=== PATIENT | male | born 1965 ===

== ENCOUNTER 2022-06-19 21:59 | Emergency (ER) | payer OTHER, SELFPAY ==
--- NOTE | ~2022-06-19 | CT_ITS ---
EXAMINATION: CT ANGIOGRAM OF THE CHEST WITH AND WITHOUT CONTRAST (CT PULMONARY ANGIOGRAM FOR PE) CLINICAL INFORMATION: Reason for Exam Elevated D-dimer , hx mediastinal mass COMPARISON: Chest radiograph yesterday TECHNIQUE: Prior to contrast administration, noncontrast localization images were obtained. Subsequently, multidetector volumetric imaging was performed from the thoracic inlet to below the diaphragms following the administration of 65 mL Omnipaque 350 intravenous contrast. No contrast reaction reported Sagittal, coronal, and MIP oblique sagittal reformatted images were obtained on the CT workstation, uploaded to PACS, and reviewed. This CT examination was performed using dose optimization techniques as appropriate, variously including the following: *Automated exposure control *Adjustment of mA and/or kV according to patient size (this includes techniques or standardized protocols for targeted exams where dose is matched to indication/reason for exam; i.e. extremities or head) *Use of iterative reconstruction technique Total exam dose-length product 218 mGy-cm FINDINGS: QUALITY OF STUDY/CONTRAST BOLUS: Satisfactory. PULMONARY ARTERIES: No central or segmental pulmonary emboli. THORACIC AORTA: No aneurysm or dissection. LUNG: There is a 4 mm perifissural nodule in the left lower lobe (8:199). There is a 3 mm lingular nodule (8:240). No focal consolidation, additional nodules or masses. PLEURA: No pleural effusion or pneumothorax. MEDIASTINUM: Small amount of fluid is present in the anterior mediastinum. Normal heart size. No pericardial effusion. No hilar or mediastinal lymphadenopathy. No evidence of septal bowing or right heart strain. CORONARY ARTERY CALCIFICATION: None visualized on this study. CHEST WALL/AXILLA: No axillary or internal mammary lymphadenopathy. OSSEOUS STRUCTURES: No acute or suspicious osseous abnormality. UPPER ABDOMEN: Liver low attenuation suggestive of hepatic steatosis. No reflux of contrast into the hepatic veins to suggest elevated right heart pressures. CT/CT angio chest PE protocol IMPRESSION: 1. No evidence of pulmonary emboli. 2. Incidental note made of hepatic steatosis and 2 small lung nodules. VTE: negative. 2017 Fleischner Society Recommendations for Lung Nodule(s): Follow-Up based on size (average of long- and short-axis diameters). Use most suspicious nodule for followup. Multiple Solid lung nodules < 6 mm: Follow up management based on most suspicious nodule. In a low-risk patient, no routine follow-up imaging is recommended. In a high-risk patient, a non-contrast Chest CT at 12 months is optional. If performed and the nodule is stable at 12 months, no further follow-up is recommended. These guidelines do not apply to patients younger than 35 years, immunocompromised patients, and patients with cancer. F/u in patients with significant comorbidities as clinically warranted. For lung cancer screening, adhere to Lung-RADS guidelines. Reference: Radiology. 2017 Caleb; 284(1):228-243
--- NOTE | ~2022-06-19 | XR_ITS ---
EXAMINATION: XR CHEST CLINICAL INFORMATION: Dyspnea COMPARISON: None TECHNIQUE: Frontal view of the chest was obtained. FINDINGS: No significant abnormality is noted involving the heart, lungs, mediastinum, bony thorax or soft tissues. XR/XR chest 1V IMPRESSION: Unremarkable examination.
[2022-06-19 22:24] VITALS: BP 111/93; PULSE 73; RESP 24; TEMP 36.8; O2SAT 94; BMI 27.3
--- NOTE | 2022-06-19 22:31 | ECG_ITS ---
Test Reason : SOB Blood Pressure : / mmHG Vent. Rate : 069 BPM Atrial Rate : 069 BPM P-R Int : 140 ms QRS Dur : 092 ms QT Int : 396 ms P-R-T Axes : 032 -19 020 degrees QTc Int : 424 ms Sinus rhythm with sinus arrhythmia with occasional Premature ventricular complexes Otherwise normal ECG No previous ECGs available Referred By: Generic ED Physician Electronically Signed By:QUINN ANTUNEZ
[2022-06-19] MEDS: Albuterol Sulfate (0.083%) 2.5 MG/3 ML VIAL.NEB 5 MG INHALE (23:04)
--- OUTSIDE RECORDS SUMMARY | 2022-06-19 23:08 | XMS_ITS | Continuity of Care Document ---
:1965 Author Organization [facility] Address [address] [place] [id number]- Care Team Providers Name Role Phone Marjorie KUManuel Primary Care Physician Encounter [facility] Date(s): 09/19/21 - 11/12/[address] [id number] Attending Physician: Doni Quick MD Admitting Physician: Doni Quick MD Referring Physician: Michaelle LARES, Sarai Allergies, Adverse Reactions, Alerts No Known Medication Allergies Immunizations Given and Recorded Vaccine Date Status Refusal Reason SARS-CoV-2 (COVID-19) mRNA BNT-162b2 vac 04/17/21 Given SARS-CoV-2 (COVID-19) mRNA BNT-162b2 vac 10/13/20 Recorde d SARS-CoV-2 (COVID-19) mRNA BNT-162b2 vac 09/15/20 Recorde d influenza virus vaccine, inactivated1 05/28/19 Given influenza virus vaccine, inactivated 05/21/18 Given influenza virus vaccine, inactivated 04/02/17 Recorded influenza virus vaccine, inactivated2 01/16/17 Given influenza virus vaccine, inactivated 05/13/16 Recorded influenza virus vaccine, inactivated 01/14/16 Recorded influenza virus vaccine, inactivated 05/18/15 Given influenza virus vaccine, inactivated 03/26/06 Given tetanus/diphtheria/pertussis, acel(Tdap) 06/09/18 Given pneumococcal 23-valent vaccine 07/19/14 Given Pneumococcal Vaccine (oldterm)3 01/23/06 Given Not Given Vaccine Date Status Refusal Reason influenza virus vaccine, inactivated 04/26/18 Not Given Patient Refuses 1Early/Late Reason: Other : Patient [id number] Comment: [01/16/2017] [facility] [id number] Comment: lot # [id number] Medications albuterol 0.083% inhalation solution 3 mL = 2.5 mg, Inhalation, Every 6 hours, PRN Wheezing/Shortness of Breath, # 1 each, 6 Refills, Maintenance, 04/03/21 9:01:00 EST, Solution, [facility]., 175, cm, 04/03/21 8:32:00 EST, Height, 82.4, kg, 07/21/20 11:02:00 EDT, Dry Weight Start Date: 04/03/21 Status: OrderedamLODIPine 10 mg oral tablet 10 mg, 1, tablet, By Mouth, Daily at bedtime, # 30 tablet, Refills 2, Tot. Refills 2, Maintenance, 10/19/21 21:06:00 EDT, Route to Pharmacy Electronically, [facility], Partial fill uponpatient request if the prescription is for a sche... Start Date: 10/19/21 Status: OrderedamLODIPine 10 mg oral tablet 10 mg, 1, tablet, By Mouth, Daily at bedtime, for 90 days, # 90 tablet, Refills 4, Tot. Refills 4, Hard Stop 12/24/21 9:34:00 EDT, 09/30/20 9:34:00 EDT, Route to Pharmacy Electronically, [facility] #[id number], Partial fill upon patient request i... Start Date: 09/30/20 Stop Date: 12/24/21 Status: Orderedaspirin 81 mg oral delayed release tablet 81 mg, 1, tablet, By Mouth, Daily, [facility], # 90 tablet, Refills 3, Tot. Refills 3, Maintenance, 08/09/21 5:53:00 EDT, Route to Pharmacy Electronically, [facility], 175, cm, 04/03/21 8:32:00 EST, Height, 82.4, kg, 07/21/20 11:02:... Start Date: 08/09/21 Status: Orderedatorvastatin 20 mg oral tablet 1 tablet = 20 mg, By Mouth, Daily at bedtime, [facility], # 90 tablet, 1 Refills, Maintenance, 04/03/21 9:05:00 EST, Tablet, [facility] 175, cm, 04/03/21 8:32:00 EST, Height, 82.4, kg, 07/21/20 11:02:00 EDT, Dry Weight Start Date: 04/03/21 Status: Ordereddivalproex sodium 500 mg oral enteric coated tablet 1 tablet = 500 mg, By Mouth, 2 times a day, [facility], # 60 tablet, 0 Refills, Maintenance, 10/11/21 13:36:00 EDT, Tablet, [facility]., 175, cm, 10/05/21 14:47:00 EDT, Height, 82.4, kg, 09/20/21 13:17:00 EDT, Dry Weight Start Date: 10/11/21 Status: Orderedduloxetine 60 mg oral enteric coated capsule 1 capsule = 60 mg, By Mouth, Daily, [facility], # 90 capsule, 2 Refills, Maintenance, 04/03/21 9:05:00 EST, Capsule, [facility], 175, cm, 04/03/21 8:32:00 EST, Height, 82.4, kg, 07/21/20 11:02:00 EDT, Dry Weight Start Date: 04/03/21 Status: OrderedFlonase 50 mcg/inh nasal spray 1 sprays, Nares, Both, 2 times a day, [place] Citizen label please., # 16 Gm, 1 Refills, Maintenance, 09/30/20 9:34:00 EDT, [facility] #[id number], Partial fill upon patient request if the prescription isfor a schedule II opioid drug., 1 sprays Nares, B... Start Date: 09/30/20 Status: Orderedfluticasone-salmeterol 500 mcg-50 mcg inhalation powder 1 puff, Inhalation, 2 times a day, # 1 each, Refills 3, Tot. Refills 3, Maintenance, 10/11/21 13:36:00 EDT, Powder, Route to Pharmacy Electronically, [id number], [facility], 175, cm, 10/05/21 14:47:00 EDT, Hei... Start Date: 10/11/21 Status: Orderedgabapentin 300 mg oral capsule 600 mg, 2, capsule, By Mouth, Daily at bedtime, [facility], # 60 capsule, Refills 3, Tot. Refills3, Maintenance, 10/11/21 13:32:00 EDT, Route to Pharmacy Electronically, [facility].,175, cm, 10/05/21 14:47:00 EDT, Height, 82.4, kg,... Start Date: 10/11/21 Status: OrderedHome Blood Pressure Monitor Home Blood Pressure Monitor, See Instructions, # 1 each, Refills 0, Tot. Refills 0, Maintenance, Home Blood Pressure Monitor Directions: Use as needed to monitor BP at home. Dx: HTN I10 Duration: Lifetime, 09/04/21 11:45:00 EDT, Supply Start Date: 09/04/21 Status: Orderedloratadine 10 mg oral tablet 10 mg, 1, tablet, By Mouth, Daily, [place] Citizen label please., # 30 tablet, Refills 0, Tot. Refills 0, Maintenance, 04/03/21 9:08:00 EST, Route to Pharmacy Electronically, [facility], Partial fill upon patient request if the prescription is... Start Date: 04/03/21 Stop Date: 05/03/21 Status: OrderedLumbar Support Belt Lumbar Support Belt, See Instructions, # 1 each, Refills 0, Tot. Refills 0, Maintenance, Lumbar Support Belt Directions: Use as directed for back pain. Dx: M54.16, M54.9 Duration: Lifetime, 09/19/21 12:28:00 EDT, Supply Start Date: 09/19/21 Status: Orderedmeloxicam 7.5 mg oral tablet 1 tablet = 7.5 mg, By Mouth, Daily, # 10 tablet, 0 Refills, Maintenance, 09/18/21 11:48:00 EDT, Tablet, [facility] #[id number], Partial fill upon patient request if the prescription is for a schedule II opioid drug., 175, cm, 09/18/21 10:48:00 ED... Start Date: 09/18/21 Stop Date: 09/28/21 Status: OrderedmetFORMIN 500 mg oral tablet, extended release 2 tablet = 1,000 mg, By Mouth, 2 times a day, # 120 tablet, 6 Refills, Maintenance, 10/05/21 14:16:00 EDT, [facility] #[id number], Partial fill upon patient request if the prescription is for a schedule II opioid drug., 175, cm, 09/23/21 4:10:00... Start Date: 10/05/21 Status: Orderedmontelukast 10 mg oral tablet 10 mg, 1, tablet, By Mouth, Daily, [facility], # 30 tablet, Refills 11, Tot. Refills 11, Maintenance, 10/03/21 16:07:00 EDT, Route to Pharmacy Electronically, [facility] #[id number], 175, cm, 09/23/21 4:10:00 EDT, Height, 82.4, kg, 09/20/21 13... Start Date: 10/03/21 Status: OrderedNebulizer/ Compressor with Tubing and Mask Nebulizer/ Compressor with Tubing and Mask, See Instructions, # 1 each, Refills 0, Tot. Refills 0, Maintenance, Nebulizer/ Compressor with Tubing and Mask Directions: Use as needed for wheezing Dx: asthma J45 Duration: Lifetime, 09/04/21 11:43:00 E... Start Date: 09/04/21 Status: OrderedPlavix 75 mg oral tablet 75 mg, 1, tablet, By Mouth, Daily, [facility], # 30 tablet, Refills 3, Tot. Refills 3, Maintenance, 08/09/21 5:53:00 EDT, Route to Pharmacy Electronically, [facility], 175, cm, 04/03/21 8:32:00 EST, Height, 82.4, kg, 07/21/20 11:02:... Start Date: 08/09/21 Status: OrderedProAir HFA 90 mcg/inh inhalation aerosol with adapter 1, puffs, Inhalation, Every 4 hours, PRN, # 1 each, Refills 5, Tot. Refills 5, Maintenance, 219:01:00 EST, Aerosol, Route to Pharmacy Electronically, [id number], [facility], 175, cm, 04/03/21 8:32:00 ES... Start Date: 04/03/21 Stop Date: 09/30/21 Status: Ordered Problem List Condition Effective Dates Status Health Status Informant Asthma(Confirmed) Active Chronic Basilar artery Active occlusion(Confirmed) Aborted CVA- Was given tPA(Confirmed) Active Chronic pain syndrome(Confirmed) Active Constipation(Confirmed) Active Depression(Confirmed) Active Dysuria(Confirmed) Active GERD (gastroesophageal reflux Active disease)(Confirmed) CVA, old, hemiparesis(Confirmed) Active Hyperlipidemia(Confirmed) Active Hypertension(Confirmed) Active Elevated MCV(Confirmed) Active Nausea & vomiting(Confirmed) Active Lung nodule - RIGHT UPPER. CTA - done Active at [facility]. 07/2021 - scanned in [facility](Confirmed) *Julissa Fraga, [facility] Care Active Coordinator [phone](Confirmed) Lumbar radicular pain(Confirmed) Active Right hemiplegia(Confirmed) Active Encounter for screening Active colonoscopy(Confirmed) Tobacco dependence(Confirmed) Active DMII (diabetes mellitus, type Active 2)(Confirmed) Vertigo(Confirmed) Active Social History Social History Type Response Smoking Status 5-9 cigarettes (between 1/4 to 1/2 pack)/day in last 30 days entered on: 01/01/20 Sex
--- OUTSIDE RECORDS SUMMARY | 2022-06-19 23:08 | XMS_ITS | Continuity of Care Document ---
:1965 Author Organization [facility] Address [address] [place] [address]- Care Team Providers Name Role Phone Greyson LARES, Mauricio Primary Care Physician Encounter [facility] Date(s): 04/17/19 - 04/27/19 [facility] [address] [place] [address]- [facility] Attending Physician: Jacky Wren Admitting Physician: Jacky Wren Referring Physician: AdmtrJacky Allergies, Adverse Reactions, Alerts No Known Medication Allergies Immunizations Given and Recorded Vaccine Date Status Refusal Reason tetanus/diphtheria/pertussis, acel(Tdap) 06/09/18 Given influenza virus vaccine, inactivated 05/21/18 Given influenza virus vaccine, inactivated1 01/16/17 Given influenza virus vaccine, inactivated 05/18/15 Given influenza virus vaccine, inactivated 03/26/06 Given pneumococcal 23-valent vaccine 07/19/14 Given Pneumococcal Vaccine (oldterm)2 01/23/06 Given Not Given Vaccine Date Status Refusal Reason influenza virus vaccine, inactivated 04/26/18 Not Given Patient Refuses 1Result Comment: [01/16/2017] [facility] [id number] Comment: lot # [id number] Medications AirDuo RespiClick 232 mcg-14 mcg/inh inhalation powder 1, puffs, Inhalation, 2 times a day, # 1 each, Refills 11, Tot. Refills 11, Maintenance, 11/19/18 15:20:42 EDT, Powder, Route to Pharmacy Electronically, [id number], [facility], advair not covered Start Date: 11/19/18 Status: Orderedalbuterol 0.083% inhalation solution 3 mL = 2.5 mg, Inhalation, Every 6 hours, PRN Wheezing/Shortness of Breath, # 1 each, 6 Refills, Maintenance, 06/11/18 16:21:46 EST, Solution Start Date: 06/11/18 Status: Orderedaspirin 81 mg oral delayed release tablet 81 mg, 1, tablet, By Mouth, Daily, # 90 tablet, Refills 4, Tot. Refills 4, Maintenance, 11/19/18 14:00:09 EDT, Route to Pharmacy Electronically, [id number], [facility] Start Date: 11/19/18 Stop Date: 02/12/20 Status: OrderedCymbalta 60 mg oral enteric coated capsule 1 capsule = 60 mg, By Mouth, Daily, # 30 capsule, 6 Refills, Maintenance, 11/19/18 14:00:31 EDT, EC Capsule Start Date: 11/19/18 Status: Ordereddivalproex sodium 500 mg oral enteric coated tablet = 500 mg, By Mouth, 2 times a day, # 60 tablet, 5 Refills, Maintenance, 11/19/18 14:00:23 EDT, Tablet Start Date: 11/19/18 Stop Date: 05/18/19 Status: OrderedDulcolax 5 mg oral enteric coated tablet 2 tablet = 10 mg, By Mouth, Daily, the night before the colonoscopy, # 4 tablet, 0 Refills, Maintenance, 03/19/19 18:13:02 EST Start Date: 03/19/19 Status: OrderedFreestyle Lite Lancets See Instructions, # 50 each, Refills 5, Tot. Refills 5, Maintenance, Use to chek blood sugar daily for Type II Diabetes Mellitus. E11.9, 10/16/18 15:14:32 EDT, Compound Start Date: 10/16/18 Stop Date: 04/14/19 Status: OrderedFreestyle Lite Test Strips See Instructions, # 50 each, Refills 5, Tot. Refills 5, Maintenance, Use to check blood sugar daily for Type II Diabetes Mellitus. E11.9, 10/16/18 15:14:19 EDT, Compound Start Date: 10/16/18 Stop Date: 04/14/19 Status: Orderedgabapentin 600 mg oral tablet 1 tablet = 600 mg, By Mouth, Daily at bedtime, dose changed, # 30 tablet, 5 Refills, Maintenance, 11/19/18 14:02:06 EDT Start Date: 11/19/18 Status: OrderedLidoderm 5% film 1 patch, Topically, Daily, remove patches after 12 hours, Citizen [place] label, # 30 patch, 1 Refills, Maintenance, 06/11/18 16:21:53 EST, 1 patch Topically Daily,Instr:remove patches after 12 hours, Citizen [place] label Start Date: 06/11/18 Status: OrderedmetFORMIN 500 mg oral tablet 1 tablet = 500 mg, By Mouth, 2 times a day, with meals, Citizen [place] label, # 180 tablet, 1 Refills, Maintenance, 11/19/18 13:59:10 EDT, Tablet Start Date: 11/19/18 Stop Date: 05/18/19 Status: Orderedmontelukast 10 mg oral tablet 10 mg, By Mouth, Daily, # 30 tablet, Refills 9, Tot. Refills 9, Maintenance, 11/19/18 14:00:53 EDT, Route to Pharmacy Electronically, [id number], [facility] Start Date: 11/19/18 Status: OrderedNicotine 2 mg gum 1 each = 2 mg, Chew, Every 2 hours, PRN for smoking cessation, # 120 each, 1 Refills, Maintenance, 07/03/18 15:11:24 EST, Gum Start Date: 07/03/18 Status: OrderedNuLYTELY with Flavor Packs oral powder for reconstitution See Instructions, 240 mL By Mouth Every 15 minutes, # 4,000 mL, 0 Refills, Maintenance, 07/29/18 13:55:38 EDT, 240 mL By Mouth Every 15 minutes Start Date: 07/29/18 Status: OrderedNuLYTELY with Flavor Packs oral powder for reconstitution 240 mL, By Mouth, Every 15 minutes, # 4,000 mL, 0 Refills, Maintenance, 03/19/19 18:13:08 EST, 240 mL By Mouth Every 15 minutes Start Date: 03/19/19 Status: OrderedPlavix 75 mg oral tablet 75 mg, By Mouth, Daily, Citizen [place] label, # 90 each, Refills 1, Tot. Refills 1, Maintenance, 11/19/18 14:01:50 EDT, Route to Pharmacy Electronically, [id number], [facility]. Start Date: 11/19/18 Stop Date: 05/18/19 Status: OrderedProAir HFA 90 mcg/inh inhalation aerosol with adapter 1, puffs, Inhalation, Every 4 hours, PRN, # 8.5 Gm, Refills 5, Tot. Refills 5, Maintenance, 12/16/1909:55:13 EDT, Aerosol, Route to Pharmacy Electronically, [id number], [facility] Start Date: 12/16/18 Status: OrderedShingrix intramuscular injection 0.5 mL, Intramuscular, Once, Citizen [place], # 0.5 mL, 0 Refills, Soft Stop, 11/19/18 14:10:40 EDT, 0.5 mL Intramuscular Once,Instr:Citizen Of [place] Start Date: 11/19/18 Status: OrderedVitamin B12 By Mouth, Daily, 0 Refills, Maintenance, 05/20/18 9:54:17 EST Start Date: 05/20/18 Status: Ordered Problem List Condition Effective Dates Status Health Status Informant Chronic Basilar artery Active occlusion(Confirmed) Aborted CVA- Was given tPA(Confirmed) Active Constipation(Confirmed) Active Depression(Confirmed) Active Dysuria(Confirmed) Active Asthma exacerbation(Confirmed) Active Heartburn(Confirmed) Active Elevated MCV(Confirmed) Active Nausea & vomiting(Confirmed) Active Lumbar radicular pain(Confirmed) Active Right hemiplegia(Confirmed) Active Encounter for screening Active colonoscopy(Confirmed) Tobacco dependence(Confirmed) Active DMII (diabetes mellitus, type Active 2)(Confirmed) Vertigo(Confirmed) Active Social History Social History Type Response Smoking Status Former smoker, quit more krissy n 30 days ago entered on: 06/18/18 Sex
--- OUTSIDE RECORDS SUMMARY | 2022-06-19 23:08 | XMS_ITS | Continuity of Care Document ---
:1965 Author Organization [facility] Address [address] [place] [address]- Care Team Providers Name Role Phone Mauricio Rubi MD Primary Care Physician Encounter [facility] Date(s): 06/15/19 - 07/17/19 [facility] [address] [place] [address]- [facility] Attending Physician: Tomi Saavedra MD Admitting Physician: Tomi Saavedra MD Allergies, Adverse Reactions, Alerts No Known Medication Allergies Immunizations Given and Recorded Vaccine Date Status Refusal Reason influenza virus vaccine, inactivated1 05/28/19 Given influenza virus vaccine, inactivated 05/21/18 Given influenza virus vaccine, inactivated2 01/16/17 Given influenza virus vaccine, inactivated 05/18/15 Given influenza virus vaccine, inactivated 03/26/06 Given tetanus/diphtheria/pertussis, acel(Tdap) 06/09/18 Given pneumococcal 23-valent vaccine 07/19/14 Given Pneumococcal Vaccine (oldterm)3 01/23/06 Given Not Given Vaccine Date Status Refusal Reason influenza virus vaccine, inactivated 04/26/18 Not Given Patient Refuses 1Early/Late Reason: Other : Patient [id number] Comment: [01/16/2017] [facility] [id number] Comment: lot # [id number] Medications AirDuo RespiClick 232 mcg-14 mcg/inh inhalation powder 1, puffs, Inhalation, 2 times a day, # 1 each, Refills 11, Tot. Refills 11, Maintenance, 07/07/19 19:06:00 EDT, Powder, Route to Pharmacy Electronically, [id number], [facility], advair not covered , 175,... Start Date: 07/07/19 Status: Orderedalbuterol 0.083% inhalation solution 3 mL = 2.5 mg, Inhalation, Every 6 hours, PRN Wheezing/Shortness of Breath, # 1 each, 6 Refills, Maintenance, 07/07/19 19:06:00 EDT, Solution, [facility], 175, cm, 05/30/19 19:11:00 EST, Height, 84.5, kg, 12/25/18 16:15:00 EDT, Dry Weight Start Date: 07/07/19 Status: Orderedaspirin 81 mg oral delayed release tablet 81 mg, 1, tablet, By Mouth, Daily, # 90 tablet, Refills 4, Tot. Refills 4, Maintenance, 07/07/19 19:06:00 EDT, Route to Pharmacy Electronically, [facility], 175, cm, 05/30/19 19:11:00 EST, Height, 84.5, kg, 12/25/18 16:15:00 EDT, Dry W... Start Date: 07/07/19 Stop Date: 09/29/20 Status: Orderedatorvastatin 20 mg oral tablet 1 tablet = 20 mg, By Mouth, Daily at bedtime, # 30 tablet, 0 Refills, Maintenance, 07/07/19 19:06:00EDT, Tablet, [facility], 175, cm, 05/30/19 19:11:00 EST, Height, 84.5, kg, 12/25/18 16:15:00 EDT, Dry Weight Start Date: 07/07/19 Status: OrderedCymbalta 60 mg oral enteric coated capsule 1 capsule = 60 mg, By Mouth, Daily, # 30 capsule, 6 Refills, Maintenance, 07/07/19 19:06:00 EDT, EC Capsule, [facility], 175, cm, 05/30/19 19:11:00 EST, Height, 84.5, kg, 12/25/18 16:15:00 EDT, Dry Weight Start Date: 07/07/19 Status: Ordereddivalproex sodium 500 mg oral enteric coated tablet = 500 mg, By Mouth, 2 times a day, # 60 tablet, 5 Refills, Maintenance, 07/07/19 19:06:00 EDT, Tablet, [facility] 175, cm, 05/30/19 19:11:00 EST, Height, 84.5, kg, 12/25/18 16:15:00 EDT, Dry Weight Start Date: 07/07/19 Stop Date: 01/03/20 Status: OrderedFreestyle Lite Lancets See Instructions, # 50 each, Refills 5, Tot. Refills 5, Maintenance, Use to chek blood sugar daily for Type II Diabetes Mellitus. E11.9, 07/07/19 19:06:00 EDT, Compound, 175, cm, 05/30/19 19:11:00 EST,Height, 84.5, kg, 12/25/18 16:15:00 EDT, Dry Weight Start Date: 07/07/19 Stop Date: 01/03/20 Status: OrderedFreestyle Lite Test Strips See Instructions, # 50 each, Refills 5, Tot. Refills 5, Maintenance, Use to check blood sugar daily for Type II Diabetes Mellitus. E11.9, 07/07/19 19:06:00 EDT, Compound, 175, cm, 05/30/19 19:11:00 EST, Height, 84.5, kg, 12/25/18 16:15:00 EDT, Dry We... Start Date: 07/07/19 Stop Date: 01/03/20 Status: Orderedgabapentin 600 mg oral tablet 1 tablet = 600 mg, By Mouth, Daily at bedtime, dose changed, # 30 tablet, 5 Refills, Maintenance, 07/07/19 19:06:00 EDT, [facility]., 175, cm, 05/30/19 19:11:00 EST, Height, 84.5, kg, 12/25/18 16:15:00 EDT, Dry Weight Start Date: 07/07/19 Status: Orderedhydrochlorothiazide 25 mg oral tablet 12.5 mg, 0.5, tablet, By Mouth, Daily, # 15 tablet, Refills 0, Tot. Refills 0, Maintenance, 07/06/2018:06:00 EDT, Route to Pharmacy Electronically, [facility], 175, cm, 05/30/19 19:11:00 EST, Height, 84.5, kg, 12/25/18 16:15:00 EDT, D... Start Date: 07/07/19 Status: Orderedlidocaine 5% topical film See Instructions, 1 patch to affected area Topically Daily, remove at HS, # 30 patch, 0 Refills, Maintenance, 07/07/19 19:06:00 EDT, Patch, [facility], 1 patch to affected area Topically Daily, remove at HS, 175, cm, 05/30/19 19:11:00... Start Date: 07/07/19 Status: OrderedmetFORMIN 500 mg oral tablet 1 tablet = 500 mg, By Mouth, 2 times a day, with meals, [place] label, # 180 tablet, 1 Refills, Maintenance, 07/07/19 19:06:00 EDT, Tablet, [facility], 175, cm, 05/30/19 19:11:00 EST, Height, 84.5, kg, 12/25/18 16:15:00 EDT, Dry Weight Start Date: 07/07/19 Stop Date: 01/03/20 Status: Orderedmontelukast 10 mg oral tablet 10 mg, By Mouth, Daily, # 30 tablet, Refills 9, Tot. Refills 9, Maintenance, 07/07/19 19:06:00 EDT, Route to Pharmacy Electronically, [facility], 175, cm, 05/30/19 19:11:00 EST, Height,84.5, kg, 12/25/18 16:15:00 EDT, Dry Weight Start Date: 07/07/19 Status: OrderedNuLYTELY with Flavor Packs oral powder for reconstitution 240 mL, By Mouth, Every 15 minutes, # 4,000 mL, 0 Refills, Maintenance, 07/07/19 19:06:00 EDT, [facility], 240 mL By Mouth Every 15 minutes, 175, cm, 05/30/19 19:11:00 EST, Height, 84.5, kg, 12/25/18 16:15:00 EDT, Dry Weight Start Date: 07/07/19 Status: OrderedPlavix 75 mg oral tablet 75 mg, By Mouth, Daily, [place] label, # 90 each, Refills 1, Tot. Refills 1, Maintenance, 07/07/19 19:06:00 EDT, Route to Pharmacy Electronically, [facility], 175, cm, 05/30/19 19:11:00EST, Height, 84.5, kg, 12/25/18 16:15:00 EDT, Dry... Start Date: 07/07/19 Stop Date: 01/03/20 Status: OrderedProAir HFA 90 mcg/inh inhalation aerosol with adapter 1, puffs, Inhalation, Every 4 hours, PRN, # 8.5 Gm, Refills 0, Tot. Refills 0, Maintenance, 07/06/2018:06:00 EDT, Aerosol, Route to Pharmacy Electronically, [id number], [facility], 175, cm, 05/30/19 19:11:00... Start Date: 07/07/19 Status: Ordered Problem List Condition Effective Dates Status Health Status Informant Chronic Basilar artery Active occlusion(Confirmed) Aborted CVA- Was given tPA(Confirmed) Active Chronic pain syndrome(Confirmed) Active Constipation(Confirmed) Active Depression(Confirmed) Active Dysuria(Confirmed) Active Heartburn(Confirmed) Active CVA, old, hemiparesis(Confirmed) Active Elevated MCV(Confirmed) Active Nausea & vomiting(Confirmed) Active Lumbar radicular pain(Confirmed) Active Right hemiplegia(Confirmed) Active Encounter for screening Active colonoscopy(Confirmed) Tobacco dependence(Confirmed) Active DMII (diabetes mellitus, type Active 2)(Confirmed) Vertigo(Confirmed) Active Social History Social History Type Response Smoking Status Former smoker, quit more krissy n 30 days ago entered on: 06/18/18 Sex
--- OUTSIDE RECORDS SUMMARY | 2022-06-19 23:08 | XMS_ITS | Continuity of Care Document ---
:1965 Author Organization [facility] Address [address] [place] [address]- Care Team Providers Name Role Phone Mauricio Rubi MD Primary Care Physician Encounter [facility] Date(s): 06/26/21 - 08/30/21 [facility] [address] [place] [id number] Attending Physician: Tomi Saavedra MD Admitting Physician: Tomi Saavedra MD Allergies, Adverse Reactions, Alerts No Known Medication Allergies Immunizations Given and Recorded Vaccine Date Status Refusal Reason SARS-CoV-2 (COVID-19) mRNA BNT-162b2 vac 04/17/21 Given influenza virus vaccine, inactivated1 05/28/19 Given influenza [...] Patient Refuses 1Early/Late Reason: Other : Patient [id number] Comment: [01/16/2017] [facility] [id number] Comment: lot # [id number] Medications albuterol 0.083% inhalation solution 3 mL = 2.5 mg, Inhalation, Every 6 hours, PRN Wheezing/Shortness of Breath, # 1 each, 6 Refills, Maintenance, 04/03/21 9:01:00 EST, [facility] 175, cm, 04/03/21 8:32:00 EST, Height, 82.4, kg, 07/21/20 11:02:00 EDT, Dry Weight Start Date: 04/03/21 Status: OrderedamLODIPine 10 mg oral tablet 10 mg, 1, tablet, By Mouth, Daily at bedtime, # 90 tablet, Refills 4, Tot. Refills 4, Maintenance, 09/30/20 9:34:00 EDT, Route to Pharmacy Electronically, [facility][id number], Partial fill uponpatient request if the prescription is for a sche... Start Date: 09/30/20 Stop Date: 12/24/21 Status: Orderedaspirin 81 mg oral delayed release tablet 81 mg, 1, tablet, By Mouth, Daily, ICELANDIC LABEL, # 90 tablet, Refills 3, Tot. Refills 3, Maintenance, 08/09/21 5:53:00 EDT, Route to Pharmacy Electronically, [facility], 175, cm, 04/03/21 8:32:00 EST, Height, 82.4, kg, 07/21/20 11:02:... Start Date: 08/09/21 Status: Orderedatorvastatin 20 mg oral tablet 1 tablet = 20 mg, By Mouth, Daily at bedtime, ICELANDIC LABEL, # 90 tablet, 1 Refills, Maintenance, 04/03/21 9:05:00 EST, Tablet, [facility], 175, cm, 04/03/21 8:32:00 EST, Height, 82.4, kg, 07/21/20 11:02:00 EDT, Dry Weight Start Date: 04/03/21 Status: Ordereddivalproex sodium 500 mg oral enteric coated tablet 1 tablet = 500 mg, By Mouth, 2 times a day, ICELANDIC LABEL, # 60 tablet, 2 Refills, Maintenance, 09/30/20 9:34:00 EDT, Tablet, [facility] #[id number], 175, cm, 07/22/20 7:07:00 EDT, Height, 82.4, kg, 07/21/20 11:02:00 EDT, Dry Weight Start Date: 09/30/20 Status: Orderedduloxetine 60 mg oral enteric coated capsule 1 capsule = 60 mg, By Mouth, Daily, ICELANDIC LABEL, # 90 capsule, 2 Refills, Maintenance, 04/03/21 9:05:00 EST, Capsule, [facility], 175, cm, 04/03/21 8:32:00 EST, Height, 82.4, kg, 07/21/20 11:02:00 EDT, Dry Weight Start Date: 04/03/21 Status: OrderedFlonase 50 mcg/inh nasal spray 1 sprays, Nares, Both, 2 times a day, Turkmen label please., # 16 Gm, 1 Refills, Maintenance, 09/30/20 9:34:00 EDT, [facility] #[id number], Partial fill upon patient request if the prescription isfor a schedule II opioid drug., 1 sprays Nares, B... Start Date: 09/30/20 Status: Orderedfluticasone-salmeterol 500 mcg-50 mcg inhalation powder 1 puff, Inhalation, 2 times a day, # 1 each, Refills 3, Tot. Refills 3, Maintenance, 04/03/21 14:34:00 EST, Powder, Route to Pharmacy Electronically, [id number], [facility], 175, cm, 04/03/21 8:32:00 EST, [facility]... Start Date: 04/03/21 Status: Orderedgabapentin 300 mg oral capsule 600 mg, 2, capsule, By Mouth, Daily at bedtime, ICELANDIC LABEL, # 60 capsule, Refills 3, Tot. Refills3, Maintenance, 04/03/21 9:08:00 EST, Route to Pharmacy Electronically, [facility], 175, cm, 04/03/21 8:32:00 EST, Height, 82.4, kg, 0... Start Date: 04/03/21 Status: Orderedlidocaine 5% topical film See Instructions, 1 patch to affected area Topically Daily, remove at HS, # 30 patch, 2 Refills, Maintenance, 04/03/21 9:01:00 EST, Patch, [facility] 1 patch to affected area TopicallyDaily, remove at HS, 175, cm, 04/03/21 8:32:00 ES... Start Date: 04/03/21 Status: Orderedloratadine 10 mg oral tablet 10 mg, 1, tablet, By Mouth, Daily, Turkmen label please., # 30 tablet, Refills 0, Tot. Refills 0, Maintenance, 04/03/21 9:08:00 EST, Route to Pharmacy Electronically, [facility], Partial fill upon patient request if the prescription is... Start Date: 04/03/21 Stop Date: 05/03/21 Status: OrderedmetFORMIN 500 mg oral tablet 1 tablet = 500 mg, By Mouth, 2 times a day, # 60 tablet, 0 Refills, Maintenance, 08/08/21 18:14:00 EDT, [facility], [facility]/pharmacy #[id number], Partial fill upon patient request if the prescription is for a schedule II opioid drug., 175, cm, 04/03/21 8:32:00 EST,... Start Date: 08/08/21 Stop Date: 09/07/21 Status: Orderedmontelukast 10 mg oral tablet 10 mg, 1, tablet, By Mouth, Daily, ICELANDIC LABEL, # 30 tablet, Refills 11, Tot. Refills 11, Maintenance, 04/03/21 9:08:00 EST, Route to Pharmacy Electronically, [facility], 175, cm, 04/03/21 8:32:00 EST, Height, 82.4, kg, 07/21/20 11:0... Start Date: 04/03/21 Status: OrderedPlavix 75 mg oral tablet 75 mg, 1, tablet, By Mouth, Daily, ICELANDIC LABEL, # 30 tablet, Refills 3, Tot. Refills 3, Maintenance, 08/09/21 5:53:00 EDT, Route to Pharmacy Electronically, [facility] 175, cm, 04/03/21 8:32:00 EST, Height, 82.4, kg, 07/21/20 11:02:... Start Date: 08/09/21 Status: OrderedpredniSONE 10 mg oral tablet See Instructions, 40 mg for 2 days, 20 mg for 2 days 10 mg for 2 days., # 14 tablet, 0 Refills, Maintenance, 07/22/20 10:06:00 EDT, [id number], Partial fill upon patient request if theprescription is for a schedule II opioid drug., 1... Start Date: 07/22/20 Status: OrderedProAir HFA 90 mcg/inh inhalation aerosol with adapter 1, puffs, Inhalation, Every 4 hours, PRN, # 1 each, Refills 5, Tot. Refills 5, Maintenance, 219:01:00 EST, Aerosol, Route to Pharmacy Electronically, [id number], [facility]., 175, cm, 04/03/21 8:32:00 ES... Start Date: 04/03/21 Stop Date: 09/30/21 Status: OrderedSEROquel XR 300 mg oral tablet, extended release 1 tablet = 300 mg, By Mouth, Daily at bedtime, ICELANDIC LABEL, # 30 tablet, 3 Refills, Maintenance, 04/03/21 9:09:00 EST, ER Tablet, [facility], 1 tablet By Mouth Daily at bedtime,Instr:ICELANDIC LABEL, 175, cm, 04/03/21 8:32:00 EST, [facility]... Start Date: 04/03/21 Status: Ordered Problem List Condition Effective Dates Status Health Status Informant Chronic Basilar artery Active occlusion(Confirmed) Aborted CVA- Was given tPA(Confirmed) Active Chronic pain syndrome(Confirmed) Active Constipation(Confirmed) Active Depression(Confirmed) Active Dysuria(Confirmed) Active GERD (gastroesophageal reflux Active disease)(Confirmed) CVA, old, hemiparesis(Confirmed) Active Hyperlipidemia(Confirmed) Active Hypertension(Confirmed) Active Elevated MCV(Confirmed) Active Nausea & vomiting(Confirmed) Active *Julissa Fraga, [facility] Care Active Coordinator [phone](Confirmed) Lumbar radicular pain(Confirmed) Active Right hemiplegia(Confirmed) Active Encounter for screening Active colonoscopy(Confirmed) Tobacco dependence(Confirmed) Active DMII (diabetes mellitus, type Active 2)(Confirmed) Vertigo(Confirmed) Active Social History Social History Type Response Smoking Status 5-9 cigarettes (between 1/4 to 1/2 pack)/day in last 30 days entered on: 01/01/20 Sex
--- OUTSIDE RECORDS SUMMARY | 2022-06-19 23:08 | XMS_ITS | Continuity of Care Document ---
:1965 Author Organization [facility] Address [address] [place] [address]- Care Team Providers Name Role Phone Geryson LARES, Mauricio Primary Care Physician Encounter [facility] Date(s): 07/14/20 - 08/13/20 [facility] [address] [place] [id number] Attending Physician: Jacky Wren Admitting Physician: AdmJacky lambert Referring Physician: AdmtrJacky Allergies, Adverse Reactions, Alerts [...] Patient Refuses 1Early/Late Reason: Other : Patient [id number] Comment: [01/16/2017] [facility] [id number] Comment: lot # [id number] Medications Advair Diskus 250 mcg-50 mcg inhalation powder 1, puffs, Inhalation, 2 times a day, # 180 each, Refills 1, Tot. Refills 1, Maintenance, 07/22/20 10:04:00 EDT, Powder, Route to Pharmacy Electronically, [id number], [facility] #[id number], 175, cm, 07/22/20 7:07:00 EDT,... Start Date: 07/22/20 Status: Orderedalbuterol 0.083% inhalation solution 3 mL = 2.5 mg, Inhalation, Every 6 hours, PRN Wheezing/Shortness of Breath, # 1 each, 6 Refills, Maintenance, 05/30/20 13:29:00 EST, Solution, [facility], 176, cm, 01/18/20 13:37:00 EDT, Height, 84, kg, 03/15/20 6:52:00 EST, Dry Weight Start Date: 05/30/20 Status: OrderedamLODIPine 10 mg oral tablet 10 mg, 1, tablet, By Mouth, Daily at bedtime, # 90 tablet, Refills 4, Tot. Refills 4, Maintenance, 07/14/20 11:22:00 EDT, Route to Pharmacy Electronically, [facility] #[id number], Partial fill upon patient request if the prescription is for a xena... Start Date: 07/14/20 Stop Date: 10/07/21 Status: Orderedaspirin 81 mg oral delayed release tablet 81 mg, 1, tablet, By Mouth, Daily, WALLISIAN LABEL, # 30 tablet, Refills 1, Tot. Refills 1, Maintenance, 05/30/20 13:29:00 EST, Route to Pharmacy Electronically, [facility], 176, cm, 01/18/20 13:37:00 EDT, Height, 84, kg, 03/15/20 6:52:0... Start Date: 05/30/20 Status: Orderedatorvastatin 20 mg oral tablet 1 tablet = 20 mg, By Mouth, Daily at bedtime, WALLISIAN LABEL, # 30 tablet, 1 Refills, Maintenance, 05/30/20 13:29:00 EST, Tablet, [facility], 176, cm, 01/18/20 13:37:00 EDT, Height, 84, kg, 03/15/20 6:52:00 EST, Dry Weight Start Date: 05/30/20 Status: Ordereddivalproex sodium 500 mg oral enteric coated tablet 1 tablet = 500 mg, By Mouth, 2 times a day, WALLISIAN LABEL, # 60 tablet, 2 Refills, Maintenance, 05/30/20 13:29:00 EST, Tablet, [facility], 176, cm, 01/18/20 13:37:00 EDT, Height, 84, kg, 03/15/20 6:52:00 EST, Dry Weight Start Date: 05/30/20 Status: Orderedduloxetine 60 mg oral enteric coated capsule 1 capsule = 60 mg, By Mouth, Daily, WALLISIAN LABEL, # 30 capsule, 1 Refills, Maintenance, 05/30/20 13:29:00 EST, Capsule, [facility], 176, cm, 01/18/20 13:37:00 EDT, Height, 84, kg, 03/15/20 6:52:00 EST, Dry Weight Start Date: 05/30/20 Status: OrderedFlonase 50 mcg/inh nasal spray 1 sprays, Nares, Both, 2 times a day, Surinamese label please., # 16 Gm, 1 Refills, Maintenance, 07/01/20 14:30:00 EST, [facility] #[id number], Partial fill upon patient request if the prescription is for a schedule II opioid drug., 1 sprays Nares,... Start Date: 07/01/20 Status: Orderedgabapentin 300 mg oral capsule 600 mg, 2, capsule, By Mouth, Daily at bedtime, WALLISIAN LABEL, # 60 capsule, Refills 3, Tot. Refills3, Maintenance, 05/30/20 13:29:00 EST, Route to Pharmacy Electronically, [facility],176, cm, 01/18/20 13:37:00 EDT, Height, 84, kg, 1... Start Date: 05/30/20 Status: Orderedlidocaine 5% topical film See Instructions, 1 patch to affected area Topically Daily, remove at HS, # 30 patch, 1 Refills, Maintenance, 08/13/19 13:28:00 EDT, Patch, [facility], 1 patch to affected area Topically Daily, remove at HS, 175, cm, 05/30/19 19:11:00... Start Date: 08/13/19 Status: Orderedloratadine 10 mg oral tablet 10 mg, 1, tablet, By Mouth, Daily, Surinamese label please., # 30 tablet, Refills 0, Tot. Refills 0, Maintenance, 07/01/20 14:30:00 EST, Route to Pharmacy Electronically, [facility] #[id number], Partial fill upon patient request if the prescription... Start Date: 07/01/20 Stop Date: 07/31/20 Status: Orderedmontelukast 10 mg oral tablet 10 mg, 1, tablet, By Mouth, Daily, WALLISIAN LABEL, # 30 tablet, Refills 11, Tot. Refills 11, Maintenance, 07/14/20 11:23:00 EDT, Route to Pharmacy Electronically, [facility] #[id number], 175, cm, 07/14/20 10:19:00 EDT, Height, 86, kg, 07/05/20 1:5... Start Date: 07/14/20 Status: OrderedPlavix 75 mg oral tablet 75 mg, 1, tablet, By Mouth, Daily, WALLISIAN LABEL, # 30 tablet, Refills 3, Tot. Refills 3, Maintenance, 01/18/20 14:12:00 EDT, Route to Pharmacy Electronically, [facility], 176, cm, 01/18/20 13:37:00 EDT, Height, 84, kg, 01/01/20 22:36:... Start Date: 01/18/20 Status: OrderedpredniSONE 10 mg oral tablet See Instructions, 40 mg for 2 days, 20 mg for 2 days 10 mg for 2 days., # 14 tablet, 0 Refills, Maintenance, 07/22/20 10:06:00 EDT, [facility] #[id number], Partial fill upon patient request if theprescription is for a schedule II opioid drug., 1... Start Date: 07/22/20 Status: OrderedProAir HFA 90 mcg/inh inhalation aerosol with adapter 1, puffs, Inhalation, Every 4 hours, PRN, # 1 each, Refills 5, Tot. Refills 5, Maintenance, 07/22/2109:04:00 EDT, Aerosol, Route to Pharmacy Electronically, [id number], [facility] #[id number], 175, cm, 07/22/20 7:07:00... Start Date: 07/22/20 Stop Date: 01/18/21 Status: OrderedSEROquel XR 300 mg oral tablet, extended release 1 tablet = 300 mg, By Mouth, Daily at bedtime, WALLISIAN LABEL, # 30 tablet, 1 Refills, Maintenance, 05/30/20 13:29:00 EST, ER Tablet, [facility], 1 tablet By Mouth Daily at bedtime,Instr:WALLISIAN LABEL, 176, cm, 01/18/20 13:37:00 EDT, .. Start Date: 05/30/20 Status: Ordered Problem List Condition Effective Dates Status Health Status Informant Chronic Basilar artery Active occlusion(Confirmed) Aborted CVA- Was given tPA(Confirmed) Active Chronic pain syndrome(Confirmed) Active Constipation(Confirmed) Active Depression(Confirmed) Active Dysuria(Confirmed) Active GERD (gastroesophageal reflux Active disease)(Confirmed) CVA, old, hemiparesis(Confirmed) Active Hyperlipidemia(Confirmed) Active Hypertension(Confirmed) Active Elevated MCV(Confirmed) Active Nausea & vomiting(Confirmed) Active *Julissa Fraga, [facility] Care Active Coordinator [phone](Confirmed) Lumbar radicular pain(Confirmed) Active Right hemiplegia(Confirmed) Active Encounter for screening Active colonoscopy(Confirmed) Tobacco dependence(Confirmed) Active DMII (diabetes mellitus, type Active 2)(Confirmed) Vertigo(Confirmed) Active Social History Social History Type Response Smoking Status 5-9 cigarettes (between 1/4 to 1/2 pack)/day in last 30 days entered on: 01/01/20 Sex
--- OUTSIDE RECORDS SUMMARY | 2022-06-19 23:08 | XMS_ITS | Continuity of Care Document ---
:1965 Author Organization [facility] Address [address] [place] [id number]- Care Team Providers Name Role Phone Mauricio Rubi MD Primary Care Physician Encounter [facility] Date(s): 12/14/19 - 01/13/20 [place] [address]- [facility] Attending Physician: AdmJacky lambert Admitting Physician: Admtr, [id number] Referring Physician: Admtr, Ar8 Allergies, Adverse Reactions, Alerts No Known Medication [...] Patient Refuses 1Early/Late Reason: Other : Patient [id number] Comment: [01/16/2017] [facility] [id number] Comment: lot # [id number] Medications acetaminophen 325 mg oral tablet 650 mg, 2, tablet, By Mouth, 4 times a day, PRN, as needed for headache/pain not to exceed 4000 mg/day ETHIOPIAN LABEL, # 50 tablet, Refills 1, Tot. Refills 1, Acute 03/10/20 10:19:00 EST, Pain , Mild, 01/08/20 10:18:00 EDT, Route to Pharmacy Electron... Start Date: 01/08/20 Stop Date: 03/10/20 Status: OrderedAirDuo RespiClick 232 mcg-14 mcg/inh inhalation powder 1, puffs, Inhalation, 2 times a day, # 1 each, Refills 11, Tot. Refills 11, Maintenance, 07/07/19 19:06:00 EDT, Powder, Route to Pharmacy Electronically, [id number], [facility], advair not covered , 175,... Start Date: 07/07/19 Status: Orderedalbuterol 0.083% inhalation solution 3 mL = 2.5 mg, Inhalation, Every 6 hours, PRN Wheezing/Shortness of Breath, # 1 each, 6 Refills, Maintenance, 07/07/19 19:06:00 EDT, Solution, [facility], 175, cm, 05/30/19 19:11:00 EST, Height, 84.5, kg, 12/25/18 16:15:00 EDT, Dry Weight Start Date: 07/07/19 Status: Orderedaspirin 81 mg oral delayed release tablet 81 mg, 1, tablet, By Mouth, Daily, ETHIOPIAN LABEL, # 30 tablet, Refills 1, Tot. Refills 1, Maintenance, 01/08/20 10:20:00 EDT, Route to Pharmacy Electronically, [facility], 176, cm, 01/08/20 9:45:00 EDT, Height, 84, kg, 01/01/20 22:36:0... Start Date: 01/08/20 Status: Orderedatorvastatin 20 mg oral tablet 1 tablet = 20 mg, By Mouth, Daily at bedtime, ETHIOPIAN LABEL, # 30 tablet, 1 Refills, Maintenance, 01/08/20 10:20:00 EDT, Tablet, [facility], 176, cm, 01/08/20 9:45:00 EDT, Height, 84, kg, 01/01/20 22:36:00 EDT, Dry Weight Start Date: 01/08/20 Status: Ordereddivalproex sodium 500 mg oral enteric coated tablet 1 tablet = 500 mg, By Mouth, 2 times a day, ETHIOPIAN LABEL, # 60 tablet, 1 Refills, Maintenance, 01/08/20 10:21:00 EDT, Tablet, [facility], 176, cm, 01/08/20 9:45:00 EDT, Height, 84, kg,01/01/20 22:36:00 EDT, Dry Weight Start Date: 01/08/20 Status: Orderedduloxetine 60 mg oral enteric coated capsule 1 capsule = 60 mg, By Mouth, Daily, ETHIOPIAN LABEL, # 30 capsule, 1 Refills, Maintenance, 01/08/20 10:21:00 EDT, Capsule, [facility], 176, cm, 01/08/20 9:45:00 EDT, Height, 84, kg, 01/01/20 22:36:00 EDT, Dry Weight Start Date: 01/08/20 Status: Orderedgabapentin 300 mg oral capsule 600 mg, 2, capsule, By Mouth, Daily at bedtime, ETHIOPIAN LABEL, # 60 capsule, Refills 1, Tot. Refills1, Maintenance, 01/08/20 10:21:00 EDT, Route to Pharmacy Electronically, [facility],176, cm, 01/08/20 9:45:00 EDT, Height, 84, kg, 09... Start Date: 01/08/20 Status: Orderedhydrochlorothiazide 25 mg oral tablet 12.5 mg, 0.5, tablet, By Mouth, Daily, ETHIOPIAN LABEL, # 15 tablet, Refills 1, Tot. Refills 1, Maintenance, 01/08/20 10:23:00 EDT, Route to Pharmacy Electronically, [facility], 176, cm, 01/08/20 9:45:00 EDT, Height, 84, kg, 01/01/20 22:... Start Date: 01/08/20 Status: Orderedlidocaine 5% topical film See Instructions, 1 patch to affected area Topically Daily, remove at HS, # 30 patch, 1 Refills, Maintenance, 08/13/19 13:28:00 EDT, Patch, [facility]., 1 patch to affected area Topically Daily, remove at HS, 175, cm, 05/30/19 19:11:00... Start Date: 08/13/19 Status: OrderedmetFORMIN 500 mg oral tablet 1 tablet = 500 mg, By Mouth, 2 times a day, ETHIOPIAN LABEL, # 60 tablet, 1 Refills, Maintenance, 01/08/20 10:23:00 EDT, Tablet, [facility] 176, cm, 01/08/20 9:45:00 EDT, Height, 84, kg,01/01/20 22:36:00 EDT, Dry Weight Start Date: 01/08/20 Status: Orderedmontelukast 10 mg oral tablet 10 mg, 1, tablet, By Mouth, Daily, ETHIOPIAN LABEL, # 30 tablet, Refills 1, Tot. Refills 1, Maintenance, 01/08/20 10:24:00 EDT, Route to Pharmacy Electronically, [facility], 176, cm, 01/08/20 9:45:00 EDT, Height, 84, kg, 01/01/20 22:36:0... Start Date: 01/08/20 Status: OrderedNeurontin 300 mg oral capsule 300 mg, 1, capsule, By Mouth, 3 times a day, PRN, As needed for neuropathic pain up to 3 times dailySPANISH LABEL, # 60 capsule, Refills 1, Tot. Refills 1, Maintenance, Pain , Moderate, 01/08/20 10:22:00 EDT, Route to Pharmacy Electronically, [facility]... Start Date: 01/08/20 Status: OrderedNicoderm C-Q Clear 14 mg/24 hr transdermal film, extended release 1 patch, Topically, Daily, # 30 patch, 1 Refills, Acute 02/08/20 10:25:00 EDT, 01/08/20 10:25:00 EDT, Patch, [facility], 176, cm, 01/08/20 9:45:00 EDT, Height, 84, kg, 01/01/20 22:36:00EDT, Dry Weight Start Date: 01/08/20 Stop Date: 02/08/20 Status: OrderedPlavix 75 mg oral tablet 75 mg, 1, tablet, By Mouth, Daily, ETHIOPIAN LABEL, # 30 tablet, Refills 1, Tot. Refills 1, Maintenance, 01/08/20 10:20:00 EDT, Route to Pharmacy Electronically, [facility], 176, cm, 01/08/20 9:45:00 EDT, Height, 84, kg, 01/01/20 22:36:0... Start Date: 01/08/20 Status: OrderedProAir HFA 90 mcg/inh inhalation aerosol with adapter 1, puffs, Inhalation, Every 4 hours, PRN, # 8.5 Gm, Refills 0, Tot. Refills 0, Maintenance, 07/06/2018:06:00 EDT, Aerosol, Route to Pharmacy Electronically, [id number], [facility], 175, cm, 05/30/19 19:11:00... Start Date: 07/07/19 Status: OrderedSEROquel XR 300 mg oral tablet, extended release 1 tablet = 300 mg, By Mouth, Daily at bedtime, ETHIOPIAN LABEL, # 30 tablet, 1 Refills, Maintenance, 01/08/20 10:26:00 EDT, ER Tablet, [facility], 1 tablet By Mouth Daily at bedtime,Instr:ETHIOPIAN LABEL, 176, cm, 01/08/20 9:45:00 EDT, Hei... Start Date: 01/08/20 Status: Ordered Problem List Condition Effective Dates Status Health Status Informant Chronic Basilar artery Active occlusion(Confirmed) Aborted CVA- Was given tPA(Confirmed) Active Chronic pain syndrome(Confirmed) Active Constipation(Confirmed) Active Depression(Confirmed) Active Dysuria(Confirmed) Active Heartburn(Confirmed) Active CVA, old, hemiparesis(Confirmed) Active Elevated MCV(Confirmed) Active Nausea & vomiting(Confirmed) Active *Julissa Fraga, [facility] Care Active Coordinator [phone](Confirmed) Lumbar radicular pain(Confirmed) Active Right hemiplegia(Confirmed) Active Encounter for screening Active colonoscopy(Confirmed) Tobacco dependence(Confirmed) Active DMII (diabetes mellitus, type Active 2)(Confirmed) Vertigo(Confirmed) Active Social History Social History Type Response Smoking Status 5-9 cigarettes (between 1/4 to 1/2 pack)/day in last 30 days entered on: 01/01/20 Sex
--- OUTSIDE RECORDS SUMMARY | 2022-06-19 23:09 | XMS_ITS | Continuity of Care Document ---
:1965 Author Organization [facility] Address [address] [place] [address]- Care Team Providers Name Role Phone Mauricio Rubi MD Primary Care Physician Encounter [facility] [place] Date(s): 05/10/20 - 06/18/[address] [id number] Attending Physician: Not on Staff, Attending MD Allergies, Adverse Reactions, Alerts No Known [...] Patient Refuses 1Early/Late Reason: Other : Patient [id number] Comment: [01/16/2017] [facility] [id number] Comment: lot # [id number] Medications Advair Diskus 250 mcg-50 mcg inhalation powder 1, puffs, Inhalation, 2 times a day, # 180 each, Refills 1, Tot. Refills 1, Maintenance, 05/30/20 14:25:00 EST, Powder, Route to Pharmacy Electronically, [id number], [facility], 176, cm, 01/18/20 13:37:00 EDT,... Start Date: 2/1/21 Status: Orderedalbuterol 0.083% inhalation solution 3 mL = 2.5 mg, Inhalation, Every 6 hours, PRN Wheezing/Shortness of Breath, # 1 each, 6 Refills, Maintenance, 05/30/20 13:29:00 EST, Solution, [facility], 176, cm, 01/18/20 13:37:00 EDT, Height, 84, kg, 03/15/20 6:52:00 EST, Dry Weight Start Date: 05/30/20 Status: Orderedaspirin 81 mg oral delayed release tablet 81 mg, 1, tablet, By Mouth, Daily, [place]ONE[place] LABEL, # 30 tablet, Refills 1, Tot. Refills 1, Maintenance, 05/30/20 13:29:00 EST, Route to Pharmacy Electronically, [facility], 176, cm, 01/18/20 13:37:00 EDT, Height, 84, kg, 03/15/20 6:52:0... Start Date: 05/30/20 Status: Orderedatorvastatin 20 mg oral tablet 1 tablet = 20 mg, By Mouth, Daily at bedtime, [place] LABEL, # 30 tablet, 1 Refills, Maintenance, 05/30/20 13:29:00 EST, Tablet, [facility], 176, cm, 01/18/20 13:37:00 EDT, Height, 84, kg, 03/15/20 6:52:00 EST, Dry Weight Start Date: 05/30/20 Status: Ordereddivalproex sodium 500 mg oral enteric coated tablet 1 tablet = 500 mg, By Mouth, 2 times a day, [place] LABEL, # 60 tablet, 2 Refills, Maintenance, 05/30/20 13:29:00 EST, Tablet, [facility], 176, cm, 01/18/20 13:37:00 EDT, Height, 84, kg, 03/15/20 6:52:00 EST, Dry Weight Start Date: 05/30/20 Status: Orderedduloxetine 60 mg oral enteric coated capsule 1 capsule = 60 mg, By Mouth, Daily, [place] LABEL, # 30 capsule, 1 Refills, Maintenance, 05/30/20 13:29:00 EST, Capsule, [facility], 176, cm, 01/18/20 13:37:00 EDT, Height, 84, kg, 03/15/20 6:52:00 EST, Dry Weight Start Date: 05/30/20 Status: Orderedgabapentin 300 mg oral capsule 600 mg, 2, capsule, By Mouth, Daily at bedtime, [place] LABEL, # 60 capsule, Refills 3, Tot. Refills3, Maintenance, 05/30/20 13:29:00 EST, Route to Pharmacy Electronically, [facility],176, cm, 01/18/20 13:37:00 EDT, Height, 84, kg, 1... Start Date: 05/30/20 Status: Orderedhydrochlorothiazide 25 mg oral tablet 12.5 mg, 0.5, tablet, By Mouth, Daily, [place] LABEL, # 15 tablet, Refills 1, Tot. Refills 1, Maintenance, 05/30/20 13:29:00 EST, Route to Pharmacy Electronically, [facility], 176, cm, 01/18/20 13:37:00 EDT, Height, 84, kg, 03/15/20 6:... Start Date: 05/30/20 Status: Orderedlidocaine 5% topical film See Instructions, 1 patch to affected area Topically Daily, remove at HS, # 30 patch, 1 Refills, Maintenance, 08/13/19 13:28:00 EDT, Patch, [facility], 1 patch to affected area Topically Daily, remove at HS, 175, cm, 05/30/19 19:11:00... Start Date: 08/13/19 Status: OrderedmetFORMIN 500 mg oral tablet 1 tablet = 500 mg, By Mouth, 2 times a day, [place]ONE[place] LABEL, # 60 tablet, 1 Refills, Maintenance, 05/18/20 16:40:00 EST, Tablet, [facility], 176, cm, 01/18/20 13:37:00 EDT, Height, 84, kg, 03/15/20 6:52:00 EST, Dry Weight Start Date: 05/18/20 Status: Orderedmontelukast 10 mg oral tablet 10 mg, 1, tablet, By Mouth, Daily, [place] LABEL, # 30 tablet, Refills 1, Tot. Refills 1, Maintenance, 05/30/20 13:29:00 EST, Route to Pharmacy Electronically, [facility], 176, cm, 01/18/20 13:37:00 EDT, Height, 84, kg, 03/15/20 6:52:0... Start Date: 05/30/20 Status: OrderedPlavix 75 mg oral tablet 75 mg, 1, tablet, By Mouth, Daily, [place]ONE[place] LABEL, # 30 tablet, Refills 3, Tot. Refills 3, Maintenance, 01/18/20 14:12:00 EDT, Route to Pharmacy Electronically, [facility], 176, cm, 01/18/20 13:37:00 EDT, Height, 84, kg, 01/01/20 22:36:... Start Date: 01/18/20 Status: OrderedProAir HFA 90 mcg/inh inhalation aerosol with adapter 1, puffs, Inhalation, Every 4 hours, PRN, # 8.5 Gm, Refills 0, Tot. Refills 0, Maintenance, 05/30/2112:29:00 EST, Aerosol, Route to Pharmacy Electronically, [id number], [facility], 176, cm, 01/18/20 13:37:00... Start Date: 05/30/20 Status: OrderedSEROquel XR 300 mg oral tablet, extended release 1 tablet = 300 mg, By Mouth, Daily at bedtime, [place] LABEL, # 30 tablet, 1 Refills, Maintenance, 05/30/20 13:29:00 EST, ER Tablet, [facility], 1 tablet By Mouth Daily at bedtime,Instr:[facility] LEONE[facility] LABEL, 176, cm, 01/18/20 13:37:00 EDT, He... Start Date: 05/30/20 Status: Ordered Problem List Condition Effective Dates Status Health Status Informant Chronic Basilar artery Active occlusion(Confirmed) Aborted CVA- Was given tPA(Confirmed) Active Chronic pain syndrome(Confirmed) Active Constipation(Confirmed) Active Depression(Confirmed) Active Dysuria(Confirmed) Active Heartburn(Confirmed) Active CVA, old, hemiparesis(Confirmed) Active Elevated MCV(Confirmed) Active Nausea & vomiting(Confirmed) Active *Julissa Fraga, [facility] Care Active Coordinator [phone](Confirmed) Lumbar radicular pain(Confirmed) Active Right hemiplegia(Confirmed) Active Encounter for screening Active colonoscopy(Confirmed) Tobacco dependence(Confirmed) Active DMII (diabetes mellitus, type Active 2)(Confirmed) Vertigo(Confirmed) Active Social History Social History Type Response Smoking Status 5-9 cigarettes (between 1/4 to 1/2 pack)/day in last 30 days entered on: 01/01/20 Sex
--- OUTSIDE RECORDS SUMMARY | 2022-06-19 23:09 | XMS_ITS | Continuity of Care Document ---
:1965 Author Organization [facility] Address [address] [place] [address]- Care Team Providers Name Role Phone Greyson LARES, Mauricio Primary Care Physician Encounter [facility] Date(s): 06/22/20 - 07/29/20 [facility] [address] [place] [id number] Attending Physician: Arun Fraga MD Referring Physician: Mauricio Rubi MD Allergies, Adverse Reactions, Alerts No Known [...] Patient Refuses 1Early/Late Reason: Other : Patient [id number] Comment: [01/16/2017] [facility] [id number] Comment: lot # [id number] Medications Advair Diskus 250 mcg-50 mcg inhalation powder 1, puffs, Inhalation, 2 times a day, # 180 each, Refills 1, Tot. Refills 1, Maintenance, 07/22/20 10:04:00 EDT, Powder, Route to Pharmacy Electronically, [id number], [facility] #[id number], 175, cm, 07/22/20 7:07:00 EDT,... Start Date: 07/22/20 Status: Orderedalbuterol 0.083% inhalation solution 3 mL = 2.5 mg, Inhalation, Every 6 hours, PRN Wheezing/Shortness of Breath, # 1 each, 6 Refills, Maintenance, 05/30/20 13:29:00 EST, Solution, [facility]., 176, cm, 01/18/20 13:37:00 EDT, Height, 84, kg, 03/15/20 6:52:00 EST, Dry Weight Start Date: 05/30/20 Status: OrderedamLODIPine 10 mg oral tablet 10 mg, 1, tablet, By Mouth, Daily at bedtime, # 90 tablet, Refills 4, Tot. Refills 4, Maintenance, 07/14/20 11:22:00 EDT, Route to Pharmacy Electronically, [facility] #[id number], Partial fill upon patient request if the prescription is for a [facility]... Start Date: 07/14/20 Stop Date: 10/07/21 Status: Orderedaspirin 81 mg oral delayed release tablet 81 mg, 1, tablet, By Mouth, Daily, SW[place] LABEL, # 30 tablet, Refills 1, Tot. Refills 1, Maintenance, 05/30/20 13:29:00 EST, Route to Pharmacy Electronically, [facility], 176, cm, 01/18/20 13:37:00 EDT, Height, 84, kg, 03/15/20 6:52:0... Start Date: 05/30/20 Status: Orderedatorvastatin 20 mg oral tablet 1 tablet = 20 mg, By Mouth, Daily at bedtime, SWEDISH LABEL, # 30 tablet, 1 Refills, Maintenance, 05/30/20 13:29:00 EST, Tablet, [facility]., 176, cm, 01/18/20 13:37:00 EDT, Height, 84, kg, 03/15/20 6:52:00 EST, Dry Weight Start Date: 05/30/20 Status: Ordereddivalproex sodium 500 mg oral enteric coated tablet 1 tablet = 500 mg, By Mouth, 2 times a day, SWEDISH LABEL, # 60 tablet, 2 Refills, Maintenance, 05/30/20 13:29:00 EST, Tablet, [facility], 176, cm, 01/18/20 13:37:00 EDT, Height, 84, kg, 03/15/20 6:52:00 EST, Dry Weight Start Date: 05/30/20 Status: Orderedduloxetine 60 mg oral enteric coated capsule 1 capsule = 60 mg, By Mouth, Daily, SWEDISH LABEL, # 30 capsule, 1 Refills, Maintenance, 05/30/20 13:29:00 EST, Capsule, [facility], 176, cm, 01/18/20 13:37:00 EDT, Height, 84, kg, 03/15/20 6:52:00 EST, Dry Weight Start Date: 05/30/20 Status: OrderedFlonase 50 mcg/inh nasal spray 1 sprays, Nares, Both, 2 times a day, Syrian label please., # 16 Gm, 1 Refills, Maintenance, 07/01/20 14:30:00 EST, [facility] #[id number], Partial fill upon patient request if the prescription is for a schedule II opioid drug., 1 sprays Nares,... Start Date: 07/01/20 Status: Orderedgabapentin 300 mg oral capsule 600 mg, 2, capsule, By Mouth, Daily at bedtime, SWEDISH LABEL, # 60 capsule, Refills 3, Tot. Refills3, Maintenance, 05/30/20 13:29:00 EST, Route to Pharmacy Electronically, [facility],176, cm, 01/18/20 13:37:00 EDT, Height, 84, kg, 1... Start Date: 05/30/20 Status: Orderedlidocaine 5% topical film See Instructions, 1 patch to affected area Topically Daily, remove at HS, # 30 patch, 1 Refills, Maintenance, 08/13/19 13:28:00 EDT, Patch, [facility], 1 patch to affected area Topically Daily, remove at HS, 175, cm, 05/30/19 19:11:00... Start Date: 08/13/19 Status: Orderedloratadine 10 mg oral tablet 10 mg, 1, tablet, By Mouth, Daily, Syrian label please., # 30 tablet, Refills 0, Tot. Refills 0, Maintenance, 07/01/20 14:30:00 EST, Route to Pharmacy Electronically, [facility] #[id number], Partial fill upon patient request if the prescription... Start Date: 07/01/20 Stop Date: 07/31/20 Status: Orderedmontelukast 10 mg oral tablet 10 mg, 1, tablet, By Mouth, Daily, SWEDISH LABEL, # 30 tablet, Refills 11, Tot. Refills 11, Maintenance, 07/14/20 11:23:00 EDT, Route to Pharmacy Electronically, [facility] #[id number], 175, cm, 07/14/20 10:19:00 EDT, Height, 86, kg, 07/05/20 1:5... Start Date: 07/14/20 Status: Orderednicotine 7 mg/24 hr transdermal film, extended release 1 patch, Topically, Daily, for 14 days, # 14 patch, 0 Refills, Acute 08/05/20 10:07:00 EDT, 07/22/2109:07:00 EDT, Patch, [facility] #[id number], Partial fill upon patient request if the prescription is for a schedule II opioid drug., 1 patch Top... Start Date: 07/22/20 Stop Date: 08/05/20 Status: OrderedPlavix 75 mg oral tablet 75 mg, 1, tablet, By Mouth, Daily, SWEDISH LABEL, # 30 tablet, Refills 3, Tot. Refills 3, Maintenance, 01/18/20 14:12:00 EDT, Route to Pharmacy Electronically, [facility], 176, cm, 01/18/20 13:37:00 EDT, Height, 84, kg, 01/01/20 22:36:... Start Date: 01/18/20 Status: OrderedpredniSONE 10 mg oral tablet See Instructions, 40 mg for 2 days, 20 mg for 2 days 10 mg for 2 days., # 14 tablet, 0 Refills, Maintenance, 07/22/20 10:06:00 EDT, [facility] #[id number], Partial fill upon patient request if theprescription is for a schedule II opioid drug., 1... Start Date: 07/22/20 Status: OrderedProAir HFA 90 mcg/inh inhalation aerosol with adapter 1, puffs, Inhalation, Every 4 hours, PRN, # 1 each, Refills 5, Tot. Refills 5, Maintenance, 07/22/2109:04:00 EDT, Aerosol, Route to Pharmacy Electronically, [id number], [facility] #[id number], 175, cm, 07/22/20 7:07:00... Start Date: 07/22/20 Stop Date: 01/18/21 Status: OrderedSEROquel XR 300 mg oral tablet, extended release 1 tablet = 300 mg, By Mouth, Daily at bedtime, SW[employer]ISH LABEL, # 30 tablet, 1 Refills, Maintenance, 05/30/20 13:29:00 EST, ER Tablet, [facility], 1 tablet By Mouth Daily at bedtime,Instr:SWEDISH LABEL, 176, cm, 01/18/20 13:37:00 EDT, He... [...] Active Nausea & vomiting(Confirmed) Active *Julissa Fraga, [facility] Care Active Coordinator [phone](Confirmed) Lumbar radicular pain(Confirmed) Active Right hemiplegia(Confirmed) Active Encounter for screening Active colonoscopy(Confirmed) Tobacco dependence(Confirmed) Active DMII (diabetes mellitus, type Active 2)(Confirmed) Vertigo(Confirmed) Active Social History Social History Type Response Smoking Status 5-9 cigarettes (between 1/4 to 1/2 pack)/day in last 30 days entered on: 01/01/20 Sex
--- OUTSIDE RECORDS SUMMARY | 2022-06-19 23:09 | XMS_ITS | Continuity of Care Document ---
:[address] [facility] Address [address] [place] [id number]- Care Team Providers Name Role Phone Greyson LARES, Mauricio Primary Care Physician Encounter [facility] Date(s): 06/29/21 - 07/29/21 [facility] [address] [place] [id number] Attending Physician: AdmtrJacky Admitting Physician: AdmtrJacky Referring Physician: Admtr, Ar8 Allergies, Adverse Reactions, [...] Patient Refuses 1Early/Late Reason: Other : Patient [id number] Comment: [01/16/2017] [facility] [id number] Comment: lot # [id number] Medications albuterol 0.083% inhalation solution 3 mL = 2.5 mg, Inhalation, Every 6 hours, PRN Wheezing/Shortness of Breath, # 1 each, 6 Refills, Maintenance, 04/03/21 9:01:00 EST, [facility] 175, cm, 12/06/21 8:32:00 EST, Height, 82.4, kg, 07/21/20 11:02:00 EDT, Dry Weight Start Date: 04/03/21 Status: OrderedamLODIPine 10 mg oral tablet 10 mg, 1, tablet, By Mouth, Daily at bedtime, # 90 tablet, Refills 4, Tot. Refills 4, Maintenance, 09/30/20 9:34:00 EDT, Route to Pharmacy Electronically, [facility] #[id number], Partial fill uponpatient request if the prescription is for a sche... Start Date: 09/30/20 Stop Date: 12/24/21 Status: Orderedaspirin 81 mg oral delayed release tablet 81 mg, 1, tablet, By Mouth, Daily, [place] LABEL, # 90 tablet, Refills 2, Tot. Refills 2, Maintenance, 04/03/21 9:06:00 EST, Route to Pharmacy Electronically, [facility], 175, cm, 04/03/21 8:32:00 EST, Height, 82.4, kg, 07/21/20 11:02:... Start Date: 04/03/21 Status: Orderedatorvastatin 20 mg oral tablet 1 tablet = 20 mg, By Mouth, Daily at bedtime, [place] LABEL, # 90 tablet, 1 Refills, Maintenance, 04/03/21 9:05:00 EST, Tablet, [facility], 175, cm, 04/03/21 8:32:00 EST, Height, 82.4, kg, 07/21/20 11:02:00 EDT, Dry Weight Start Date: 04/03/21 Status: Ordereddivalproex sodium 500 mg oral enteric coated tablet 1 tablet = 500 mg, By Mouth, 2 times a day, [place] LABEL, # 60 tablet, 2 Refills, Maintenance, 09/30/20 9:34:00 EDT, Tablet, [facility] #[id number], 175, cm, 07/22/20 7:07:00 EDT, Height, 82.4, kg, 07/21/20 11:02:00 EDT, Dry Weight Start Date: 09/30/20 Status: Orderedduloxetine 60 mg oral enteric coated capsule 1 capsule = 60 mg, By Mouth, Daily, [place] LABEL, # 90 capsule, 2 Refills, Maintenance, 04/03/21 9:05:00 EST, Capsule, [facility], 175, cm, 04/03/21 8:32:00 EST, Height, 82.4, kg, 07/21/20 11:02:00 EDT, Dry Weight Start Date: 04/03/21 Status: OrderedFlonase 50 mcg/inh nasal spray 1 sprays, Nares, Both, 2 times a day, Lao label please., # 16 Gm, 1 Refills, Maintenance, 09/30/20 9:34:00 EDT, [facility] #[id number], Partial fill upon patient request if the prescription isfor a schedule II opioid drug., 1 sprays Nares, B... Start Date: 09/30/20 Status: Orderedfluticasone-salmeterol 500 mcg-50 mcg inhalation powder 1 puff, Inhalation, 2 times a day, # 1 each, Refills 3, Tot. Refills 3, Maintenance, 04/03/21 14:34:00 EST, Powder, Route to Pharmacy Electronically, [id number], [facility], 175, cm, 04/03/21 8:32:00 EST, [facility]... Start Date: 04/03/21 Status: Orderedgabapentin 300 mg oral capsule 600 mg, 2, capsule, By Mouth, Daily at bedtime, MONTSERRATIAN LABEL, # 60 capsule, Refills 3, Tot. Refills3, Maintenance, 04/03/21 9:08:00 EST, Route to Pharmacy Electronically, [facility], 175, cm, 04/03/21 8:32:00 EST, Height, 82.4, kg, 0... Start Date: 04/03/21 Status: Orderedlidocaine 5% topical film See Instructions, 1 patch to affected area Topically Daily, remove at HS, # 30 patch, 2 Refills, Maintenance, 04/03/21 9:01:00 EST, Patch, [facility] 1 patch to affected area TopicallyDaily, remove at HS, 175, cm, 04/03/21 8:32:00 ES... Start Date: 04/03/21 Status: Orderedloratadine 10 mg oral tablet 10 mg, 1, tablet, By Mouth, Daily, Lao label please., # 30 tablet, Refills 0, Tot. Refills 0, Maintenance, 04/03/21 9:08:00 EST, Route to Pharmacy Electronically, [facility], Partial fill upon patient request if the prescription is... Start Date: 04/03/21 Stop Date: 05/03/21 Status: Orderedmontelukast 10 mg oral tablet 10 mg, 1, tablet, By Mouth, Daily, MONTSERR[place]IAN LABEL, # 30 tablet, Refills 11, Tot. Refills 11, Maintenance, 04/03/21 9:08:00 EST, Route to Pharmacy Electronically, [facility], 175, cm, 04/03/21 8:32:00 EST, Height, 82.4, kg, 07/21/20 11:0... Start Date: 04/03/21 Status: OrderedPlavix 75 mg oral tablet 75 mg, 1, tablet, By Mouth, Daily, MONTSERR[place]IAN LABEL, # 30 tablet, Refills 3, Tot. Refills 3, Maintenance, 04/03/21 9:08:00 EST, Route to Pharmacy Electronically, [facility], 175, cm, 04/03/21 8:32:00 EST, Height, 82.4, kg, 07/21/20 11:02:... Start Date: 04/03/21 Status: OrderedpredniSONE 10 mg oral tablet See Instructions, 40 mg for 2 days, 20 mg for 2 days 10 mg for 2 days., # 14 tablet, 0 Refills, Maintenance, 07/22/20 10:06:00 EDT, [facility] #[id number], Partial fill upon patient request if theprescription is for a schedule II opioid drug., 1... Start Date: 07/22/20 Status: OrderedProAir HFA 90 mcg/inh inhalation aerosol with adapter 1, puffs, Inhalation, Every 4 hours, PRN, # 1 each, Refills 5, Tot. Refills 5, Maintenance, :01:00 EST, Aerosol, Route to Pharmacy Electronically, [id number], [facility]., 175, cm, 04/03/21 8:32:00 ES... Start Date: 04/03/21 Stop Date: 09/30/21 Status: OrderedSEROquel XR 300 mg oral tablet, extended release 1 tablet = 300 mg, By Mouth, Daily at bedtime, MONTSERRATIAN LABEL, # 30 tablet, 3 Refills, Maintenance, 04/03/21 9:09:00 EST, ER Tablet, [facility]., 1 tablet By Mouth Daily at bedtime,Instr:MONTSERRATIAN LABEL, 175, cm, 04/03/21 8:32:00 EST, Heig... [...] Active Nausea & vomiting(Confirmed) Active *Julissa Fraga, [facility] Care Active Coordinator [phone](Confirmed) Lumbar radicular pain(Confirmed) Active Right hemiplegia(Confirmed) Active Encounter for screening Active colonoscopy(Confirmed) Tobacco dependence(Confirmed) Active DMII (diabetes mellitus, type Active 2)(Confirmed) Vertigo(Confirmed) Active Social History Social History Type Response Smoking Status 5-9 cigarettes (between 1/4 to 1/2 pack)/day in last 30 days entered on: 01/01/20 Sex
--- OUTSIDE RECORDS SUMMARY | 2022-06-19 23:09 | XMS_ITS | Continuity of Care Document ---
:1965 Author Organization [facility] Address [address] [place] [id number]- Care Team Providers Name Role Phone Greyson LARES, Mauricio Primary Care Physician Encounter [facility] Date(s): 10/18/20 - 11/17/20 [facility] [address] [place] [id number] Attending Physician: Jacky Wren Admitting Physician: AdmJacky [...] Patient Refuses 1Early/Late Reason: Other : Patient [id number] Comment: [01/16/2017] [facility] [id number] Comment: lot # [id number] Medications Advair Diskus 250 mcg-50 mcg inhalation powder 1, puffs, Inhalation, 2 times a day, # 180 each, Refills 1, Tot. Refills 1, Maintenance, 07/22/20 10:04:00 EDT, Powder, Route to Pharmacy Electronically, [id number], [facility] #[id number], 175, cm, 07/22/20 7:07:00 EDT,... Start Date: 07/22/20 Status: Orderedalbuterol 0.083% inhalation solution 3 mL = 2.5 mg, Inhalation, Every 6 hours, PRN Wheezing/Shortness of Breath, # 1 each, 6 Refills, Maintenance, 09/30/20 9:34:00 EDT, Solution, [facility] #[id number], 175, cm, 07/22/20 7:07:00 EDT,Height, 82.4, kg, 07/21/20 11:02:00 EDT, Dry Weight Start Date: 09/30/20 Status: OrderedamLODIPine 10 mg oral tablet 10 mg, 1, tablet, By Mouth, Daily at bedtime, # 90 tablet, Refills 4, Tot. Refills 4, Maintenance, 09/30/20 9:34:00 EDT, Route to Pharmacy Electronically, [facility] #[id number], Partial fill uponpatient request if the prescription is for a sche... Start Date: 09/30/20 Stop Date: 12/24/21 Status: Orderedaspirin 81 mg oral delayed release tablet 81 mg, 1, tablet, By Mouth, Daily, BULGAR[place] LABEL, # 30 tablet, Refills 1, Tot. Refills 1, Maintenance, 09/30/20 9:34:00 EDT, Route to Pharmacy Electronically, [facility] #[id number], 175, cm, 07/22/20 7:07:00 EDT, Height, 82.4, kg, 07/21/20 11:02... Start Date: 09/30/20 Status: Orderedatorvastatin 20 mg oral tablet 1 tablet = 20 mg, By Mouth, Daily at bedtime, BULGAR[place] LABEL, # 30 tablet, 1 Refills, Maintenance, 09/30/20 9:34:00 EDT, Tablet, [facility] #[id number], 175, cm, 07/22/20 7:07:00 EDT, Height, 82.4,kg, 07/21/20 11:02:00 EDT, Dry Weight Start Date: 09/30/20 Status: Ordereddivalproex sodium 500 mg oral enteric coated tablet 1 tablet = 500 mg, By Mouth, 2 times a day, BULGARIAN LABEL, # 60 tablet, 2 Refills, Maintenance, 09/30/20 9:34:00 EDT, Tablet, [facility] #[id number], 175, cm, 07/22/20 7:07:00 EDT, Height, 82.4, kg, 07/21/20 11:02:00 EDT, Dry Weight Start Date: 09/30/20 Status: Orderedduloxetine 60 mg oral enteric coated capsule 1 capsule = 60 mg, By Mouth, Daily, BULGARIAN LABEL, # 30 capsule, 1 Refills, Maintenance, 09/30/20 9:34:00 EDT, Capsule, [facility] #[id number], 175, cm, 07/22/20 7:07:00 EDT, Height, 82.4, kg, 07/21/20 11:02:00 EDT, Dry Weight Start Date: 09/30/20 Status: OrderedFlonase 50 mcg/inh nasal spray 1 sprays, Nares, Both, 2 times a day, Tuvaluan label please., # 16 Gm, 1 Refills, Maintenance, 09/30/20 9:34:00 EDT, [facility] #[id number], Partial fill upon patient request if the prescription isfor a schedule II opioid drug., 1 sprays Nares, B... Start Date: 09/30/20 Status: Orderedgabapentin 300 mg oral capsule 600 mg, 2, capsule, By Mouth, Daily at bedtime, BULGARIAN LABEL, # 60 capsule, Refills 3, Tot. Refills3, Maintenance, 09/30/20 9:34:00 EDT, Route to Pharmacy Electronically, [facility] #[id number],175, cm, 07/22/20 7:07:00 EDT, Height, 82.4, kg,... Start Date: 09/30/20 Status: Orderedlidocaine 5% topical film See Instructions, 1 patch to affected area Topically Daily, remove at HS, # 30 patch, 1 Refills, Maintenance, 09/30/20 9:34:00 EDT, Patch, [facility] #[id number], 1 patch to affected area Topically Daily, remove at HS, 175, cm, 07/22/20 7:07:00 E... Start Date: 09/30/20 Status: Orderedloratadine 10 mg oral tablet 10 mg, 1, tablet, By Mouth, Daily, Tu[place] label please., # 30 tablet, Refills 0, Tot. Refills 0, Maintenance, 09/30/20 9:34:00 EDT, Route to Pharmacy Electronically, [facility] #[id number], Partial fill upon patient request if the prescription i... Start Date: 09/30/20 Stop Date: 10/30/20 Status: Orderedmontelukast 10 mg oral tablet 10 mg, 1, tablet, By Mouth, Daily, BULGARIAN LABEL, # 30 tablet, Refills 11, Tot. Refills 11, Maintenance, 09/30/20 9:34:00 EDT, Route to Pharmacy Electronically, [facility] #[id number], 175, cm, 07/22/20 7:07:00 EDT, Height, 82.4, kg, 07/21/20 11:... Start Date: 09/30/20 Status: OrderedPlavix 75 mg oral tablet 75 mg, 1, tablet, By Mouth, Daily, BULGARIAN LABEL, # 30 tablet, Refills 3, Tot. Refills 3, Maintenance, 09/30/20 9:34:00 EDT, Route to Pharmacy Electronically, [facility] #[id number], 175, cm, 07/22/20 7:07:00 EDT, Height, 82.4, kg, 07/21/20 11:02... Start Date: 09/30/20 Status: OrderedpredniSONE 10 mg oral tablet See Instructions, 40 mg for 2 days, 20 mg for 2 days 10 mg for 2 days., # 14 tablet, 0 Refills, Maintenance, 07/22/20 10:06:00 EDT, [facility] #[id number], Partial fill upon patient request if theprescription is for a schedule II opioid drug., 1... Start Date: 07/22/20 Status: OrderedProAir HFA 90 mcg/inh inhalation aerosol with adapter 1, puffs, Inhalation, Every 4 hours, PRN, # 1 each, Refills 5, Tot. Refills 5, Maintenance, :34:00 EDT, Aerosol, Route to Pharmacy Electronically, [id number], [facility] #[id number], 175, cm, 07/22/20 7:07:00 E... Start Date: 09/30/20 Stop Date: 03/29/21 Status: OrderedSEROquel XR 300 mg oral tablet, extended release 1 tablet = 300 mg, By Mouth, Daily at bedtime, BULGARIAN LABEL, # 30 tablet, 1 Refills, Maintenance, 09/30/20 9:34:00 EDT, ER Tablet, [facility] #[id number], 1 tablet By Mouth Daily at bedtime,Instr:BULGARIAN LABEL, 175, cm, 07/22/20 7:07:00 EDT, Hei... Start Date: 09/30/20 Status: Ordered Problem List Condition Effective Dates Status Health Status Informant Chronic Basilar artery Active occlusion(Confirmed) Aborted CVA- Was given tPA(Confirmed) Active Chronic pain syndrome(Confirmed) Active Constipation(Confirmed) Active Depression(Confirmed) Active Dysuria(Confirmed) Active GERD (gastroesophageal reflux Active disease)(Confirmed) CVA, old, hemiparesis(Confirmed) Active Hyperlipidemia(Confirmed) Active Hypertension(Confirmed) Active Elevated MCV(Confirmed) Active Nausea & vomiting(Confirmed) Active *Julissa Fraga, [facility] Care Active Coordinator [phone](Confirmed) Lumbar radicular pain(Confirmed) Active Right hemiplegia(Confirmed) Active Encounter for screening Active colonoscopy(Confirmed) Tobacco dependence(Confirmed) Active DMII (diabetes mellitus, type Active 2)(Confirmed) Vertigo(Confirmed) Active Social History Social History Type Response Smoking Status 5-9 cigarettes (between 1/4 to 1/2 pack)/day in last 30 days entered on: 01/01/20 Sex
--- OUTSIDE RECORDS SUMMARY | 2022-06-19 23:09 | XMS_ITS | Continuity of Care Document ---
:1965 Author Organization [facility] Address [address] [place] [address]- Care Team Providers Name Role Phone Mauricio Rubi MD Primary Care Physician Encounter [facility] Date(s): 06/12/21 - 07/29/21 [facility] [address] [place] [id number] Attending Physician: Tomi Saavedra MD Admitting [...] Patient Refuses 1Early/Late Reason: Other : Patient [id number] Comment: [01/16/2017] [facility] [id number] Comment: lot # [id number] Medications albuterol 0.083% inhalation solution 3 mL = 2.5 mg, Inhalation, Every 6 hours, PRN Wheezing/Shortness of Breath, # 1 each, 6 Refills, Maintenance, 04/03/21 9:01:00 EST, [facility], cm, 04/03/21 8:32:00 EST, Height, 82.4, kg, 07/21/20 11:02:00 EDT, Dry Weight Start Date: 04/03/21 Status: OrderedamLODIPine 10 mg oral tablet 10 mg, 1, tablet, By Mouth, Daily at bedtime, # 90 tablet, Refills 4, Tot. Refills 4, Maintenance, 09/30/20 9:34:00 EDT, Route to Pharmacy Electronically, [facility] #[id number], Partial fill uponpatient request if the prescription is for a sche... Start Date: 09/30/20 Stop Date: 12/24/21 Status: Orderedaspirin 81 mg oral delayed release tablet 81 mg, 1, tablet, By Mouth, Daily, [place] LABEL, # 90 tablet, Refills 2, Tot. Refills 2, Maintenance, 04/03/21 9:06:00 EST, Route to Pharmacy Electronically, [facility], 175, cm, 04/03/21 8:32:00 EST, Height, 82.4, kg, 07/21/20 11:02:... Start Date: 04/03/21 Status: Orderedatorvastatin 20 mg oral tablet 1 tablet = 20 mg, By Mouth, Daily at bedtime, [place] LABEL, # 90 tablet, 1 Refills, Maintenance, 04/03/21 9:05:00 EST, Tablet, [facility], 175, cm, 04/03/21 8:32:00 EST, Height, 82.4, kg, 07/21/20 11:02:00 EDT, Dry Weight Start Date: 04/03/21 Status: Ordereddivalproex sodium 500 mg oral enteric coated tablet 1 tablet = 500 mg, By Mouth, 2 times a day, [place] LABEL, # 60 tablet, 2 Refills, Maintenance, 09/30/20 9:34:00 EDT, Tablet, [facility] #[id number], 175, cm, 07/22/20 7:07:00 EDT, Height, 82.4, kg, 07/21/20 11:02:00 EDT, Dry Weight Start Date: 09/30/20 Status: Orderedduloxetine 60 mg oral enteric coated capsule 1 capsule = 60 mg, By Mouth, Daily, [place] LABEL, # 90 capsule, 2 Refills, Maintenance, 04/03/21 9:05:00 EST, Capsule, [facility], 175, cm, 04/03/21 8:32:00 EST, Height, 82.4, kg, 07/21/20 11:02:00 EDT, Dry Weight Start Date: 04/03/21 Status: OrderedFlonase 50 mcg/inh nasal spray 1 sprays, Nares, Both, 2 times a day, Malay label please., # 16 Gm, 1 Refills, Maintenance, 09/30/20 9:34:00 EDT, [facility] #[id number], Partial fill upon patient request if the prescription isfor a schedule II opioid drug., 1 sprays Nares, B... Start Date: 09/30/20 Status: Orderedfluticasone-salmeterol 500 mcg-50 mcg inhalation powder 1 puff, Inhalation, 2 times a day, # 1 each, Refills 3, Tot. Refills 3, Maintenance, 04/03/21 14:34:00 EST, Powder, Route to Pharmacy Electronically, [id number], [facility], 175, cm, 04/03/21 8:32:00 EST, Heig... Start Date: 04/03/21 Status: Orderedgabapentin 300 mg oral capsule 600 mg, 2, capsule, By Mouth, Daily at bedtime, [place] LABEL, # 60 capsule, Refills 3, Tot. Refills3, Maintenance, 04/03/21 9:08:00 EST, Route to Pharmacy Electronically, [facility], 175, cm, 04/03/21 8:32:00 EST, Height, 82.4, kg, 0... Start Date: 04/03/21 Status: Orderedlidocaine 5% topical film See Instructions, 1 patch to affected area Topically Daily, remove at HS, # 30 patch, 2 Refills, Maintenance, 04/03/21 9:01:00 EST, Patch, [facility] 1 patch to affected area TopicallyDaily, remove at HS, 175, cm, 04/03/21 8:32:00 ES... Start Date: 04/03/21 Status: Orderedloratadine 10 mg oral tablet 10 mg, 1, tablet, By Mouth, Daily, Malay label please., # 30 tablet, Refills 0, Tot. Refills 0, Maintenance, 04/03/21 9:08:00 EST, Route to Pharmacy Electronically, [facility], Partial fill upon patient request if the prescription is... Start Date: 04/03/21 Stop Date: 05/03/21 Status: Orderedmontelukast 10 mg oral tablet 10 mg, 1, tablet, By Mouth, Daily, [place] LABEL, # 30 tablet, Refills 11, Tot. Refills 11, Maintenance, 04/03/21 9:08:00 EST, Route to Pharmacy Electronically, [facility], 175, cm, 04/03/21 8:32:00 EST, Height, 82.4, kg, 07/21/20 11:0... Start Date: 04/03/21 Status: OrderedPlavix 75 mg oral tablet 75 mg, 1, tablet, By Mouth, Daily, [place] LABEL, # 30 tablet, Refills 3, Tot. Refills 3, Maintenance, 04/03/21 9:08:00 EST, Route to Pharmacy Electronically, [facility], 175, cm, 04/03/21 8:32:00 EST, Height, 82.4, kg, 07/21/20 11:02:... Start Date: 04/03/21 Status: OrderedpredniSONE 10 mg oral tablet See Instructions, 40 mg for 2 days, 20 mg for 2 days 10 mg for 2 days., # 14 tablet, 0 Refills, Maintenance, 07/22/20 10:06:00 EDT, [facility] #[id number], Partial fill upon patient request if theprescription is for a schedule II opioid drug., 1... Start Date: 07/22/20 Status: OrderedProAir HFA 90 mcg/inh inhalation aerosol with adapter 1, puffs, Inhalation, Every 4 hours, PRN, # 1 each, Refills 5, Tot. Refills 5, Maintenance, :01:00 EST, Aerosol, Route to Pharmacy Electronically, [id number], [facility]., 175, cm, 04/03/21 8:32:00 ES... Start Date: 04/03/21 Stop Date: 09/30/21 Status: OrderedSEROquel XR 300 mg oral tablet, extended release 1 tablet = 300 mg, By Mouth, Daily at bedtime, [place] LABEL, # 30 tablet, 3 Refills, Maintenance, 04/03/21 9:09:00 EST, ER Tablet, [facility] 1 tablet By Mouth Daily at bedtime,Instr:[place] LABEL, 175, cm, 04/03/21 8:32:00 EST, Heig... [...] Nausea & vomiting(Confirmed) Active *Julissa Fraga, [facility] Care Active Coordinator [phone](Confirmed) Lumbar radicular pain(Confirmed) Active Right hemiplegia(Confirmed) Active Encounter for screening Active colonoscopy(Confirmed) Tobacco dependence(Confirmed) Active DMII (diabetes mellitus, type Active 2)(Confirmed) Vertigo(Confirmed) Active Social History Social History Type Response Smoking Status 5-9 cigarettes (between 1/4 to 1/2 pack)/day in last 30 days entered on: 01/01/20 Sex
--- OUTSIDE RECORDS SUMMARY | 2022-06-19 23:09 | XMS_ITS | Continuity of Care Document ---
:1965 Author Organization [facility] Address [address] [place] [phone]- Care Team Providers Name Role Phone Greyson LARES, Mauricio Primary Care Physician Encounter [facility] Date(s): 09/20/21 - 09/23/[address] [address] Encounter Diagnosis Back pain (Final) - 09/19/21 History of back surgery (Final) - 09/19/21 Discharge Disposition: A-D/C Home Attending Physician: Casey Dunbar MD Admitting Physician: Nolberto Cook MD Referring Physician: Not on Staff, Referring MD Allergies, Adverse Reactions, Alerts No Known [...] Patient Refuses 1Early/Late Reason: Other : Patient [id number] Comment: [01/16/2017] [facility] [id number] Comment: lot # [id number] Medications Acetaminophen Tablet 650 mg, Tablet, By Mouth, Every 4 hours, PRN for Pain , Mild, Temperature Greater than 100.5, Routine, 09/20/21 1:32:00 EDT Start Date: 09/20/21 Stop Date: 09/23/21 Status: Discontinuedalbuterol 0.083% inhalation solution 3 mL = 2.5 mg, Inhalation, Every 6 hours, PRN Wheezing/Shortness of Breath, # 1 each, 6 Refills, Maintenance, 04/03/21 9:01:00 EST, Solution, [facility]., 175, cm, 04/03/21 8:32:00 EST, Height, 82.4, kg, 07/21/20 11:02:00 EDT, Dry Weight Start Date: 04/03/21 Status: OrderedamLODIPine 10 mg oral tablet 10 mg, 1, tablet, By Mouth, Daily at bedtime, # 90 tablet, Refills 4, Tot. Refills 4, Maintenance, 09/30/20 9:34:00 EDT, Route to Pharmacy Electronically, [facility][id number], Partial fill uponpatient request if the prescription is for a sche... Start Date: 09/30/20 Stop Date: 12/24/21 Status: OrderedamLODIPine 10 mg oral tablet 10 mg, Tablet, By Mouth, 09/23/21 9:00:00 EDT Start Date: 09/23/21 Stop Date: 09/23/21 Status: Completedaspirin 81 mg oral delayed release tablet 81 mg, 1, tablet, By Mouth, Daily, PALAUAN LABEL, # 90 tablet, Refills 3, Tot. Refills 3, Maintenance, 08/09/21 5:53:00 EDT, Route to Pharmacy Electronically, [facility]., 175, cm, 04/03/21 8:32:00 EST, Height, 82.4, kg, 07/21/20 11:02:... Start Date: 08/09/21 Status: Orderedatorvastatin 20 mg oral tablet 1 tablet = 20 mg, By Mouth, Daily at bedtime, PALAUAN LABEL, # 90 tablet, 1 Refills, Maintenance, 04/03/21 9:05:00 EST, Tablet, [facility] 175, cm, 04/03/21 8:32:00 EST, Height, 82.4, kg, 07/21/20 11:02:00 EDT, Dry Weight Start Date: 04/03/21 Status: Orderedbaclofen 10 mg oral tablet 10 mg, 1, tablet, By Mouth, 3 times a day, # 30 tablet, Refills 0, Tot. Refills 0, Maintenance, 09/18/21 11:43:00 EDT, Route to Pharmacy Electronically, [facility] #[id number], Partial fill upon patient request if the prescription is for a schedu... Start Date: 09/18/21 Stop Date: 09/28/21 Status: Ordereddivalproex sodium 500 mg oral enteric coated tablet 1 tablet = 500 mg, By Mouth, 2 times a day, PALAUAN LABEL, # 60 tablet, 0 Refills, Maintenance, 09/09/21 12:13:00 EDT, Tablet, [facility] 175, cm, 04/03/21 8:32:00 EST, Height, 82.4, kg, 07/21/20 11:02:00 EDT, Dry Weight Start Date: 09/09/21 Status: Orderedduloxetine 60 mg oral enteric coated capsule 1 capsule = 60 mg, By Mouth, Daily, PALAUAN LABEL, # 90 capsule, 2 Refills, Maintenance, 04/03/21 9:05:00 EST, Capsule, [facility] 175, cm, 04/03/21 8:32:00 EST, Height, 82.4, kg, 07/21/20 11:02:00 EDT, Dry Weight Start Date: 04/03/21 Status: OrderedFlonase 50 mcg/inh nasal spray 1 sprays, Nares, Both, 2 times a day, Pakistani label please., # 16 Gm, 1 Refills, Maintenance, 09/30/20 9:34:00 EDT, [facility] #[id number], Partial fill upon patient request if the prescription isfor a schedule II opioid drug., 1 sprays Nares, B... Start Date: 09/30/20 Status: Orderedfluticasone-salmeterol 500 mcg-50 mcg inhalation powder 1 puff, Inhalation, 2 times a day, # 1 each, Refills 3, Tot. Refills 3, Maintenance, 04/03/21 14:34:00 EST, Powder, Route to Pharmacy Electronically, [id number], [facility], 175, cm, 04/03/21 8:32:00 EST, Heig... Start Date: 04/03/21 Status: Orderedgabapentin 300 mg oral capsule 600 mg, 2, capsule, By Mouth, Daily at bedtime, PALAUAN LABEL, # 60 capsule, Refills 3, Tot. Refills3, Maintenance, 04/03/21 9:08:00 EST, Route to Pharmacy Electronically, [facility], 175, cm, 04/03/21 8:32:00 EST, Height, 82.4, kg, 0... Start Date: 04/03/21 Status: OrderedHome Blood Pressure Monitor Home Blood Pressure Monitor, See Instructions, # 1 each, Refills 0, Tot. Refills 0, Maintenance, Home Blood Pressure Monitor Directions: Use as needed to monitor BP at home. Dx: HTN I10 Duration: Lifetime, 09/04/21 11:45:00 EDT, Supply Start Date: 09/04/21 Status: Orderedloratadine 10 mg oral tablet 10 mg, 1, tablet, By Mouth, Daily, Pakistani label please., # 30 tablet, Refills 0, Tot. Refills 0, Maintenance, 04/03/21 9:08:00 EST, Route to Pharmacy Electronically, [facility], Partial fill upon patient request if [...] 0 Refills, Maintenance, 09/18/21 11:48:00 EDT, Tablet, [facility] #[id number], Partial fill upon patient request if the prescription is for a schedule II opioid drug., 175, cm, 09/18/21 10:48:00 ED... Start Date: 09/18/21 Stop Date: 09/28/21 Status: OrderedmetFORMIN 500 mg oral tablet 1 tablet = 500 mg, By Mouth, 2 times a day, # 60 tablet, 0 Refills, Maintenance, 08/08/21 18:14:00 EDT, Tablet, [facility]/pharmacy #[id number], Partial fill upon patient request if the prescription is for a schedule II opioid drug., 175, cm, 04/03/21 8:32:00 EST,... Start Date: 08/08/21 Stop Date: 09/07/21 Status: Orderedmontelukast 10 mg oral tablet 10 mg, 1, tablet, By Mouth, Daily, PALAUAN LABEL, # 30 tablet, Refills 11, Tot. Refills 11, Maintenance, 04/03/21 9:08:00 EST, Route to Pharmacy Electronically, [facility], 175, cm, 04/03/21 8:32:00 EST, Height, 82.4, kg, 07/21/20 11:0... Start Date: 04/03/21 Status: OrderedNebulizer/ Compressor with Tubing and Mask Nebulizer/ Compressor with Tubing and Mask, See Instructions, # 1 each, Refills 0, Tot. Refills 0, Maintenance, Nebulizer/ Compressor with Tubing and Mask Directions: Use as needed for wheezing Dx: asthma J45 Duration: Lifetime, 09/04/21 11:43:00 E... Start Date: 09/04/21 Status: OrderedPlavix 75 mg oral tablet 75 mg, 1, tablet, By Mouth, Daily, PALAUAN LABEL, # 30 tablet, Refills 3, Tot. Refills 3, Maintenance, 08/09/21 5:53:00 EDT, Route to Pharmacy Electronically, [facility], 175, cm, 04/03/21 8:32:00 EST, Height, 82.4, kg, 07/21/20 11:02:... Start Date: 08/09/21 Status: OrderedProAir HFA 90 mcg/inh inhalation aerosol with adapter 1, puffs, Inhalation, Every 4 hours, PRN, # 1 each, Refills 5, Tot. Refills 5, Maintenance, 219:01:00 EST, Aerosol, Route to Pharmacy Electronically, [id number], [facility], 175, cm, 04/03/21 8:32:00 ES... Start Date: 04/03/21 Stop Date: 09/30/21 Status: OrderedtraMADol 50 mg oral tablet 1 tablet = 50 mg, By Mouth, Every 8 hours, PRN Pain , Severe, # 30 tablet, 0 Refills, Acute 09/27/2211:00:00 EDT, 09/18/21 11:44:00 EDT, Tablet, [facility] #[id number], Partial fill upon patient request if the prescription is for a schedule II o... Start Date: 09/18/21 Stop Date: 09/26/21 Status: Ordered Problem List Condition Effective Dates [...] RIGHT UPPER. CTA - done Active at [facility]. 07/2021 - scanned in CIS(Confirmed) *Julissa Fraga, [facility] Active Coordinator [phone](Confirmed) Lumbar radicular pain(Confirmed) Active Right hemiplegia(Confirmed) Active Encounter for screening Active colonoscopy(Confirmed) Tobacco dependence(Confirmed) Active DMII (diabetes mellitus, type Active 2)(Confirmed) Vertigo(Confirmed) Active Results Orders for Microbiology Reports Name Date Blood Culture 09/19/21 Blood Culture #2 09/19/21 Microbiology Reports TEST:Blood Culture, Second Order STATUS:Unauthenticated BODY SITE: SOURCE:Blood COLLECTED DATE/TIME:09/19/21 4:50 PMBlood Culture, Second Order SPECIMEN DESCRIPTION : BLOOD L HAND SPECIAL REQUESTS : NONE CULTURE : NO GROWTH 4 DAYS REPORT STATUS : PRELIMINARY REPORT TEST:Blood Culture STATUS:Unauthenticated BODY SITE: SOURCE:Blood COLLECTED DATE/TIME:09/19/21 4:18 PMBlood Culture SPECIMEN DESCRIPTION : BLOOD LAC SPECIAL REQUESTS : NONE CULTURE : NO GROWTH 4 DAYS REPORT STATUS : PRELIMINARY REPORT Radiology Reports Exam Date Time Procedure Performing Provider Status 09/21/21 8:00 AM Chest Portable Marybel Kay; Auth (Verified ) Notes:(Chest Portable) Reason For Exam: Other:;pneumoRESULT: Chest Portable Chest Portable CLINICAL INDICATION: Reason: Other:; Clinical Question(s): Other: COMPARISON: Chest x-ray, 10/15/2020. FINDINGS: The cardiac silhouette is within normal limits. Hilar and mediastinal contours are normal.There are low lung volumes with mild bibasilar atelectasis. There is no pleural effusion, pneumothorax, or evidence of CHF. No acute osseous abnormality is noted. IMPRESSION: Low lung volumes with mild bibasilar atelectasis. WSN: [id number] Ordering Physician: Kendy Banuelos Dictated By: Morena James MD Dictated Date/Time: 09/21/21 10:35 a Reviewed By: Morena James MD Signed By: Morena James MD Signed Date/Time: 09/21/21 10:35 am Transcribed By: JENNIFER Transcribed Date/Time: 09/21/21 10:35 am Vital Signs Most recent to oldest 1 2 3 [Reference Range]: Height 175 cm 175 cm 175 cm (09/23/21 4:10 AM) (09/22/21 3:42 PM) (09/22/21 11: 36 AM) Weight 82.4 kg (09/20/21 1:17 PM) Oxygen Saturation [94-100 %] 98 % 99 % 100 % (09/23/21 8:00 AM) (09/23/21 4:10 AM) (09/22/21 11: 00 PM) Pulse Rate [55-90 bpm] 60 bpm 64 bpm 67 bpm (09/23/21 8:00 AM) (09/23/21 4:10 AM) (09/22/21 11: 00 PM) Body Mass Index [18.5-24.99] 26.91 *H* (09/20/21 1:17 PM) Blood Pressure [90-138/55-84 119/78 mm Hg 119/78 mm Hg 120 /73 mm Hg mm Hg] (09/23/21 9:07 AM) (09/23/21 8:00 AM) (09/23/21 4:1 0 AM) Respiratory Rate [16-30 18 br/min 18 br/min 18 br/mi n br/min] (09/23/21 10:28 AM) (09/23/21 8:00 AM) (09/23/21 4: 10 AM) Temperature [96.8-100.4 DegF] 98.2 DegF 97.9 DegF 97 .1 DegF (09/23/21 8:00 AM) (09/23/21 4:10 AM) (09/22/21 11: 00 PM) Mode of Delivery (Oxygen) Room air Room air Room a ir (09/23/21 8:00 AM) (09/23/21 4:10 AM) (09/22/21 11: 00 PM) Blood pressure sites Arm, right Arm, right Arm, left (09/23/21 8:00 AM) (09/23/21 4:10 AM) (09/22/21 11: 00 PM) Temperature Route Oral Temporal Temporal (09/23/21 8:00 AM) (09/23/21 4:10 AM) (09/22/21 11: 00 PM) Dry Weight 82.4 kg (09/20/21 1:17 PM) Social History Social History Type Response Smoking Status 5-9 cigarettes (between 1/4 to 1/2 pack)/day in last 30 days entered on: 01/01/20 Sex
--- OUTSIDE RECORDS SUMMARY | 2022-06-19 23:09 | XMS_ITS | Continuity of Care Document ---
:1965 Author Organization [facility] Address [address] [place] [address]- Care Team Providers Name Role Phone Mauricio Rubi MD Primary Care Physician Encounter [facility] R [id number] Date(s): 05/19/20 - 06/18/[address] [address] Attending Physician: Jacky Wren Admitting Physician: AdmtrJacky Referring Physician: Admtr, Ar8 [...] Patient Refuses 1Early/Late Reason: Other : Patient [id number] Comment: [01/16/2017] [facility] [id number] Comment: lot # [id number] Medications Advair Diskus 250 mcg-50 mcg inhalation powder 1, puffs, Inhalation, 2 times a day, # 180 each, Refills 1, Tot. Refills 1, Maintenance, 05/30/20 14:25:00 EST, Powder, Route to Pharmacy Electronically, [id number], [facility], 176, cm, 01/18/20 13:37:00 EDT,... Start Date: 05/30/20 Status: Orderedalbuterol 0.083% inhalation solution 3 mL = 2.5 mg, Inhalation, Every 6 hours, PRN Wheezing/Shortness of Breath, # 1 each, 6 Refills, Maintenance, 05/30/20 13:29:00 EST, Solution, [facility], 176, cm, 01/18/20 13:37:00 EDT, Height, 84, kg, 03/15/20 6:52:00 EST, Dry Weight Start Date: 05/30/20 Status: Orderedaspirin 81 mg oral delayed release tablet 81 mg, 1, tablet, By Mouth, Daily, GIBRALTARIAN LABEL, # 30 tablet, Refills 1, Tot. Refills 1, Maintenance, 05/30/20 13:29:00 EST, Route to Pharmacy Electronically, [facility], 176, cm, 01/18/20 13:37:00 EDT, Height, 84, kg, 03/15/20 6:52:0... Start Date: 05/30/20 Status: Orderedatorvastatin 20 mg oral tablet 1 tablet = 20 mg, By Mouth, Daily at bedtime, GIBRALTARIAN LABEL, # 30 tablet, 1 Refills, Maintenance, 05/30/20 13:29:00 EST, Tablet, [facility], 176, cm, 01/18/20 13:37:00 EDT, Height, 84, kg, 03/15/20 6:52:00 EST, Dry Weight Start Date: 05/30/20 Status: Ordereddivalproex sodium 500 mg oral enteric coated tablet 1 tablet = 500 mg, By Mouth, 2 times a day, GIBRALTARIAN LABEL, # 60 tablet, 2 Refills, Maintenance, 05/30/20 13:29:00 EST, Tablet, [facility], 176, cm, 01/18/20 13:37:00 EDT, Height, 84, kg, 03/15/20 6:52:00 EST, Dry Weight Start Date: 05/30/20 Status: Orderedduloxetine 60 mg oral enteric coated capsule 1 capsule = 60 mg, By Mouth, Daily, GIBRALTARIAN LABEL, # 30 capsule, 1 Refills, Maintenance, 05/30/20 13:29:00 EST, Capsule, [facility], 176, cm, 01/18/20 13:37:00 EDT, Height, 84, kg, 03/15/20 6:52:00 EST, Dry Weight Start Date: 05/30/20 Status: Orderedgabapentin 300 mg oral capsule 600 mg, 2, capsule, By Mouth, Daily at bedtime, GIBRALTARIAN LABEL, # 60 capsule, Refills 3, Tot. Refills3, Maintenance, 05/30/20 13:29:00 EST, Route to Pharmacy Electronically, [facility],176, cm, 01/18/20 13:37:00 EDT, Height, 84, kg, 1... Start Date: 05/30/20 Status: Orderedhydrochlorothiazide 25 mg oral tablet 12.5 mg, 0.5, tablet, By Mouth, Daily, GIBRALTARIAN LABEL, # 15 tablet, Refills 1, Tot. Refills 1, Maintenance, 05/30/20 13:29:00 EST, Route to Pharmacy Electronically, [facility], 176, cm, 01/18/20 13:37:00 EDT, Height, [...] mg, By Mouth, 2 times a day, GIBRALTARIAN LABEL, # 60 tablet, 1 Refills, Maintenance, 05/18/20 16:40:00 EST, Tablet, [facility], 176, cm, 01/18/20 13:37:00 EDT, Height, 84, kg, 03/15/20 6:52:00 EST, Dry Weight Start Date: 05/18/20 Status: Orderedmontelukast 10 mg oral tablet 10 mg, 1, tablet, By Mouth, Daily, GIBRALTARIAN LABEL, # 30 tablet, Refills 1, Tot. Refills 1, Maintenance, 05/30/20 13:29:00 EST, Route to Pharmacy Electronically, [facility], 176, cm, 01/18/20 13:37:00 EDT, Height, 84, kg, 03/15/20 6:52:0... Start Date: 05/30/20 Status: OrderedPlavix 75 mg oral tablet 75 mg, 1, tablet, By Mouth, Daily, GIBRALTARIAN LABEL, # 30 tablet, Refills 3, Tot. Refills 3, Maintenance, 01/18/20 14:12:00 EDT, Route to Pharmacy Electronically, [facility], 176, cm, 01/18/20 13:37:00 EDT, Height, 84, kg, 01/01/20 22:36:... Start Date: 01/18/20 Status: OrderedProAir HFA 90 mcg/inh inhalation aerosol with adapter 1, puffs, Inhalation, Every 4 hours, PRN, # 8.5 Gm, Refills 0, Tot. Refills 0, Maintenance, 05/30/2112:29:00 EST, Aerosol, Route to Pharmacy Electronically, [id number], [facility], 176, cm, 01/18/20 13:37:00... Start Date: 05/30/20 Status: OrderedSEROquel XR 300 mg oral tablet, extended release 1 tablet = 300 mg, By Mouth, Daily at bedtime, GIBRALTARIAN LABEL, # 30 tablet, 1 Refills, Maintenance, 05/30/20 13:29:00 EST, ER Tablet, [facility], 1 tablet By Mouth Daily at bedtime,Instr:GIBRALTARIAN LABEL, 176, cm, 01/18/20 13:37:00 EDT, He... Start Date: 05/30/20 Status: Ordered Problem List Condition Effective Dates Status Health Status Informant Chronic Basilar artery Active occlusion(Confirmed) Aborted CVA- Was given tPA(Confirmed) Active Chronic pain syndrome(Confirmed) Active Constipation(Confirmed) Active Depression(Confirmed) Active Dysuria(Confirmed) Active Heartburn(Confirmed) Active CVA, old, hemiparesis(Confirmed) Active Elevated MCV(Confirmed) Active Nausea & vomiting(Confirmed) Active *Julissa Fraga, [facility] Care Active Coordinator [phone](Confirmed) Lumbar radicular pain(Confirmed) Active Right hemiplegia(Confirmed) Active Encounter for screening Active colonoscopy(Confirmed) Tobacco dependence(Confirmed) Active DMII (diabetes mellitus, type Active 2)(Confirmed) Vertigo(Confirmed) Active Social History Social History Type Response Smoking Status 5-9 cigarettes (between 1/4 to 1/2 pack)/day in last 30 days entered on: 01/01/20 Sex
--- OUTSIDE RECORDS SUMMARY | 2022-06-19 23:09 | XMS_ITS | Continuity of Care Document ---
:1965 Author Organization [facility] Address [address] [place] [address]- Care Team Providers Name Role Phone Marjorie Manuel KU Primary Care Physician [facility] Date(s): 09/27/21 - 11/11/21 [facility] [address] [place] [id number] Attending Physician: Not on Staff, [...] Patient Refuses 1Early/Late Reason: Other : Patient [id number] Comment: [01/16/2017] [facility] [id number] Comment: lot # [id number] Medications albuterol 0.083% inhalation solution 3 mL = 2.5 mg, Inhalation, Every 6 hours, PRN Wheezing/Shortness of Breath, # 1 each, 6 Refills, Maintenance, 04/03/21 9:01:00 EST, Solution, [facility] 175, cm, 04/03/21 8:32:00 EST, Height, 82.4, kg, 07/21/20 11:02:00 EDT, Dry Weight Start Date: 04/03/21 Status: OrderedamLODIPine 10 mg oral tablet 10 mg, 1, tablet, By Mouth, Daily at bedtime, # 30 tablet, Refills 2, Tot. Refills 2, Maintenance, 10/19/21 21:06:00 EDT, Route to Pharmacy Electronically, [facility], Partial fill uponpatient request if the prescription is for a sche... Start Date: 10/19/21 Status: OrderedamLODIPine 10 mg oral tablet 10 mg, 1, tablet, By Mouth, Daily at bedtime, for 90 days, # 90 tablet, Refills 4, Tot. Refills 4, Hard Stop 12/24/21 9:34:00 EDT, 09/30/20 9:34:00 EDT, Route to Pharmacy Electronically, [facility] #[id number], Partial fill upon patient request i... Start Date: 09/30/20 Stop Date: 12/24/21 Status: Orderedaspirin 81 mg oral delayed release tablet 81 mg, 1, tablet, By Mouth, Daily, BRUNEIAN LABEL, # 90 tablet, Refills 3, Tot. Refills 3, Maintenance, 08/09/21 5:53:00 EDT, Route to Pharmacy Electronically, [facility]., 175, cm, 04/03/21 8:32:00 EST, Height, 82.4, kg, 07/21/20 11:02:... Start Date: 08/09/21 Status: Orderedatorvastatin 20 mg oral tablet 1 tablet = 20 mg, By Mouth, Daily at bedtime, BRUNEIAN LABEL, # 90 tablet, 1 Refills, Maintenance, 04/03/21 9:05:00 EST, Tablet, [facility]., 175, cm, 04/03/21 8:32:00 EST, Height, 82.4, kg, 07/21/20 11:02:00 EDT, Dry Weight Start Date: 04/03/21 Status: Ordereddivalproex sodium 500 mg oral enteric coated tablet 1 tablet = 500 mg, By Mouth, 2 times a day, BRUNEIAN LABEL, # 60 tablet, 0 Refills, Maintenance, 10/11/21 13:36:00 EDT, Tablet, [facility]., 175, cm, 10/05/21 14:47:00 EDT, Height, 82.4, kg, 09/20/21 13:17:00 EDT, Dry Weight Start Date: 10/11/21 Status: Orderedduloxetine 60 mg oral enteric coated capsule 1 capsule = 60 mg, By Mouth, Daily, BRUNEIAN LABEL, # 90 capsule, 2 Refills, Maintenance, 04/03/21 9:05:00 EST, Capsule, [facility], 175, cm, 04/03/21 8:32:00 EST, Height, 82.4, kg, 07/21/20 11:02:00 EDT, Dry Weight Start Date: 04/03/21 Status: OrderedFlonase 50 mcg/inh nasal spray 1 sprays, Nares, Both, 2 times a day, New Zealander label please., # 16 Gm, 1 Refills, Maintenance, 09/30/20 9:34:00 EDT, [facility] #[id number], Partial fill upon patient request if the prescription isfor a schedule II opioid drug., 1 sprays Nares, B... Start Date: 09/30/20 Status: Orderedfluticasone-salmeterol 500 mcg-50 mcg inhalation powder 1 puff, Inhalation, 2 times a day, # 1 each, Refills 3, Tot. Refills 3, Maintenance, 10/11/21 13:36:00 EDT, Powder, Route to Pharmacy Electronically, [id number], [facility] 175, cm, 10/05/21 14:47:00 EDT, Hei... Start Date: 10/11/21 Status: Orderedgabapentin 300 mg oral capsule 600 mg, 2, capsule, By Mouth, Daily at bedtime, BRUNEIAN LABEL, # 60 capsule, Refills 3, Tot. Refills3, Maintenance, 10/11/21 13:32:00 EDT, Route to Pharmacy Electronically, [facility]175, cm, 10/05/21 14:47:00 EDT, Height, 82.4, [...] 10 mg, 1, tablet, By Mouth, Daily, New Zealander label please., # 30 tablet, Refills 0, Tot. Refills 0, Maintenance, 04/03/21 9:08:00 EST, Route to Pharmacy Electronically, [facility], Partial fill upon patient request if [...] 0 Refills, Maintenance, 09/18/21 11:48:00 EDT, Tablet, [facility] #[id number], Partial fill upon patient request if the prescription is for a schedule II opioid drug., 175, cm, 09/18/21 10:48:00 ED... Start Date: 09/18/21 Stop Date: 09/28/21 Status: OrderedmetFORMIN 500 mg oral tablet, extended release 2 tablet = 1,000 mg, By Mouth, 2 times a day, # 120 tablet, 6 Refills, Maintenance, 10/05/21 14:16:00 EDT, [facility] #[id number], Partial fill upon patient request if the prescription is for a schedule II opioid drug., 175, cm, 09/23/21 4:10:00... Start Date: 10/05/21 Status: Orderedmontelukast 10 mg oral tablet 10 mg, 1, tablet, By Mouth, Daily, BRUNEIAN LABEL, # 30 tablet, Refills 11, Tot. Refills 11, Maintenance, 10/03/21 16:07:00 EDT, Route to Pharmacy Electronically, [facility] #[id number], 175, cm, 09/23/21 4:10:00 EDT, Height, 82.4, [...] 75 mg, 1, tablet, By Mouth, Daily, BRUNEIAN LABEL, # 30 tablet, Refills 3, Tot. Refills 3, Maintenance, 08/09/21 5:53:00 EDT, Route to Pharmacy Electronically, [facility], 175, cm, 04/03/21 8:32:00 EST, Height, 82.4, kg, 07/21/20 11:02:... Start Date: 08/09/21 Status: OrderedProAir HFA 90 mcg/inh inhalation aerosol with adapter 1, puffs, Inhalation, Every 4 hours, PRN, # 1 each, Refills 5, Tot. Refills 5, Maintenance, 219:01:00 EST, Aerosol, Route to Pharmacy Electronically, [id number], [facility], 175, cm, 04/03/21 8:32:00 ES... Start [...] RIGHT UPPER. CTA - done Active at [facility]. 07/2021 - scanned in CIS(Confirmed) *Julissa Fraga, [facility] Care Active Coordinator [phone](Confirmed) Lumbar radicular pain(Confirmed) Active Right hemiplegia(Confirmed) Active Encounter for screening Active colonoscopy(Confirmed) Tobacco dependence(Confirmed) Active DMII (diabetes mellitus, type Active 2)(Confirmed) Vertigo(Confirmed) Active Social History Social History Type Response Smoking Status 5-9 cigarettes (between 1/4 to 1/2 pack)/day in last 30 days entered on: 01/01/20 Sex
--- OUTSIDE RECORDS SUMMARY | 2022-06-19 23:09 | XMS_ITS | Continuity of Care Document ---
:1965 Author Organization [facility] Address [address] [place] [address]- Care Team Providers Name Role Phone Gladismary Manuel KU Primary Care Physician [facility]counter [facility] Date(s): 01/08/22 - 02/07/22 Formerly Named [facility] Medicine [address] [place] [id number] Attending Physician: Not on Staff, Attending MD [...] Patient Refuses 1Early/Late Reason: Other : Patient [id number] Comment: [01/16/2017] [facility] [id number] Comment: lot # [id number] Medications albuterol 0.083% inhalation solution 3 mL = 2.5 mg, Inhalation, Every 6 hours, PRN Wheezing/Shortness of Breath, # 1 each, 6 Refills, Maintenance, 04/03/21 9:01:00 EST, Solution, [facility], 175, cm, 04/03/21 8:32:00 EST, Height, 82.4, kg, 07/21/20 11:02:00 EDT, Dry Weight Start Date: 04/03/21 Status: OrderedamLODIPine 10 mg oral tablet 10 mg, 1, tablet, By Mouth, Daily at bedtime, # 30 tablet, Refills 2, Tot. Refills 2, Maintenance, 10/19/21 21:06:00 EDT, Route to Pharmacy Electronically, [facility], Partial fill uponpatient request if the prescription is for a sche... Start Date: 10/19/21 Status: Orderedaspirin 81 mg oral delayed release tablet 81 mg, 1, tablet, By Mouth, Daily, POLISH LABEL, # 90 tablet, Refills 3, Tot. Refills 3, Maintenance, 08/09/21 5:53:00 EDT, Route to Pharmacy Electronically, [facility], 175, cm, 04/03/21 8:32:00 EST, Height, 82.4, kg, 07/21/20 11:02:... Start Date: 08/09/21 Status: Orderedatorvastatin 20 mg oral tablet See Instructions, REGINA 1 TABLETA POR LA BOCA A LA HORA DE DORMIR, # 30 tablet, 11 [facility], [facility], [facility], cm, 10/05/21 14:47:00 EDT, Height, 82.4, kg, 09/20/21 13:17:00 EDT, Dry Weight Start Date: 12/12/21 Status: Orderedclopidogrel 75 mg oral tablet See Instructions, REGINA 1 TABLETA POR LA BOCA CADA SARAH, # 30 tablet, Refills 6, Instructions ReplaceRequired Details, [facility]ically[facility], 175, cm, 10/05/21 14:47:00EDT, Height, 82.4, kg, 09/20/21 13:17:00 EDT, Dry... Start Date: 12/12/21 Status: Ordereddivalproex sodium 500 mg oral enteric coated tablet 1 tablet = 500 mg, By Mouth, 2 times a day, POLISH LABEL, # 60 tablet, 0 Refills, Maintenance, 11/24/21 12:56:00 EDT, Tablet, [facility] 175, cm, 10/05/21 14:47:00 EDT, Height, 82.4, kg, 09/20/21 13:17:00 EDT, Dry Weight Start Date: 11/24/21 Status: Orderedduloxetine 60 mg oral enteric coated capsule 1 capsule = 60 mg, By Mouth, Daily, POLISH LABEL, # 90 capsule, 2 Refills, Maintenance, 04/03/21 9:05:00 EST, Capsule, [facility] 175, cm, 04/03/21 8:32:00 EST, Height, 82.4, kg, 07/21/20 11:02:00 EDT, Dry Weight Start Date: 04/03/21 Status: OrderedFlonase 50 mcg/inh nasal spray 1 sprays, Nares, Both, 2 times a day, Urdu label please., # 16 Gm, 1 Refills, Maintenance, 09/30/20 9:34:00 EDT, [id number], Partial fill upon patient request if the prescription isfor a schedule II opioid drug., 1 sprays Nares, B... Start Date: 09/30/20 Status: Orderedfluticasone-salmeterol 500 mcg-50 mcg inhalation powder 1 puff, Inhalation, 2 times a day, # 1 each, Refills 3, Tot. Refills 3, Maintenance, 10/11/21 13:36:00 EDT, Powder, Route to Pharmacy Electronically, [id number], [facility] 175, cm, 10/05/21 14:47:00 EDT, Hei... Start Date: 10/11/21 Status: Orderedgabapentin 300 mg oral capsule 600 mg, 2, capsule, By Mouth, Daily at bedtime, POLISH LABEL, # 60 capsule, Refills 3, Tot. Refills3, Maintenance, 10/11/21 13:32:00 EDT, Route to Pharmacy Electronically, [facility]175, cm, 10/05/21 14:47:00 EDT, Height, 82.4, [...] 10 mg, 1, tablet, By Mouth, Daily, Urdu label please., # 30 tablet, Refills 0, Tot. Refills 0, Maintenance, 04/03/21 9:08:00 EST, Route to Pharmacy Electronically, [facility], Partial fill upon patient request [...] 0 Refills, Maintenance, 09/18/21 11:48:00 EDT, Tablet, [facility][id number], Partial fill upon patient request if the prescription is for a schedule II opioid drug., 175, cm, 09/18/21 10:48:00 ED... Start Date: 09/18/21 Stop Date: 09/28/21 Status: OrderedmetFORMIN 500 mg oral tablet, extended release 2 tablet = 1,000 mg, By Mouth, 2 times a day, # 120 tablet, 6 Refills, Maintenance, 10/05/21 14:16:00 EDT, [facility][id number], Partial fill upon patient request if the prescription is for a schedule II opioid drug., 175, cm, 09/23/21 4:10:00... Start Date: 10/05/21 Status: Orderedmontelukast 10 mg oral tablet 10 mg, 1, tablet, By Mouth, Daily, POLISH LABEL, # 30 tablet, Refills 11, Tot. Refills 11, Maintenance, 10/03/21 16:07:00 EDT, [facility], [id number], 175, cm, 09/23/21 4:10:00 EDT, Height, 82.4, kg, 09/20/21 13... Start Date: 10/03/21 Status: OrderedNebulizer/ Compressor with Tubing and Mask Nebulizer/ Compressor with Tubing and Mask, See Instructions, # 1 each, Refills 0, Tot. Refills 0, Maintenance, Nebulizer/ Compressor with Tubing and Mask Directions: Use as needed for wheezing Dx: asthma J45 Duration: Lifetime, 09/04/21 11:43:00 E... Start Date: 09/04/21 Status: OrderedProAir HFA 90 mcg/inh inhalation aerosol with adapter 1, puffs, Inhalation, Every 4 hours, PRN, # 1 each, Refills 5, Tot. Refills 5, Maintenance, 219:01:00 EST, Aerosol, Route to Pharmacy Electronically, [id number], [facility], 175, cm, 04/03/21 8:32:00 ES... Start Date: 04/03/21 Stop Date: 09/30/21 Status: Ordered Problem List Condition Confirmation Course Effective Dates Status Health I nformant Status Asthma Confirmed Active Chronic Basilar Confirmed Active artery occlusion Aborted CVA- Was Confirmed Active given tPA Chronic pain syndrome Confirmed Active Constipation Confirmed Active Depression Confirmed Active Dysuria Confirmed Active GERD Confirmed Active (gastroesophageal reflux disease) CVA, old, hemiparesis Confirmed Active Hyperlipidemia Confirmed Active Hypertension Confirmed Active Elevated MCV Confirmed Active Nausea & vomiting Confirmed Active Lung nodule - RIGHT Confirmed Active UPPER. CTA - done at [facility]. 07/2021 - scanned in [facility] *Julissa Vaughn Confirmed Active Flak[facility] [employer] [phone] Lumbar radicular pain Confirmed Active Right hemiplegia Confirmed Active Encounter for Confirmed Active screening colonoscopy Tobacco dependence Confirmed Active DMII (diabetes Confirmed Active mellitus, type 2) Vertigo Confirmed Active Social History Social History Type Response Smoking Status 5-9 cigarettes (between 1/4 to 1/2 pack)/day in last 30 days entered on: 01/01/20 Sex Patient Care team information PersonnelName: Manuel Amador DO Address: Address: [address] [place] [id number]
--- OUTSIDE RECORDS SUMMARY | 2022-06-19 23:09 | XMS_ITS | Continuity of Care Document ---
:1965 Author Organization [facility] ([facility]3] Adult Medicine Address [address] [place] [id number]- Care Team Providers Name Role Phone Greyson LARES, Mauricio Primary Care Physician [facility] Date(s): 12/27/20 - 01/26/21 [facility] Medicine [address] [place] [id number] Allergies, Adverse Reactions, Alerts No Known Medication [...] Patient Refuses 1Early/Late Reason: Other : Patient [id number] Comment: [01/16/2017] [facility] [id number] Comment: lot # [id number] Medications Advair Diskus 250 mcg-50 mcg inhalation powder 1, puffs, Inhalation, 2 times a day, # 180 each, Refills 1, Tot. Refills 1, Maintenance, 07/22/20 10:04:00 EDT, Powder, Route to Pharmacy Electronically, [id number], [facility] #[id number], 175, cm, 07/22/20 7:07:00 EDT,... Start Date: 07/22/20 Status: Orderedalbuterol 0.083% inhalation solution 3 mL = 2.5 mg, Inhalation, Every 6 hours, PRN Wheezing/Shortness of Breath, # 1 each, 6 Refills, Maintenance, 09/30/20 9:34:00 EDT, Solution, [facility] #[id number], 175, cm, 07/22/20 7:07:00 EDT,Height, 82.4, kg, 07/21/20 11:02:00 EDT, Dry Weight Start Date: 09/30/20 Status: OrderedamLODIPine 10 mg oral tablet 10 mg, 1, tablet, By Mouth, Daily at bedtime, # 90 tablet, Refills 4, Tot. Refills 4, Maintenance, 09/30/20 9:34:00 EDT, Route to Pharmacy Electronically, [facility] #[id number], Partial fill uponpatient request if the prescription is for a sche... Start Date: 09/30/20 Stop Date: 12/24/21 Status: Orderedaspirin 81 mg oral delayed release tablet 81 mg, 1, tablet, By Mouth, Daily, PANAMANIAN LABEL, # 30 tablet, Refills 1, Tot. Refills 1, Maintenance, 09/30/20 9:34:00 EDT, Route to Pharmacy Electronically, [facility] #[id number], 175, cm, 07/22/20 7:07:00 EDT, Height, 82.4, kg, 07/21/20 11:02... Start Date: 09/30/20 Status: Orderedatorvastatin 20 mg oral tablet 1 tablet = 20 mg, By Mouth, Daily at bedtime, PANAMANIAN LABEL, # 30 tablet, 1 Refills, Maintenance, 09/30/20 9:34:00 EDT, Tablet, [facility] #[id number], 175, cm, 07/22/20 7:07:00 EDT, Height, 82.4,kg, 07/21/20 11:02:00 EDT, Dry Weight Start Date: 09/30/20 Status: Ordereddivalproex sodium 500 mg oral enteric coated tablet 1 tablet = 500 mg, By Mouth, 2 times a day, PANAMANIAN LABEL, # 60 tablet, 2 Refills, Maintenance, 09/30/20 9:34:00 EDT, Tablet, [facility] #[id number], 175, cm, 07/22/20 7:07:00 EDT, Height, 82.4, kg, 07/21/20 11:02:00 EDT, Dry Weight Start Date: 09/30/20 Status: Orderedduloxetine 60 mg oral enteric coated capsule 1 capsule = 60 mg, By Mouth, Daily, PANAMANIAN LABEL, # 30 capsule, 1 Refills, Maintenance, 09/30/20 9:34:00 EDT, Capsule, [facility] #[id number], 175, cm, 07/22/20 7:07:00 EDT, Height, 82.4, kg, 07/21/20 11:02:00 EDT, Dry Weight Start Date: 09/30/20 Status: OrderedFlonase 50 mcg/inh nasal spray 1 sprays, Nares, Both, 2 times a day, Surinamese label please., # 16 Gm, 1 Refills, Maintenance, 09/30/20 9:34:00 EDT, [facility] #[id number], Partial fill upon patient request if the prescription isfor a schedule II opioid drug., 1 sprays Nares, B... Start Date: 09/30/20 Status: Orderedgabapentin 300 mg oral capsule 600 mg, 2, capsule, By Mouth, Daily at bedtime, PANAMANIAN LABEL, # 60 capsule, Refills 3, Tot. Refills3, Maintenance, 09/30/20 9:34:00 EDT, Route to Pharmacy Electronically, [facility] #[id number],175, cm, 07/22/20 7:07:00 EDT, Height, 82.4, kg,... Start Date: 09/30/20 Status: Orderedlidocaine 5% topical film See Instructions, 1 patch to affected area Topically Daily, remove at HS, # 30 patch, 1 Refills, Maintenance, 09/30/20 9:34:00 EDT, Patch, [facility] #[id number], 1 patch to affected area Topically Daily, remove at HS, 175, cm, 07/22/20 7:07:00 E... Start Date: 09/30/20 Status: Orderedloratadine 10 mg oral tablet 10 mg, 1, tablet, By Mouth, Daily, Surinamese label please., # 30 tablet, Refills 0, Tot. Refills 0, Maintenance, 09/30/20 9:34:00 EDT, Route to Pharmacy Electronically, [facility] #[id number], Partial fill upon patient request if the prescription i... Start Date: 09/30/20 Stop Date: 10/30/20 Status: Orderedmontelukast 10 mg oral tablet 10 mg, 1, tablet, By Mouth, Daily, PANAMANIAN LABEL, # 30 tablet, Refills 11, Tot. Refills 11, Maintenance, 09/30/20 9:34:00 EDT, Route to Pharmacy Electronically, [facility] #[id number], 175, cm, 07/22/20 7:07:00 EDT, Height, 82.4, kg, 07/21/20 11:... Start Date: 09/30/20 Status: OrderedPlavix 75 mg oral tablet 75 mg, 1, tablet, By Mouth, Daily, PANAMANIAN LABEL, # 30 tablet, Refills 3, Tot. Refills 3, Maintenance, 09/30/20 9:34:00 EDT, Route to Pharmacy Electronically, [facility] #[id number], 175, cm, 07/22/20 7:07:00 EDT, Height, 82.4, kg, 07/21/20 11:02... Start Date: 09/30/20 Status: OrderedpredniSONE 10 mg oral tablet See Instructions, 40 mg for 2 days, 20 mg for 2 days 10 mg for 2 days., # 14 tablet, 0 Refills, Maintenance, 07/22/20 10:06:00 EDT, [facility] #[id number], Partial fill upon patient request if theprescription is for a schedule II opioid drug., 1... Start Date: 07/22/20 Status: OrderedProAir HFA 90 mcg/inh inhalation aerosol with adapter 1, puffs, Inhalation, Every 4 hours, PRN, # 1 each, Refills 5, Tot. Refills 5, Maintenance, :34:00 EDT, Aerosol, Route to Pharmacy Electronically, [id number], [facility][id number], 175, cm, 07/22/20 7:07:00 E... Start Date: 09/30/20 Stop Date: 03/29/21 Status: OrderedSEROquel XR 300 mg oral tablet, extended release 1 tablet = 300 mg, By Mouth, Daily at bedtime, PANAMANIAN LABEL, # 30 tablet, 1 Refills, Maintenance, 09/30/20 9:34:00 EDT, ER Tablet, [facility] #[id number], 1 tablet By Mouth Daily at bedtime,Instr:PANAMANIAN LABEL, 175, cm, 07/22/20 7:07:00 EDT, Hei... [...] Active Nausea & vomiting(Confirmed) Active *Julissa Fraga, [facility] Care Active Coordinator [phone](Confirmed) Lumbar radicular pain(Confirmed) Active Right hemiplegia(Confirmed) Active Encounter for screening Active colonoscopy(Confirmed) Tobacco dependence(Confirmed) Active DMII (diabetes mellitus, type Active 2)(Confirmed) Vertigo(Confirmed) Active Social History Social History Type Response Smoking Status 5-9 cigarettes (between 1/4 to 1/2 pack)/day in last 30 days entered on: 01/01/20 Sex
--- OUTSIDE RECORDS SUMMARY | 2022-06-19 23:09 | XMS_ITS | Continuity of Care Document ---
:1965 Author Organization [facility] Address [address] [place] [address]- Care Team Providers Name Role Phone Mauricio Rubi MD Primary Care Physician [place] [facility] [place] 01[place]29/20 [facility] [address] [place] [address]- [facility] Allergies, Adverse Reactions, Alerts No Known Medication [...] Patient Refuses 1Early/Late Reason: Other : Patient [id number] Comment: [01/16/2017] [facility] [id number] Comment: lot # [id number] Medications acetaminophen 325 mg oral tablet 650 mg, 2, tablet, By Mouth, 4 times a day, PRN, as needed for headache/pain not to exceed 4000 mg/day HAITIAN LABEL, # 50 tablet, Refills 1, Tot. Refills 1, Acute 03/10/20 10:19:00 EST, Pain , Mild, 01/08/20 10:18:00 EDT, Route to Pharmacy Electron... Start Date: 01/08/20 Stop Date: 03/10/20 Status: OrderedAirDuo RespiClick 232 mcg-14 mcg/inh inhalation powder 1, puffs, Inhalation, 2 times a day, # 1 each, Refills 11, Tot. Refills 11, Maintenance, 07/07/19 19:06:00 EDT, Powder, Route to Pharmacy Electronically, [id number], [facility], advair not covered , 175,... Start Date: 07/07/19 Status: Orderedalbuterol 0.083% inhalation solution 3 mL = 2.5 mg, Inhalation, Every 6 hours, PRN Wheezing/Shortness of Breath, # 1 each, 6 Refills, Maintenance, 07/07/19 19:06:00 EDT, Solution, [facility], 175, cm, 05/30/19 19:11:00 EST, Height, 84.5, kg, 12/25/18 16:15:00 EDT, Dry Weight Start Date: 07/07/19 Status: Orderedaspirin 81 mg oral delayed release tablet 81 mg, 1, tablet, By Mouth, Daily, HAITIAN LABEL, # 30 tablet, Refills 1, Tot. Refills 1, Maintenance, 01/08/20 10:20:00 EDT, Route to Pharmacy Electronically, [facility], 176, cm, 01/08/20 9:45:00 EDT, Height, 84, kg, 01/01/20 22:36:0... Start Date: 01/08/20 Status: Orderedatorvastatin 20 mg oral tablet 1 tablet = 20 mg, By Mouth, Daily at bedtime, HAITIAN LABEL, # 30 tablet, 1 Refills, Maintenance, 01/08/20 10:20:00 EDT, Tablet, [facility], 176, cm, 01/08/20 9:45:00 EDT, Height, 84, kg, 01/01/20 22:36:00 EDT, Dry Weight Start Date: 01/08/20 Status: Ordereddivalproex sodium 500 mg oral enteric coated tablet 1 tablet = 500 mg, By Mouth, 2 times a day, HAITIAN LABEL, # 60 tablet, 1 Refills, Maintenance, 01/08/20 10:21:00 EDT, Tablet, [facility], 176, cm, 01/08/20 9:45:00 EDT, Height, 84, kg,01/01/20 22:36:00 EDT, Dry Weight Start Date: 01/08/20 Status: Orderedduloxetine 60 mg oral enteric coated capsule 1 capsule = 60 mg, By Mouth, Daily, HAITIAN LABEL, # 30 capsule, 1 Refills, Maintenance, 01/08/20 10:21:00 EDT, Capsule, [facility], 176, cm, 01/08/20 9:45:00 EDT, Height, 84, kg, 01/01/20 22:36:00 EDT, Dry Weight Start Date: 01/08/20 Status: Orderedgabapentin 300 mg oral capsule 600 mg, 2, capsule, By Mouth, Daily at bedtime, HAITIAN LABEL, # 60 capsule, Refills 1, Tot. Refills1, Maintenance, 01/08/20 10:21:00 EDT, Route to Pharmacy Electronically, [facility],176, cm, 01/08/20 9:45:00 EDT, Height, 84, kg, 09... Start Date: 01/08/20 Status: Orderedhydrochlorothiazide 25 mg oral tablet 12.5 mg, 0.5, tablet, By Mouth, Daily, HAITIAN LABEL, # 15 tablet, Refills 1, Tot. Refills 1, Maintenance, 01/08/20 10:23:00 EDT, Route to Pharmacy Electronically, [facility], 176, cm, 01/08/20 9:45:00 EDT, Height, 84, kg, 01/01/20 22:... Start Date: 01/08/20 Status: Orderedlidocaine 5% topical film See Instructions, 1 patch to affected area Topically Daily, remove at HS, # 30 patch, 1 Refills, Maintenance, 08/13/19 13:28:00 EDT, Patch, [facility], 1 patch to affected area Topically Daily, remove at HS, 175, cm, 05/30/19 19:11:00... Start Date: 08/13/19 Status: OrderedmetFORMIN 500 mg oral tablet 1 tablet = 500 mg, By Mouth, 2 times a day, HAITIAN LABEL, # 60 tablet, 1 Refills, Maintenance, 01/08/20 10:23:00 EDT, Tablet, [facility] 176, cm, 01/08/20 9:45:00 EDT, Height, 84, kg,01/01/20 22:36:00 EDT, Dry Weight Start Date: 01/08/20 Status: Orderedmontelukast 10 mg oral tablet 10 mg, 1, tablet, By Mouth, Daily, HAITIAN LABEL, # 30 tablet, Refills 1, Tot. Refills 1, Maintenance, 01/08/20 10:24:00 EDT, Route to Pharmacy Electronically, [facility], 176, cm, 01/08/20 9:45:00 EDT, Height, 84, kg, 01/01/20 22:36:0... Start Date: 01/08/20 Status: OrderedNeurontin 300 mg oral capsule 300 mg, 1, capsule, By Mouth, 3 times a day, PRN, As needed for neuropathic pain up to 3 times dailySPANISH LABEL, # 60 capsule, Refills 1, Tot. Refills 1, Maintenance, Pain , Moderate, 01/08/20 10:22:00 EDT, Route to Pharmacy Electronically, [facility]... Start Date: 01/08/20 Status: OrderedNicoderm C-Q Clear 14 mg/24 hr transdermal film, extended release 1 patch, Topically, Daily, # 30 patch, 1 Refills, Acute 02/08/20 10:25:00 EDT, 01/08/20 10:25:00 EDT, Patch, [facility] 176, cm, 01/08/20 9:45:00 EDT, Height, 84, kg, 01/01/20 22:36:00EDT, Dry Weight Start Date: 01/08/20 Stop Date: 02/08/20 Status: OrderedPlavix 75 mg oral tablet 75 mg, 1, tablet, By Mouth, Daily, HAITIAN LABEL, # 30 tablet, Refills 3, Tot. Refills 3, Maintenance, 01/18/20 14:12:00 EDT, Route to Pharmacy Electronically, [facility] 176, cm, 01/18/20 13:37:00 EDT, Height, 84, kg, 01/01/20 22:36:... Start Date: 01/18/20 Status: OrderedProAir HFA 90 mcg/inh inhalation aerosol with adapter 1, puffs, Inhalation, Every 4 hours, PRN, # 8.5 Gm, Refills 0, Tot. Refills 0, Maintenance, 07/06/2018:06:00 EDT, Aerosol, Route to Pharmacy Electronically, [id number][facility], cm, 05/30/19 19:11:00... Start Date: 07/07/19 Status: OrderedSEROquel XR 300 mg oral tablet, extended release 1 tablet = 300 mg, By Mouth, Daily at bedtime, HAITIAN LABEL, # 30 tablet, 1 Refills, Maintenance, 01/08/20 10:26:00 EDT, ER Tablet, [facility], 1 tablet By Mouth Daily at bedtime,Instr:HAITIAN LABEL, 176, cm, 01/08/20 9:45:00 EDT, Hei... Start Date: 01/08/20 Status: Ordered Problem List Condition Effective Dates Status Health Status Informant Chronic Basilar artery Active occlusion(Confirmed) Aborted CVA- Was given tPA(Confirmed) Active Chronic pain syndrome(Confirmed) Active Constipation(Confirmed) Active Depression(Confirmed) Active Dysuria(Confirmed) Active Heartburn(Confirmed) Active CVA, old, hemiparesis(Confirmed) Active Elevated MCV(Confirmed) Active Nausea & vomiting(Confirmed) Active *Julissa Fraga, [facility] Care Active Coordinator [phone](Confirmed) Lumbar radicular pain(Confirmed) Active Right hemiplegia(Confirmed) Active Encounter for screening Active colonoscopy(Confirmed) Tobacco dependence(Confirmed) Active DMII (diabetes mellitus, type Active 2)(Confirmed) Vertigo(Confirmed) Active Social History Social History Type Response Smoking Status 5-9 cigarettes (between 1/4 to 1/2 pack)/day in last 30 days entered on: 01/01/20 Sex
--- OUTSIDE RECORDS SUMMARY | 2022-06-19 23:09 | XMS_ITS | Continuity of Care Document ---
:1965 Author Organization [facility] Address [address] [place] [address]- Care Team Providers Name Role Phone Mauricio Rubi MD Primary Care Physician [facility] Date[facility]): 12[facility]/19 - 01/10/20 [facility] [address] [place] [address]- [facility] Attending Physician: Jacky Wren Admitting Physician: Admtr, Jacky Referring Physician: Admtr, Jacky Allergies, Adverse Reactions, Alerts No Known Medication [...] Patient Refuses 1Early/Late Reason: Other : Patient [id number] Comment: [01/16/2017] [facility] [place] [phone] Comment: lot # [id number] Medications acetaminophen 325 mg oral tablet 650 mg, 2, tablet, By Mouth, 4 times a day, PRN, as needed for headache/pain not to exceed 4000 mg/day LIBYAN LABEL, # 50 tablet, Refills 1, Tot. Refills 1, Acute 03/10/20 10:19:00 EST, Pain , Mild, 01/08/20 10:18:00 EDT, Route to Pharmacy Electron... Start Date: 01/08/20 Stop Date: 03/10/20 Status: OrderedAirDuo RespiClick 232 mcg-14 mcg/inh inhalation powder 1, puffs, Inhalation, 2 times a day, # 1 each, Refills 11, Tot. Refills 11, Maintenance, 07/07/19 19:06:00 EDT, Powder, Route to Pharmacy Electronically, [id number], [facility], advair not covered , 175,... Start Date: 07/07/19 Status: Orderedalbuterol 0.083% inhalation solution 3 mL = 2.5 mg, Inhalation, Every 6 hours, PRN Wheezing/Shortness of Breath, # 1 each, 6 Refills, Maintenance, 07/07/19 19:06:00 EDT, Solution, [facility], 175, cm, 05/30/19 19:11:00 EST, Height, 84.5, kg, 12/25/18 16:15:00 EDT, Dry Weight Start Date: 07/07/19 Status: Orderedaspirin 81 mg oral delayed release tablet 81 mg, 1, tablet, By Mouth, Daily, LIBYAN LABEL, # 30 tablet, Refills 1, Tot. Refills 1, Maintenance, 01/08/20 10:20:00 EDT, Route to Pharmacy Electronically, [facility], 176, cm, 01/08/20 9:45:00 EDT, Height, 84, kg, 01/01/20 22:36:0... Start Date: 01/08/20 Status: Orderedatorvastatin 20 mg oral tablet 1 tablet = 20 mg, By Mouth, Daily at bedtime, LIBYAN LABEL, # 30 tablet, 1 Refills, Maintenance, 01/08/20 10:20:00 EDT, Tablet, [facility], 176, cm, 01/08/20 9:45:00 EDT, Height, 84, kg, 01/01/20 22:36:00 EDT, Dry Weight Start Date: 01/08/20 Status: Ordereddivalproex sodium 500 mg oral enteric coated tablet 1 tablet = 500 mg, By Mouth, 2 times a day, LIBYAN LABEL, # 60 tablet, 1 Refills, Maintenance, 01/08/20 10:21:00 EDT, Tablet, [facility], 176, cm, 01/08/20 9:45:00 EDT, Height, 84, kg,01/01/20 22:36:00 EDT, Dry Weight Start Date: 01/08/20 Status: Orderedduloxetine 60 mg oral enteric coated capsule 1 capsule = 60 mg, By Mouth, Daily, LIBYAN LABEL, # 30 capsule, 1 Refills, Maintenance, 01/08/20 10:21:00 EDT, Capsule, [facility], 176, cm, 01/08/20 9:45:00 EDT, Height, 84, kg, 01/01/20 22:36:00 EDT, Dry Weight Start Date: 01/08/20 Status: Orderedgabapentin 300 mg oral capsule 600 mg, 2, capsule, By Mouth, Daily at bedtime, LIBYAN LABEL, # 60 capsule, Refills 1, Tot. Refills1, Maintenance, 01/08/20 10:21:00 EDT, Route to Pharmacy Electronically, [facility],176, cm, 01/08/20 9:45:00 EDT, Height, 84, kg, 09... Start Date: 01/08/20 Status: Orderedhydrochlorothiazide 25 mg oral tablet 12.5 mg, 0.5, tablet, By Mouth, Daily, LIBYAN LABEL, # 15 tablet, Refills 1, Tot. Refills 1, Maintenance, 01/08/20 10:23:00 EDT, Route to Pharmacy Electronically, [facility], 176, cm, 01/08/20 9:45:00 EDT, Height, 84, kg, 01/01/20 22:... Start Date: 01/08/20 Status: Orderedlidocaine 5% topical film See Instructions, 1 patch to affected area Topically Daily, remove at HS, # 30 patch, 1 Refills, Maintenance, 08/13/19 13:28:00 EDT, Patch, [facility] 1 patch to affected area Topically Daily, remove at HS, 175, cm, 05/30/19 19:11:00... Start Date: 08/13/19 Status: OrderedmetFORMIN 500 mg oral tablet 1 tablet = 500 mg, By Mouth, 2 times a day, LIBYAN LABEL, # 60 tablet, 1 Refills, Maintenance, 01/08/20 10:23:00 EDT, Tablet, [facility] 176, cm, 01/08/20 9:45:00 EDT, Height, 84, kg,01/01/20 22:36:00 EDT, Dry Weight Start Date: 01/08/20 Status: Orderedmontelukast 10 mg oral tablet 10 mg, 1, tablet, By Mouth, Daily, LIBYAN LABEL, # 30 tablet, Refills 1, Tot. Refills 1, Maintenance, 01/08/20 10:24:00 EDT, Route to Pharmacy Electronically, [facility], 176, cm, 01/08/20 9:45:00 EDT, Height, 84, kg, 01/01/20 22:36:0... Start Date: 01/08/20 Status: OrderedNeurontin 300 mg oral capsule 300 mg, 1, capsule, By Mouth, 3 times a day, PRN, As needed for neuropathic pain up to 3 times dailySPANISH LABEL, # 60 capsule, Refills 1, Tot. Refills 1, Maintenance, Pain , Moderate, 01/08/20 10:22:00 EDT, Route to Pharmacy Electronically, [facility]... Start Date: 01/08/20 Status: OrderedNicoderm C-Q Clear 14 mg/24 hr transdermal film, extended release 1 patch, Topically, Daily, # 30 patch, 1 Refills, Acute 02/08/20 10:25:00 EDT, 01/08/20 10:25:00 EDT, Patch, [facility], 176, cm, 01/08/20 9:45:00 EDT, Height, 84, kg, 01/01/20 22:36:00EDT, Dry Weight Start Date: 01/08/20 Stop Date: 02/08/20 Status: OrderedPlavix 75 mg oral tablet 75 mg, 1, tablet, By Mouth, Daily, LIBYAN LABEL, # 30 tablet, Refills 1, Tot. Refills 1, Maintenance, 01/08/20 10:20:00 EDT, Route to Pharmacy Electronically, [facility], 176, cm, 01/08/20 9:45:00 EDT, Height, 84, kg, 01/01/20 22:36:0... Start Date: 01/08/20 Status: OrderedProAir HFA 90 mcg/inh inhalation aerosol with adapter 1, puffs, Inhalation, Every 4 hours, PRN, # 8.5 Gm, Refills 0, Tot. Refills 0, Maintenance, 07/06/2018:06:00 EDT, Aerosol, Route to Pharmacy Electronically, [id number], [facility], 175, cm, 05/30/19 19:11:00... Start Date: 07/07/19 Status: OrderedSEROquel XR 300 mg oral tablet, extended release 1 tablet = 300 mg, By Mouth, Daily at bedtime, LIBY[place] LABEL, # 30 tablet, 1 Refills, Maintenance, 01/08/20 10:26:00 EDT, ER Tablet, [facility], 1 tablet By Mouth Daily at bedtime,Instr:LIBYAN LABEL, 176, cm, 01/08/20 9:45:00 EDT, Hei... Start Date: 01/08/20 Status: Ordered Problem List Condition Effective Dates Status Health Status Informant Chronic Basilar artery Active occlusion(Confirmed) Aborted CVA- Was given tPA(Confirmed) Active Chronic pain syndrome(Confirmed) Active Constipation(Confirmed) Active Depression(Confirmed) Active Dysuria(Confirmed) Active Heartburn(Confirmed) Active CVA, old, hemiparesis(Confirmed) Active Elevated MCV(Confirmed) Active Nausea & vomiting(Confirmed) Active *Julissa Fraga, [facility] Care Active Coordinator [phone](Confirmed) Lumbar radicular pain(Confirmed) Active Right hemiplegia(Confirmed) Active Encounter for screening Active colonoscopy(Confirmed) Tobacco dependence(Confirmed) Active DMII (diabetes mellitus, type Active 2)(Confirmed) Vertigo(Confirmed) Active Social History Social History Type Response Smoking Status 5-9 cigarettes (between 1/4 to 1/2 pack)/day in last 30 days entered on: 01/01/20 Sex
--- OUTSIDE RECORDS SUMMARY | 2022-06-19 23:09 | XMS_ITS | Continuity of Care Document ---
:1965 Author Organization [facility] Address [address] [place] [address]- Care Team Providers Name Role Phone Greyson LARES, Mauricio Primary Care Physician Encounter 09/25/21 - 10/25/21 [facility] [address] [place] [address]- Discharge Disposition: CLIENT NO LONGER REQUIRES SKILLED CARE Allergies, Adverse Reactions, Alerts No Known Medication [...] Patient Refuses 1Early/Late Reason: Other : Patient [id number] Comment: [01/16/2017] [facility] [id number] Comment: lot # [id number] Medications albuterol 0.083% inhalation solution 3 mL = 2.5 mg, Inhalation, Every 6 hours, PRN Wheezing/Shortness of Breath, # 1 each, 6 Refills, Maintenance, 04/03/21 9:01:00 EST, Solution, [facility] 175, cm, 04/03/21 8:32:00 EST, Height, 82.4, kg, 07/21/20 11:02:00 EDT, Dry Weight Start Date: 04/03/21 Status: OrderedamLODIPine 10 mg oral tablet 10 mg, 1, tablet, By Mouth, Daily at bedtime, # 30 tablet, Refills 2, Tot. Refills 2, Maintenance, 10/19/21 21:06:00 EDT, Route to Pharmacy Electronically, [facility], Partial fill uponpatient request if the prescription is for a sche... Start Date: 10/19/21 Status: OrderedamLODIPine 10 mg oral tablet 10 mg, 1, tablet, By Mouth, Daily at bedtime, for 90 days, # 90 tablet, Refills 4, Tot. Refills 4, Hard Stop 12/24/21 9:34:00 EDT, 09/30/20 9:34:00 EDT, Route to Pharmacy Electronically, [facility] #[id number], Partial fill upon patient request i... Start Date: 09/30/20 Stop Date: 12/24/21 Status: Orderedaspirin 81 mg oral delayed release tablet 81 mg, 1, tablet, By Mouth, Daily, MAL[place] LABEL, # 90 tablet, Refills 3, Tot. Refills 3, Maintenance, 08/09/21 5:53:00 EDT, Route to Pharmacy Electronically, [facility] 175, cm, 04/03/21 8:32:00 EST, Height, 82.4, kg, 07/21/20 11:02:... Start Date: 08/09/21 Status: Orderedatorvastatin 20 mg oral tablet 1 tablet = 20 mg, By Mouth, Daily at bedtime, MAL[place] LABEL, # 90 tablet, 1 Refills, Maintenance, 04/03/21 9:05:00 EST, Tablet, [facility] 175, cm, 04/03/21 8:32:00 EST, Height, 82.4, kg, 07/21/20 11:02:00 EDT, Dry Weight Start Date: 04/03/21 Status: Ordereddivalproex sodium 500 mg oral enteric coated tablet 1 tablet = 500 mg, By Mouth, 2 times a day, MAL[place] LABEL, # 60 tablet, 0 Refills, Maintenance, 10/11/21 13:36:00 EDT, Tablet, [facility] 175, cm, 10/05/21 14:47:00 EDT, Height, 82.4, kg, 09/20/21 13:17:00 EDT, Dry Weight Start Date: 10/11/21 Status: Orderedduloxetine 60 mg oral enteric coated capsule 1 capsule = 60 mg, By Mouth, Daily, MAL[place] LABEL, # 90 capsule, 2 Refills, Maintenance, 04/03/21 9:05:00 EST, Capsule, [facility], 175, cm, 04/03/21 8:32:00 EST, Height, 82.4, kg, 07/21/20 11:02:00 EDT, Dry Weight Start Date: 04/03/21 Status: OrderedFlonase 50 mcg/inh nasal spray 1 sprays, Nares, Both, 2 times a day, Bulgarian label please., # 16 Gm, 1 Refills, Maintenance, 09/30/20 9:34:00 EDT, [facility] #[id number], Partial fill upon patient request if the prescription isfor a schedule II opioid drug., 1 sprays Nares, B... Start Date: 09/30/20 Status: Orderedfluticasone-salmeterol 500 mcg-50 mcg inhalation powder 1 puff, Inhalation, 2 times a day, # 1 each, Refills 3, Tot. Refills 3, Maintenance, 10/11/21 13:36:00 EDT, Powder, Route to Pharmacy Electronically, [id number], [facility] 175, cm, 10/05/21 14:47:00 EDT, Hei... Start Date: 10/11/21 Status: Orderedgabapentin 300 mg oral capsule 600 mg, 2, capsule, By Mouth, Daily at bedtime, MALAWIAN LABEL, # 60 capsule, Refills 3, Tot. Refills3, Maintenance, 10/11/21 13:32:00 EDT, Route to Pharmacy Electronically, [facility]175, cm, 10/05/21 14:47:00 EDT, Height, 82.4, [...] 10 mg, 1, tablet, By Mouth, Daily, Bulgarian label please., # 30 tablet, Refills 0, Tot. Refills 0, Maintenance, 04/03/21 9:08:00 EST, Route to Pharmacy Electronically, [facility], Partial fill upon patient request if [...] 0 Refills, Maintenance, 09/18/21 11:48:00 EDT, Tablet, [facility] #[id number], Partial fill upon patient request if the prescription is for a schedule II opioid drug., 175, cm, 09/18/21 10:48:00 ED... Start Date: 09/18/21 Stop Date: 09/28/21 Status: OrderedmetFORMIN 500 mg oral tablet, extended release 2 tablet = 1,000 mg, By Mouth, 2 times a day, # 120 tablet, 6 Refills, Maintenance, 10/05/21 14:16:00 EDT, [facility] #[id number], Partial fill upon patient request if the prescription is for a schedule II opioid drug., 175, cm, 09/23/21 4:10:00... Start Date: 10/05/21 Status: Orderedmontelukast 10 mg oral tablet 10 mg, 1, tablet, By Mouth, Daily, MALAWIAN LABEL, # 30 tablet, Refills 11, Tot. Refills 11, Maintenance, 10/03/21 16:07:00 EDT, Route to Pharmacy Electronically, [facility] #[id number], 175, cm, 09/23/21 4:10:00 EDT, Height, 82.4, [...] 75 mg, 1, tablet, By Mouth, Daily, MALAWIAN LABEL, # 30 tablet, Refills 3, Tot. Refills 3, Maintenance, 08/09/21 5:53:00 EDT, Route to Pharmacy Electronically, [facility], 175, cm, 04/03/21 8:32:00 EST, Height, 82.4, kg, 07/21/20 11:02:... Start Date: 08/09/21 Status: OrderedProAir HFA 90 mcg/inh inhalation aerosol with adapter 1, puffs, Inhalation, Every 4 hours, PRN, # 1 each, Refills 5, Tot. Refills 5, Maintenance, :01:00 EST, Aerosol, Route to Pharmacy Electronically, [id number], [facility], 175, cm, 04/03/21 8:32:00 ES... Start [...] RIGHT UPPER. CTA - done Active at [facility]. 07/2021 - scanned in CIS(Confirmed) *Julissa Fraga, [facility] Care Active Coordinator [phone](Confirmed) Lumbar radicular pain(Confirmed) Active Right hemiplegia(Confirmed) Active Encounter for screening Active colonoscopy(Confirmed) Tobacco dependence(Confirmed) Active DMII (diabetes mellitus, type Active 2)(Confirmed) Vertigo(Confirmed) Active Social History Social History Type Response Smoking Status 5-9 cigarettes (between 1/4 to 1/2 pack)/day in last 30 days entered on: 01/01/20 Sex
--- OUTSIDE RECORDS SUMMARY | 2022-06-19 23:09 | XMS_ITS | Continuity of Care Document ---
:1965 Author Organization [facility] Address [address] [place] [address]- Care Team Providers Name Role Phone Mauricio Rubi MD Primary Care Physician [facility] Date[facility]s): 05/31/19 - 06/30/[address] [address]- [facility] Attending Physician: Not on Staff, Attending MD Admitting Physician: Not on Staff, Admitting MD Referring Physician: Not on Staff, Referring [...] Patient Refuses 1Early/Late Reason: Other : Patient [id number] Comment: [01/16/2017] [facility] [id number] Comment: lot # [id number] Medications AirDuo RespiClick 232 mcg-14 mcg/inh inhalation powder 1, puffs, Inhalation, 2 times a day, # 1 each, Refills 11, Tot. Refills 11, Maintenance, 11/19/18 15:20:42 EDT, Powder, Route to Pharmacy Electronically, [id number], [facility], advair not covered Start Date: 11/19/18 [...] 11/19/18 14:00:09 EDT, Route to Pharmacy Electronically, [id number], [facility] Start Date: 11/19/18 Stop Date: 02/12/20 Status: Orderedatorvastatin 20 mg oral tablet 1 tablet = 20 mg, By Mouth, Daily at bedtime, # 30 tablet, 0 Refills, Maintenance, 05/31/19 11:54:00EST, Tablet, [facility], 175, cm, 05/30/19 19:11:00 EST, Height, 84.5, kg, 12/25/18 16:15:00 EDT, Dry Weight Start Date: 05/31/19 Status: OrderedCymbalta 60 mg oral enteric coated [...] Start Date: 11/19/18 Stop Date: 05/18/19 Status: OrderedFreestyle Lite Lancets See Instructions, # [...] 11/19/18 14:02:06 EDT Start Date: 11/19/18 Status: Orderedhydrochlorothiazide 25 mg oral tablet 12.5 mg, 0.5, tablet, By Mouth, Daily, # 15 tablet, Refills 0, Tot. Refills 0, Maintenance, 05/31/2010:54:00 EST, Route to Pharmacy Electronically, [facility], 175, cm, 05/30/19 19:11:00EST, Height, 84.5, kg, 12/25/18 16:15:00 EDT, Dry... Start Date: 05/31/19 Status: Orderedlidocaine 5% topical film See Instructions, 1 patch to affected area Topically Daily, remove at HS, # 30 patch, 0 Refills, Maintenance, 05/31/19 17:33:00 EST, Patch, [facility], 1 patch to affected area Topically Daily, remove at HS, 175, cm, 05/30/19 19:11:00 ES... Start Date: 05/31/19 Status: OrderedmetFORMIN 500 mg oral tablet 1 tablet = 500 mg, By Mouth, 2 times a day, with meals, Wolof label, # 180 tablet, 1 Refills, Maintenance, 11/19/18 13:59:10 EDT, Tablet Start Date: 11/19/18 Stop Date: 05/18/19 Status: Orderedmontelukast 10 mg oral tablet 10 mg, By Mouth, Daily, # 30 tablet, Refills 9, Tot. Refills 9, Maintenance, 11/19/18 14:00:53 EDT, Route to Pharmacy Electronically, [id number], [facility] Start Date: 11/19/18 Status: OrderedNuLYTELY with Flavor Packs oral powder for reconstitution 240 mL, By Mouth, Every 15 minutes, # 4,000 mL, 0 Refills, Maintenance, 03/19/19 18:13:08 EST, 240 mL By Mouth Every 15 minutes Start Date: 03/19/19 Status: OrderedPlavix 75 mg oral tablet 75 mg, By Mouth, Daily, Wolof label, # 90 each, Refills 1, Tot. Refills 1, Maintenance, 11/19/18 14:01:50 EDT, Route to Pharmacy Electronically, [id number], [facility] Start Date: 11/19/18 Stop Date: 05/18/19 Status: OrderedProAir HFA 90 mcg/inh inhalation aerosol with adapter 1, puffs, Inhalation, Every 4 hours, PRN, # 8.5 Gm, Refills 0, Tot. Refills 0, Maintenance, 05/31/2010:52:00 EST, Aerosol, Route to Pharmacy Electronically, [id number], [facility], 175, cm, 05/30/19 19:11:00 ES... Start Date: 05/31/19 Status: Ordered Problem List Condition Effective Dates [...]
--- OUTSIDE RECORDS SUMMARY | 2022-06-19 23:09 | XMS_ITS | Continuity of Care Document ---
:1965 Author Organization [facility] Address [address] [place] [address]- Care Team Providers Name Role Phone Greyson LARES, Mauricio Primary Care Physician [facility] Date[facility]): 09[facility] - 10/19/[address] [address] Allergies, Adverse Reactions, Alerts No Known Medication [...] Patient Refuses 1Early/Late Reason: Other : Patient [id number] Comment: [01/16/2017] [facility] [phone] Comment: lot # [id number] Medications albuterol 0.083% inhalation solution 3 mL = 2.5 mg, Inhalation, Every 6 hours, PRN Wheezing/Shortness of Breath, # 1 each, 6 Refills, Maintenance, 04/03/21 9:01:00 EST, Solution, [facility] 175, cm, 04/03/21 8:32:00 EST, Height, 82.4, kg, 07/21/20 11:02:00 EDT, Dry Weight Start Date: 04/03/21 Status: OrderedamLODIPine 10 mg oral tablet 10 mg, 1, tablet, By Mouth, Daily at bedtime, # 30 tablet, Refills 2, Tot. Refills 2, Maintenance, 10/19/21 21:06:00 EDT, Route to Pharmacy Electronically, [facility], Partial fill uponpatient request if the prescription is for a sche... Start Date: 10/19/21 Status: OrderedamLODIPine 10 mg oral tablet 10 mg, 1, tablet, By Mouth, Daily at bedtime, for 90 days, # 90 tablet, Refills 4, Tot. Refills 4, Hard Stop 12/24/21 9:34:00 EDT, 09/30/20 9:34:00 EDT, Route to Pharmacy Electronically, [facility] #[id number], Partial fill upon patient request i... Start Date: 09/30/20 Stop Date: 12/24/21 Status: Orderedaspirin 81 mg oral delayed release tablet 81 mg, 1, tablet, By Mouth, Daily, CITIZEN OF [place] LABEL, # 90 tablet, Refills 3, Tot. Refills 3, Maintenance, 08/09/21 5:53:00 EDT, Route to Pharmacy Electronically, [facility] 175, cm, 04/03/21 8:32:00 EST, Height, 82.4, kg, 07/21/20 11:02:... Start Date: 08/09/21 Status: Orderedatorvastatin 20 mg oral tablet 1 tablet = 20 mg, By Mouth, Daily at bedtime, CITIZEN OF [place] LABEL, # 90 tablet, 1 Refills, Maintenance, 04/03/21 9:05:00 EST, Tablet, [facility] 175, cm, 04/03/21 8:32:00 EST, Height, 82.4, kg, 07/21/20 11:02:00 EDT, Dry Weight Start Date: 04/03/21 Status: Ordereddivalproex sodium 500 mg oral enteric coated tablet 1 tablet = 500 mg, By Mouth, 2 times a day, CITIZEN [place] LABEL, # 60 tablet, 0 Refills, Maintenance, 10/11/21 13:36:00 EDT, Tablet, [facility] 175, cm, 10/05/21 14:47:00 EDT, Height, 82.4, kg, 09/20/21 13:17:00 EDT, Dry Weight Start Date: 10/11/21 Status: Orderedduloxetine 60 mg oral enteric coated capsule 1 capsule = 60 mg, By Mouth, Daily, CITIZEN [place] LABEL, # 90 capsule, 2 Refills, Maintenance, 04/03/21 9:05:00 EST, Capsule, [facility], 175, cm, 04/03/21 8:32:00 EST, Height, 82.4, kg, 07/21/20 11:02:00 EDT, Dry Weight Start Date: 04/03/21 Status: OrderedFlonase 50 mcg/inh nasal spray 1 sprays, Nares, Both, 2 times a day, Kazakh label please., # 16 Gm, 1 Refills, Maintenance, 09/30/20 9:34:00 EDT, [facility] #[id number], Partial fill upon patient request if the prescription isfor a schedule II opioid drug., 1 sprays Nares, B... Start Date: 09/30/20 Status: Orderedfluticasone-salmeterol 500 mcg-50 mcg inhalation powder 1 puff, Inhalation, 2 times a day, # 1 each, Refills 3, Tot. Refills 3, Maintenance, 10/11/21 13:36:00 EDT, Powder, Route to Pharmacy Electronically, [id number], [facility] 175, cm, 10/05/21 14:47:00 EDT, Hei... Start Date: 10/11/21 Status: Orderedgabapentin 300 mg oral capsule 600 mg, 2, capsule, By Mouth, Daily at bedtime, CITIZEN OF [place] LABEL, # 60 capsule, Refills 3, Tot. Refills3, Maintenance, 10/11/21 13:32:00 EDT, Route to Pharmacy Electronically, [facility]175, cm, 10/05/21 14:47:00 EDT, Height, 82.4, kg,... [...] 10 mg, 1, tablet, By Mouth, Daily, Kazakh label please., # 30 tablet, Refills 0, Tot. Refills 0, Maintenance, 04/03/21 9:08:00 EST, Route to Pharmacy Electronically, [facility], Partial fill upon patient request if [...] 0 Refills, Maintenance, 09/18/21 11:48:00 EDT, Tablet, [facility] #[id number], Partial fill upon patient request if the prescription is for a schedule II opioid drug., 175, cm, 09/18/21 10:48:00 ED... Start Date: 09/18/21 Stop Date: 09/28/21 Status: OrderedmetFORMIN 500 mg oral tablet, extended release 2 tablet = 1,000 mg, By Mouth, 2 times a day, # 120 tablet, 6 Refills, Maintenance, 10/05/21 14:16:00 EDT, [facility] #[id number], Partial fill upon patient request if the prescription is for a schedule II opioid drug., 175, cm, 09/23/21 4:10:00... Start Date: 10/05/21 Status: Orderedmontelukast 10 mg oral tablet 10 mg, 1, tablet, By Mouth, Daily, CITIZEN [place] LABEL, # 30 tablet, Refills 11, Tot. Refills 11, Maintenance, 10/03/21 16:07:00 EDT, Route to Pharmacy Electronically, [facility] #[id number], 175, cm, 09/23/21 4:10:00 EDT, Height, 82.4, [...] 1, tablet, By Mouth, Daily, CITIZEN OF [place] LABEL, # 30 tablet, Refills 3, Tot. Refills 3, Maintenance, 08/09/21 5:53:00 EDT, Route to Pharmacy Electronically, [facility], 175, cm, 04/03/21 8:32:00 EST, Height, 82.4, kg, 07/21/20 11:02:... Start Date: 08/09/21 Status: OrderedProAir HFA 90 mcg/inh inhalation aerosol with adapter 1, puffs, Inhalation, Every 4 hours, PRN, # 1 each, Refills 5, Tot. Refills 5, Maintenance, :01:00 EST, Aerosol, Route to Pharmacy Electronically, [id number], [facility], 175, cm, 04/03/21 8:32:00 ES... Start [...] RIGHT UPPER. CTA - done Active at [facility]. 07/2021 - scanned in CIS(Confirmed) *Julissa Fraga, [facility] Care Active Coordinator [phone](Confirmed) Lumbar radicular pain(Confirmed) Active Right hemiplegia(Confirmed) Active Encounter for screening Active colonoscopy(Confirmed) Tobacco dependence(Confirmed) Active DMII (diabetes mellitus, type Active 2)(Confirmed) Vertigo(Confirmed) Active Social History Social History Type Response Smoking Status 5-9 cigarettes (between 1/4 to 1/2 pack)/day in last 30 days entered on: 01/01/20 Sex
--- OUTSIDE RECORDS SUMMARY | 2022-06-19 23:09 | XMS_ITS | Continuity of Care Document ---
:1965 Author Organization [facility] Address [address] [place] [address]- Care Team Providers Name Role Phone Greyson LARES, Mauricio Primary Care Physician [facility]): [facility]21 - 05/20/21 [facility] [address] [place] [id number] Attending Physician: AdmtrJacky Admitting Physician: AdmtrJacky Referring [...] Patient Refuses 1Early/Late Reason: Other : Patient [id number] Comment: [01/16/2017] [facility] [id number] Comment: lot # [id number] Medications albuterol 0.083% inhalation solution 3 mL = 2.5 mg, Inhalation, Every 6 hours, PRN Wheezing/Shortness of Breath, # 1 each, 6 Refills, Maintenance, 04/03/21 9:01:00 EST, [facility], cm, 12/06/21 8:32:00 EST, Height, 82.4, kg, 07/21/20 11:02:00 EDT, Dry Weight Start Date: 04/03/21 Status: OrderedamLODIPine 10 mg oral tablet 10 mg, 1, tablet, By Mouth, Daily at bedtime, # 90 tablet, Refills 4, Tot. Refills 4, Maintenance, 09/30/20 9:34:00 EDT, Route to Pharmacy Electronically, [id number], Partial fill uponpatient request if the prescription is for a sche... Start Date: 09/30/20 Stop Date: 12/24/21 Status: Orderedaspirin 81 mg oral delayed release tablet 81 mg, 1, tablet, By Mouth, Daily, IVORIAN LABEL, # 90 tablet, Refills 2, Tot. Refills 2, Maintenance, 04/03/21 9:06:00 EST, Route to Pharmacy Electronically, [facility], 175, cm, 04/03/21 8:32:00 EST, Height, 82.4, kg, 07/21/20 11:02:... Start Date: 04/03/21 Status: Orderedatorvastatin 20 mg oral tablet 1 tablet = 20 mg, By Mouth, Daily at bedtime, IVORIAN LABEL, # 90 tablet, 1 Refills, Maintenance, 04/03/21 9:05:00 EST, Tablet, [facility], 175, cm, 04/03/21 8:32:00 EST, Height, 82.4, kg, 07/21/20 11:02:00 EDT, Dry Weight Start Date: 04/03/21 Status: Ordereddivalproex sodium 500 mg oral enteric coated tablet 1 tablet = 500 mg, By Mouth, 2 times a day, IVORIAN LABEL, # 60 tablet, 2 Refills, Maintenance, 09/30/20 9:34:00 EDT, Tablet, [facility] #[id number], 175, cm, 07/22/20 7:07:00 EDT, Height, 82.4, kg, 07/21/20 11:02:00 EDT, Dry Weight Start Date: 09/30/20 Status: Orderedduloxetine 60 mg oral enteric coated capsule 1 capsule = 60 mg, By Mouth, Daily, IVORIAN LABEL, # 90 capsule, 2 Refills, Maintenance, 04/03/21 9:05:00 EST, Capsule, [facility], 175, cm, 04/03/21 8:32:00 EST, Height, 82.4, kg, 07/21/20 11:02:00 EDT, Dry Weight Start Date: 04/03/21 Status: OrderedFlonase 50 mcg/inh nasal spray 1 sprays, Nares, Both, 2 times a day, Peruvian label please., # 16 Gm, 1 Refills, Maintenance, 09/30/20 9:34:00 EDT, [facility] #[id number], Partial fill upon patient request if the prescription isfor a schedule II opioid drug., 1 sprays Nares, B... Start Date: 09/30/20 Status: Orderedfluticasone-salmeterol 500 mcg-50 mcg inhalation powder 1 puff, Inhalation, 2 times a day, # 1 each, Refills 3, Tot. Refills 3, Maintenance, 04/03/21 14:34:00 EST, Powder, Route to Pharmacy Electronically, [id number], [facility], 175, cm, 04/03/21 8:32:00 EST, [place]... Start Date: 04/03/21 Status: Orderedgabapentin 300 mg oral capsule 600 mg, 2, capsule, By Mouth, Daily at bedtime, IVORIAN LABEL, # 60 capsule, Refills 3, Tot. Refills3, Maintenance, 04/03/21 9:08:00 EST, Route to Pharmacy Electronically, [facility], 175, cm, 04/03/21 8:32:00 EST, Height, 82.4, kg, 0... Start Date: 04/03/21 Status: Orderedlidocaine 5% topical film See Instructions, 1 patch to affected area Topically Daily, remove at HS, # 30 patch, 2 Refills, Maintenance, 04/03/21 9:01:00 EST, Patch, [facility] 1 patch to affected area TopicallyDaily, remove at HS, 175, cm, 04/03/21 8:32:00 ES... Start Date: 04/03/21 Status: Orderedloratadine 10 mg oral tablet 10 mg, 1, tablet, By Mouth, Daily, Peruvian label please., # 30 tablet, Refills 0, Tot. Refills 0, Maintenance, 04/03/21 9:08:00 EST, Route to Pharmacy Electronically, [facility], Partial fill upon patient request if the prescription is... Start Date: 04/03/21 Stop Date: 05/03/21 Status: Orderedmontelukast 10 mg oral tablet 10 mg, 1, tablet, By Mouth, Daily, IVORIAN LABEL, # 30 tablet, Refills 11, Tot. Refills 11, Maintenance, 04/03/21 9:08:00 EST, Route to Pharmacy Electronically, [facility], 175, cm, 04/03/21 8:32:00 EST, Height, 82.4, kg, 07/21/20 11:0... Start Date: 04/03/21 Status: OrderedPlavix 75 mg oral tablet 75 mg, 1, tablet, By Mouth, Daily, IVORIAN LABEL, # 30 tablet, Refills 3, Tot. Refills 3, Maintenance, 04/03/21 9:08:00 EST, Route to Pharmacy Electronically, [facility], 175, cm, 04/03/21 8:32:00 EST, Height, 82.4, kg, 07/21/20 11:02:... Start Date: 04/03/21 Status: OrderedpredniSONE 10 mg oral tablet See Instructions, 40 mg for 2 days, 20 mg for 2 days 10 mg for 2 days., # 14 tablet, 0 Refills, Maintenance, 07/22/20 10:06:00 EDT, [facility] #[id number], Partial fill upon patient request if theprescription is for a schedule II opioid drug., 1... Start Date: 07/22/20 Status: OrderedProAir HFA 90 mcg/inh inhalation aerosol with adapter 1, puffs, Inhalation, Every 4 hours, PRN, # 1 each, Refills 5, Tot. Refills 5, Maintenance, :01:00 EST, Aerosol, Route to Pharmacy Electronically, [id number], [facility]., 175, cm, 04/03/21 8:32:00 ES... Start Date: 04/03/21 Stop Date: 09/30/21 Status: OrderedSEROquel XR 300 mg oral tablet, extended release 1 tablet = 300 mg, By Mouth, Daily at bedtime, IVORIAN LABEL, # 30 tablet, 3 Refills, Maintenance, 04/03/21 9:09:00 EST, ER Tablet, [facility]., 1 tablet By Mouth Daily at bedtime,Instr:IVORIAN LABEL, 175, cm, 04/03/21 8:32:00 EST, Heig... [...] Active Nausea & vomiting(Confirmed) Active *Julissa Fraga, [facility] Care Active Coordinator [phone](Confirmed) Lumbar radicular pain(Confirmed) Active Right hemiplegia(Confirmed) Active Encounter for screening Active colonoscopy(Confirmed) Tobacco dependence(Confirmed) Active DMII (diabetes mellitus, type Active 2)(Confirmed) Vertigo(Confirmed) Active Social History Social History Type Response Smoking Status 5-9 cigarettes (between 1/4 to 1/2 pack)/day in last 30 days entered on: 01/01/20 Sex
--- OUTSIDE RECORDS SUMMARY | 2022-06-19 23:09 | XMS_ITS | Continuity of Care Document ---
:1965 Author Organization [facility] Address [address] [place] [address]- Care Team Providers Name Role Phone Greyson LARES, Mauricio Primary Care Physician [facility] Date[facility]s): 08/18/19 - 09/17/19 [facility] [address] [place] [address]- [facility] Attending Physician: Jacky Wren Admitting [...] Patient Refuses 1Early/Late Reason: Other : Patient [id number] Comment: [01/16/2017] [facility] [id number] Comment: lot # [id number] Medications AirDuo RespiClick 232 mcg-14 mcg/inh inhalation powder 1, puffs, Inhalation, 2 times a day, # 1 each, Refills 11, Tot. Refills 11, Maintenance, 07/07/19 19:06:00 EDT, Powder, Route to Pharmacy Electronically, [id number], [facility], advair not covered , 175,... Start Date: 07/07/19 Status: Orderedalbuterol 0.083% inhalation solution 3 mL = 2.5 mg, Inhalation, Every 6 hours, PRN Wheezing/Shortness of Breath, # 1 each, 6 Refills, Maintenance, 07/07/19 19:06:00 EDT, Solution, [facility], 175, cm, 05/30/19 19:11:00 EST, Height, 84.5, kg, 12/25/18 16:15:00 EDT, Dry Weight Start Date: 07/07/19 Status: Orderedaspirin 81 mg oral delayed release tablet 81 mg, 1, tablet, By Mouth, Daily, # 90 tablet, Refills 4, Tot. Refills 4, Maintenance, 07/07/19 19:06:00 EDT, Route to Pharmacy Electronically, [facility], 175, cm, 05/30/19 19:11:00 EST, Height, 84.5, kg, 12/25/18 16:15:00 EDT, Dry W... Start Date: 07/07/19 Stop Date: 09/29/20 Status: Orderedatorvastatin 20 mg oral tablet 1 tablet = 20 mg, By Mouth, Daily at bedtime, # 30 tablet, 5 Refills, Maintenance, 08/13/19 13:04:00EDT, Tablet, [facility], 175, cm, 05/30/19 19:11:00 EST, Height, 84.5, kg, 12/25/18 16:15:00 EDT, Dry Weight Start Date: 08/13/19 Status: OrderedCymbalta 60 mg oral enteric coated capsule 1 capsule = 60 mg, By Mouth, Daily, # 30 capsule, 6 Refills, Maintenance, 07/07/19 19:06:00 EDT, EC Capsule, [facility], 175, cm, 05/30/19 19:11:00 EST, Height, 84.5, kg, 12/25/18 16:15:00 EDT, Dry Weight Start Date: 07/07/19 Status: Ordereddivalproex sodium 500 mg oral enteric coated tablet = 500 mg, By Mouth, 2 times a day, # 60 tablet, 5 Refills, Maintenance, 07/07/19 19:06:00 EDT, Tablet, [facility] 175, cm, 05/30/19 19:11:00 EST, Height, 84.5, [...] 07/07/19 Stop Date: 01/03/20 Status: OrderedFreestyle Lite Monitor See Instructions, # 1 each, Refills 0, Tot. Refills 0, Maintenance, use to test blood sugar as directed, 08/18/19 14:11:00 EDT, Compound, 175, cm, 05/30/19 19:11:00 EST, Height, 84.5, kg, 12/25/18 16:15:00 EDT, Dry Weight Start Date: 08/18/19 Status: OrderedFreestyle Lite Test Strips See Instructions, [...] tablet, 5 Refills, Maintenance, 07/07/19 19:06:00 EDT, [facility] 175, cm, 05/30/19 19:11:00 EST, Height, 84.5, kg, 12/25/18 16:15:00 EDT, Dry Weight Start Date: 07/07/19 Status: Orderedhydrochlorothiazide 25 mg oral tablet 12.5 mg, 0.5, tablet, By Mouth, Daily, # 15 tablet, Refills 1, Tot. Refills 1, Maintenance, 08/12/2012:07:00 EDT, Route to Pharmacy Electronically, [facility], 175, cm, 05/30/19 19:11:00 EST, Height, 84.5, kg, 12/25/18 16:15:00 EDT, D... Start Date: 08/13/19 Status: Orderedlidocaine 5% topical film See Instructions, 1 patch to affected area Topically Daily, remove at HS, # 30 patch, 1 Refills, Maintenance, 08/13/19 13:28:00 EDT, Patch, [facility], 1 patch to affected area Topically Daily, remove at HS, 175, cm, 05/30/19 19:11:00... Start Date: 08/13/19 Status: OrderedmetFORMIN 500 mg oral tablet 1 tablet = 500 mg, By Mouth, 2 times a day, with meals, Uzbek label, # 180 tablet, 1 Refills, Maintenance, 07/07/19 19:06:00 EDT, Tablet, [facility]., 175, cm, 05/30/19 19:11:00 EST, Height, 84.5, kg, 12/25/18 16:15:00 EDT, Dry Weight Start Date: 07/07/19 Stop Date: 01/03/20 Status: Orderedmontelukast 10 mg oral tablet 10 mg, By Mouth, Daily, # 30 tablet, Refills 9, Tot. Refills 9, Maintenance, 07/07/19 19:06:00 EDT, Route to Pharmacy Electronically, [facility]., 175, cm, 05/30/19 19:11:00 EST, Height,84.5, kg, 12/25/18 16:15:00 EDT, Dry Weight Start Date: 07/07/19 Status: OrderedNuLYTELY with Flavor Packs oral powder for reconstitution 240 mL, By Mouth, Every 15 minutes, # 4,000 mL, 0 Refills, Maintenance, 07/07/19 19:06:00 EDT, [facility]., 240 mL By Mouth Every 15 minutes, 175, cm, 05/30/19 19:11:00 EST, Height, 84.5, kg, 12/25/18 16:15:00 EDT, Dry Weight Start Date: 07/07/19 Status: OrderedPlavix 75 mg oral tablet 75 mg, By Mouth, Daily, Uzbek label, # 90 each, Refills 1, Tot. Refills 1, Maintenance, 07/07/19 19:06:00 EDT, Route to Pharmacy Electronically, [facility], 175, cm, 05/30/19 19:11:00EST, Height, 84.5, kg, 12/25/18 16:15:00 EDT, Dry... Start Date: 07/07/19 Stop Date: 01/03/20 Status: OrderedProAir HFA 90 mcg/inh inhalation aerosol with adapter 1, puffs, Inhalation, Every 4 hours, PRN, # 8.5 Gm, Refills 0, Tot. Refills 0, Maintenance, 07/06/2018:06:00 EDT, Aerosol, Route to Pharmacy Electronically, [id number], [facility]., 175, cm, 05/30/19 19:11:00... Start Date: 07/07/19 Status: Ordered Problem List Condition Effective Dates Status Health Status Informant Chronic Basilar artery Active occlusion(Confirmed) Aborted CVA- Was given tPA(Confirmed) Active Chronic pain syndrome(Confirmed) Active Constipation(Confirmed) Active Depression(Confirmed) Active Dysuria(Confirmed) Active Heartburn(Confirmed) Active CVA, old, hemiparesis(Confirmed) Active Elevated MCV(Confirmed) Active Nausea & vomiting(Confirmed) Active *Julissa Fraga, [facility] Care Active Coordinator [phone](Confirmed) Lumbar radicular pain(Confirmed) Active Right hemiplegia(Confirmed) Active Encounter for screening Active colonoscopy(Confirmed) Tobacco dependence(Confirmed) Active DMII (diabetes mellitus, type Active 2)(Confirmed) Vertigo(Confirmed) Active Social History Social History Type Response Smoking Status Former smoker, quit more krissy n 30 days ago entered on: 06/18/18 Sex
--- OUTSIDE RECORDS SUMMARY | 2022-06-19 23:09 | XMS_ITS | Continuity of Care Document ---
:1965 Author Organization [facility] Address [address] [place] [id number]- Care Team Providers Name Role Phone Mauricio Rubi MD Primary Care Physician [facility]): 10[facility]20 - 11/17/20 [facility] [address] [place] [id number] Attending Physician: Shlomo Hamilton MD Admitting Physician: Shlomo Hamilton MD Referring Physician: Mauricio Rubi MD Allergies, [...] Patient Refuses 1Early/Late Reason: Other : Patient [id number] Comment: [facility]01/16/2017[facility] [id number] Comment: lot # [id number] Medications Advair Diskus 250 mcg-50 mcg inhalation powder 1, puffs, Inhalation, 2 times a day, # 180 each, Refills 1, Tot. Refills 1, Maintenance, 07/22/20 10:04:00 EDT, Powder, Route to Pharmacy Electronically, [id number], [id number], 175, cm, 07/22/20 7:07:00 EDT,... Start Date: 07/22/20 Status: Orderedalbuterol 0.083% inhalation solution 3 mL = 2.5 mg, Inhalation, Every 6 hours, PRN Wheezing/Shortness of Breath, # 1 each, 6 Refills, Maintenance, 09/30/20 9:34:00 EDT, Solution, [facility] #[id number], 175, cm, 07/22/20 7:07:00 EDT,Height, 82.4, kg, 07/21/20 11:02:00 EDT, Dry Weight Start Date: 09/30/20 Status: OrderedamLODIPine 10 mg oral tablet 10 mg, 1, tablet, By Mouth, Daily at bedtime, # 90 tablet, Refills 4, Tot. Refills 4, Maintenance, 09/30/20 9:34:00 EDT, Route to Pharmacy Electronically, [facility] #[id number], Partial fill uponpatient request if the prescription is for a sche... Start Date: 09/30/20 Stop Date: 12/24/21 Status: Orderedaspirin 81 mg oral delayed release tablet 81 mg, 1, tablet, By Mouth, Daily, CAMBODIAN LABEL, # 30 tablet, Refills 1, Tot. Refills 1, Maintenance, 09/30/20 9:34:00 EDT, Route to Pharmacy Electronically, [facility] #[id number], 175, cm, 07/22/20 7:07:00 EDT, Height, 82.4, kg, 07/21/20 11:02... Start Date: 09/30/20 Status: Orderedatorvastatin 20 mg oral tablet 1 tablet = 20 mg, By Mouth, Daily at bedtime, CAMBODIAN LABEL, # 30 tablet, 1 Refills, Maintenance, 09/30/20 9:34:00 EDT, Tablet, [facility] #[id number], 175, cm, 07/22/20 7:07:00 EDT, Height, 82.4,kg, 07/21/20 11:02:00 EDT, Dry Weight Start Date: 09/30/20 Status: Ordereddivalproex sodium 500 mg oral enteric coated tablet 1 tablet = 500 mg, By Mouth, 2 times a day, CAMBODIAN LABEL, # 60 tablet, 2 Refills, Maintenance, 09/30/20 9:34:00 EDT, Tablet, [facility] #[id number], 175, cm, 07/22/20 7:07:00 EDT, Height, 82.4, kg, 07/21/20 11:02:00 EDT, Dry Weight Start Date: 09/30/20 Status: Orderedduloxetine 60 mg oral enteric coated capsule 1 capsule = 60 mg, By Mouth, Daily, CAMBODIAN LABEL, # 30 capsule, 1 Refills, Maintenance, 09/30/20 9:34:00 EDT, Capsule, [facility] #[id number], 175, cm, 07/22/20 7:07:00 EDT, Height, 82.4, kg, 07/21/20 11:02:00 EDT, Dry Weight Start Date: 09/30/20 Status: OrderedFlonase 50 mcg/inh nasal spray 1 sprays, Nares, Both, 2 times a day, New Zealander label please., # 16 Gm, 1 Refills, Maintenance, 09/30/20 9:34:00 EDT, [facility] #[id number], Partial fill upon patient request if the prescription isfor a schedule II opioid drug., 1 sprays Nares, B... Start Date: 09/30/20 Status: Orderedgabapentin 300 mg oral capsule 600 mg, 2, capsule, By Mouth, Daily at bedtime, CAMBODIAN LABEL, # 60 capsule, Refills 3, Tot. Refills3, Maintenance, 09/30/20 9:34:00 EDT, Route to Pharmacy Electronically, [facility] #[id number],175, cm, 07/22/20 7:07:00 EDT, Height, 82.4, kg,... Start Date: 09/30/20 Status: Orderedlidocaine 5% topical film See Instructions, 1 patch to affected area Topically Daily, remove at HS, # 30 patch, 1 Refills, Maintenance, 09/30/20 9:34:00 EDT, Patch, [facility] #[id number], 1 patch to affected area Topically Daily, remove at HS, 175, cm, 07/22/20 7:07:00 E... Start Date: 09/30/20 Status: Orderedloratadine 10 mg oral tablet 10 mg, 1, tablet, By Mouth, Daily, New Zealander label please., # 30 tablet, Refills 0, Tot. Refills 0, Maintenance, 09/30/20 9:34:00 EDT, Route to Pharmacy Electronically, [facility] #[id number], Partial fill upon patient request if the prescription i... Start Date: 09/30/20 Stop Date: 10/30/20 Status: Orderedmontelukast 10 mg oral tablet 10 mg, 1, tablet, By Mouth, Daily, CAMBODIAN LABEL, # 30 tablet, Refills 11, Tot. Refills 11, Maintenance, 09/30/20 9:34:00 EDT, Route to Pharmacy Electronically, [facility] #[id number], 175, cm, 07/22/20 7:07:00 EDT, Height, 82.4, kg, 07/21/20 11:... Start Date: 09/30/20 Status: OrderedPlavix 75 mg oral tablet 75 mg, 1, tablet, By Mouth, Daily, CAMBODIAN LABEL, # 30 tablet, Refills 3, Tot. Refills 3, Maintenance, 09/30/20 9:34:00 EDT, Route to Pharmacy Electronically, [facility] #[id number], 175, cm, 07/22/20 7:07:00 EDT, Height, 82.4, kg, 07/21/20 11:02... Start Date: 09/30/20 Status: OrderedpredniSONE 10 mg oral tablet See Instructions, 40 mg for 2 days, 20 mg for 2 days 10 mg for 2 days., # 14 tablet, 0 Refills, Maintenance, 07/22/20 10:06:00 EDT, [facility] #[id number], Partial fill upon patient request if theprescription is for a schedule II opioid drug., 1... Start Date: 07/22/20 Status: OrderedProAir HFA 90 mcg/inh inhalation aerosol with adapter 1, puffs, Inhalation, Every 4 hours, PRN, # 1 each, Refills 5, Tot. Refills 5, Maintenance, :34:00 EDT, Aerosol, Route to Pharmacy Electronically, [id number], [facility] #[id number], 175, cm, 07/22/20 7:07:00 E... Start Date: 09/30/20 Stop Date: 03/29/21 Status: OrderedSEROquel XR 300 mg oral tablet, extended release 1 tablet = 300 mg, By Mouth, Daily at bedtime, CAMBODIAN LABEL, # 30 tablet, 1 Refills, Maintenance, 09/30/20 9:34:00 EDT, ER Tablet, [facility] #[id number], 1 tablet By Mouth Daily at bedtime,Instr:CAMBODIAN LABEL, 175, cm, 07/22/20 7:07:00 EDT, Hei... [...] Active Nausea & vomiting(Confirmed) Active *Julissa Fraga, [facility] Care Active Coordinator [phone](Confirmed) Lumbar radicular pain(Confirmed) Active Right hemiplegia(Confirmed) Active Encounter for screening Active colonoscopy(Confirmed) Tobacco dependence(Confirmed) Active DMII (diabetes mellitus, type Active 2)(Confirmed) Vertigo(Confirmed) Active Social History Social History Type Response Smoking Status 5-9 cigarettes (between 1/4 to 1/2 pack)/day in last 30 days entered on: 01/01/20 Sex
--- OUTSIDE RECORDS SUMMARY | 2022-06-19 23:09 | XMS_ITS | Continuity of Care Document ---
:1965 Author Organization [facility] Address [address] [place] [address]- Care Team Providers Name Role Phone Greyson LARES, Mauricio Primary Care Physician [facility]20 - 04/20/20 [facility] [address], [place] [address] [place] Allergies, Adverse Reactions, Alerts No Known Medication [...] Patient Refuses 1Early/Late Reason: Other : Patient [id number] Comment: [01/16/2017] [facility] [id number] Comment: lot # [id number] Medications AirDuo RespiClick 232 mcg-14 mcg/inh inhalation powder 1, puffs, Inhalation, 2 times a day, # 1 each, Refills 11, Tot. Refills 11, Maintenance, 03/21/20 9:44:00 EST, Powder, Route to Pharmacy Electronically, [id number], [facility] advair not covered , 176,... Start Date: 03/21/20 Status: Orderedalbuterol 0.083% inhalation solution 3 mL = 2.5 mg, Inhalation, Every 6 hours, PRN Wheezing/Shortness of Breath, # 1 each, 6 Refills, Maintenance, 03/21/20 17:26:00 EST, Solution, [facility]/pharmacy #[id number], 176, cm, 01/18/20 13:37:00 EDT, Height, 84, kg, 03/15/20 6:52:00 EST, Dry Weight Start Date: 03/21/20 Status: Orderedaspirin 81 mg oral delayed release tablet 81 mg, 1, tablet, By Mouth, Daily, BRUNEIAN LABEL, # 30 tablet, Refills 1, Tot. Refills 1, Maintenance, 03/21/20 9:39:00 EST, Route to Pharmacy Electronically, [facility], 176, cm, 01/18/20 13:37:00 EDT, Height, 84, kg, 03/15/20 6:52:00... Start Date: 03/21/20 Status: Orderedatorvastatin 20 mg oral tablet 1 tablet = 20 mg, By Mouth, Daily at bedtime, BRUNEIAN LABEL, # 30 tablet, 1 Refills, Maintenance, 03/21/20 9:40:00 EST, Tablet, [facility], 176, cm, 01/18/20 13:37:00 EDT, Height, 84, kg, 03/15/20 6:52:00 EST, Dry Weight Start Date: 03/21/20 Status: Ordereddivalproex sodium 500 mg oral enteric coated tablet 1 tablet = 500 mg, By Mouth, 2 times a day, BRUNEIAN LABEL, # 60 tablet, 2 Refills, Maintenance, 03/21/20 9:40:00 EST, Tablet, [facility], 176, cm, 01/18/20 13:37:00 EDT, Height, 84, kg,03/15/20 6:52:00 EST, Dry Weight Start Date: 03/21/20 Status: Orderedduloxetine 60 mg oral enteric coated capsule 1 capsule = 60 mg, By Mouth, Daily, BRUNEIAN LABEL, # 30 capsule, 1 Refills, Maintenance, 03/21/20 9:42:00 EST, Capsule, [facility], 176, cm, 01/18/20 13:37:00 EDT, Height, 84, kg, 03/15/20 6:52:00 EST, Dry Weight Start Date: 03/21/20 Status: Orderedgabapentin 300 mg oral capsule 600 mg, 2, capsule, By Mouth, Daily at bedtime, BRUNEIAN LABEL, # 60 capsule, Refills 3, Tot. Refills3, Maintenance, 03/21/20 17:25:00 EST, [id number], cm, 01/18/20 13:37:00 EDT, Height, 84, kg, 03/15/20... Start Date: 03/21/20 Status: Orderedhydrochlorothiazide 25 mg oral tablet 12.5 mg, 0.5, tablet, By Mouth, Daily, BRUNEIAN LABEL, # 15 tablet, Refills 1, Tot. Refills 1, Maintenance, 03/21/20 9:45:00 EST, Route to Pharmacy Electronically, [facility], 176, cm, 01/18/20 13:37:00 EDT, Height, 84, kg, 03/15/20 6:5... Start Date: 03/21/20 Status: Orderedlidocaine 5% topical film See Instructions, 1 patch to affected area Topically Daily, remove at HS, # 30 patch, 1 Refills, Maintenance, 08/13/19 13:28:00 EDT, Patch, [facility], 1 patch to affected area Topically Daily, remove at HS, 175, cm, 05/30/19 19:11:00... Start Date: 08/13/19 Status: OrderedmetFORMIN 500 mg oral tablet 1 tablet = 500 mg, By Mouth, 2 times a day, BRUNEIAN LABEL, # 60 tablet, 3 Refills, Maintenance, 03/21/20 17:26:00 EST, Tablet, [facility]/pharmacy #[id number], 176, cm, 01/18/20 13:37:00 EDT, Height, 84, kg, 03/15/20 6:52:00 EST, Dry Weight Start Date: 03/21/20 Status: Orderedmontelukast 10 mg oral tablet 10 mg, 1, tablet, By Mouth, Daily, BRUNEIAN LABEL, # 30 tablet, Refills 1, Tot. Refills 1, Maintenance, 03/21/20 9:45:00 EST, Route to Pharmacy Electronically, [facility], 176, cm, 01/18/20 13:37:00 EDT, Height, 84, kg, 03/15/20 6:52:00... Start Date: 03/21/20 Status: OrderedNeurontin 300 mg oral capsule 300 mg, 1, capsule, By Mouth, 3 times a day, PRN, As needed for neuropathic pain up to 3 times dailySPANISH LABEL, # 60 capsule, Refills 1, Tot. Refills 1, Maintenance, Pain , Moderate, 03/21/20 17:23:00 EST, Route to Pharmacy Electronically, [facility] Start Date: 03/21/20 Status: OrderedPlavix 75 mg oral tablet 75 mg, 1, tablet, By Mouth, Daily, BRUNEIAN LABEL, # 30 tablet, Refills 3, Tot. Refills 3, Maintenance, 01/18/20 14:12:00 EDT, Route to Pharmacy Electronically, [facility], 176, cm, 01/18/20 13:37:00 EDT, Height, 84, kg, 01/01/20 22:36:... Start Date: 01/18/20 Status: OrderedProAir HFA 90 mcg/inh inhalation aerosol with adapter 1, puffs, Inhalation, Every 4 hours, PRN, # 8.5 Gm, Refills 0, Tot. Refills 0, Maintenance, 209:39:00 EST, Aerosol, Route to Pharmacy Electronically, [id number], [facility], 176, cm, 01/18/20 13:37:00 E... Start Date: 03/21/20 Status: OrderedSEROquel XR 300 mg oral tablet, extended release 1 tablet = 300 mg, By Mouth, Daily at bedtime, BRUNEIAN LABEL, # 30 tablet, 1 Refills, Maintenance, 03/21/20 9:45:00 EST, ER Tablet, [facility], 1 tablet By Mouth Daily at bedtime,Instr:BRUNEIAN LABEL, 176, cm, 01/18/20 13:37:00 EDT, Hei... Start Date: 03/21/20 Status: Ordered Problem List Condition Effective Dates Status Health Status Informant Chronic Basilar artery Active occlusion(Confirmed) Aborted CVA- Was given tPA(Confirmed) Active Chronic pain syndrome(Confirmed) Active Constipation(Confirmed) Active Depression(Confirmed) Active Dysuria(Confirmed) Active Heartburn(Confirmed) Active CVA, old, hemiparesis(Confirmed) Active Elevated MCV(Confirmed) Active Nausea & vomiting(Confirmed) Active *Julissa Fraga, [facility] Care Active Coordinator [phone](Confirmed) Lumbar radicular pain(Confirmed) Active Right hemiplegia(Confirmed) Active Encounter for screening Active colonoscopy(Confirmed) Tobacco dependence(Confirmed) Active DMII (diabetes mellitus, type Active 2)(Confirmed) Vertigo(Confirmed) Active Social History Social History Type Response Smoking Status 5-9 cigarettes (between 1/4 to 1/2 pack)/day in last 30 days entered on: 01/01/20 Sex
--- OUTSIDE RECORDS SUMMARY | 2022-06-19 23:09 | XMS_ITS | Continuity of Care Document ---
:1965 Author Organization [facility] Address [address] [place] [address]- Care Team Providers Name Role Phone Greyson LARES, Mauricio Primary Care Physician [facility] Date[facility]): 06/26/19 - 07/06/19 [facility] [address] [place] [address]- [facility] Attending Physician: Jacky Wren Admitting Physician: Jacky [...] Patient Refuses 1Early/Late Reason: Other : Patient [id number] Comment: [01/16/2017] [facility] [id number] Comment: lot # [id number] Medications AirDuo RespiClick 232 mcg-14 mcg/inh inhalation powder 1, puffs, Inhalation, 2 times a day, # 1 each, Refills 11, Tot. Refills 11, Maintenance, 11/19/18 15:20:42 EDT, Powder, Route to Pharmacy Electronically, [id number], [facility], advair not covered Start Date: 11/19/18 [...] 11/19/18 14:00:09 EDT, Route to Pharmacy Electronically, [id number], [facility] Start Date: 11/19/18 Stop Date: 02/12/20 Status: Orderedatorvastatin 20 mg oral tablet 1 tablet = 20 mg, By Mouth, Daily at bedtime, # 30 tablet, 0 Refills, Maintenance, 05/31/19 11:54:00EST, Tablet, [facility], 175, cm, 05/30/19 19:11:00 EST, Height, [...] Maintenance, 05/31/2010:54:00 EST, Route to Pharmacy Electronically, [facility], 175, cm, 05/30/19 19:11:00EST, Height, 84.5, kg, 12/25/18 16:15:00 EDT, Dry... Start Date: 05/31/19 Status: Orderedlidocaine 5% topical film See Instructions, 1 patch to affected area Topically Daily, remove at HS, # 30 patch, 0 Refills, Maintenance, 05/31/19 17:33:00 EST, Patch, [facility], 1 patch to affected area Topically Daily, remove at HS, 175, cm, 05/30/19 19:11:00 ES... Start Date: 05/31/19 Status: OrderedmetFORMIN 500 mg oral tablet 1 tablet = 500 mg, By Mouth, 2 times a day, with meals, Slovak label, # 180 tablet, 1 Refills, Maintenance, 11/19/18 13:59:10 EDT, Tablet Start Date: 11/19/18 Stop Date: 05/18/19 Status: Orderedmontelukast 10 mg oral tablet 10 mg, By Mouth, Daily, # 30 tablet, Refills 9, Tot. Refills 9, Maintenance, 11/19/18 14:00:53 EDT, Route to Pharmacy Electronically, [id number], [facility] Start Date: 11/19/18 Status: OrderedNuLYTELY with Flavor Packs oral powder for reconstitution 240 mL, By Mouth, Every 15 minutes, # 4,000 mL, 0 Refills, Maintenance, 03/19/19 18:13:08 EST, 240 mL By Mouth Every 15 minutes Start Date: 03/19/19 Status: OrderedPlavix 75 mg oral tablet 75 mg, By Mouth, Daily, Slovak label, # 90 each, Refills 1, Tot. Refills 1, Maintenance, 11/19/18 14:01:50 EDT, Route to Pharmacy Electronically, [id number], [facility] Start Date: 11/19/18 Stop Date: 05/18/19 Status: OrderedProAir HFA 90 mcg/inh inhalation aerosol with adapter 1, puffs, Inhalation, Every 4 hours, PRN, # 8.5 Gm, Refills 0, Tot. Refills 0, Maintenance, 05/31/2010:52:00 EST, Aerosol, Route to Pharmacy Electronically, [id number], [facility], 175, cm, 05/30/19 19:11:00 ES... Start [...]
--- OUTSIDE RECORDS SUMMARY | 2022-06-19 23:10 | XMS_ITS | Continuity of Care Document ---
:1965 Author Organization [facility] Address [address] [place] [address]- Care Team Providers Name Role Phone Greyson LARES, Mauricio Primary Care Physician [facility]): 09/[facility]21 - 10/06/[address] [address] Allergies, Adverse Reactions, Alerts No Known Medication [...] Patient Refuses 1Early/Late Reason: Other : Patient [id number] Comment: [01/16/2017] [facility] [id number] Comment: lot # [id number] Medications albuterol 0.083% inhalation solution 3 mL = 2.5 mg, Inhalation, Every 6 hours, PRN Wheezing/Shortness of Breath, # 1 each, 6 Refills, Maintenance, 04/03/21 9:01:00 EST, [facility] 175, cm, 04/03/21 8:32:00 EST, Height, 82.4, kg, 07/21/20 11:02:00 EDT, Dry Weight Start Date: 04/03/21 Status: OrderedamLODIPine 10 mg oral tablet 10 mg, 1, tablet, By Mouth, Daily at bedtime, # 90 tablet, Refills 4, Tot. Refills 4, Maintenance, 09/30/20 9:34:00 EDT, Route to Pharmacy Electronically, [facility] #[id number], Partial fill uponpatient request if the prescription is for a sche... Start Date: 09/30/20 Stop Date: 12/24/21 Status: Orderedaspirin 81 mg oral delayed release tablet 81 mg, 1, tablet, By Mouth, Daily, NEPALESE LABEL, # 90 tablet, Refills 3, Tot. Refills 3, Maintenance, 08/09/21 5:53:00 EDT, Route to Pharmacy Electronically, [facility] 175, cm, 04/03/21 8:32:00 EST, Height, 82.4, kg, 07/21/20 11:02:... Start Date: 08/09/21 Status: Orderedatorvastatin 20 mg oral tablet 1 tablet = 20 mg, By Mouth, Daily at bedtime, NEPALESE LABEL, # 90 tablet, 1 Refills, Maintenance, 04/03/21 9:05:00 EST, Tablet, [facility] 175, cm, 04/03/21 8:32:00 EST, Height, 82.4, kg, 07/21/20 11:02:00 EDT, Dry Weight Start Date: 04/03/21 Status: Ordereddivalproex sodium 500 mg oral enteric coated tablet 1 tablet = 500 mg, By Mouth, 2 times a day, NEPALESE LABEL, # 60 tablet, 0 Refills, Maintenance, 09/09/21 12:13:00 EDT, Tablet, [facility] 175, cm, 04/03/21 8:32:00 EST, Height, 82.4, kg, 07/21/20 11:02:00 EDT, Dry Weight Start Date: 09/09/21 Status: Orderedduloxetine 60 mg oral enteric coated capsule 1 capsule = 60 mg, By Mouth, Daily, NEPALESE LABEL, # 90 capsule, 2 Refills, Maintenance, 04/03/21 9:05:00 EST, Capsule, [facility], 175, cm, 04/03/21 8:32:00 EST, Height, 82.4, kg, 07/21/20 11:02:00 EDT, Dry Weight Start Date: 04/03/21 Status: OrderedFlonase 50 mcg/inh nasal spray 1 sprays, Nares, Both, 2 times a day, Cypriot label please., # 16 Gm, 1 Refills, Maintenance, 09/30/20 9:34:00 EDT, [facility] #[id number], Partial fill upon patient request if the prescription isfor a schedule II opioid drug., 1 sprays Nares, B... Start Date: 09/30/20 Status: Orderedfluticasone-salmeterol 500 mcg-50 mcg inhalation powder 1 puff, Inhalation, 2 times a day, # 1 each, Refills 3, Tot. Refills 3, Maintenance, 04/03/21 14:34:00 EST, Powder, Route to Pharmacy Electronically, [id number], [facility], 175, cm, 04/03/21 8:32:00 EST, [place]... Start Date: 04/03/21 Status: Orderedgabapentin 300 mg oral capsule 600 mg, 2, capsule, By Mouth, Daily at bedtime, NEPALESE LABEL, # 60 capsule, Refills 3, Tot. Refills3, Maintenance, 04/03/21 9:08:00 EST, Route to Pharmacy Electronically, [facility], 175, cm, 04/03/21 8:32:00 EST, Height, [...] 10 mg, 1, tablet, By Mouth, Daily, Cypriot label please., # 30 tablet, Refills 0, Tot. Refills 0, Maintenance, 04/03/21 9:08:00 EST, Route to Pharmacy Electronically, [facility], Partial fill upon patient request if [...] 0 Refills, Maintenance, 09/18/21 11:48:00 EDT, Tablet, [facility] #[id number], Partial fill upon patient request if the prescription is for a schedule II opioid drug., 175, cm, 09/18/21 10:48:00 ED... Start Date: 09/18/21 Stop Date: 09/28/21 Status: OrderedmetFORMIN 500 mg oral tablet, extended release 2 tablet = 1,000 mg, By Mouth, 2 times a day, # 120 tablet, 6 Refills, Maintenance, 10/05/21 14:16:00 EDT, [facility] #[id number], Partial fill upon patient request if the prescription is for a schedule II opioid drug., 175, cm, 09/23/21 4:10:00... Start Date: 10/05/21 Status: Orderedmontelukast 10 mg oral tablet 10 mg, 1, tablet, By Mouth, Daily, NEPALESE LABEL, # 30 tablet, Refills 11, Tot. Refills 11, Maintenance, 10/03/21 16:07:00 EDT, Route to Pharmacy Electronically, [facility] #[id number], 175, cm, 09/23/21 4:10:00 EDT, Height, 82.4, [...] 75 mg, 1, tablet, By Mouth, Daily, NEPALESE LABEL, # 30 tablet, Refills 3, Tot. Refills 3, Maintenance, 08/09/21 5:53:00 EDT, Route to Pharmacy Electronically, [facility], 175, cm, 04/03/21 8:32:00 EST, Height, 82.4, kg, 07/21/20 11:02:... Start Date: 08/09/21 Status: OrderedProAir HFA 90 mcg/inh inhalation aerosol with adapter 1, puffs, Inhalation, Every 4 hours, PRN, # 1 each, Refills 5, Tot. Refills 5, Maintenance, 219:01:00 EST, Aerosol, Route to Pharmacy Electronically, [id number], [facility], 175, cm, 04/03/21 8:32:00 ES... Start [...] RIGHT UPPER. CTA - done Active at [facility]. 07/2021 - scanned in [facility](Confirmed) *Julissa Fraga, [facility] Care Active Coordinator [phone](Confirmed) Lumbar radicular pain(Confirmed) Active Right hemiplegia(Confirmed) Active Encounter for screening Active colonoscopy(Confirmed) Tobacco dependence(Confirmed) Active DMII (diabetes mellitus, type Active 2)(Confirmed) Vertigo(Confirmed) Active Social History Social History Type Response Smoking Status 5-9 cigarettes (between 1/4 to 1/2 pack)/day in last 30 days entered on: 01/01/20 Sex
--- OUTSIDE RECORDS SUMMARY | 2022-06-19 23:10 | XMS_ITS | Continuity of Care Document ---
:[address] [facility] Address [address] [place] [address]- Care Team Providers Name Role Phone Mauricio Rubi MD Primary Care Physician [facility]): 05/29/19 - 07/12/19 [facility] [address] [place] [address]- [facility] Attending Physician: Tomi Saavedra MD Admitting [...] Patient Refuses 1Early/Late Reason: Other : Patient [id number] Comment: [01/16/2017] [facility] [id number] Comment: lot # [id number] Medications AirDuo RespiClick 232 mcg-14 mcg/inh inhalation powder 1, puffs, Inhalation, 2 times a day, # 1 each, Refills 11, Tot. Refills 11, Maintenance, 07/07/19 19:06:00 EDT, Powder, Route to Pharmacy Electronically, [id number], [facility], advair not covered , 175,... Start Date: 07/07/19 Status: Orderedalbuterol 0.083% inhalation solution 3 mL = 2.5 mg, Inhalation, Every 6 hours, PRN Wheezing/Shortness of Breath, # 1 each, 6 Refills, Maintenance, 07/07/19 19:06:00 EDT, Solution, [facility], 175, cm, 05/30/19 19:11:00 EST, Height, 84.5, kg, 12/25/18 16:15:00 EDT, Dry Weight Start Date: 07/07/19 Status: Orderedaspirin 81 mg oral delayed release tablet 81 mg, 1, tablet, By Mouth, Daily, # 90 tablet, Refills 4, Tot. Refills 4, Maintenance, 07/07/19 19:06:00 EDT, Route to Pharmacy Electronically, [facility], 175, cm, 05/30/19 19:11:00 EST, Height, 84.5, kg, 12/25/18 16:15:00 EDT, Dry W... Start Date: 07/07/19 Stop Date: 09/29/20 Status: Orderedatorvastatin 20 mg oral tablet 1 tablet = 20 mg, By Mouth, Daily at bedtime, # 30 tablet, 0 Refills, Maintenance, 07/07/19 19:06:00EDT, Tablet, [facility], 175, cm, 05/30/19 19:11:00 EST, Height, 84.5, kg, 12/25/18 16:15:00 EDT, Dry Weight Start Date: 07/07/19 Status: OrderedCymbalta 60 mg oral enteric coated capsule 1 capsule = 60 mg, By Mouth, Daily, # 30 capsule, 6 Refills, Maintenance, 07/07/19 19:06:00 EDT, EC Capsule, [facility], 175, cm, 05/30/19 19:11:00 EST, Height, 84.5, kg, 12/25/18 16:15:00 EDT, Dry Weight Start Date: 07/07/19 Status: Ordereddivalproex sodium 500 mg oral enteric coated tablet = 500 mg, By Mouth, 2 times a day, # 60 tablet, 5 Refills, Maintenance, 07/07/19 19:06:00 EDT, Tablet, [facility] 175, cm, 05/30/19 19:11:00 EST, [...] tablet, 5 Refills, Maintenance, 07/07/19 19:06:00 EDT, [facility] 175, cm, 05/30/19 19:11:00 EST, Height, 84.5, kg, 12/25/18 16:15:00 EDT, Dry Weight Start Date: 07/07/19 Status: Orderedhydrochlorothiazide 25 mg oral tablet 12.5 mg, 0.5, tablet, By Mouth, Daily, # 15 tablet, Refills 0, Tot. Refills 0, Maintenance, 07/06/2018:06:00 EDT, Route to Pharmacy Electronically, [facility] 175, cm, 05/30/19 19:11:00 EST, Height, 84.5, kg, 12/25/18 16:15:00 EDT, D... Start Date: 07/07/19 Status: Orderedlidocaine 5% topical film See Instructions, 1 patch to affected area Topically Daily, remove at HS, # 30 patch, 0 Refills, Maintenance, 07/07/19 19:06:00 EDT, Patch, [facility], 1 patch to affected area Topically Daily, remove at HS, 175, cm, 05/30/19 19:11:00... Start Date: 07/07/19 Status: OrderedmetFORMIN 500 mg oral tablet 1 tablet = 500 mg, By Mouth, 2 times a day, with meals, South Korean label, # 180 tablet, 1 Refills, Maintenance, 07/07/19 19:06:00 EDT, Tablet, [facility], 175, cm, 05/30/19 19:11:00 EST, Height, 84.5, kg, 12/25/18 16:15:00 EDT, Dry Weight Start Date: 07/07/19 Stop Date: 01/03/20 Status: Orderedmontelukast 10 mg oral tablet 10 mg, By Mouth, Daily, # 30 tablet, Refills 9, Tot. Refills 9, Maintenance, 07/07/19 19:06:00 EDT, Route to Pharmacy Electronically, [facility], 175, cm, 05/30/19 19:11:00 EST, Height,84.5, kg, 12/25/18 16:15:00 EDT, Dry Weight Start Date: 07/07/19 Status: OrderedNuLYTELY with Flavor Packs oral powder for reconstitution 240 mL, By Mouth, Every 15 minutes, # 4,000 mL, 0 Refills, Maintenance, 07/07/19 19:06:00 EDT, [facility], 240 mL By Mouth Every 15 minutes, 175, cm, 05/30/19 19:11:00 EST, Height, 84.5, kg, 12/25/18 16:15:00 EDT, Dry Weight Start Date: 07/07/19 Status: OrderedPlavix 75 mg oral tablet 75 mg, By Mouth, Daily, South Korean label, # 90 each, Refills 1, Tot. Refills 1, Maintenance, 07/07/19 19:06:00 EDT, Route to Pharmacy Electronically, [facility], 175, cm, 05/30/19 19:11:00EST, Height, 84.5, kg, 12/25/18 16:15:00 EDT, Dry... Start Date: 07/07/19 Stop Date: 01/03/20 Status: OrderedProAir HFA 90 mcg/inh inhalation aerosol with adapter 1, puffs, Inhalation, Every 4 hours, PRN, # 8.5 Gm, Refills 0, Tot. Refills 0, Maintenance, 07/06/2018:06:00 EDT, Aerosol, Route to Pharmacy Electronically, [id number], [facility], 175, cm, 05/30/19 19:11:00... Start Date: [...]
--- OUTSIDE RECORDS SUMMARY | 2022-06-19 23:10 | XMS_ITS | Continuity of Care Document ---
:1965 Author Organization [facility] Address [address] [place] [address]- Care Team Providers Name Role Phone Greyson LARES, Mauricio Primary Care Physician Encounter [facility] Date(s): 03/02/20 - 04/20/20 [facility] [address], [place] [address] Attending Physician: Tomi Saavedra MD Admitting Physician: [...] Patient Refuses 1Early/Late Reason: Other : Patient [id number] Comment: [01/16/2017] [facility] [phone] Comment: lot # [id number] Medications AirDuo RespiClick 232 mcg-14 mcg/inh inhalation powder 1, puffs, Inhalation, 2 times a day, # 1 each, Refills 11, Tot. Refills 11, Maintenance, 03/21/20 9:44:00 EST, Powder, Route to Pharmacy Electronically, [id number], [facility], advair not covered , 176,... Start Date: 03/21/20 Status: Orderedalbuterol 0.083% inhalation solution 3 mL = 2.5 mg, Inhalation, Every 6 hours, PRN Wheezing/Shortness of Breath, # 1 each, 6 Refills, Maintenance, 03/21/20 17:26:00 EST, Solution, [facility]/pharmacy #[id number], 176, cm, 01/18/20 13:37:00 EDT, Height, 84, kg, 03/15/20 6:52:00 EST, Dry Weight Start Date: 03/21/20 Status: Orderedaspirin 81 mg oral delayed release tablet 81 mg, 1, tablet, By Mouth, Daily, LATVIAN LABEL, # 30 tablet, Refills 1, Tot. Refills 1, Maintenance, 03/21/20 9:39:00 EST, Route to Pharmacy Electronically, [facility], 176, cm, 01/18/20 13:37:00 EDT, Height, 84, kg, 03/15/20 6:52:00... Start Date: 03/21/20 Status: Orderedatorvastatin 20 mg oral tablet 1 tablet = 20 mg, By Mouth, Daily at bedtime, LATVIAN LABEL, # 30 tablet, 1 Refills, Maintenance, 03/21/20 9:40:00 EST, Tablet, [facility], 176, cm, 01/18/20 13:37:00 EDT, Height, 84, kg, 03/15/20 6:52:00 EST, Dry Weight Start Date: 03/21/20 Status: Ordereddivalproex sodium 500 mg oral enteric coated tablet 1 tablet = 500 mg, By Mouth, 2 times a day, LATVIAN LABEL, # 60 tablet, 2 Refills, Maintenance, 03/21/20 9:40:00 EST, Tablet, [facility], 176, cm, 01/18/20 13:37:00 EDT, Height, 84, kg,03/15/20 6:52:00 EST, Dry Weight Start Date: 03/21/20 Status: Orderedduloxetine 60 mg oral enteric coated capsule 1 capsule = 60 mg, By Mouth, Daily, LATVIAN LABEL, # 30 capsule, 1 Refills, Maintenance, 03/21/20 9:42:00 EST, Capsule, [facility], 176, cm, 01/18/20 13:37:00 EDT, Height, 84, kg, 03/15/20 6:52:00 EST, Dry Weight Start Date: 03/21/20 Status: Orderedgabapentin 300 mg oral capsule 600 mg, 2, capsule, By Mouth, Daily at bedtime, LATVI[place] LABEL, # 60 capsule, Refills 3, Tot. Refills3, Maintenance, 03/21/20 17:25:00 EST, [id number] 176, cm, 01/18/20 13:37:00 EDT, Height, 84, kg, 03/15/20... Start Date: 03/21/20 Status: Orderedhydrochlorothiazide 25 mg oral tablet 12.5 mg, 0.5, tablet, By Mouth, Daily, LATVIAN LABEL, # 15 tablet, Refills 1, Tot. Refills 1, Maintenance, 03/21/20 9:45:00 EST, Route to Pharmacy Electronically, [facility], 176, cm, 01/18/20 13:37:00 EDT, Height, 84, kg, 03/15/20 6:5... Start Date: 03/21/20 Status: Orderedlidocaine 5% topical film See Instructions, 1 patch to affected area Topically Daily, remove at HS, # 30 patch, 1 Refills, Maintenance, 08/13/19 13:28:00 EDT, Patch, [facility], 1 patch to affected area Topically Daily, remove at HS, 175, cm, 05/30/19 19:11:00... Start Date: 08/13/19 Status: OrderedmetFORMIN 500 mg oral tablet 1 tablet = 500 mg, By Mouth, 2 times a day, LATVIAN LABEL, # 60 tablet, 3 Refills, Maintenance, 03/21/20 17:26:00 EST, Tablet, [facility]/pharmacy #[id number], 176, cm, 01/18/20 13:37:00 EDT, Height, 84, kg, 03/15/20 6:52:00 EST, Dry Weight Start Date: 03/21/20 Status: Orderedmontelukast 10 mg oral tablet 10 mg, 1, tablet, By Mouth, Daily, LATVIAN LABEL, # 30 tablet, Refills 1, Tot. Refills 1, Maintenance, 03/21/20 9:45:00 EST, Route to Pharmacy Electronically, [facility], 176, cm, 01/18/20 13:37:00 EDT, Height, 84, kg, 03/15/20 6:52:00... Start Date: 03/21/20 Status: OrderedNeurontin 300 mg oral capsule 300 mg, 1, capsule, By Mouth, 3 times a day, PRN, As needed for neuropathic pain up to 3 times dailySPANISH LABEL, # 60 capsule, Refills 1, Tot. Refills 1, Maintenance, Pain , Moderate, 03/21/20 17:23:00 EST, Route to Pharmacy Electronically, [facility]... Start Date: 03/21/20 Status: OrderedPlavix 75 mg oral tablet 75 mg, 1, tablet, By Mouth, Daily, LATVIAN LABEL, # 30 tablet, Refills 3, Tot. Refills 3, Maintenance, 01/18/20 14:12:00 EDT, Route to Pharmacy Electronically, [facility], 176, cm, 01/18/20 13:37:00 EDT, Height, 84, kg, 01/01/20 22:36:... Start Date: 01/18/20 Status: OrderedProAir HFA 90 mcg/inh inhalation aerosol with adapter 1, puffs, Inhalation, Every 4 hours, PRN, # 8.5 Gm, Refills 0, Tot. Refills 0, Maintenance, 209:39:00 EST, Aerosol, Route to Pharmacy Electronically, [id number], [facility], 176, cm, 01/18/20 13:37:00 E... Start Date: 03/21/20 Status: OrderedSEROquel XR 300 mg oral tablet, extended release 1 tablet = 300 mg, By Mouth, Daily at bedtime, LATVIAN LABEL, # 30 tablet, 1 Refills, Maintenance, 03/21/20 9:45:00 EST, ER Tablet, [facility], 1 tablet By Mouth Daily at bedtime,Instr:LATVIAN LABEL, 176, cm, 01/18/20 13:37:00 EDT, Hei... Start Date: 03/21/20 Status: Ordered Problem List Condition Effective Dates Status Health Status Informant Chronic Basilar artery Active occlusion(Confirmed) Aborted CVA- Was given tPA(Confirmed) Active Chronic pain syndrome(Confirmed) Active Constipation(Confirmed) Active Depression(Confirmed) Active Dysuria(Confirmed) Active Heartburn(Confirmed) Active CVA, old, hemiparesis(Confirmed) Active Elevated MCV(Confirmed) Active Nausea & vomiting(Confirmed) Active *Julissa Fraga, [facility] Care Active Coordinator [phone](Confirmed) Lumbar radicular pain(Confirmed) Active Right hemiplegia(Confirmed) Active Encounter for screening Active colonoscopy(Confirmed) Tobacco dependence(Confirmed) Active DMII (diabetes mellitus, type Active 2)(Confirmed) Vertigo(Confirmed) Active Social History Social History Type Response Smoking Status 5-9 cigarettes (between 1/4 to 1/2 pack)/day in last 30 days entered on: 01/01/20 Sex
--- OUTSIDE RECORDS SUMMARY | 2022-06-19 23:10 | XMS_ITS | Continuity of Care Document ---
:1965 Author Organization [facility] Address [address] [place] [id number]- Care Team Providers Name Role Phone Mauricio Rubi MD Primary Care Physician Encounter [facility] Date(s): 05/27/19 - 05/31/[address] [address]- [facility] Discharge Disposition: A-Transfer VNA/Home Health Attending Physician: Isrrael Bain MD Admitting Physician: Chester LARES, Nu Referring Physician: Not on Staff, Referring MD [...] Patient Refuses 1Early/Late Reason: Other : Patient [id number] Comment: [01/16/2017] [facility] [phone] Comment: lot # [id number] Medications AirDuo RespiClick 232 mcg-14 mcg/inh inhalation powder 1, puffs, Inhalation, 2 times a day, # 1 each, Refills 11, Tot. Refills 11, Maintenance, 11/19/18 15:20:42 EDT, Powder, Route to Pharmacy Electronically, [id number], [facility], advair not covered Start Date: 11/19/18 Status: Orderedalbuterol 0.083% inhalation solution 3 mL = 2.5 mg, Inhalation, Every 6 hours, PRN Wheezing/Shortness of Breath, # 1 each, 6 Refills, Maintenance, 06/11/18 16:21:46 EST, Solution Start Date: 06/11/18 Status: Orderedaluminum hydroxide/magnesium hydroxide/simethicone 400 mg-400 mg- 40 mg/5 mL oral suspension 10 mL, By Mouth, 4 times a day, PRN Dyspepsia, for 10 days, # 180 mL, 0 Refills, Acute 06/10/19 17:34:00 EST, 05/31/19 17:34:00 EST, Suspension, [facility] 3, 10 mL By Mouth 4 times a day,x10 days,PRN:Dyspepsia, 175, cm, 05/30/19 19:11:00... Start Date: 05/31/19 Stop Date: 06/10/19 Status: Orderedaspirin 81 mg oral delayed release tablet 81 mg, 1, tablet, By Mouth, Daily, # 90 tablet, Refills 4, Tot. Refills 4, Maintenance, 11/19/18 14:00:09 EDT, Route to Pharmacy Electronically, [id number], [facility] Start Date: 11/19/18 Stop Date: 02/12/20 Status: Orderedatorvastatin 20 mg oral tablet 1 tablet = 20 mg, By Mouth, Daily at bedtime, # 30 tablet, 0 Refills, Maintenance, 05/31/19 11:54:00EST, Tablet, [facility], 175, cm, 05/30/19 19:11:00 EST, [...] Maintenance, 05/31/2010:54:00 EST, Route to Pharmacy Electronically, [facility], 175, cm, 05/30/19 19:11:00EST, Height, 84.5, kg, 12/25/18 16:15:00 EDT, Dry... Start Date: 05/31/19 Status: Orderedlidocaine 5% topical film See Instructions, 1 patch to affected area Topically Daily, remove at HS, # 30 patch, 0 Refills, Maintenance, 05/31/19 17:33:00 EST, Patch, [facility], 1 patch to affected area Topically Daily, remove at HS, 175, cm, 05/30/19 19:11:00 ES... Start Date: 05/31/19 Status: Orderedmelatonin 3 mg oral tablet, disintegrating 2 tablet = 6 mg, By Mouth, Daily at bedtime, PRN Sleep, for 30 days, # 60 tablet, 0 Refills, Acute 06/30/19 17:31:00 EST, 05/31/19 17:31:00 EST, DIS Tablet, [facility] 3, 175, cm, 05/30/19 19:11:00 EST, Height, 84.5, kg, 12/25/18 16:15:00... Start Date: 05/31/19 Stop Date: 06/30/19 Status: OrderedmetFORMIN 500 mg oral tablet 1 tablet = 500 mg, By Mouth, 2 times a day, with meals, [place] label, # 180 tablet, 1 Refills, Maintenance, 11/19/18 13:59:10 EDT, Tablet Start Date: 11/19/18 Stop Date: 05/18/19 Status: Orderedmontelukast 10 mg oral tablet 10 mg, By Mouth, Daily, # 30 tablet, Refills 9, Tot. Refills 9, Maintenance, 11/19/18 14:00:53 EDT, Route to Pharmacy Electronically, [id number], [facility] Start Date: 11/19/18 Status: Orderednicotine 14 mg/24 hr transdermal film, extended release 1 patch, Topically, Daily, for 14 days, # 14 patch, 0 Refills, Acute 06/14/19 11:56:00 EST, 05/31/2010:56:00 EST, Patch, [facility] 3, 1 patch Topically Daily,x14 days, 175, cm, 05/30/19 19:11:00 EST, Height, 84.5, kg, 12/25/18 16:15:00 E... Start Date: 05/31/19 Stop Date: 06/14/19 Status: OrderedNuLYTELY with Flavor Packs oral powder for reconstitution 240 mL, By Mouth, Every 15 minutes, # 4,000 mL, 0 Refills, Maintenance, 03/19/19 18:13:08 EST, 240 mL By Mouth Every 15 minutes Start Date: 03/19/19 Status: OrderedPlavix 75 mg oral tablet 75 mg, By Mouth, Daily, [place] label, # 90 each, Refills 1, Tot. Refills 1, Maintenance, 11/19/18 14:01:50 EDT, Route to Pharmacy Electronically, [id number], [facility] Start Date: 11/19/18 Stop Date: 05/18/19 Status: OrderedpredniSONE 10 mg oral tablet See Instructions, 2 tablet By Mouth Daily x 2 days 1 tablet By Mouth Daily x 2 days, # 6 tablet, 0 Refills, Acute 06/04/19 11:56:00 EST, 05/31/19 11:55:00 EST, Tablet, [facility], 175, cm, 05/30/19 19:11:00 EST, Height, 84.5, kg, ... Start Date: 05/31/19 Stop Date: 06/04/19 Status: OrderedProAir HFA 90 mcg/inh inhalation aerosol with adapter 1, puffs, Inhalation, Every 4 hours, PRN, # 8.5 Gm, Refills 0, Tot. Refills 0, Maintenance, 05/31/2010:52:00 EST, Aerosol, Route to Pharmacy Electronically, [id number], [facility], 175, cm, 05/30/19 19:11:00 ES... Start Date: 05/31/19 Status: OrderedTylenol 325 mg oral tablet 650 mg, 2, tablet, By Mouth, Every 6 hours, PRN, for 10 days, # 50 tablet, Refills 0, Tot. Refills 0, Acute 06/10/19 17:35:00 EST, Pain , Mild, 05/31/19 17:35:00 EST, Route to Pharmacy Electronically, [facility], 175, cm, 05/30/19 19:11:... Start Date: 05/31/19 Stop Date: 06/10/19 Status: Ordered Problem List Condition Effective Dates [...] mellitus, type Active 2)(Confirmed) Vertigo(Confirmed) Active Results Radiology Reports Exam Date Time Procedure Performing Provider Status 05/27/19 12:12 AM Chest Portable Jaswindervalerie Dione; Auth ([facility] ed) Notes:(Chest Portable) Reason For Exam: Shortness of BreathRESULT: Chest Portable Chest Portable INDICATION: Shortness of breath. COMPARISON: Multiple priors, most recent 12/25/2018. FINDINGS: LINES AND TUBES: None. LUNGS AND PLEURA: Low lung volumes with bronchovascular crowding. No focal consolidation. No pleural effusion or pneumothorax. No pulmonary edema. HEART, MEDIASTINUM AND JOIE: Heart is normal in size. Normal mediastinal and hilar contour. BONES AND SOFT TISSUES: No acute abnormality. IMPRESSION: No acute abnormality. I have personally reviewed the images and I agree with this report. WSN: [id number] Dictated By: Lito Doyle MD Dictated Date/Time: 05/27/19 8:22 am Reviewed By: Lennox Ibrahim MD Signed By: Lennox Ibrahim MD Signed Date/Time: 05/27/19 8:27 am Transcribed By: JENNIFER Transcribed Date/Time: 05/27/19 7:28 am Vital Signs Most recent to oldest 1 2 3 [Reference Range]: Height 175 cm 175 cm 175 cm (05/30/19 7:11 PM) (05/29/19 4:36 PM) (05/29/19 12:4 1 PM) Weight 83.5 kg (05/27/19 9:49 PM) Oxygen Saturation [94-100 %] 95 % 97 % 97 % (05/31/19 7:21 AM) (05/30/19 11:53 PM) (05/30/19 7:11 PM) Pulse Rate [55-90 bpm] 66 bpm 67 bpm 73 bpm (05/31/19 7:21 AM) (05/30/19 11:53 PM) (05/30/19 7:11 PM) Body Mass Index [18.5-24.99] 27.27 *H* (05/27/19 9:49 PM) Blood Pressure [90-138/55-84 168/94 mm Hg 167/94 mm Hg 169 /78 mm Hg mm Hg] *H* *H* *H* (05/31/19 7:21 AM) (05/30/19 11:53 PM) (05/30/19 7:11 PM) Respiratory Rate [16-30 17 br/min 18 br/min 19 br/mi n br/min] (05/31/19 7:21 AM) (05/30/19 11:53 PM) (05/30/19 9:41 PM) Temperature [96.8-100.4 DegF] 98.1 DegF 98.0 DegF 98 .0 DegF (05/31/19 7:21 AM) (05/30/19 11:53 PM) (05/30/19 7:11 PM) Mode of Delivery (Oxygen) Room air Room air Room a ir (05/31/19 7:21 AM) (05/30/19 11:53 PM) (05/30/19 7:11 PM) Blood pressure sites Arm, left Arm, left Arm, left (05/31/19 7:21 AM) (05/30/19 11:53 PM) (05/30/19 7:11 PM) Temperature Route Oral Oral Oral (05/31/19 7:21 AM) (05/30/19 11:53 PM) (05/30/19 7:11 PM) Weight Obtained Via Bed scale (05/27/19 9:49 PM) Sensory deficits None (05/27/19 10:25 PM) Mobility assistance Independent (05/27/19 10:25 PM) Social History Social History Type Response Smoking Status Former smoker, quit more krissy n 30 days ago entered on: 06/18/18 Sex
--- OUTSIDE RECORDS SUMMARY | 2022-06-19 23:10 | XMS_ITS | Continuity of Care Document ---
:1965 Author Organization [facility] Address [address] [place] [address]- Care Team Providers Name Role Phone Greyson LARES, Mauricio Primary Care Physician Encounter [facility] Date(s): 05/14/19 - 06/21/19 [facility] [address] [place] [address]- [facility] Attending Physician: Not on Staff, Attending MD [...] Patient Refuses 1Early/Late Reason: Other : Patient [id number] Comment: [01/16/2017] [facility] [phone] Comment: lot # [id number] Medications AirDuo RespiClick 232 mcg-14 mcg/inh inhalation powder 1, puffs, Inhalation, 2 times a day, # 1 each, Refills 11, Tot. Refills 11, Maintenance, 11/19/18 15:20:42 EDT, Powder, Route to Pharmacy Electronically, [id number], [facility], advair not covered Start Date: 11/19/18 Status: [...] 11/19/18 14:00:09 EDT, Route to Pharmacy Electronically, [id number], [facility] Start Date: 11/19/18 Stop Date: 02/12/20 Status: Orderedatorvastatin 20 mg oral tablet 1 tablet = 20 mg, By Mouth, Daily at bedtime, # 30 tablet, 0 Refills, Maintenance, 05/31/19 11:54:00EST, Tablet, [facility], 175, cm, 05/30/19 19:11:00 EST, [...] Maintenance, 05/31/2010:54:00 EST, Route to Pharmacy Electronically, [facility], 175, cm, 05/30/19 19:11:00EST, Height, 84.5, kg, 12/25/18 16:15:00 EDT, Dry... Start Date: 05/31/19 Status: Orderedlidocaine 5% topical film See Instructions, 1 patch to affected area Topically Daily, remove at HS, # 30 patch, 0 Refills, Maintenance, 05/31/19 17:33:00 EST, Patch, [facility], 1 patch to affected area Topically Daily, remove at HS, 175, cm, 05/30/19 19:11:00 ES... Start Date: 05/31/19 Status: Orderedmelatonin 3 mg oral tablet, disintegrating 2 tablet = 6 mg, By Mouth, Daily at bedtime, PRN Sleep, for 30 days, # 60 tablet, 0 Refills, Acute 06/30/19 17:31:00 EST, 05/31/19 17:31:00 EST, DIS Tablet, [facility], 175, cm, 05/30/19 19:11:00 EST, Height, 84.5, kg, 12/25/18 16:15:00... Start Date: 05/31/19 Stop Date: 06/30/19 Status: OrderedmetFORMIN 500 mg oral tablet 1 tablet = 500 mg, By Mouth, 2 times a day, with meals, [place] label, # 180 tablet, 1 Refills, Maintenance, 11/19/18 13:59:10 EDT, Tablet Start Date: 11/19/18 Stop Date: 05/18/19 Status: Orderedmontelukast 10 mg oral tablet 10 mg, By Mouth, Daily, # 30 tablet, Refills 9, Tot. Refills 9, Maintenance, 11/19/18 14:00:53 EDT, Route to Pharmacy Electronically, [id number], [facility] Start Date: 11/19/18 Status: OrderedNuLYTELY with Flavor Packs oral powder for reconstitution 240 mL, By Mouth, Every 15 minutes, # 4,000 mL, 0 Refills, Maintenance, 03/19/19 18:13:08 EST, 240 mL By Mouth Every 15 minutes Start Date: 03/19/19 Status: OrderedPlavix 75 mg oral tablet 75 mg, By Mouth, Daily, [place] label, # 90 each, Refills 1, Tot. Refills 1, Maintenance, 11/19/18 14:01:50 EDT, Route to Pharmacy Electronically, [id number], [facility] Start Date: 11/19/18 Stop Date: 05/18/19 Status: OrderedProAir HFA 90 mcg/inh inhalation aerosol with adapter 1, puffs, Inhalation, Every 4 hours, PRN, # 8.5 Gm, Refills 0, Tot. Refills 0, Maintenance, 05/31/2010:52:00 EST, Aerosol, Route to Pharmacy Electronically, [id number], [facility], 175, cm, 05/30/19 19:11:00 ES... Start [...]
--- OUTSIDE RECORDS SUMMARY | 2022-06-19 23:10 | XMS_ITS | Continuity of Care Document ---
:1965 Author Organization [facility] Address [address] [place] [address]- Care Team Providers Name Role Phone Marjorie Manuel KU Primary Care Physician [facility]counter [facility] Date(s): 10/12/21 - 12/06/21 [facility] [address] [place] [id number] Attending Physician: Tomi Saavedra MD Admitting Physician: [...] Patient Refuses 1Early/Late Reason: Other : Patient [id number] Comment: [01/16/2017] NDC [id number] Comment: lot # [id number] Medications albuterol 0.083% inhalation solution 3 mL = 2.5 mg, Inhalation, Every 6 hours, PRN Wheezing/Shortness of Breath, # 1 each, 6 Refills, Maintenance, 04/03/21 9:01:00 EST, Solution, [facility] 175, cm, 04/03/21 8:32:00 EST, Height, 82.4, kg, 07/21/20 11:02:00 EDT, Dry Weight Start Date: 04/03/21 Status: OrderedamLODIPine 10 mg oral tablet 10 mg, 1, tablet, By Mouth, Daily at bedtime, # 30 tablet, Refills 2, Tot. Refills 2, Maintenance, 10/19/21 21:06:00 EDT, Route to Pharmacy Electronically, [facility], Partial fill uponpatient request if the prescription is for a sche... Start Date: 10/19/21 Status: OrderedamLODIPine 10 mg oral tablet 10 mg, 1, tablet, By Mouth, Daily at bedtime, for 90 days, # 90 tablet, Refills 4, Tot. Refills 4, Hard Stop 12/24/21 9:34:00 EDT, 09/30/20 9:34:00 EDT, Route to Pharmacy Electronically, [facility] #[id number], Partial fill upon patient request i... Start Date: 09/30/20 Stop Date: 12/24/21 Status: Orderedaspirin 81 mg oral delayed release tablet 81 mg, 1, tablet, By Mouth, Daily, UGANDAN LABEL, # 90 tablet, Refills 3, Tot. Refills 3, Maintenance, 08/09/21 5:53:00 EDT, Route to Pharmacy Electronically, [facility], 175, cm, 04/03/21 8:32:00 EST, Height, 82.4, kg, 07/21/20 11:02:... Start Date: 08/09/21 Status: Orderedatorvastatin 20 mg oral tablet 1 tablet = 20 mg, By Mouth, Daily at bedtime, UGANDAN LABEL, # 90 tablet, 1 Refills, Maintenance, 04/03/21 9:05:00 EST, Tablet, [facility] 175, cm, 04/03/21 8:32:00 EST, Height, 82.4, kg, 07/21/20 11:02:00 EDT, Dry Weight Start Date: 04/03/21 Status: Ordereddivalproex sodium 500 mg oral enteric coated tablet 1 tablet = 500 mg, By Mouth, 2 times a day, UGANDAN LABEL, # 60 tablet, 0 Refills, Maintenance, 11/24/21 12:56:00 EDT, Tablet, [facility] 175, cm, 10/05/21 14:47:00 EDT, Height, 82.4, kg, 09/20/21 13:17:00 EDT, Dry Weight Start Date: 11/24/21 Status: Orderedduloxetine 60 mg oral enteric coated capsule 1 capsule = 60 mg, By Mouth, Daily, UGANDAN LABEL, # 90 capsule, 2 Refills, Maintenance, 04/03/21 9:05:00 EST, Capsule, [facility], 175, cm, 04/03/21 8:32:00 EST, Height, 82.4, kg, 07/21/20 11:02:00 EDT, Dry Weight Start Date: 04/03/21 Status: OrderedFlonase 50 mcg/inh nasal spray 1 sprays, Nares, Both, 2 times a day, Stateless label please., # 16 Gm, 1 Refills, Maintenance, 09/30/20 9:34:00 EDT, [facility] #[id number], Partial fill upon patient request if the prescription isfor a schedule II opioid drug., 1 sprays Nares, B... Start Date: 09/30/20 Status: Orderedfluticasone-salmeterol 500 mcg-50 mcg inhalation powder 1 puff, Inhalation, 2 times a day, # 1 each, Refills 3, Tot. Refills 3, Maintenance, 10/11/21 13:36:00 EDT, Powder, Route to Pharmacy Electronically, [id number], [facility] 175, cm, 10/05/21 14:47:00 EDT, Hei... Start Date: 10/11/21 Status: Orderedgabapentin 300 mg oral capsule 600 mg, 2, capsule, By Mouth, Daily at bedtime, UGANDAN LABEL, # 60 capsule, Refills 3, Tot. Refills3, Maintenance, 10/11/21 13:32:00 EDT, Route to Pharmacy Electronically, [facility].,175, cm, 10/05/21 14:47:00 EDT, Height, 82.4, kg,... [...] 10 mg, 1, tablet, By Mouth, Daily, Stateless label please., # 30 tablet, Refills 0, Tot. Refills 0, Maintenance, 04/03/21 9:08:00 EST, Route to Pharmacy Electronically, [facility], Partial fill upon patient request if [...] 0 Refills, Maintenance, 09/18/21 11:48:00 EDT, Tablet, [facility] #[id number], Partial fill upon patient request if the prescription is for a schedule II opioid drug., 175, cm, 09/18/21 10:48:00 ED... Start Date: 09/18/21 Stop Date: 09/28/21 Status: OrderedmetFORMIN 500 mg oral tablet, extended release 2 tablet = 1,000 mg, By Mouth, 2 times a day, # 120 tablet, 6 Refills, Maintenance, 10/05/21 14:16:00 EDT, [facility] #[id number], Partial fill upon patient request if the prescription is for a schedule II opioid drug., 175, cm, 09/23/21 4:10:00... Start Date: 10/05/21 Status: Orderedmontelukast 10 mg oral tablet 10 mg, 1, tablet, By Mouth, Daily, UGANDAN LABEL, # 30 tablet, Refills 11, Tot. Refills 11, Maintenance, 10/03/21 16:07:00 EDT, Route to Pharmacy Electronically, [facility] #[id number], 175, cm, 09/23/21 4:10:00 EDT, Height, 82.4, [...] 75 mg, 1, tablet, By Mouth, Daily, UGANDAN LABEL, # 30 tablet, Refills 3, Tot. Refills 3, Maintenance, 08/09/21 5:53:00 EDT, Route to Pharmacy Electronically, [facility], 175, cm, 04/03/21 8:32:00 EST, Height, 82.4, kg, 07/21/20 11:02:... Start Date: 08/09/21 Status: OrderedProAir HFA 90 mcg/inh inhalation aerosol with adapter 1, puffs, Inhalation, Every 4 hours, PRN, # 1 each, Refills 5, Tot. Refills 5, Maintenance, 219:01:00 EST, Aerosol, Route to Pharmacy Electronically, [id number], [facility], 175, cm, 04/03/21 8:32:00 ES... Start [...] RIGHT UPPER. CTA - done Active at [facility]. 07/2021 - scanned in CIS(Confirmed) *Julissa Fraga, [facility] Care Active Coordinator [phone](Confirmed) Lumbar radicular pain(Confirmed) Active Right hemiplegia(Confirmed) Active Encounter for screening Active colonoscopy(Confirmed) Tobacco dependence(Confirmed) Active DMII (diabetes mellitus, type Active 2)(Confirmed) Vertigo(Confirmed) Active Social History Social History Type Response Smoking Status 5-9 cigarettes (between 1/4 to 1/2 pack)/day in last 30 days entered on: 01/01/20 Sex
--- OUTSIDE RECORDS SUMMARY | 2022-06-19 23:10 | XMS_ITS | Continuity of Care Document ---
:1965 Author Organization [facility] Address [address] [place] [address]- Care Team Providers Name Role Phone Manuel Amador DO Primary Care Physician Encounter [facility] Date(s): 12/26/21 - 02/21/22 [facility] [address] [place] [id number] Attending Physician: Tomi Saavedra MD [...] Patient Refuses 1Early/Late Reason: Other : Patient [id number] Comment: [01/16/2017] [facility] [id number] Comment: lot # [id number] Medications albuterol 0.083% inhalation solution 3 mL = 2.5 mg, Inhalation, Every 6 hours, PRN Wheezing/Shortness of Breath, # 1 each, 6 Refills, Maintenance, 04/03/21 9:01:00 EST, Solution, [facility], 175, cm, 04/03/21 8:32:00 EST, Height, 82.4, kg, 07/21/20 11:02:00 EDT, Dry Weight Start Date: 04/03/21 Status: OrderedamLODIPine 10 mg oral tablet 10 mg, 1, tablet, By Mouth, Daily at bedtime, # 30 tablet, Refills 2, Tot. Refills 2, Maintenance, 10/19/21 21:06:00 EDT, Route to Pharmacy Electronically, [facility], Partial fill uponpatient request if the prescription is for a sche... Start Date: 10/19/21 Status: Orderedaspirin 81 mg oral delayed release tablet 81 mg, 1, tablet, By Mouth, Daily, KUWAITI LABEL, # 90 tablet, Refills 3, Tot. Refills 3, Maintenance, 08/09/21 5:53:00 EDT, Route to Pharmacy Electronically, [facility], 175, cm, 04/03/21 8:32:00 EST, Height, 82.4, kg, 07/21/20 11:02:... Start Date: 08/09/21 Status: Orderedatorvastatin 20 mg oral tablet See Instructions, REGINA 1 TABLETA POR LA BOCA A LA HORA DE DORMIR, # 30 tablet, 11 Refills, [facility], [facility], cm, 10/05/21 14:47:00 EDT, Height, 82.4, kg, 09/20/21 13:17:00 EDT, Dry Weight Start Date: 12/12/21 Status: Orderedclopidogrel 75 mg oral tablet See Instructions, REGINA 1 TABLETA POR LA BOCA CADA SARAH, # 30 tablet, Refills 6, Instructions ReplaceRequired Details, [facility], [facility], 175, cm, 10/05/21 14:47:00EDT, Height, 82.4, kg, 09/20/21 13:17:00 EDT, Dry... Start Date: 12/12/21 Status: Ordereddivalproex sodium 500 mg oral enteric coated tablet 1 tablet = 500 mg, By Mouth, 2 times a day, KUWAITI LABEL, # 60 tablet, 0 Refills, Maintenance, 11/24/21 12:56:00 EDT, Tablet, [facility] 175, cm, 10/05/21 14:47:00 EDT, Height, 82.4, kg, 09/20/21 13:17:00 EDT, Dry Weight Start Date: 11/24/21 Status: Orderedduloxetine 60 mg oral enteric coated capsule 1 capsule = 60 mg, By Mouth, Daily, KUWAITI LABEL, # 90 capsule, 2 Refills, Maintenance, 04/03/21 9:05:00 EST, Capsule, [facility]., 175, cm, 04/03/21 8:32:00 EST, Height, 82.4, kg, 07/21/20 11:02:00 EDT, Dry Weight Start Date: 04/03/21 Status: OrderedFlonase 50 mcg/inh nasal spray 1 sprays, Nares, Both, 2 times a day, Peruvian label please., # 16 Gm, 1 Refills, Maintenance, 09/30/20 9:34:00 EDT, [facility] #[id number], Partial fill upon patient request if the prescription isfor a schedule II opioid drug., 1 sprays Nares, B... Start Date: 09/30/20 Status: Orderedfluticasone-salmeterol 500 mcg-50 mcg inhalation powder 1 puff, Inhalation, 2 times a day, # 1 each, Refills 3, Tot. Refills 3, Maintenance, 10/11/21 13:36:00 EDT, Powder, Route to Pharmacy Electronically, [id number], [facility] 175, cm, 10/05/21 14:47:00 EDT, Hei... Start Date: 10/11/21 Status: Orderedgabapentin 300 mg oral capsule 600 mg, 2, capsule, By Mouth, Daily at bedtime, KUWAITI LABEL, # 60 capsule, Refills 3, Tot. Refills3, Maintenance, 10/11/21 13:32:00 EDT, Route to Pharmacy Electronically, [facility]175, cm, 10/05/21 14:47:00 EDT, Height, 82.4, [...] 04/03/21 9:08:00 EST, Route to Pharmacy Electronically, [facility], Partial fill upon patient request [...] 0 Refills, Maintenance, 09/18/21 11:48:00 EDT, Tablet, [facility] #[id number], Partial fill upon patient request if the prescription is for a schedule II opioid drug., 175, cm, 09/18/21 10:48:00 ED... Start Date: 09/18/21 Stop Date: 09/28/21 Status: OrderedmetFORMIN 500 mg oral tablet, extended release 2 tablet = 1,000 mg, By Mouth, 2 times a day, # 120 tablet, 6 Refills, Maintenance, 10/05/21 14:16:00 EDT, [facility] #[id number], Partial fill upon patient request if the prescription is for a schedule II opioid drug., 175, cm, 09/23/21 4:10:00... Start Date: 10/05/21 Status: Orderedmontelukast 10 mg oral tablet 10 mg, 1, tablet, By Mouth, Daily, KUWAITI LABEL, # 30 tablet, Refills 11, Tot. Refills 11, Maintenance, 10/03/21 16:07:00 EDT, Route to Pharmacy Electronically, [facility] #[id number], 175, cm, 09/23/21 4:10:00 EDT, Height, 82.4, [...] 219:01:00 EST, Aerosol, Route to Pharmacy Electronically, [id number], [facility], 175, cm, 04/03/21 8:32:00 ES... [...] Confirmed Active UPPER. CTA - done at [facility]. 07/2021 - scanned in CIS *Julissa Vaughn Confirmed Active [facility] Client Experience Consultant [phone] Lumbar radicular pain Confirmed Active Right hemiplegia Confirmed Active Encounter for Confirmed Active screening colonoscopy Tobacco dependence Confirmed Active DMII (diabetes Confirmed Active mellitus, type 2) Vertigo Confirmed Active Social History Social History Type Response Smoking Status 5-9 cigarettes (between 1/4 to 1/2 pack)/day in last 30 days entered on: 01/01/20 Sex Patient Care team information PersonnelName: Manuel Amador DO Address: Address: [address] [place] [id number]
--- OUTSIDE RECORDS SUMMARY | 2022-06-19 23:10 | XMS_ITS | Continuity of Care Document ---
:1965 Author Organization [facility] Address [address] [place] [id number]- Care Team Providers Name Role Phone Greyson LARES, Mauricio Primary Care Physician [facility]counter [facility] Date(s): 09/30/20 - 10/30/20 [facility] [address] [place] [id number] Allergies, Adverse Reactions, Alerts No Known Medication [...] Patient Refuses 1Early/Late Reason: Other : Patient [id number] Comment: [01/16/2017] [facility] [id number] Comment: lot # [id number] Medications Advair Diskus 250 mcg-50 mcg inhalation powder 1, puffs, Inhalation, 2 times a day, # 180 each, Refills 1, Tot. Refills 1, Maintenance, 07/22/20 10:04:00 EDT, Powder, Route to Pharmacy Electronically, [id number], [facility] #[id number], 175, cm, 07/22/20 7:07:00 EDT,... Start Date: 07/22/20 Status: Orderedalbuterol 0.083% inhalation solution 3 mL = 2.5 mg, Inhalation, Every 6 hours, PRN Wheezing/Shortness of Breath, # 1 each, 6 Refills, Maintenance, 09/30/20 9:34:00 EDT, Solution, [facility] #[id number], 175, cm, 07/22/20 7:07:00 EDT,Height, 82.4, kg, 07/21/20 11:02:00 EDT, Dry Weight Start Date: 09/30/20 Status: OrderedamLODIPine 10 mg oral tablet 10 mg, 1, tablet, By Mouth, Daily at bedtime, # 90 tablet, Refills 4, Tot. Refills 4, Maintenance, 09/30/20 9:34:00 EDT, Route to Pharmacy Electronically, [facility] #[id number], Partial fill uponpatient request if the prescription is for a sche... Start Date: 09/30/20 Stop Date: 12/24/21 Status: Orderedaspirin 81 mg oral delayed release tablet 81 mg, 1, tablet, By Mouth, Daily, KOSOVAN LABEL, # 30 tablet, Refills 1, Tot. Refills 1, Maintenance, 09/30/20 9:34:00 EDT, Route to Pharmacy Electronically, [facility] #[id number], 175, cm, 07/22/20 7:07:00 EDT, Height, 82.4, kg, 07/21/20 11:02... Start Date: 09/30/20 Status: Orderedatorvastatin 20 mg oral tablet 1 tablet = 20 mg, By Mouth, Daily at bedtime, KOSOVAN LABEL, # 30 tablet, 1 Refills, Maintenance, 09/30/20 9:34:00 EDT, Tablet, [facility] #[id number], 175, cm, 07/22/20 7:07:00 EDT, Height, 82.4,kg, 07/21/20 11:02:00 EDT, Dry Weight Start Date: 09/30/20 Status: Ordereddivalproex sodium 500 mg oral enteric coated tablet 1 tablet = 500 mg, By Mouth, 2 times a day, KOSOVAN LABEL, # 60 tablet, 2 Refills, Maintenance, 09/30/20 9:34:00 EDT, Tablet, [facility] #[id number], 175, cm, 07/22/20 7:07:00 EDT, Height, 82.4, kg, 07/21/20 11:02:00 EDT, Dry Weight Start Date: 09/30/20 Status: Orderedduloxetine 60 mg oral enteric coated capsule 1 capsule = 60 mg, By Mouth, Daily, KOSOVAN LABEL, # 30 capsule, 1 Refills, Maintenance, 09/30/20 9:34:00 EDT, Capsule, [facility] #[id number], 175, cm, 07/22/20 7:07:00 EDT, Height, 82.4, kg, 07/21/20 11:02:00 EDT, Dry Weight Start Date: 09/30/20 Status: OrderedFlonase 50 mcg/inh nasal spray 1 sprays, Nares, Both, 2 times a day, Finnish label please., # 16 Gm, 1 Refills, Maintenance, 09/30/20 9:34:00 EDT, [facility] #[id number], Partial fill upon patient request if the prescription isfor a schedule II opioid drug., 1 sprays Nares, B... Start Date: 09/30/20 Status: Orderedgabapentin 300 mg oral capsule 600 mg, 2, capsule, By Mouth, Daily at bedtime, KOSOVAN LABEL, # 60 capsule, Refills 3, Tot. Refills3, Maintenance, 09/30/20 9:34:00 EDT, Route to Pharmacy Electronically, [facility] #[id number],175, cm, 07/22/20 7:07:00 EDT, Height, 82.4, kg,... Start Date: 09/30/20 Status: Orderedlidocaine 5% topical film See Instructions, 1 patch to affected area Topically Daily, remove at HS, # 30 patch, 1 Refills, Maintenance, 09/30/20 9:34:00 EDT, Patch, [facility] #[id number], 1 patch to affected area Topically Daily, remove at HS, 175, cm, 07/22/20 7:07:00 E... Start Date: 09/30/20 Status: Orderedloratadine 10 mg oral tablet 10 mg, 1, tablet, By Mouth, Daily, Finnish label please., # 30 tablet, Refills 0, Tot. Refills 0, Maintenance, 09/30/20 9:34:00 EDT, Route to Pharmacy Electronically, [facility] #[id number], Partial fill upon patient request if the prescription i... Start Date: 09/30/20 Stop Date: 10/30/20 Status: Orderedmontelukast 10 mg oral tablet 10 mg, 1, tablet, By Mouth, Daily, KOSOVAN LABEL, # 30 tablet, Refills 11, Tot. Refills 11, Maintenance, 09/30/20 9:34:00 EDT, Route to Pharmacy Electronically, [facility] #[id number], 175, cm, 07/22/20 7:07:00 EDT, Height, 82.4, kg, 07/21/20 11:... Start Date: 09/30/20 Status: OrderedPlavix 75 mg oral tablet 75 mg, 1, tablet, By Mouth, Daily, KOSOVAN LABEL, # 30 tablet, Refills 3, Tot. Refills 3, Maintenance, 09/30/20 9:34:00 EDT, Route to Pharmacy Electronically, [facility] #[id number], 175, cm, 07/22/20 7:07:00 EDT, Height, 82.4, kg, 07/21/20 11:02... Start Date: 09/30/20 Status: OrderedpredniSONE 10 mg oral tablet See Instructions, 40 mg for 2 days, 20 mg for 2 days 10 mg for 2 days., # 14 tablet, 0 Refills, Maintenance, 07/22/20 10:06:00 EDT, [facility] #[id number], Partial fill upon patient request if theprescription is for a schedule II opioid drug., 1... Start Date: 07/22/20 Status: OrderedProAir HFA 90 mcg/inh inhalation aerosol with adapter 1, puffs, Inhalation, Every 4 hours, PRN, # 1 each, Refills 5, Tot. Refills 5, Maintenance, :34:00 EDT, Aerosol, Route to Pharmacy Electronically, [id number], [facility] #[id number], 175, cm, 07/22/20 7:07:00 E... Start Date: 09/30/20 Stop Date: 03/29/21 Status: OrderedSEROquel XR 300 mg oral tablet, extended release 1 tablet = 300 mg, By Mouth, Daily at bedtime, KOSOVAN LABEL, # 30 tablet, 1 Refills, Maintenance, 09/30/20 9:34:00 EDT, ER Tablet, [facility] #[id number], 1 tablet By Mouth Daily at bedtime,Instr:KOSOVAN LABEL, 175, cm, 07/22/20 7:07:00 EDT, Hei... [...] Active Nausea & vomiting(Confirmed) Active *Julissa Fraga, [facility] Care Active Coordinator [phone](Confirmed) Lumbar radicular pain(Confirmed) Active Right hemiplegia(Confirmed) Active Encounter for screening Active colonoscopy(Confirmed) Tobacco dependence(Confirmed) Active DMII (diabetes mellitus, type Active 2)(Confirmed) Vertigo(Confirmed) Active Social History Social History Type Response Smoking Status 5-9 cigarettes (between 1/4 to 1/2 pack)/day in last 30 days entered on: 01/01/20 Sex
--- OUTSIDE RECORDS SUMMARY | 2022-06-19 23:10 | XMS_ITS | Continuity of Care Document ---
:1965 Author Organization [facility] Address [address] [place] [address]- Care Team Providers Name Role Phone Mauricio Rubi MD Primary Care Physician Encounter [facility] [place] [place] Date(s): 04/10/21 - 05/20/21 [facility] [address] [place] [id number] Attending Physician: Not on Staff, Attending [...] Patient Refuses 1Early/Late Reason: Other : Patient [id number] Comment: [01/16/2017] [facility] [id number] Comment: lot # [id number] Medications albuterol 0.083% inhalation solution 3 mL = 2.5 mg, Inhalation, Every 6 hours, PRN Wheezing/Shortness of Breath, # 1 each, 6 Refills, Maintenance, 04/03/21 9:01:00 EST, Solution, [facility] 175, cm, 04/03/21 8:32:00 EST, Height, 82.4, kg, 07/21/20 11:02:00 EDT, Dry Weight Start Date: 04/03/21 Status: OrderedamLODIPine 10 mg oral tablet 10 mg, 1, tablet, By Mouth, Daily at bedtime, # 90 tablet, Refills 4, Tot. Refills 4, Maintenance, 09/30/20 9:34:00 EDT, Route to Pharmacy Electronically, [facility] #[id number], Partial fill uponpatient request if the prescription is for a sche... Start Date: 09/30/20 Stop Date: 12/24/21 Status: Orderedaspirin 81 mg oral delayed release tablet 81 mg, 1, tablet, By Mouth, Daily, BAHAMIAN LABEL, # 90 tablet, Refills 2, Tot. Refills 2, Maintenance, 04/03/21 9:06:00 EST, Route to Pharmacy Electronically, [facility], 175, cm, 04/03/21 8:32:00 EST, Height, 82.4, kg, 07/21/20 11:02:... Start Date: 04/03/21 Status: Orderedatorvastatin 20 mg oral tablet 1 tablet = 20 mg, By Mouth, Daily at bedtime, BAHAMIAN LABEL, # 90 tablet, 1 Refills, Maintenance, 04/03/21 9:05:00 EST, Tablet, [facility], 175, cm, 04/03/21 8:32:00 EST, Height, 82.4, kg, 07/21/20 11:02:00 EDT, Dry Weight Start Date: 04/03/21 Status: Ordereddivalproex sodium 500 mg oral enteric coated tablet 1 tablet = 500 mg, By Mouth, 2 times a day, BAHAMIAN LABEL, # 60 tablet, 2 Refills, Maintenance, 09/30/20 9:34:00 EDT, Tablet, [facility] #[id number], 175, cm, 07/22/20 7:07:00 EDT, Height, 82.4, kg, 07/21/20 11:02:00 EDT, Dry Weight Start Date: 09/30/20 Status: Orderedduloxetine 60 mg oral enteric coated capsule 1 capsule = 60 mg, By Mouth, Daily, BAHAMIAN LABEL, # 90 capsule, 2 Refills, Maintenance, 04/03/21 9:05:00 EST, Capsule, [facility] 175, cm, 04/03/21 8:32:00 EST, Height, 82.4, kg, 07/21/20 11:02:00 EDT, Dry Weight Start Date: 04/03/21 Status: OrderedFlonase 50 mcg/inh nasal spray 1 sprays, Nares, Both, 2 times a day, German label please., # 16 Gm, 1 Refills, Maintenance, 09/30/20 9:34:00 EDT, [facility] #[id number], Partial fill upon patient request if the prescription isfor a schedule II opioid drug., 1 sprays Nares, B... Start Date: 09/30/20 Status: Orderedfluticasone-salmeterol 500 mcg-50 mcg inhalation powder 1 puff, Inhalation, 2 times a day, # 1 each, Refills 3, Tot. Refills 3, Maintenance, 04/03/21 14:34:00 EST, Powder, Route to Pharmacy Electronically, [id number], [facility], 175, cm, 04/03/21 8:32:00 EST, [place]... Start Date: 04/03/21 Status: Orderedgabapentin 300 mg oral capsule 600 mg, 2, capsule, By Mouth, Daily at bedtime, BAHAMIAN LABEL, # 60 capsule, Refills 3, Tot. Refills3, Maintenance, 04/03/21 9:08:00 EST, Route to Pharmacy Electronically, [facility], 175, cm, 04/03/21 8:32:00 EST, Height, [...] 10 mg, 1, tablet, By Mouth, Daily, German label please., # 30 tablet, Refills 0, Tot. Refills 0, Maintenance, 04/03/21 9:08:00 EST, Route to Pharmacy Electronically, [facility], Partial fill upon patient request if the prescription is... Start Date: 04/03/21 Stop Date: 05/03/21 Status: Orderedmontelukast 10 mg oral tablet 10 mg, 1, tablet, By Mouth, Daily, BAHAMIAN LABEL, # 30 tablet, Refills 11, Tot. Refills 11, Maintenance, 04/03/21 9:08:00 EST, Route to Pharmacy Electronically, [facility], 175, cm, 04/03/21 8:32:00 EST, Height, 82.4, kg, 07/21/20 11:0... Start Date: 04/03/21 Status: OrderedPlavix 75 mg oral tablet 75 mg, 1, tablet, By Mouth, Daily, BAHAMIAN LABEL, # 30 tablet, Refills 3, Tot. Refills 3, Maintenance, 04/03/21 9:08:00 EST, Route to Pharmacy Electronically, [facility], 175, cm, 04/03/21 8:32:00 EST, Height, 82.4, kg, 07/21/20 11:02:... Start Date: 04/03/21 Status: OrderedpredniSONE 10 mg oral tablet See Instructions, 40 mg for 2 days, 20 mg for 2 days 10 mg for 2 days., # 14 tablet, 0 Refills, Maintenance, 07/22/20 10:06:00 EDT, [facility] #[id number], Partial fill upon patient request if theprescription is for a schedule II opioid drug., 1... Start Date: 07/22/20 Status: OrderedProAir HFA 90 mcg/inh inhalation aerosol with adapter 1, puffs, Inhalation, Every 4 hours, PRN, # 1 each, Refills 5, Tot. Refills 5, Maintenance, :01:00 EST, Aerosol, Route to Pharmacy Electronically, [id number], [facility] 175, cm, 04/03/21 8:32:00 ES... Start Date: 04/03/21 Stop Date: 09/30/21 Status: OrderedSEROquel XR 300 mg oral tablet, extended release 1 tablet = 300 mg, By Mouth, Daily at bedtime, BAHAMIAN LABEL, # 30 tablet, 3 Refills, Maintenance, 04/03/21 9:09:00 EST, ER Tablet, [facility], 1 tablet By Mouth Daily at bedtime,Instr:BAHAMIAN LABEL, 175, cm, 04/03/21 8:32:00 EST, [facility]... [...] Active Nausea & vomiting(Confirmed) Active *Julissa Fraga, [facility] Care Active Coordinator [phone](Confirmed) Lumbar radicular pain(Confirmed) Active Right hemiplegia(Confirmed) Active Encounter for screening Active colonoscopy(Confirmed) Tobacco dependence(Confirmed) Active DMII (diabetes mellitus, type Active 2)(Confirmed) Vertigo(Confirmed) Active Social History Social History Type Response Smoking Status 5-9 cigarettes (between 1/4 to 1/2 pack)/day in last 30 days entered on: 01/01/20 Sex
--- OUTSIDE RECORDS SUMMARY | 2022-06-19 23:10 | XMS_ITS | Continuity of Care Document ---
:1965 Author Organization [facility] Address [address] [place] [address]- Care Team Providers Name Role Phone Greyson LARES, Mauricio Primary Care Physician Encounter [facility] Date(s): 11/21/20 - 12/21/[facility] [address] [place] [address] Allergies, Adverse Reactions, Alerts No [...] Patient Refuses 1Early/Late Reason: Other : Patient [id number] Comment: [01/16/2017] [facility] [id number] Comment: lot # [id number] Medications Advair Diskus 250 mcg-50 mcg inhalation powder 1, puffs, Inhalation, 2 times a day, # 180 each, Refills 1, Tot. Refills 1, Maintenance, 07/22/20 10:04:00 EDT, Powder, Route to Pharmacy Electronically, [id number], [facility] #[id number], 175, cm, 07/22/20 7:07:00 EDT,... Start Date: 07/22/20 Status: Orderedalbuterol 0.083% inhalation solution 3 mL = 2.5 mg, Inhalation, Every 6 hours, PRN Wheezing/Shortness of Breath, # 1 each, 6 Refills, Maintenance, 09/30/20 9:34:00 EDT, Solution, [facility] #[id number], 175, cm, 07/22/20 7:07:00 EDT,Height, 82.4, kg, 07/21/20 11:02:00 EDT, Dry Weight Start Date: 09/30/20 Status: OrderedamLODIPine 10 mg oral tablet 10 mg, 1, tablet, By Mouth, Daily at bedtime, # 90 tablet, Refills 4, Tot. Refills 4, Maintenance, 09/30/20 9:34:00 EDT, Route to Pharmacy Electronically, [facility] #[id number], Partial fill uponpatient request if the prescription is for a sche... Start Date: 09/30/20 Stop Date: 12/24/21 Status: Orderedaspirin 81 mg oral delayed release tablet 81 mg, 1, tablet, By Mouth, Daily, ARMENIAN LABEL, # 30 tablet, Refills 1, Tot. Refills 1, Maintenance, 09/30/20 9:34:00 EDT, Route to Pharmacy Electronically, [facility] #[id number], 175, cm, 07/22/20 7:07:00 EDT, Height, 82.4, kg, 07/21/20 11:02... Start Date: 09/30/20 Status: Orderedatorvastatin 20 mg oral tablet 1 tablet = 20 mg, By Mouth, Daily at bedtime, ARMENIAN LABEL, # 30 tablet, 1 Refills, Maintenance, 09/30/20 9:34:00 EDT, Tablet, [facility] #[id number], 175, cm, 07/22/20 7:07:00 EDT, Height, 82.4,kg, 07/21/20 11:02:00 EDT, Dry Weight Start Date: 09/30/20 Status: Ordereddivalproex sodium 500 mg oral enteric coated tablet 1 tablet = 500 mg, By Mouth, 2 times a day, ARMENIAN LABEL, # 60 tablet, 2 Refills, Maintenance, 09/30/20 9:34:00 EDT, Tablet, [facility] #[id number], 175, cm, 07/22/20 7:07:00 EDT, Height, 82.4, kg, 07/21/20 11:02:00 EDT, Dry Weight Start Date: 09/30/20 Status: Orderedduloxetine 60 mg oral enteric coated capsule 1 capsule = 60 mg, By Mouth, Daily, ARMENIAN LABEL, # 30 capsule, 1 Refills, Maintenance, 09/30/20 9:34:00 EDT, Capsule, [facility] #[id number], 175, cm, 07/22/20 7:07:00 EDT, Height, 82.4, kg, 07/21/20 11:02:00 EDT, Dry Weight Start Date: 09/30/20 Status: OrderedFlonase 50 mcg/inh nasal spray 1 sprays, Nares, Both, 2 times a day, Emirati label please., # 16 Gm, 1 Refills, Maintenance, 09/30/20 9:34:00 EDT, [facility] #[id number], Partial fill upon patient request if the prescription isfor a schedule II opioid drug., 1 sprays Nares, B... Start Date: 09/30/20 Status: Orderedgabapentin 300 mg oral capsule 600 mg, 2, capsule, By Mouth, Daily at bedtime, ARMENIAN LABEL, # 60 capsule, Refills 3, Tot. Refills3, Maintenance, 09/30/20 9:34:00 EDT, Route to Pharmacy Electronically, [facility] #[id number],175, cm, 07/22/20 7:07:00 EDT, Height, 82.4, kg,... Start Date: 09/30/20 Status: Orderedlidocaine 5% topical film See Instructions, 1 patch to affected area Topically Daily, remove at HS, # 30 patch, 1 Refills, Maintenance, 09/30/20 9:34:00 EDT, Patch, [facility] #[id number], 1 patch to affected area Topically Daily, remove at HS, 175, cm, 07/22/20 7:07:00 E... Start Date: 09/30/20 Status: Orderedloratadine 10 mg oral tablet 10 mg, 1, tablet, By Mouth, Daily, Emirati label please., # 30 tablet, Refills 0, Tot. Refills 0, Maintenance, 09/30/20 9:34:00 EDT, Route to Pharmacy Electronically, [facility] #[id number], Partial fill upon patient request if the prescription i... Start Date: 09/30/20 Stop Date: 10/30/20 Status: Orderedmontelukast 10 mg oral tablet 10 mg, 1, tablet, By Mouth, Daily, ARMENIAN LABEL, # 30 tablet, Refills 11, Tot. Refills 11, Maintenance, 09/30/20 9:34:00 EDT, Route to Pharmacy Electronically, [facility] #[id number], 175, cm, 07/22/20 7:07:00 EDT, Height, 82.4, kg, 07/21/20 11:... Start Date: 09/30/20 Status: OrderedPlavix 75 mg oral tablet 75 mg, 1, tablet, By Mouth, Daily, ARMENIAN LABEL, # 30 tablet, Refills 3, Tot. Refills 3, Maintenance, 09/30/20 9:34:00 EDT, Route to Pharmacy Electronically, [facility] #[id number], 175, cm, 07/22/20 7:07:00 EDT, Height, 82.4, kg, 07/21/20 11:02... Start Date: 09/30/20 Status: OrderedpredniSONE 10 mg oral tablet See Instructions, 40 mg for 2 days, 20 mg for 2 days 10 mg for 2 days., # 14 tablet, 0 Refills, Maintenance, 07/22/20 10:06:00 EDT, [facility] #[id number], Partial fill upon patient request if theprescription is for a schedule II opioid drug., 1... Start Date: 07/22/20 Status: OrderedProAir HFA 90 mcg/inh inhalation aerosol with adapter 1, puffs, Inhalation, Every 4 hours, PRN, # 1 each, Refills 5, Tot. Refills 5, Maintenance, :34:00 EDT, Aerosol, Route to Pharmacy Electronically, [id number], [facility] #[id number], 175, cm, 07/22/20 7:07:00 E... Start Date: 09/30/20 Stop Date: 03/29/21 Status: OrderedSEROquel XR 300 mg oral tablet, extended release 1 tablet = 300 mg, By Mouth, Daily at bedtime, ARMENIAN LABEL, # 30 tablet, 1 Refills, Maintenance, 09/30/20 9:34:00 EDT, ER Tablet, [id number], 1 tablet By Mouth Daily at bedtime,Instr:ARMENIAN LABEL, 175, cm, 07/22/20 7:07:00 EDT, Hei... [...] Active Nausea & vomiting(Confirmed) Active *Julissa Fraga, [facility] Care Active Coordinator [phone](Confirmed) Lumbar radicular pain(Confirmed) Active Right hemiplegia(Confirmed) Active Encounter for screening Active colonoscopy(Confirmed) Tobacco dependence(Confirmed) Active DMII (diabetes mellitus, type Active 2)(Confirmed) Vertigo(Confirmed) Active Social History Social History Type Response Smoking Status 5-9 cigarettes (between 1/4 to 1/2 pack)/day in last 30 days entered on: 01/01/20 Sex
--- OUTSIDE RECORDS SUMMARY | 2022-06-19 23:10 | XMS_ITS | Continuity of Care Document ---
:1965 Author Organization [facility] Address [address] [place] [address]- Care Team Providers Name Role Phone Mauricio Rubi MD Primary Care Physician Encounter [facility] [place] Date(s): 11/11/19 - 12/12/19 [facility] [address] [place] [address]- [facility] Attending Physician: Tomi Saavedra MD Admitting [...] Patient Refuses 1Early/Late Reason: Other : Patient [id number] Comment: [01/16/2017] [facility] [id number] Comment: lot # [id number] Medications AirDuo RespiClick 232 mcg-14 mcg/inh inhalation powder 1, puffs, Inhalation, 2 times a day, # 1 each, Refills 11, Tot. Refills 11, Maintenance, 07/07/19 19:06:00 EDT, Powder, Route to Pharmacy Electronically, [id number], [facility] advair not covered 7-2019, 175,... Start Date: 07/07/19 Status: Orderedalbuterol 0.083% inhalation solution 3 mL = 2.5 mg, Inhalation, Every 6 hours, PRN Wheezing/Shortness of Breath, # 1 each, 6 Refills, Maintenance, 07/07/19 19:06:00 EDT, Solution, [facility], 175, cm, 05/30/19 19:11:00 EST, Height, 84.5, kg, 12/25/18 16:15:00 EDT, Dry Weight Start Date: 07/07/19 Status: Orderedaspirin 81 mg oral delayed release tablet 81 mg, 1, tablet, By Mouth, Daily, # 90 tablet, Refills 4, Tot. Refills 4, Maintenance, 07/07/19 19:06:00 EDT, Route to Pharmacy Electronically, [facility], 175, cm, 05/30/19 19:11:00 EST, Height, 84.5, kg, 12/25/18 16:15:00 EDT, Dry W... Start Date: 07/07/19 Stop Date: 09/29/20 Status: Orderedatorvastatin 20 mg oral tablet 1 tablet = 20 mg, By Mouth, Daily at bedtime, # 30 tablet, 5 Refills, Maintenance, 08/13/19 13:04:00EDT, Tablet, [facility], 175, cm, 05/30/19 19:11:00 EST, Height, 84.5, kg, 12/25/18 16:15:00 EDT, Dry Weight Start Date: 08/13/19 Status: OrderedCounterforce brace, left elbow Counterforce brace, left elbow, See Instructions, # 1 each, Refills 0, Tot. Refills 0, Maintenance, for medial epicondylitis (M77.01), 11/26/19 11:38:00 EDT, Supply Start Date: 11/26/19 Status: OrderedCymbalta 60 mg oral enteric coated capsule 1 capsule = 60 mg, By Mouth, Daily, # 30 capsule, 6 Refills, Maintenance, 07/07/19 19:06:00 EDT, EC Capsule, [facility], 175, cm, 05/30/19 19:11:00 EST, Height, 84.5, kg, 12/25/18 16:15:00 EDT, Dry Weight Start Date: 07/07/19 Status: Ordereddivalproex sodium 500 mg oral enteric coated tablet = 500 mg, By Mouth, 2 times a day, # 60 tablet, 5 Refills, Maintenance, 07/07/19 19:06:00 EDT, Tablet, [facility] 175, cm, 05/30/19 19:11:00 [...] tablet, 5 Refills, Maintenance, 07/07/19 19:06:00 EDT, [facility], 175, cm, 05/30/19 19:11:00 EST, Height, 84.5, kg, 12/25/18 16:15:00 EDT, Dry Weight Start Date: 07/07/19 Status: Orderedhydrochlorothiazide 25 mg oral tablet 12.5 mg, 0.5, tablet, By Mouth, Daily, # 15 tablet, Refills 1, Tot. Refills 1, Maintenance, 08/12/2012:07:00 EDT, Route to Pharmacy Electronically, [facility], 175, cm, 05/30/19 19:11:00 EST, Height, 84.5, kg, 12/25/18 16:15:00 EDT, D... Start Date: 08/13/19 Status: Orderedlidocaine 5% topical film See Instructions, 1 patch to affected area Topically Daily, remove at HS, # 30 patch, 1 Refills, Maintenance, 08/13/19 13:28:00 EDT, Patch, [facility], 1 patch to affected area Topically Daily, remove at HS, 175, cm, 05/30/19 19:11:00... Start Date: 08/13/19 Status: OrderedmetFORMIN 500 mg oral tablet 1 tablet = 500 mg, By Mouth, 2 times a day, with meals, Omani label, # 180 tablet, 1 Refills, Maintenance, 07/07/19 19:06:00 EDT, Tablet, [facility] 175, cm, 05/30/19 19:11:00 EST, Height, 84.5, kg, 12/25/18 16:15:00 EDT, Dry Weight Start Date: 07/07/19 Stop Date: 01/03/20 Status: Orderedmontelukast 10 mg oral tablet 10 mg, By Mouth, Daily, # 30 tablet, Refills 9, Tot. Refills 9, Maintenance, 07/07/19 19:06:00 EDT, Route to Pharmacy Electronically, [facility], 175, cm, 05/30/19 19:11:00 EST, Height,84.5, kg, 12/25/18 16:15:00 EDT, Dry Weight Start Date: 07/07/19 Status: OrderedNuLYTELY with Flavor Packs oral powder for reconstitution 240 mL, By Mouth, Every 15 minutes, # 4,000 mL, 0 Refills, Maintenance, 07/07/19 19:06:00 EDT, [facility], 240 mL By Mouth Every 15 minutes, 175, cm, 05/30/19 19:11:00 EST, Height, 84.5, kg, 12/25/18 16:15:00 EDT, Dry Weight Start Date: 07/07/19 Status: OrderedPlavix 75 mg oral tablet 75 mg, By Mouth, Daily, Omani label, # 90 each, Refills 1, Tot. Refills 1, Maintenance, 07/07/19 19:06:00 EDT, Route to Pharmacy Electronically, [facility], 175, cm, 05/30/19 19:11:00EST, Height, 84.5, kg, 12/25/18 16:15:00 EDT, Dry... Start Date: 07/07/19 Stop Date: 01/03/20 Status: OrderedProAir HFA 90 mcg/inh inhalation aerosol with adapter 1, puffs, Inhalation, Every 4 hours, PRN, # 8.5 Gm, Refills 0, Tot. Refills 0, Maintenance, 07/06/2018:06:00 EDT, Aerosol, Route to Pharmacy Electronically, [id number], [facility] 175, cm, 05/30/19 19:11:00... Start Date: 07/07/19 Status: Ordered Problem List Condition Effective Dates Status Health Status Informant Chronic Basilar artery Active occlusion(Confirmed) Aborted CVA- Was given tPA(Confirmed) Active Chronic pain syndrome(Confirmed) Active Constipation(Confirmed) Active Depression(Confirmed) Active Dysuria(Confirmed) Active Heartburn(Confirmed) Active CVA, old, hemiparesis(Confirmed) Active Elevated MCV(Confirmed) Active Nausea & vomiting(Confirmed) Active *Julissa Fraga, [facility] Care Active Coordinator [phone](Confirmed) Lumbar radicular pain(Confirmed) Active Right hemiplegia(Confirmed) Active Encounter for screening Active colonoscopy(Confirmed) Tobacco dependence(Confirmed) Active DMII (diabetes mellitus, type Active 2)(Confirmed) Vertigo(Confirmed) Active Social History Social History Type Response Smoking Status Former smoker, quit more krissy n 30 days ago entered on: 06/18/18 Sex
--- OUTSIDE RECORDS SUMMARY | 2022-06-19 23:10 | XMS_ITS | Continuity of Care Document ---
:1965 Author Organization [facility] Address [address] [place] [id number]- Care Team Providers Name Role Phone Greyson LARES, Mauricio Primary Care Physician Encounter [facility] Date(s): 07/20/20 - 07/22/[address] [address] Encounter Diagnosis Asthma (Final) - 07/20/20 Discharge Disposition: A-D/C Home Attending Physician: Nicanor Ann MD Admitting Physician: Mundo Ashby MD Referring Physician: Not on Staff, Referring [...] Patient Refuses 1Early/Late Reason: Other : Patient [id number] Comment: [01/16/2017] [facility] [id number] Comment: lot # [id number] Medications Advair Diskus 250 mcg-50 mcg inhalation powder 1, puffs, Inhalation, 2 times a day, # 180 each, Refills 1, Tot. Refills 1, Maintenance, 07/22/20 10:04:00 EDT, Powder, Route to Pharmacy Electronically, [id number], [facility] #[id number], 175, cm, 07/22/20 7:07:00 EDT,... Start Date: 07/22/20 Status: Orderedalbuterol 0.083% inhalation solution 3 mL = 2.5 mg, Inhalation, Every 6 hours, PRN Wheezing/Shortness of Breath, # 1 each, 6 Refills, Maintenance, 05/30/20 13:29:00 EST, Solution, [facility], 176, cm, 01/18/20 13:37:00 EDT, Height, 84, kg, 03/15/20 6:52:00 EST, Dry Weight Start Date: 05/30/20 Status: OrderedamLODIPine 10 mg oral tablet 10 mg, 1, tablet, By Mouth, Daily at bedtime, # 90 tablet, Refills 4, Tot. Refills 4, Maintenance, 07/14/20 11:22:00 EDT, Route to Pharmacy Electronically, [facility] #[id number], Partial fill upon patient request if the prescription is for a [facility]... Start Date: 07/14/20 Stop Date: 10/07/21 Status: Orderedaspirin 81 mg oral delayed release tablet 81 mg, 1, tablet, By Mouth, Daily, NIUEAN LABEL, # 30 tablet, Refills 1, Tot. Refills 1, Maintenance, 05/30/20 13:29:00 EST, Route to Pharmacy Electronically, [facility], 176, cm, 01/18/20 13:37:00 EDT, Height, 84, kg, 03/15/20 6:52:0... Start Date: 05/30/20 Status: Orderedatorvastatin 20 mg oral tablet 1 tablet = 20 mg, By Mouth, Daily at bedtime, NIUEAN LABEL, # 30 tablet, 1 Refills, Maintenance, 05/30/20 13:29:00 EST, Tablet, [facility], 176, cm, 01/18/20 13:37:00 EDT, Height, 84, kg, 03/15/20 6:52:00 EST, Dry Weight Start Date: 05/30/20 Status: Ordereddivalproex sodium 500 mg oral enteric coated tablet 1 tablet = 500 mg, By Mouth, 2 times a day, NIUEAN LABEL, # 60 tablet, 2 Refills, Maintenance, 05/30/20 13:29:00 EST, Tablet, [facility], 176, cm, 01/18/20 13:37:00 EDT, Height, 84, kg, 03/15/20 6:52:00 EST, Dry Weight Start Date: 05/30/20 Status: Orderedduloxetine 60 mg oral enteric coated capsule 1 capsule = 60 mg, By Mouth, Daily, NIUEAN LABEL, # 30 capsule, 1 Refills, Maintenance, 05/30/20 13:29:00 EST, Capsule, [facility], 176, cm, 01/18/20 13:37:00 EDT, Height, 84, kg, 03/15/20 6:52:00 EST, Dry Weight Start Date: 05/30/20 Status: OrderedFlonase 50 mcg/inh nasal spray 1 sprays, Nares, Both, 2 times a day, French label please., # 16 Gm, 1 Refills, Maintenance, 07/01/20 14:30:00 EST, [facility] #[id number], Partial fill upon patient request if the prescription is for a schedule II opioid drug., 1 sprays Nares,... Start Date: 07/01/20 Status: Orderedgabapentin 300 mg oral capsule 600 mg, 2, capsule, By Mouth, Daily at bedtime, NIUEAN LABEL, # 60 capsule, Refills 3, Tot. Refills3, Maintenance, 05/30/20 13:29:00 EST, Route to Pharmacy Electronically, [facility],176, cm, 01/18/20 13:37:00 EDT, Height, 84, kg, 1... Start Date: 05/30/20 Status: Orderedlidocaine 5% topical film See Instructions, 1 patch to affected area Topically Daily, remove at HS, # 30 patch, 1 Refills, Maintenance, 08/13/19 13:28:00 EDT, Patch, [facility]., 1 patch to affected area Topically Daily, remove at HS, 175, cm, 05/30/19 19:11:00... Start Date: 08/13/19 Status: Orderedloratadine 10 mg oral tablet 10 mg, 1, tablet, By Mouth, Daily, French label please., # 30 tablet, Refills 0, Tot. Refills 0, Maintenance, 07/01/20 14:30:00 EST, Route to Pharmacy Electronically, [facility] #[id number], Partial fill upon patient request if the prescription... Start Date: 07/01/20 Stop Date: 07/31/20 Status: Orderedmontelukast 10 mg oral tablet 10 mg, 1, tablet, By Mouth, Daily, NIUEAN LABEL, # 30 tablet, Refills 11, Tot. Refills 11, Maintenance, 07/14/20 11:23:00 EDT, Route to Pharmacy Electronically, [facility] #[id number], 175, cm, 07/14/20 10:19:00 EDT, Height, 86, kg, 07/05/20 1:5... Start Date: 07/14/20 Status: Orderednicotine 7 mg/24 hr transdermal film, extended release 1 patch, Topically, Daily, for 14 days, # 14 patch, 0 Refills, Acute 08/05/20 10:07:00 EDT, 07/22/2109:07:00 EDT, Patch, [facility] #[id number], Partial fill upon patient request if the prescription is for a schedule II opioid drug., 1 patch Top... Start Date: 07/22/20 Stop Date: 08/05/20 Status: OrderedPlavix 75 mg oral tablet 75 mg, 1, tablet, By Mouth, Daily, NIUEAN LABEL, # 30 tablet, Refills 3, Tot. Refills 3, Maintenance, 01/18/20 14:12:00 EDT, Route to Pharmacy Electronically, [facility], 176, cm, 01/18/20 13:37:00 EDT, Height, 84, kg, 01/01/20 22:36:... Start Date: 01/18/20 Status: OrderedpredniSONE 10 mg oral tablet See Instructions, 40 mg for 2 days, 20 mg for 2 days 10 mg for 2 days., # 14 tablet, 0 Refills, Maintenance, 07/22/20 10:06:00 EDT, [facility] #[id number], Partial fill upon patient request if theprescription is for a schedule II opioid drug., 1... Start Date: 07/22/20 Status: OrderedProAir HFA 90 mcg/inh inhalation aerosol with adapter 1, puffs, Inhalation, Every 4 hours, PRN, # 1 each, Refills 5, Tot. Refills 5, Maintenance, 07/22/2109:04:00 EDT, Aerosol, Route to Pharmacy Electronically, [id number], [id number], 175, cm, 07/22/20 7:07:00... Start Date: 07/22/20 Stop Date: 01/18/21 Status: OrderedSEROquel XR 300 mg oral tablet, extended release 1 tablet = 300 mg, By Mouth, Daily at bedtime, NIUEAN LABEL, # 30 tablet, 1 Refills, Maintenance, 05/30/20 13:29:00 EST, ER Tablet, [facility], 1 tablet By Mouth Daily at bedtime,Instr:NIUEAN LABEL, 176, cm, 01/18/20 13:37:00 EDT, He... [...] Active Nausea & vomiting(Confirmed) Active *Julissa Fraga, [facility] Active Coordinator [phone](Confirmed) Lumbar radicular pain(Confirmed) Active Right hemiplegia(Confirmed) Active Encounter for screening Active colonoscopy(Confirmed) Tobacco dependence(Confirmed) Active DMII (diabetes mellitus, type Active 2)(Confirmed) Vertigo(Confirmed) Active Results Radiology Reports Exam Date Time Procedure Performing Provider Status 07/20/20 8:57 PM Chest Portable Sheri Steele; Jonathan (Verified) Notes:(Chest Portable) Reason For Exam: Shortness of BreathRESULT: Chest Portable Chest Portable Hx of Present Illness: shortness of breath; Reason: Shortness of Breath; Clinical Question(s): CHF COMPARISON: 07/04/2020 FINDINGS: LINES AND TUBES: None. LUNGS AND PLEURA: Clear lungs. Normal pulmonary vascularity. No pleural effusion. No pneumothorax. HEART, MEDIASTINUM AND JOIE: Unchanged. BONES AND SOFT TISSUES: No acute abnormality. IMPRESSION: No acute abnormality. WSN: [id number] Ordering Physician: Jean Pierre Ramirez Dictated By: Jem Canales MD Dictated Date/Time: 07/20/20 9:03 pm Reviewed By: Jem Canales MD Signed By: Jem Canales MD Signed Date/Time: 07/20/20 9:03 pm Transcribed By: JENNIFER Transcribed Date/Time: 07/20/20 8:58 pm Vital Signs Most recent to oldest 1 2 3 [Reference Range]: Height 175 cm 175 cm 175 cm (07/22/20 7:07 AM) (07/22/20 3:56 AM) (07/21/20 11: 22 PM) Weight 82.4 kg (07/21/20 11:02 AM) Oxygen Saturation [94-100 %] 99 % 97 % 95 % (07/22/20 7:07 AM) (07/22/20 3:56 AM) (07/21/20 11: 22 PM) Pulse Rate [55-90 bpm] 71 bpm 83 bpm 77 bpm (07/22/20 7:07 AM) (07/22/20 3:56 AM) (07/21/20 11: 22 PM) Body Mass Index [18.5-24.99] 26.91 *H* (07/21/20 11:02 AM) Blood Pressure [90-138/55-84 138/77 mm Hg 131/65 mm Hg 160 /90 mm Hg mm Hg] (07/22/20 7:07 AM) (07/22/20 3:56 AM) *H* (07/21/20 11:22 P M) Respiratory Rate [16-30 18 br/min 18 br/min 18 br/mi n br/min] (07/22/20 7:07 AM) (07/22/20 3:56 AM) (07/21/20 11: 22 PM) Temperature [96.8-100.4 DegF] 98.1 DegF 97.9 DegF 97 .9 DegF (07/22/20 7:07 AM) (07/22/20 3:56 AM) (07/21/20 11: 22 PM) Liters per Minute 5 L/min 5 L/min (07/21/20 3:40 AM) (07/21/20 1:10 AM) Mode of Delivery (Oxygen) Room air Room air Room a ir (07/22/20 7:07 AM) (07/22/20 3:56 AM) (07/21/20 11: 22 PM) Blood pressure sites Arm, left Arm, right Arm, right (07/22/20 7:07 AM) (07/22/20 3:56 AM) (07/21/20 11: 22 PM) Temperature Route Oral Oral Oral (07/22/20 7:07 AM) (07/22/20 3:56 AM) (07/21/20 11: 22 PM) Dry Weight 82.4 kg (07/21/20 11:02 AM) Weight Obtained Via Bed scale (07/21/20 11:02 AM) Dry Weight Obtained Via Bed scale (07/21/20 11:02 AM) Social History Social History Type Response Smoking Status 5-9 cigarettes (between 1/4 to 1/2 pack)/day in last 30 days entered on: 01/01/20 Sex
--- OUTSIDE RECORDS SUMMARY | 2022-06-19 23:10 | XMS_ITS | Continuity of Care Document ---
:1965 Author Organization [facility] Address [address] [place] [address]- Care Team Providers Name Role Phone Greyson LARES, Mauricio Primary Care Physician Encounter [facility] Date(s): 08/08/21 - 09/07/21 [facility] [address] [place] [id number] Allergies, Adverse Reactions, Alerts No [...] Patient Refuses 1Early/Late Reason: Other : Patient [id number] Comment: [01/16/2017] [facility] [id number] Comment: lot # [id number] Medications albuterol 0.083% inhalation solution 3 mL = 2.5 mg, Inhalation, Every 6 hours, PRN Wheezing/Shortness of Breath, # 1 each, 6 Refills, Maintenance, 04/03/21 9:01:00 EST, [facility] 175, cm, 04/03/21 8:32:00 EST, Height, 82.4, kg, 07/21/20 11:02:00 EDT, Dry Weight Start Date: 04/03/21 Status: OrderedamLODIPine 10 mg oral tablet 10 mg, 1, tablet, By Mouth, Daily at bedtime, # 90 tablet, Refills 4, Tot. Refills 4, Maintenance, 09/30/20 9:34:00 EDT, [facility] to [facility]ically, [id number], Partial fill uponpatient request if the prescription is for a sche... Start Date: 09/30/20 Stop Date: 12/24/21 Status: Orderedaspirin 81 mg oral delayed release tablet 81 mg, 1, tablet, By Mouth, Daily, CZECH LABEL, # 90 tablet, Refills 3, Tot. Refills 3, Maintenance, 08/09/21 5:53:00 EDT, Route to Pharmacy Electronically, [facility], 175, cm, 04/03/21 8:32:00 EST, Height, 82.4, kg, 07/21/20 11:02:... Start Date: 08/09/21 Status: Orderedatorvastatin 20 mg oral tablet 1 tablet = 20 mg, By Mouth, Daily at bedtime, CZECH LABEL, # 90 tablet, 1 Refills, Maintenance, 04/03/21 9:05:00 EST, Tablet, [facility], 175, cm, 04/03/21 8:32:00 EST, Height, 82.4, kg, 07/21/20 11:02:00 EDT, Dry Weight Start Date: 04/03/21 Status: Ordereddivalproex sodium 500 mg oral enteric coated tablet 1 tablet = 500 mg, By Mouth, 2 times a day, CZECH LABEL, # 60 tablet, 2 Refills, Maintenance, 09/30/20 9:34:00 EDT, [facility], [id number], 175, cm, 07/22/20 7:07:00 EDT, Height, 82.4, kg, 07/21/20 11:02:00 EDT, Dry Weight Start Date: 09/30/20 Status: Orderedduloxetine 60 mg oral enteric coated capsule 1 capsule = 60 mg, By Mouth, Daily, CZECH LABEL, # 90 capsule, 2 Refills, Maintenance, 04/03/21 9:05:00 EST, Capsule, [facility], 175, cm, 04/03/21 8:32:00 EST, Height, 82.4, kg, 07/21/20 11:02:00 EDT, Dry Weight Start Date: 04/03/21 Status: OrderedFlonase 50 mcg/inh nasal spray 1 sprays, Nares, Both, 2 times a day, [place] Helen[place] label please., # 16 Gm, 1 Refills, Maintenance, 09/30/20 9:34:00 EDT, [facility] #[id number], Partial fill upon patient request if the prescription isfor a schedule II opioid drug., 1 sprays Nares, B... Start Date: 09/30/20 Status: Orderedfluticasone-salmeterol 500 mcg-50 mcg inhalation powder 1 puff, Inhalation, 2 times a day, # 1 each, Refills 3, Tot. Refills 3, Maintenance, 04/03/21 14:34:00 EST, Powder, Route to Pharmacy Electronically, [id number], [facility], 175, cm, 04/03/21 8:32:00 EST, [place]... Start Date: 04/03/21 Status: Orderedgabapentin 300 mg oral capsule 600 mg, 2, capsule, By Mouth, Daily at bedtime, CZECH LABEL, # 60 capsule, Refills 3, Tot. Refills3, Maintenance, 04/03/21 9:08:00 EST, Route to Pharmacy Electronically, [facility], 175, cm, 04/03/21 8:32:00 EST, Height, 82.4, kg, 0... Start Date: 04/03/21 Status: OrderedHome Blood Pressure Monitor Home Blood Pressure Monitor, See Instructions, # 1 each, Refills 0, Tot. Refills 0, Maintenance, Home Blood Pressure Monitor Directions: Use as needed to monitor BP at home. Dx: HTN I10 Duration: Lifetime, 09/04/21 11:45:00 EDT, Supply Start Date: 09/04/21 Status: Orderedlidocaine 5% topical film See Instructions, 1 patch to affected area Topically Daily, remove at HS, # 30 patch, 2 Refills, Maintenance, 04/03/21 9:01:00 EST, Patch, [facility]., 1 patch to affected area TopicallyDaily, remove at HS, 175, cm, 04/03/21 8:32:00 ES... Start Date: 04/03/21 Status: Orderedloratadine 10 mg oral tablet 10 mg, 1, tablet, By Mouth, Daily, [place] label please., # 30 tablet, Refills 0, Tot. Refills 0, Maintenance, 04/03/21 9:08:00 EST, Route to Pharmacy Electronically, [facility], Partial fill upon patient request if the prescription is... Start Date: 04/03/21 Stop Date: 05/03/21 Status: OrderedmetFORMIN 500 mg oral tablet 1 tablet = 500 mg, By Mouth, 2 times a day, # 60 tablet, 0 Refills, Maintenance, 08/08/21 18:14:00 EDT, Tablet, [facility]/pharmacy #[id number], Partial fill upon patient request if the prescription is for a schedule II opioid drug., 175, cm, 04/03/21 8:32:00 EST,... Start Date: 08/08/21 Stop Date: 09/07/21 Status: Orderedmontelukast 10 mg oral tablet 10 mg, 1, tablet, By Mouth, Daily, CZECH LABEL, # 30 tablet, Refills 11, Tot. Refills 11, Maintenance, 04/03/21 9:08:00 EST, Route to Pharmacy Electronically, [facility] 175, cm, 04/03/21 8:32:00 EST, Height, [...] 75 mg, 1, tablet, By Mouth, Daily, CZECH LABEL, # 30 tablet, Refills 3, Tot. Refills 3, Maintenance, 08/09/21 5:53:00 EDT, Route to Pharmacy Electronically, [facility], 175, cm, 04/03/21 8:32:00 EST, Height, 82.4, kg, 07/21/20 11:02:... Start Date: 08/09/21 Status: OrderedpredniSONE 10 mg oral tablet See Instructions, 40 mg for 2 days, 20 mg for 2 days 10 mg for 2 days., # 14 tablet, 0 Refills, Maintenance, 07/22/20 10:06:00 EDT, [facility] #[id number], Partial fill upon patient request if theprescription is for a schedule II opioid drug., 1... Start Date: 07/22/20 Status: OrderedProAir HFA 90 mcg/inh inhalation aerosol with adapter 1, puffs, Inhalation, Every 4 hours, PRN, # 1 each, Refills 5, Tot. Refills 5, Maintenance, 219:01:00 EST, Aerosol, Route to Pharmacy Electronically, [id number], [facility], 175, cm, 04/03/21 8:32:00 ES... Start Date: 04/03/21 Stop Date: 09/30/21 Status: OrderedSEROquel XR 300 mg oral tablet, extended release 1 tablet = 300 mg, By Mouth, Daily at bedtime, CZECH LABEL, # 30 tablet, 3 Refills, Maintenance, 04/03/21 9:09:00 EST, ER Tablet, [facility], 1 tablet By Mouth Daily at bedtime,Instr:CZECH LABEL, 175, cm, 04/03/21 8:32:00 EST, Heig... [...] Active Nausea & vomiting(Confirmed) Active *Julissa Fraga, [facility] Care Active Coordinator [phone](Confirmed) Lumbar radicular pain(Confirmed) Active Right hemiplegia(Confirmed) Active Encounter for screening Active colonoscopy(Confirmed) Tobacco dependence(Confirmed) Active DMII (diabetes mellitus, type Active 2)(Confirmed) Vertigo(Confirmed) Active Social History Social History Type Response Smoking Status 5-9 cigarettes (between 1/4 to 1/2 pack)/day in last 30 days entered on: 01/01/20 Sex
--- OUTSIDE RECORDS SUMMARY | 2022-06-19 23:10 | XMS_ITS | Continuity of Care Document ---
:1965 Author Organization [facility] Address [address] [place] [address]- Care Team Providers Name Role Phone Mauricio Rubi MD Primary Care Physician Encounter [facility] Date(s): 03/17/19 - 08/12/[address] [address]- [facility] Attending Physician: Emanuel Gastelum MD Admitting Physician: Emanuel Gastelum MD Allergies, Adverse Reactions, Alerts No Known [...] Patient Refuses 1Early/Late Reason: Other : Patient [id number] Comment: [01/16/2017] [facility] [id number] Comment: lot # [id number] Medications AirDuo RespiClick 232 mcg-14 mcg/inh inhalation powder 1, puffs, Inhalation, 2 times a day, # 1 each, Refills 11, Tot. Refills 11, Maintenance, 07/07/19 19:06:00 EDT, Powder, Route to Pharmacy Electronically, [id number], [facility], 175,... Start Date: 07/07/19 Status: Orderedalbuterol 0.083% inhalation solution 3 mL = 2.5 mg, Inhalation, Every 6 hours, PRN Wheezing/Shortness of Breath, # 1 each, 6 Refills, Maintenance, 07/07/19 19:06:00 EDT, Solution, [facility], 175, cm, 05/30/19 19:11:00 EST, Height, 84.5, kg, 12/25/18 16:15:00 EDT, Dry Weight Start Date: 07/07/19 Status: Orderedaspirin 81 mg oral delayed release tablet 81 mg, 1, tablet, By Mouth, Daily, # 90 tablet, Refills 4, Tot. Refills 4, Maintenance, 07/07/19 19:06:00 EDT, Route to Pharmacy Electronically, [facility], 175, cm, 05/30/19 19:11:00 EST, Height, 84.5, kg, 12/25/18 16:15:00 EDT, Dry W... Start Date: 07/07/19 Stop Date: 09/29/20 Status: Orderedatorvastatin 20 mg oral tablet 1 tablet = 20 mg, By Mouth, Daily at bedtime, # 30 tablet, 0 Refills, Maintenance, 07/07/19 19:06:00EDT, Tablet, [facility], 175, cm, 05/30/19 19:11:00 EST, Height, 84.5, kg, 12/25/18 16:15:00 EDT, Dry Weight Start Date: 07/07/19 Status: OrderedCymbalta 60 mg oral enteric coated capsule 1 capsule = 60 mg, By Mouth, Daily, # 30 capsule, 6 Refills, Maintenance, 07/07/19 19:06:00 EDT, EC Capsule, [facility], 175, cm, 05/30/19 19:11:00 EST, Height, 84.5, kg, 12/25/18 16:15:00 EDT, Dry Weight Start Date: 07/07/19 Status: Ordereddivalproex sodium 500 mg oral enteric coated tablet = 500 mg, By Mouth, 2 times a day, # 60 tablet, 5 Refills, Maintenance, 07/07/19 19:06:00 EDT, Tablet, [facility] 175, cm, 05/30/19 19:11:00 EST, Height, [...] tablet, 5 Refills, Maintenance, 07/07/19 19:06:00 EDT, [facility] 175, cm, 05/30/19 19:11:00 EST, Height, 84.5, kg, 12/25/18 16:15:00 EDT, Dry Weight Start Date: 07/07/19 Status: Orderedhydrochlorothiazide 25 mg oral tablet 12.5 mg, 0.5, tablet, By Mouth, Daily, # 15 tablet, Refills 0, Tot. Refills 0, Maintenance, 07/06/2018:06:00 EDT, Route to Pharmacy Electronically, [facility] 175, cm, 05/30/19 19:11:00 EST, Height, 84.5, kg, 12/25/18 16:15:00 EDT, D... Start Date: 07/07/19 Status: Orderedlidocaine 5% topical film See Instructions, 1 patch to affected area Topically Daily, remove at HS, # 30 patch, 0 Refills, Maintenance, 07/07/19 19:06:00 EDT, Patch, [facility], 1 patch to affected area Topically Daily, remove at HS, 175, cm, 05/30/19 19:11:00... Start Date: 07/07/19 Status: OrderedmetFORMIN 500 mg oral tablet 1 tablet = 500 mg, By Mouth, 2 times a day, with meals, Polish label, # 180 tablet, 1 Refills, Maintenance, 07/07/19 19:06:00 EDT, Tablet, [facility], 175, cm, 05/30/19 19:11:00 EST, Height, 84.5, kg, 12/25/18 16:15:00 EDT, Dry Weight Start Date: 07/07/19 Stop Date: 01/03/20 Status: Orderedmontelukast 10 mg oral tablet 10 mg, By Mouth, Daily, # 30 tablet, Refills 9, Tot. Refills 9, Maintenance, 07/07/19 19:06:00 EDT, Route to Pharmacy Electronically, [facility], 175, cm, 05/30/19 19:11:00 EST, Height,84.5, kg, 12/25/18 16:15:00 EDT, Dry Weight Start Date: 07/07/19 Status: OrderedNuLYTELY with Flavor Packs oral powder for reconstitution 240 mL, By Mouth, Every 15 minutes, # 4,000 mL, 0 Refills, Maintenance, 07/07/19 19:06:00 EDT, [facility], 240 mL By Mouth Every 15 minutes, 175, cm, 05/30/19 19:11:00 EST, Height, 84.5, kg, 12/25/18 16:15:00 EDT, Dry Weight Start Date: 07/07/19 Status: OrderedPlavix 75 mg oral tablet 75 mg, By Mouth, Daily, Polish label, # 90 each, Refills 1, Tot. Refills 1, Maintenance, 07/07/19 19:06:00 EDT, Route to Pharmacy Electronically, [facility], 175, cm, 05/30/19 19:11:00EST, Height, 84.5, kg, 12/25/18 16:15:00 EDT, Dry... Start Date: 07/07/19 Stop Date: 01/03/20 Status: OrderedProAir HFA 90 mcg/inh inhalation aerosol with adapter 1, puffs, Inhalation, Every 4 hours, PRN, # 8.5 Gm, Refills 0, Tot. Refills 0, Maintenance, 07/06/2018:06:00 EDT, Aerosol, Route to Pharmacy Electronically, [id number], [facility], 175, cm, 05/30/19 19:11:00... Start Date: 07/07/19 Status: Ordered Problem List Condition Effective Dates Status Health Status Informant Chronic Basilar artery Active occlusion(Confirmed) Aborted CVA- Was given tPA(Confirmed) Active Chronic pain syndrome(Confirmed) Active Constipation(Confirmed) Active Depression(Confirmed) Active Dysuria(Confirmed) Active Heartburn(Confirmed) Active CVA, old, hemiparesis(Confirmed) Active Elevated MCV(Confirmed) Active Nausea & vomiting(Confirmed) Active *Julissa Fraga, [facility] Care Active Coordinator [phone](Confirmed) Lumbar radicular pain(Confirmed) Active Right hemiplegia(Confirmed) Active Encounter for screening Active colonoscopy(Confirmed) Tobacco dependence(Confirmed) Active DMII (diabetes mellitus, type Active 2)(Confirmed) Vertigo(Confirmed) Active Social History Social History Type Response Smoking Status Former smoker, quit more krissy n 30 days ago entered on: 06/18/18 Sex
--- OUTSIDE RECORDS SUMMARY | 2022-06-19 23:10 | XMS_ITS | Continuity of Care Document ---
:1965 Author Organization [facility] Address [address] [place] [id number]- Care Team Providers Name Role Phone Mauricio Rubi MD Primary Care Phys[place] [facility] [place] 09/19/[address] [address]- Discharge Disposition: A-D/C Walkout Attending Physician: Not on Staff, Attending MD [...] Patient Refuses 1Early/Late Reason: Other : Patient [id number] Comment: [01/16/2017] [facility] [id number] Comment: lot # [id number] Medications albuterol 0.083% inhalation solution 3 mL = 2.5 mg, Inhalation, Every 6 hours, PRN Wheezing/Shortness of Breath, # 1 each, 6 Refills, Maintenance, 04/03/21 9:01:00 EST, Solution, [facility] 175, cm, 04/03/21 8:32:00 EST, Height, 82.4, kg, 07/21/20 11:02:00 EDT, Dry Weight Start Date: 04/03/21 Status: OrderedamLODIPine 10 mg oral tablet 10 mg, 1, tablet, By Mouth, Daily at bedtime, # 90 tablet, Refills 4, Tot. Refills 4, Maintenance, 09/30/20 9:34:00 EDT, Route to Pharmacy Electronically, [facility] #[id number], Partial fill uponpatient request if the prescription is for a sche... Start Date: 09/30/20 Stop Date: 12/24/21 Status: Orderedaspirin 81 mg oral delayed release tablet 81 mg, 1, tablet, By Mouth, Daily, URUGUAYAN LABEL, # 90 tablet, Refills 3, Tot. Refills 3, Maintenance, 08/09/21 5:53:00 EDT, Route to Pharmacy Electronically, [facility], 175, cm, 04/03/21 8:32:00 EST, Height, 82.4, kg, 07/21/20 11:02:... Start Date: 08/09/21 Status: Orderedatorvastatin 20 mg oral tablet 1 tablet = 20 mg, By Mouth, Daily at bedtime, URUGUAYAN LABEL, # 90 tablet, 1 Refills, Maintenance, 04/03/21 9:05:00 EST, Tablet, [facility], 175, cm, 04/03/21 8:32:00 EST, Height, 82.4, kg, 07/21/20 11:02:00 EDT, Dry Weight Start Date: 04/03/21 Status: Orderedbaclofen 10 mg oral tablet 10 mg, 1, tablet, By Mouth, 3 times a day, # 30 tablet, Refills 0, Tot. Refills 0, Maintenance, 09/18/21 11:43:00 EDT, Route to Pharmacy Electronically, [facility] #[id number], Partial fill upon patient request if the prescription is for a schedu... Start Date: 09/18/21 Stop Date: 09/28/21 Status: Ordereddivalproex sodium 500 mg oral enteric coated tablet 1 tablet = 500 mg, By Mouth, 2 times a day, URUGUAYAN LABEL, # 60 tablet, 0 Refills, Maintenance, 09/09/21 12:13:00 EDT, Tablet, [facility] 175, cm, 04/03/21 8:32:00 EST, Height, 82.4, kg, 07/21/20 11:02:00 EDT, Dry Weight Start Date: 09/09/21 Status: Orderedduloxetine 60 mg oral enteric coated capsule 1 capsule = 60 mg, By Mouth, Daily, URUGUAYAN LABEL, # 90 capsule, 2 Refills, Maintenance, 04/03/21 9:05:00 EST, Capsule, [facility] 175, cm, 04/03/21 8:32:00 EST, Height, 82.4, kg, 07/21/20 11:02:00 EDT, Dry Weight Start Date: 04/03/21 Status: OrderedFlonase 50 mcg/inh nasal spray 1 sprays, Nares, Both, 2 times a day, Maltese label please., # 16 Gm, 1 Refills, Maintenance, 09/30/20 9:34:00 EDT, [facility] #[id number], Partial fill upon patient request if the prescription isfor a schedule II opioid drug., 1 sprays Nares, B... Start Date: 09/30/20 Status: Orderedfluticasone-salmeterol 500 mcg-50 mcg inhalation powder 1 puff, Inhalation, 2 times a day, # 1 each, Refills 3, Tot. Refills 3, Maintenance, 04/03/21 14:34:00 EST, Powder, Route to Pharmacy Electronically, [id number], [facility] 175, cm, 04/03/21 8:32:00 EST, [place]... Start Date: 04/03/21 Status: Orderedgabapentin 300 mg oral capsule 600 mg, 2, capsule, By Mouth, Daily at bedtime, URUGUAYAN LABEL, # 60 capsule, Refills 3, Tot. Refills3, Maintenance, 04/03/21 9:08:00 EST, Route to Pharmacy Electronically, [facility] 175, cm, 04/03/21 8:32:00 EST, Height, [...] 2 Refills, Maintenance, 04/03/21 9:01:00 EST, Patch, [facility]., 1 patch to affected area TopicallyDaily, remove at HS, 175, cm, 04/03/21 8:32:00 ES... Start Date: 04/03/21 Status: Orderedloratadine 10 mg oral tablet 10 mg, 1, tablet, By Mouth, Daily, Maltese label please., # 30 tablet, Refills 0, Tot. Refills 0, Maintenance, 04/03/21 9:08:00 EST, Route to Pharmacy Electronically, [facility], Partial fill upon patient request if [...] 0 Refills, Maintenance, 09/18/21 11:48:00 EDT, Tablet, [facility] #[id number], Partial fill upon patient request if the prescription is for a schedule II opioid drug., 175, cm, 09/18/21 10:48:00 ED... Start Date: 09/18/21 Stop Date: 09/28/21 Status: OrderedmetFORMIN 500 mg oral tablet 1 tablet = 500 mg, By Mouth, 2 times a day, # 60 tablet, 0 Refills, Maintenance, 08/08/21 18:14:00 EDT, Tablet, [facility] #[id number], Partial fill upon patient request if the prescription is for a schedule II opioid drug., 175, cm, 04/03/21 8:32:00 EST,... Start Date: 08/08/21 Stop Date: 09/07/21 Status: Orderedmontelukast 10 mg oral tablet 10 mg, 1, tablet, By Mouth, Daily, URUGUAYAN LABEL, # 30 tablet, Refills 11, Tot. Refills 11, Maintenance, 04/03/21 9:08:00 EST, Route to Pharmacy Electronically, [facility], 175, cm, 04/03/21 8:32:00 EST, Height, [...] 75 mg, 1, tablet, By Mouth, Daily, URUGUAYAN LABEL, # 30 tablet, Refills 3, Tot. Refills 3, Maintenance, 08/09/21 5:53:00 EDT, Route to Pharmacy Electronically, [facility], 175, cm, 04/03/21 8:32:00 EST, Height, 82.4, kg, 07/21/20 11:02:... Start Date: 08/09/21 Status: OrderedpredniSONE 10 mg oral tablet See Instructions, 40 mg for 2 days, 20 mg for 2 days 10 mg for 2 days., # 14 tablet, 0 Refills, Maintenance, 07/22/20 10:06:00 EDT, [facility] #[id number], Partial fill upon patient request if theprescription is for a schedule II opioid drug., 1... Start Date: 07/22/20 Status: OrderedProAir HFA 90 mcg/inh inhalation aerosol with adapter 1, puffs, Inhalation, Every 4 hours, PRN, # 1 each, Refills 5, Tot. Refills 5, Maintenance, :01:00 EST, Aerosol, Route to Pharmacy Electronically, [id number], [facility] 175, cm, 04/03/21 8:32:00 ES... Start Date: 04/03/21 Stop Date: 09/30/21 Status: OrderedSEROquel XR 300 mg oral tablet, extended release 1 tablet = 300 mg, By Mouth, Daily at bedtime, URUGUAYAN LABEL, # 30 tablet, 3 Refills, Maintenance, 04/03/21 9:09:00 EST, ER Tablet, [facility], 1 tablet By Mouth Daily at bedtime,Instr:URUGUAYAN LABEL, 175, cm, 04/03/21 8:32:00 EST, Heig... Start Date: 04/03/21 Status: OrderedtraMADol 50 mg oral tablet 1 tablet = 50 mg, By Mouth, Every 8 hours, PRN Pain , Severe, # 30 tablet, 0 Refills, Acute 09/27/2211:00:00 EDT, 09/18/21 11:44:00 EDT, Tablet, [facility] #[id number], Partial fill upon patient request if the [...] RIGHT UPPER. CTA - done Active at [facility]. 07/2021 - scanned in [facility](Confirmed) *Julissa Fraga, [facility] Care Active Coordinator [phone](Confirmed) Lumbar radicular pain(Confirmed) Active Right hemiplegia(Confirmed) Active Encounter for screening Active colonoscopy(Confirmed) Tobacco dependence(Confirmed) Active DMII (diabetes mellitus, type Active 2)(Confirmed) Vertigo(Confirmed) Active Vital Signs Most recent to oldest 1 2 3 [Reference Range]: Oxygen Saturation [94-100 %] 100 % 99 % 98 % (09/19/21 12:13 AM) (09/18/21 10:27 PM) (09/18/21 7 :50 PM) Pulse Rate [55-90 bpm] 76 bpm 92 bpm 85 bpm (09/19/21 12:13 AM) *H* (09/18/21 7:50 PM) (09/18/21 10:27 PM) Blood Pressure [90-138/55-84 123/89 mm Hg 145/73 mm Hg 155 /90 mm Hg mm Hg] (09/19/21 12:13 AM) *H* *H* (09/18/21 10:27 PM) (09/18/21 7:50 PM) Respiratory Rate [16-30 18 br/min br/min] (09/18/21 7:50 PM) Temperature [96.8-100.4 DegF] 99.2 DegF (09/18/21 7:50 PM) Mode of Delivery (Oxygen) Room air Room air Room a ir (09/19/21 12:13 AM) (09/18/21 10:27 PM) (09/18/21 7 :50 PM) Blood pressure sites Arm, right Arm, right (09/19/21 12:13 AM) (09/18/21 10:27 PM) Temperature Route Oral (09/18/21 7:50 PM) Social History Social History Type Response Smoking Status 5-9 cigarettes (between 1/4 to 1/2 pack)/day in last 30 days entered on: 01/01/20 Sex
--- OUTSIDE RECORDS SUMMARY | 2022-06-19 23:10 | XMS_ITS | Continuity of Care Document ---
:1965 Author Organization [facility] Address [address] [place] [phone]- Care Team Providers Name Role Phone Mauricio Rubi MD Primary Care Physician Encounter [facility] [place] Date(s): 07/27/20 - 09/01/[address] [address] Attending Physician: Doni Quick MD Admitting Physician: Doni Quick MD Referring Physician: Jessica David DO Allergies, Adverse Reactions, Alerts No Known Medication [...] Patient Refuses 1Early/Late Reason: Other : Patient [id number] Comment: [01/16/2017] [facility] [id number] Comment: lot # [id number] Medications Advair Diskus 250 mcg-50 mcg inhalation powder 1, puffs, Inhalation, 2 times a day, # 180 each, Refills 1, Tot. Refills 1, Maintenance, 07/22/20 10:04:00 EDT, Powder, Route to Pharmacy Electronically, [id number], [email or web address] #[id number], 175, cm, 07/22/20 7:07:00 EDT,... Start Date: 07/22/20 Status: Orderedalbuterol 0.083% inhalation solution 3 mL = 2.5 mg, Inhalation, Every 6 hours, PRN Wheezing/Shortness of Breath, # 1 each, 6 Refills, Maintenance, 05/30/20 13:29:00 EST, Solution, [facility], 176, cm, 01/18/20 13:37:00 EDT, Height, 84, kg, 03/15/20 6:52:00 EST, Dry Weight Start Date: 05/30/20 Status: OrderedamLODIPine 10 mg oral tablet 10 mg, 1, tablet, By Mouth, Daily at bedtime, # 90 tablet, Refills 4, Tot. Refills 4, Maintenance, 08/18/20 9:57:00 EDT, Route to Pharmacy Electronically, [facility], Partial fill upon patient request if the prescription is for a sched... Start Date: 08/18/20 Stop Date: 11/11/21 Status: Orderedaspirin 81 mg oral delayed release tablet 81 mg, 1, tablet, By Mouth, Daily, ALBANIAN LABEL, # 30 tablet, Refills 1, Tot. Refills 1, Maintenance, 05/30/20 13:29:00 EST, Route to Pharmacy Electronically, [facility], 176, cm, 01/18/20 13:37:00 EDT, Height, 84, kg, 03/15/20 6:52:0... Start Date: 05/30/20 Status: Orderedatorvastatin 20 mg oral tablet 1 tablet = 20 mg, By Mouth, Daily at bedtime, ALBANIAN LABEL, # 30 tablet, 1 Refills, Maintenance, 05/30/20 13:29:00 EST, Tablet, [facility], 176, cm, 01/18/20 13:37:00 EDT, Height, 84, kg, 03/15/20 6:52:00 EST, Dry Weight Start Date: 05/30/20 Status: Ordereddivalproex sodium 500 mg oral enteric coated tablet 1 tablet = 500 mg, By Mouth, 2 times a day, ALBANIAN LABEL, # 60 tablet, 2 Refills, Maintenance, 05/30/20 13:29:00 EST, Tablet, [facility], 176, cm, 01/18/20 13:37:00 EDT, Height, 84, kg, 03/15/20 6:52:00 EST, Dry Weight Start Date: 05/30/20 Status: Orderedduloxetine 60 mg oral enteric coated capsule 1 capsule = 60 mg, By Mouth, Daily, ALBANIAN LABEL, # 30 capsule, 1 Refills, Maintenance, 05/30/20 13:29:00 EST, Capsule, [facility], 176, cm, 01/18/20 13:37:00 EDT, Height, 84, kg, 03/15/20 6:52:00 EST, Dry Weight Start Date: 05/30/20 Status: OrderedFlonase 50 mcg/inh nasal spray 1 sprays, Nares, Both, 2 times a day, Japanese label please., # 16 Gm, 1 Refills, Maintenance, 07/01/20 14:30:00 EST, [facility] #[id number], Partial fill upon patient request if the prescription is for a schedule II opioid drug., 1 sprays Nares,... Start Date: 07/01/20 Status: Orderedgabapentin 300 mg oral capsule 600 mg, 2, capsule, By Mouth, Daily at bedtime, ALBANIAN LABEL, # 60 capsule, Refills 3, Tot. Refills3, Maintenance, 05/30/20 13:29:00 EST, Route to Pharmacy Electronically, [facility],176, cm, 01/18/20 13:37:00 EDT, Height, 84, kg, 1... Start Date: 05/30/20 Status: Orderedlidocaine 5% topical film See Instructions, 1 patch to affected area Topically Daily, remove at HS, # 30 patch, 1 Refills, Maintenance, 08/13/19 13:28:00 EDT, Patch, [facility]., 1 patch to affected area Topically Daily, remove at HS, 175, cm, 05/30/19 19:11:00... Start Date: 08/13/19 Status: Orderedloratadine 10 mg oral tablet 10 mg, 1, tablet, By Mouth, Daily, Japanese label please., # 30 tablet, Refills 0, Tot. Refills 0, Maintenance, 07/01/20 14:30:00 EST, Route to Pharmacy Electronically, [facility] #[id number], Partial fill upon patient request if the prescription... Start Date: 07/01/20 Stop Date: 07/31/20 Status: Orderedmontelukast 10 mg oral tablet 10 mg, 1, tablet, By Mouth, Daily, ALBANIAN LABEL, # 30 tablet, Refills 11, Tot. Refills 11, Maintenance, 07/14/20 11:23:00 EDT, Route to Pharmacy Electronically, [facility] #[id number], 175, cm, 07/14/20 10:19:00 EDT, Height, 86, kg, 07/05/20 1:5... Start Date: 07/14/20 Status: OrderedPlavix 75 mg oral tablet 75 mg, 1, tablet, By Mouth, Daily, ALBANIAN LABEL, # 30 tablet, Refills 3, Tot. Refills 3, Maintenance, 01/18/20 14:12:00 EDT, Route to Pharmacy Electronically, [facility], 176, cm, 01/18/20 13:37:00 EDT, Height, 84, kg, 01/01/20 22:36:... Start Date: 01/18/20 Status: OrderedpredniSONE 10 mg oral tablet See Instructions, 40 mg for 2 days, 20 mg for 2 days 10 mg for 2 days., # 14 tablet, 0 Refills, Maintenance, 07/22/20 10:06:00 EDT, [facility] #[id number], Partial fill upon patient request if theprescription is for a schedule II opioid drug., 1... Start Date: 07/22/20 Status: OrderedProAir HFA 90 mcg/inh inhalation aerosol with adapter 1, puffs, Inhalation, Every 4 hours, PRN, # 1 each, Refills 5, Tot. Refills 5, Maintenance, 07/22/2109:04:00 EDT, Aerosol, Route to Pharmacy Electronically, [id number], [facility] #[id number], 175, cm, 07/22/20 7:07:00... Start Date: 07/22/20 Stop Date: 01/18/21 Status: OrderedSEROquel XR 300 mg oral tablet, extended release 1 tablet = 300 mg, By Mouth, Daily at bedtime, ALBANIAN LABEL, # 30 tablet, 1 Refills, Maintenance, 05/30/20 13:29:00 EST, ER Tablet, [facility], 1 tablet By Mouth Daily at bedtime,Instr:ALBANIAN LABEL, 176, cm, 01/18/20 13:37:00 EDT, He... [...] Active Nausea & vomiting(Confirmed) Active *Julissa Fraga, [facility] Care Active Coordinator [phone](Confirmed) Lumbar radicular pain(Confirmed) Active Right hemiplegia(Confirmed) Active Encounter for screening Active colonoscopy(Confirmed) Tobacco dependence(Confirmed) Active DMII (diabetes mellitus, type Active 2)(Confirmed) Vertigo(Confirmed) Active Social History Social History Type Response Smoking Status 5-9 cigarettes (between 1/4 to 1/2 pack)/day in last 30 days entered on: 01/01/20 Sex
--- OUTSIDE RECORDS SUMMARY | 2022-06-19 23:10 | XMS_ITS | Continuity of Care Document ---
:1965 Author Organization [facility] Address [address] [place] [address]- Care Team Providers Name Role Phone Mauricio Rubi MD Primary Care Physician Encounter [facility] [place] Date(s): 01/11/20 - 02/10/20 [facility] [address] [place] [address]- [facility] Allergies, Adverse Reactions, Alerts No Known Medication [...] Patient Refuses 1Early/Late Reason: Other : Patient [id number] Comment: [01/16/2017] [facility] [id number] Comment: lot # [id number] Medications acetaminophen 325 mg oral tablet 650 mg, 2, tablet, By Mouth, 4 times a day, PRN, as needed for headache/pain not to exceed 4000 mg/day LAO LABEL, # 50 tablet, Refills 1, Tot. Refills 1, Acute 03/10/20 10:19:00 EST, Pain , Mild, 01/08/20 10:18:00 EDT, Route to Pharmacy Electron... Start Date: 01/08/20 Stop Date: 03/10/20 Status: OrderedAirDuo RespiClick 232 mcg-14 mcg/inh inhalation powder 1, puffs, Inhalation, 2 times a day, # 1 each, Refills 11, Tot. Refills 11, Maintenance, 07/07/19 19:06:00 EDT, Powder, Route to Pharmacy Electronically, [id number], [facility], advair not covered , 175,... Start Date: 07/07/19 Status: Orderedalbuterol 0.083% inhalation solution 3 mL = 2.5 mg, Inhalation, Every 6 hours, PRN Wheezing/Shortness of Breath, # 1 each, 6 Refills, Maintenance, 07/07/19 19:06:00 EDT, Solution, [facility], 175, cm, 05/30/19 19:11:00 EST, Height, 84.5, kg, 12/25/18 16:15:00 EDT, Dry Weight Start Date: 07/07/19 Status: Orderedaspirin 81 mg oral delayed release tablet 81 mg, 1, tablet, By Mouth, Daily, LAO LABEL, # 30 tablet, Refills 1, Tot. Refills 1, Maintenance, 01/08/20 10:20:00 EDT, Route to Pharmacy Electronically, [facility], 176, cm, 01/08/20 9:45:00 EDT, Height, 84, kg, 01/01/20 22:36:0... Start Date: 01/08/20 Status: Orderedatorvastatin 20 mg oral tablet 1 tablet = 20 mg, By Mouth, Daily at bedtime, LAO LABEL, # 30 tablet, 1 Refills, Maintenance, 01/08/20 10:20:00 EDT, Tablet, [facility], 176, cm, 01/08/20 9:45:00 EDT, Height, 84, kg, 01/01/20 22:36:00 EDT, Dry Weight Start Date: 01/08/20 Status: Ordereddivalproex sodium 500 mg oral enteric coated tablet 1 tablet = 500 mg, By Mouth, 2 times a day, LAO LABEL, # 60 tablet, 1 Refills, Maintenance, 01/08/20 10:21:00 EDT, Tablet, [facility], 176, cm, 01/08/20 9:45:00 EDT, Height, 84, kg,01/01/20 22:36:00 EDT, Dry Weight Start Date: 01/08/20 Status: Orderedduloxetine 60 mg oral enteric coated capsule 1 capsule = 60 mg, By Mouth, Daily, LAO LABEL, # 30 capsule, 1 Refills, Maintenance, 01/08/20 10:21:00 EDT, Capsule, [facility], 176, cm, 01/08/20 9:45:00 EDT, Height, 84, kg, 01/01/20 22:36:00 EDT, Dry Weight Start Date: 01/08/20 Status: Orderedgabapentin 300 mg oral capsule 600 mg, 2, capsule, By Mouth, Daily at bedtime, LAO LABEL, # 60 capsule, Refills 1, Tot. Refills1, Maintenance, 01/08/20 10:21:00 EDT, Route to Pharmacy Electronically, [facility],176, cm, 01/08/20 9:45:00 EDT, Height, 84, kg, 09... Start Date: 01/08/20 Status: Orderedhydrochlorothiazide 25 mg oral tablet 12.5 mg, 0.5, tablet, By Mouth, Daily, LAO LABEL, # 15 tablet, Refills 1, Tot. Refills 1, Maintenance, 01/08/20 10:23:00 EDT, Route to Pharmacy Electronically, [facility], 176, cm, 01/08/20 9:45:00 EDT, Height, 84, kg, 01/01/20 22:... Start Date: 01/08/20 Status: Orderedlidocaine 5% topical film See Instructions, 1 patch to affected area Topically Daily, remove at HS, # 30 patch, 1 Refills, Maintenance, 08/13/19 13:28:00 EDT, Patch, [facility], 1 patch to affected area Topically Daily, remove at HS, 175, cm, 05/30/19 19:11:00... Start Date: 08/13/19 Status: OrderedmetFORMIN 500 mg oral tablet 1 tablet = 500 mg, By Mouth, 2 times a day, LAO LABEL, # 60 tablet, 1 Refills, Maintenance, 01/08/20 10:23:00 EDT, Tablet, [facility], 176, cm, 01/08/20 9:45:00 EDT, Height, 84, kg,01/01/20 22:36:00 EDT, Dry Weight Start Date: 01/08/20 Status: Orderedmontelukast 10 mg oral tablet 10 mg, 1, tablet, By Mouth, Daily, LAO LABEL, # 30 tablet, Refills 1, Tot. Refills 1, Maintenance, 01/08/20 10:24:00 EDT, Route to Pharmacy Electronically, [facility], 176, cm, 01/08/20 9:45:00 EDT, Height, 84, kg, 01/01/20 22:36:0... Start Date: 01/08/20 Status: OrderedNeurontin 300 mg oral capsule 300 mg, 1, capsule, By Mouth, 3 times a day, PRN, As needed for neuropathic pain up to 3 times dailySPANISH LABEL, # 60 capsule, Refills 1, Tot. Refills 1, Maintenance, Pain , Moderate, 01/08/20 10:22:00 EDT, Route to Pharmacy Electronically, [facility]... Start Date: 01/08/20 Status: OrderedPlavix 75 mg oral tablet 75 mg, 1, tablet, By Mouth, Daily, LAO LABEL, # 30 tablet, Refills 3, Tot. Refills 3, Maintenance, 01/18/20 14:12:00 EDT, Route to Pharmacy Electronically, [facility], 176, cm, 01/18/20 13:37:00 EDT, Height, 84, kg, 01/01/20 22:36:... Start Date: 01/18/20 Status: OrderedProAir HFA 90 mcg/inh inhalation aerosol with adapter 1, puffs, Inhalation, Every 4 hours, PRN, # 8.5 Gm, Refills 0, Tot. Refills 0, Maintenance, 07/06/2018:06:00 EDT, Aerosol, Route to Pharmacy Electronically, [id number], [facility], 175, cm, 02/01/20 19:11:00... Start Date: 07/07/19 Status: OrderedSEROquel XR 300 mg oral tablet, extended release 1 tablet = 300 mg, By Mouth, Daily at bedtime, LAO LABEL, # 30 tablet, 1 Refills, Maintenance, 01/08/20 10:26:00 EDT, ER Tablet, [facility] 1 tablet By Mouth Daily at bedtime,Instr:LAO LABEL, 176, cm, 01/08/20 9:45:00 EDT, Hei... Start Date: 01/08/20 Status: Ordered Problem List Condition Effective Dates Status Health Status Informant Chronic Basilar artery Active occlusion(Confirmed) Aborted CVA- Was given tPA(Confirmed) Active Chronic pain syndrome(Confirmed) Active Constipation(Confirmed) Active Depression(Confirmed) Active Dysuria(Confirmed) Active Heartburn(Confirmed) Active CVA, old, hemiparesis(Confirmed) Active Elevated MCV(Confirmed) Active Nausea & vomiting(Confirmed) Active *Julissa Fraga, [facility] Care Active Coordinator [phone](Confirmed) Lumbar radicular pain(Confirmed) Active Right hemiplegia(Confirmed) Active Encounter for screening Active colonoscopy(Confirmed) Tobacco dependence(Confirmed) Active DMII (diabetes mellitus, type Active 2)(Confirmed) Vertigo(Confirmed) Active Social History Social History Type Response Smoking Status 5-9 cigarettes (between 1/4 to 1/2 pack)/day in last 30 days entered on: 01/01/20 Sex
--- OUTSIDE RECORDS SUMMARY | 2022-06-19 23:10 | XMS_ITS | Continuity of Care Document ---
:1965 Author Organization [facility] Address [address] [place] [id number]- Care Team Providers Name Role Phone Mauricio Rubi MD Primary Care Physician [place] [facility] [place] 10/15/[address] [address]- Discharge Disposition: A-D/C Home Attending Physician: Henry Mcdowell MD Admitting Physician: Henry Mcdowell MD Referring Physician: Not on Staff, Referring [...] Patient Refuses 1Early/Late Reason: Other : Patient [id number] Comment: [01/16/2017] [facility] [id number] Comment: lot # [id number] Medications Advair Diskus 250 mcg-50 mcg inhalation powder 1, puffs, Inhalation, 2 times a day, # 180 each, Refills 1, Tot. Refills 1, Maintenance, 07/22/20 10:04:00 EDT, Powder, Route to Pharmacy Electronically, [id number], [facility] #[id number], 175, cm, 07/22/20 7:07:00 EDT,... Start Date: 07/22/20 Status: Orderedalbuterol 0.083% inhalation solution 3 mL = 2.5 mg, Inhalation, Every 6 hours, PRN Wheezing/Shortness of Breath, # 1 each, 6 Refills, Maintenance, 09/30/20 9:34:00 EDT, Solution, [facility] #[id number], 175, cm, 07/22/20 7:07:00 EDT,Height, 82.4, kg, 07/21/20 11:02:00 EDT, Dry Weight Start Date: 09/30/20 Status: OrderedamLODIPine 10 mg oral tablet 10 mg, 1, tablet, By Mouth, Daily at bedtime, # 90 tablet, Refills 4, Tot. Refills 4, Maintenance, 09/30/20 9:34:00 EDT, Route to Pharmacy Electronically, [facility] #[id number], Partial fill uponpatient request if the prescription is for a sche... Start Date: 09/30/20 Stop Date: 12/24/21 Status: Orderedaspirin 81 mg oral delayed release tablet 81 mg, 1, tablet, By Mouth, Daily, MEXICAN LABEL, # 30 tablet, Refills 1, Tot. Refills 1, Maintenance, 09/30/20 9:34:00 EDT, Route to Pharmacy Electronically, [facility] #[id number], 175, cm, 07/22/20 7:07:00 EDT, Height, 82.4, kg, 07/21/20 11:02... Start Date: 09/30/20 Status: Orderedatorvastatin 20 mg oral tablet 1 tablet = 20 mg, By Mouth, Daily at bedtime, MEXICAN LABEL, # 30 tablet, 1 Refills, Maintenance, 09/30/20 9:34:00 EDT, Tablet, [facility] #[id number], 175, cm, 07/22/20 7:07:00 EDT, Height, 82.4,kg, 07/21/20 11:02:00 EDT, Dry Weight Start Date: 09/30/20 Status: Ordereddivalproex sodium 500 mg oral enteric coated tablet 1 tablet = 500 mg, By Mouth, 2 times a day, MEXICAN LABEL, # 60 tablet, 2 Refills, Maintenance, 09/30/20 9:34:00 EDT, Tablet, [facility] #[id number], 175, cm, 07/22/20 7:07:00 EDT, Height, 82.4, kg, 07/21/20 11:02:00 EDT, Dry Weight Start Date: 09/30/20 Status: Orderedduloxetine 60 mg oral enteric coated capsule 1 capsule = 60 mg, By Mouth, Daily, MEXICAN LABEL, # 30 capsule, 1 Refills, Maintenance, 09/30/20 9:34:00 EDT, Capsule, [facility] #[id number], 175, cm, 07/22/20 7:07:00 EDT, Height, 82.4, kg, 07/21/20 11:02:00 EDT, Dry Weight Start Date: 09/30/20 Status: OrderedFlonase 50 mcg/inh nasal spray 1 sprays, Nares, Both, 2 times a day, Guinean label please., # 16 Gm, 1 Refills, Maintenance, 09/30/20 9:34:00 EDT, [facility] #[id number], Partial fill upon patient request if the prescription isfor a schedule II opioid drug., 1 sprays Nares, B... Start Date: 09/30/20 Status: Orderedgabapentin 300 mg oral capsule 600 mg, 2, capsule, By Mouth, Daily at bedtime, MEXICAN LABEL, # 60 capsule, Refills 3, Tot. Refills3, Maintenance, 09/30/20 9:34:00 EDT, Route to Pharmacy Electronically, [facility] #[id number],175, cm, 07/22/20 7:07:00 EDT, Height, 82.4, kg,... Start Date: 09/30/20 Status: Orderedlidocaine 5% topical film See Instructions, 1 patch to affected area Topically Daily, remove at HS, # 30 patch, 1 Refills, Maintenance, 09/30/20 9:34:00 EDT, Patch, [facility] #[id number], 1 patch to affected area Topically Daily, remove at HS, 175, cm, 07/22/20 7:07:00 E... Start Date: 09/30/20 Status: Orderedloratadine 10 mg oral tablet 10 mg, 1, tablet, By Mouth, Daily, Guinean label please., # 30 tablet, Refills 0, Tot. Refills 0, Maintenance, 09/30/20 9:34:00 EDT, Route to Pharmacy Electronically, [facility] #[id number], Partial fill upon patient request if the prescription i... Start Date: 09/30/20 Stop Date: 10/30/20 Status: Orderedmontelukast 10 mg oral tablet 10 mg, 1, tablet, By Mouth, Daily, MEXICAN LABEL, # 30 tablet, Refills 11, Tot. Refills 11, Maintenance, 09/30/20 9:34:00 EDT, Route to Pharmacy Electronically, [facility] #[id number], 175, cm, 07/22/20 7:07:00 EDT, Height, 82.4, kg, 07/21/20 11:... Start Date: 09/30/20 Status: OrderedPlavix 75 mg oral tablet 75 mg, 1, tablet, By Mouth, Daily, MEXICAN LABEL, # 30 tablet, Refills 3, Tot. Refills 3, Maintenance, 09/30/20 9:34:00 EDT, Route to Pharmacy Electronically, [facility] #[id number], 175, cm, 07/22/20 7:07:00 EDT, Height, 82.4, kg, 07/21/20 11:02... Start Date: 09/30/20 Status: OrderedpredniSONE 10 mg oral tablet See Instructions, 40 mg for 2 days, 20 mg for 2 days 10 mg for 2 days., # 14 tablet, 0 Refills, Maintenance, 07/22/20 10:06:00 EDT, [facility] #[id number], Partial fill upon patient request if theprescription is for a schedule II opioid drug., 1... Start Date: 07/22/20 Status: OrderedProAir HFA 90 mcg/inh inhalation aerosol with adapter 1, puffs, Inhalation, Every 4 hours, PRN, # 1 each, Refills 5, Tot. Refills 5, Maintenance, :34:00 EDT, Aerosol, Route to Pharmacy Electronically, [id number], [facility] #[id number], 175, cm, 07/22/20 7:07:00 E... Start Date: 09/30/20 Stop Date: 03/29/21 Status: OrderedSEROquel XR 300 mg oral tablet, extended release 1 tablet = 300 mg, By Mouth, Daily at bedtime, MEXICAN LABEL, # 30 tablet, 1 Refills, Maintenance, 09/30/20 9:34:00 EDT, ER Tablet, [facility] #[id number], 1 tablet By Mouth Daily at bedtime,Instr:MEXICAN LABEL, 175, cm, 07/22/20 7:07:00 EDT, Hei... [...] Active Nausea & vomiting(Confirmed) Active *Julissa Fraga, [facility] Care Active Coordinator [phone](Confirmed) Lumbar radicular pain(Confirmed) Active Right hemiplegia(Confirmed) Active Encounter for screening Active colonoscopy(Confirmed) Tobacco dependence(Confirmed) Active DMII (diabetes mellitus, type Active 2)(Confirmed) Vertigo(Confirmed) Active Results Radiology Reports Exam Date Time Procedure Performing Provider Status 10/15/20 4:35 PM Chest 2 Views Frontal and Lat Ranjith Alexander; Auth (Verified) Notes:(Chest 2 Views Frontal and Lat) Reason For Exam: Shortness of Breath, Fever;Other:RESULT: Chest 2 Views Frontal and Lat Chest 2 Views Frontal and Lat Hx of Present Illness: Pt states he was just seen [facility], still c o chest tighntess (none now) difficulty breathing and dizziness. reports given inhaler but wants to be checked again. reports playing pool, drinking beer and using cocaine overnight; Reason: Other:; Shortness of Breath, Fever; Clinical Question(s): Pneumonia COMPARISON: 07/20/2020 FINDINGS: LINES AND TUBES: None. LUNGS AND PLEURA: Clear lungs. Normal pulmonary vascularity. No pleural effusion. No pneumothorax. HEART, MEDIASTINUM AND JOIE: Heart is normal in size. Normal upper mediastinal and hilar contour. BONES AND SOFT TISSUES: No acute abnormality. IMPRESSION: No acute abnormality. WSN: [id number] Ordering Physician: Javed Pelaez Dictated By: Lukas Jain MD Dictated Date/Time: 10/15/20 4:38 pm Reviewed By: Lukas Jain MD Signed By: Lukas Jain MD Signed Date/Time: 10/15/20 4:38 pm Transcribed By: JENNIFER Transcribed Date/Time: 10/15/20 4:36 pm Vital Signs Most recent to oldest 1 2 3 [Reference Range]: Oxygen Saturation [94-100 %] 93 % 98 % 99 % *L* (10/15/20 5:35 PM) (10/15/20 3:35 PM) (10/15/20 6:48 PM) Pulse Rate [55-90 bpm] 53 bpm 78 bpm 62 bpm *L* (10/15/20 5:35 PM) (10/15/20 3:35 PM) (10/15/20 6:48 PM) Blood Pressure [90-138/55-84 101/64 mm Hg 159/86 mm Hg 154 /89 mm Hg mm Hg] (10/15/20 6:48 PM) *H* *H* (10/15/20 5:35 PM) (10/15/20 3:35 PM) Respiratory Rate [16-30 18 br/min 16 br/min 18 br/mi n br/min] (10/15/20 6:48 PM) (10/15/20 5:35 PM) (10/15/20 3:3 5 PM) Temperature [96.8-100.4 DegF] 98.2 DegF 98.7 DegF 98 .7 DegF (10/15/20 3:35 PM) (10/15/20 3:02 PM) (10/15/20 11: 46 AM) Mode of Delivery (Oxygen) Room air Room air Room a ir (10/15/20 6:48 PM) (10/15/20 5:35 PM) (10/15/20 3:3 5 PM) Blood pressure sites Arm, left Arm, left Arm, left (10/15/20 6:48 PM) (10/15/20 5:35 PM) (10/15/20 3:3 5 PM) Temperature Route Oral Oral Oral (10/15/20 3:35 PM) (10/15/20 3:02 PM) (10/15/20 11: 46 AM) Social History Social History Type Response Smoking Status 5-9 cigarettes (between 1/4 to 1/2 pack)/day in last 30 days entered on: 01/01/20 Sex
--- OUTSIDE RECORDS SUMMARY | 2022-06-19 23:10 | XMS_ITS | Continuity of Care Document ---
:1965 Author Organization [facility] Address [address] [place] [address]- Care Team Providers Name Role Phone Greyson LARES, Mauricio Primary Care Physician Encounter [facility] Date(s): 06/15/19 - 07/16/19 [facility] [address] [place] [address]- [facility] Attending Physician: Not on Staff, Attending [...] Patient Refuses 1Early/Late Reason: Other : Patient [id number] Comment: [01/16/2017] [facility] [id number] Comment: lot # [id number] Medications AirDuo RespiClick 232 mcg-14 mcg/inh inhalation powder 1, puffs, Inhalation, 2 times a day, # 1 each, Refills 11, Tot. Refills 11, Maintenance, 07/07/19 19:06:00 EDT, Powder, Route to Pharmacy Electronically, [id number], [facility] , 175,... Start Date: 07/07/19 Status: Orderedalbuterol 0.083% inhalation solution 3 mL = 2.5 mg, Inhalation, Every 6 hours, PRN Wheezing/Shortness of Breath, # 1 each, 6 Refills, Maintenance, 07/07/19 19:06:00 EDT, Solution, [facility] 175, cm, 05/30/19 19:11:00 EST, Height, 84.5, kg, 12/25/18 16:15:00 EDT, Dry Weight Start Date: 07/07/19 Status: Orderedaspirin 81 mg oral delayed release tablet 81 mg, 1, tablet, By Mouth, Daily, # 90 tablet, Refills 4, Tot. Refills 4, Maintenance, 07/07/19 19:06:00 EDT, Route to Pharmacy Electronically, [facility], 175, cm, 05/30/19 19:11:00 EST, Height, 84.5, kg, 12/25/18 16:15:00 EDT, Dry W... Start Date: 07/07/19 Stop Date: 09/29/20 Status: Orderedatorvastatin 20 mg oral tablet 1 tablet = 20 mg, By Mouth, Daily at bedtime, # 30 tablet, 0 Refills, Maintenance, 07/07/19 19:06:00EDT, Tablet, [facility] 175, cm, 05/30/19 19:11:00 EST, Height, 84.5, kg, 12/25/18 16:15:00 EDT, Dry Weight Start Date: 07/07/19 Status: OrderedCymbalta 60 mg oral enteric coated capsule 1 capsule = 60 mg, By Mouth, Daily, # 30 capsule, 6 Refills, Maintenance, 07/07/19 19:06:00 EDT, EC Capsule, [facility], 175, cm, 05/30/19 19:11:00 EST, Height, 84.5, kg, 12/25/18 16:15:00 EDT, Dry Weight Start Date: 07/07/19 Status: Ordereddivalproex sodium 500 mg oral enteric coated tablet = 500 mg, By Mouth, 2 times a day, # 60 tablet, 5 Refills, Maintenance, 07/07/19 19:06:00 EDT, Tablet, [facility] 175, cm, 05/30/19 19:11:00 [...] tablet, 5 Refills, Maintenance, 07/07/19 19:06:00 EDT, [facility] 175, cm, 05/30/19 19:11:00 EST, Height, 84.5, kg, 12/25/18 16:15:00 EDT, Dry Weight Start Date: 07/07/19 Status: Orderedhydrochlorothiazide 25 mg oral tablet 12.5 mg, 0.5, tablet, By Mouth, Daily, # 15 tablet, Refills 0, Tot. Refills 0, Maintenance, 07/06/2018:06:00 EDT, Route to Pharmacy Electronically, [facility] 175, cm, 05/30/19 19:11:00 EST, Height, 84.5, kg, 12/25/18 16:15:00 EDT, D... Start Date: 07/07/19 Status: Orderedlidocaine 5% topical film See Instructions, 1 patch to affected area Topically Daily, remove at HS, # 30 patch, 0 Refills, Maintenance, 07/07/19 19:06:00 EDT, Patch, [facility], 1 patch to affected area Topically Daily, remove at HS, 175, cm, 05/30/19 19:11:00... Start Date: 07/07/19 Status: OrderedmetFORMIN 500 mg oral tablet 1 tablet = 500 mg, By Mouth, 2 times a day, with meals, Lao label, # 180 tablet, 1 Refills, Maintenance, 07/07/19 19:06:00 EDT, Tablet, [facility], 175, cm, 05/30/19 19:11:00 EST, Height, 84.5, kg, 12/25/18 16:15:00 EDT, Dry Weight Start Date: 07/07/19 Stop Date: 01/03/20 Status: Orderedmontelukast 10 mg oral tablet 10 mg, By Mouth, Daily, # 30 tablet, Refills 9, Tot. Refills 9, Maintenance, 07/07/19 19:06:00 EDT, Route to Pharmacy Electronically, [facility], 175, cm, 05/30/19 19:11:00 EST, Height,84.5, kg, 12/25/18 16:15:00 EDT, Dry Weight Start Date: 07/07/19 Status: OrderedNuLYTELY with Flavor Packs oral powder for reconstitution 240 mL, By Mouth, Every 15 minutes, # 4,000 mL, 0 Refills, Maintenance, 07/07/19 19:06:00 EDT, [facility], 240 mL By Mouth Every 15 minutes, 175, cm, 05/30/19 19:11:00 EST, Height, 84.5, kg, 12/25/18 16:15:00 EDT, Dry Weight Start Date: 07/07/19 Status: OrderedPlavix 75 mg oral tablet 75 mg, By Mouth, Daily, Lao label, # 90 each, Refills 1, Tot. Refills 1, Maintenance, 07/07/19 19:06:00 EDT, [facility], [facility], cm, 05/30/19 19:11:00EST, Height, 84.5, kg, 12/25/18 16:15:00 EDT, Dry... Start Date: 07/07/19 Stop Date: 01/03/20 Status: OrderedProAir HFA 90 mcg/inh inhalation aerosol with adapter 1, puffs, Inhalation, Every 4 hours, PRN, # 8.5 Gm, Refills 0, Tot. Refills 0, Maintenance, 07/06/2018:06:00 EDT, Aerosol, Route to Pharmacy Electronically, [id number], [facility], 175, cm, 05/30/19 19:11:00... Start [...]
--- OUTSIDE RECORDS SUMMARY | 2022-06-19 23:10 | XMS_ITS | Continuity of Care Document ---
:1965 Author Organization [facility] Address [address] [place] [id number]- Care Team Providers Name Role Phone Mauricio Rubi MD Primary Care Physician Encounter [facility] Date(s): 12/08/19 - 01/13/[address] [address]- [facility] Attending Physician: Arun Fraga MD Admitting Physician: Arun Fraga MD Referring Physician: Arun Fraga MD Allergies, Adverse Reactions, Alerts No Known [...] Patient Refuses 1Early/Late Reason: Other : Patient [id number] Comment: [01/16/2017] [facility] [id number] Comment: lot # [id number] Medications acetaminophen 325 mg oral tablet 650 mg, 2, tablet, By Mouth, 4 times a day, PRN, as needed for headache/pain not to exceed 4000 mg/day ISRAELI LABEL, # 50 tablet, Refills 1, Tot. Refills 1, Acute 03/10/20 10:19:00 EST, Pain , Mild, 01/08/20 10:18:00 EDT, Route to Pharmacy Electron... Start Date: 01/08/20 Stop Date: 03/10/20 Status: OrderedAirDuo RespiClick 232 mcg-14 mcg/inh inhalation powder 1, puffs, Inhalation, 2 times a day, # 1 each, Refills 11, Tot. Refills 11, Maintenance, 07/07/19 19:06:00 EDT, Powder, Route to Pharmacy Electronically, [id number], [facility], advair not covered , 175,... Start Date: 07/07/19 Status: Orderedalbuterol 0.083% inhalation solution 3 mL = 2.5 mg, Inhalation, Every 6 hours, PRN Wheezing/Shortness of Breath, # 1 each, 6 Refills, Maintenance, 07/07/19 19:06:00 EDT, Solution, [facility], 175, cm, 05/30/19 19:11:00 EST, Height, 84.5, kg, 12/25/18 16:15:00 EDT, Dry Weight Start Date: 07/07/19 Status: Orderedaspirin 81 mg oral delayed release tablet 81 mg, 1, tablet, By Mouth, Daily, ISRAELI LABEL, # 30 tablet, Refills 1, Tot. Refills 1, Maintenance, 01/08/20 10:20:00 EDT, Route to Pharmacy Electronically, [facility], 176, cm, 01/08/20 9:45:00 EDT, Height, 84, kg, 01/01/20 22:36:0... Start Date: 01/08/20 Status: Orderedatorvastatin 20 mg oral tablet 1 tablet = 20 mg, By Mouth, Daily at bedtime, ISRAELI LABEL, # 30 tablet, 1 Refills, Maintenance, 01/08/20 10:20:00 EDT, Tablet, [facility], 176, cm, 01/08/20 9:45:00 EDT, Height, 84, kg, 01/01/20 22:36:00 EDT, Dry Weight Start Date: 01/08/20 Status: Ordereddivalproex sodium 500 mg oral enteric coated tablet 1 tablet = 500 mg, By Mouth, 2 times a day, ISRAELI LABEL, # 60 tablet, 1 Refills, Maintenance, 01/08/20 10:21:00 EDT, Tablet, [facility], 176, cm, 01/08/20 9:45:00 EDT, Height, 84, kg,01/01/20 22:36:00 EDT, Dry Weight Start Date: 01/08/20 Status: Orderedduloxetine 60 mg oral enteric coated capsule 1 capsule = 60 mg, By Mouth, Daily, ISRAELI LABEL, # 30 capsule, 1 Refills, Maintenance, 01/08/20 10:21:00 EDT, Capsule, [facility], 176, cm, 01/08/20 9:45:00 EDT, Height, 84, kg, 01/01/20 22:36:00 EDT, Dry Weight Start Date: 01/08/20 Status: Orderedgabapentin 300 mg oral capsule 600 mg, 2, capsule, By Mouth, Daily at bedtime, ISRAELI LABEL, # 60 capsule, Refills 1, Tot. Refills1, Maintenance, 01/08/20 10:21:00 EDT, Route to Pharmacy Electronically, [facility],176, cm, 01/08/20 9:45:00 EDT, Height, 84, kg, 09... Start Date: 01/08/20 Status: Orderedhydrochlorothiazide 25 mg oral tablet 12.5 mg, 0.5, tablet, By Mouth, Daily, ISRAELI LABEL, # 15 tablet, Refills 1, Tot. Refills 1, Maintenance, 01/08/20 10:23:00 EDT, Route to Pharmacy Electronically, [facility], 176, cm, 01/08/20 9:45:00 EDT, Height, 84, kg, 01/01/20 22:... Start Date: 01/08/20 Status: Orderedlidocaine 5% topical film See Instructions, 1 patch to affected area Topically Daily, remove at HS, # 30 patch, 1 Refills, Maintenance, 08/13/19 13:28:00 EDT, Patch, [facility], 1 patch to affected area Topically Daily, remove at HS, 175, cm, 05/30/19 19:11:00... Start Date: 08/13/19 Status: OrderedmetFORMIN 500 mg oral tablet 1 tablet = 500 mg, By Mouth, 2 times a day, ISRAELI LABEL, # 60 tablet, 1 Refills, Maintenance, 01/08/20 10:23:00 EDT, Tablet, [facility] 176, cm, 01/08/20 9:45:00 EDT, Height, 84, kg,01/01/20 22:36:00 EDT, Dry Weight Start Date: 01/08/20 Status: Orderedmontelukast 10 mg oral tablet 10 mg, 1, tablet, By Mouth, Daily, ISRAELI LABEL, # 30 tablet, Refills 1, Tot. Refills 1, Maintenance, 01/08/20 10:24:00 EDT, Route to Pharmacy Electronically, [facility], 176, cm, 01/08/20 9:45:00 EDT, Height, 84, [...] 02/08/20 10:25:00 EDT, 01/08/20 10:25:00 EDT, Patch, [facility] 176, cm, 01/08/20 9:45:00 EDT, Height, 84, kg, 01/01/20 22:36:00EDT, Dry Weight Start Date: 01/08/20 Stop Date: 02/08/20 Status: OrderedPlavix 75 mg oral tablet 75 mg, 1, tablet, By Mouth, Daily, ISRAELI LABEL, # 30 tablet, Refills 1, Tot. Refills 1, Maintenance, 01/08/20 10:20:00 EDT, Route to Pharmacy Electronically, [facility], 176, cm, 01/08/20 9:45:00 EDT, Height, 84, kg, 01/01/20 22:36:0... Start Date: 01/08/20 Status: OrderedProAir HFA 90 mcg/inh inhalation aerosol with adapter 1, puffs, Inhalation, Every 4 hours, PRN, # 8.5 Gm, Refills 0, Tot. Refills 0, Maintenance, 07/06/2018:06:00 EDT, Aerosol, Route to Pharmacy Electronically, [id number], [facility], 175, cm, 05/30/19 19:11:00... Start Date: 07/07/19 Status: OrderedSEROquel XR 300 mg oral tablet, extended release 1 tablet = 300 mg, By Mouth, Daily at bedtime, ISRAELI LABEL, # 30 tablet, 1 Refills, Maintenance, 01/08/20 10:26:00 EDT, ER Tablet, [facility], 1 tablet By Mouth Daily at bedtime,Instr:ISRAELI LABEL, 176, cm, 01/08/20 9:45:00 EDT, Hei... Start Date: 01/08/20 Status: Ordered Problem List Condition Effective Dates Status Health Status Informant Chronic Basilar artery Active occlusion(Confirmed) Aborted CVA- Was given tPA(Confirmed) Active Chronic pain syndrome(Confirmed) Active Constipation(Confirmed) Active Depression(Confirmed) Active Dysuria(Confirmed) Active Heartburn(Confirmed) Active CVA, old, hemiparesis(Confirmed) Active Elevated MCV(Confirmed) Active Nausea & vomiting(Confirmed) Active *Julissa Fraga, [facility] Care Active Coordinator [phone](Confirmed) Lumbar radicular pain(Confirmed) Active Right hemiplegia(Confirmed) Active Encounter for screening Active colonoscopy(Confirmed) Tobacco dependence(Confirmed) Active DMII (diabetes mellitus, type Active 2)(Confirmed) Vertigo(Confirmed) Active Social History Social History Type Response Smoking Status 5-9 cigarettes (between 1/4 to 1/2 pack)/day in last 30 days entered on: 01/01/20 Sex
--- OUTSIDE RECORDS SUMMARY | 2022-06-19 23:11 | XMS_ITS | Continuity of Care Document ---
:1965 Author Organization [facility] Address [address] [place] [address]- Care Team Providers Name Role Phone Mauricio Rubi MD Primary Care Physician [facility]counter [facility] Date(s): 03/28/20 - 04/27/20 [facility] [address], [place] [address] Attending Physician: Jacky Wren Admitting Physician: AdmtrJacky Referring Physician: Admtr, Jacky Allergies, Adverse Reactions, [...] Patient Refuses 1Early/Late Reason: Other : Patient [id number] Comment: [01/16/2017] [facility] [phone] Comment: lot # [id number] Medications AirDuo RespiClick 232 mcg-14 mcg/inh inhalation powder 1, puffs, Inhalation, 2 times a day, # 1 each, Refills 11, Tot. Refills 11, Maintenance, 03/21/20 9:44:00 EST, Powder, Route to Pharmacy Electronically, [id number][facility], 176,... Start Date: 03/21/20 Status: Orderedalbuterol 0.083% inhalation solution 3 mL = 2.5 mg, Inhalation, Every 6 hours, PRN Wheezing/Shortness of Breath, # 1 each, 6 Refills, Maintenance, 03/21/20 17:26:00 EST, Solution, [facility]/pharmacy #[id number], 176, cm, 01/18/20 13:37:00 EDT, Height, 84, kg, 03/15/20 6:52:00 EST, Dry Weight Start Date: 03/21/20 Status: Orderedaspirin 81 mg oral delayed release tablet 81 mg, 1, tablet, By Mouth, Daily, BURUNDIAN LABEL, # 30 tablet, Refills 1, Tot. Refills 1, Maintenance, 03/21/20 9:39:00 EST, Route to Pharmacy Electronically, [facility], 176, cm, 01/18/20 13:37:00 EDT, Height, 84, kg, 03/15/20 6:52:00... Start Date: 03/21/20 Status: Orderedatorvastatin 20 mg oral tablet 1 tablet = 20 mg, By Mouth, Daily at bedtime, BURUNDIAN LABEL, # 30 tablet, 1 Refills, Maintenance, 03/21/20 9:40:00 EST, Tablet, [facility], 176, cm, 01/18/20 13:37:00 EDT, Height, 84, kg, 03/15/20 6:52:00 EST, Dry Weight Start Date: 03/21/20 Status: Ordereddivalproex sodium 500 mg oral enteric coated tablet 1 tablet = 500 mg, By Mouth, 2 times a day, BURUNDIAN LABEL, # 60 tablet, 2 Refills, Maintenance, 03/21/20 9:40:00 EST, Tablet, [facility], 176, cm, 01/18/20 13:37:00 EDT, Height, 84, kg,03/15/20 6:52:00 EST, Dry Weight Start Date: 03/21/20 Status: Orderedduloxetine 60 mg oral enteric coated capsule 1 capsule = 60 mg, By Mouth, Daily, BURUNDIAN LABEL, # 30 capsule, 1 Refills, Maintenance, 03/21/20 9:42:00 EST, Capsule, [facility], 176, cm, 01/18/20 13:37:00 EDT, Height, 84, kg, 03/15/20 6:52:00 EST, Dry Weight Start Date: 03/21/20 Status: Orderedgabapentin 300 mg oral capsule 600 mg, 2, capsule, By Mouth, Daily at bedtime, BURUNDIAN LABEL, # 60 capsule, Refills 3, Tot. Refills3, Maintenance, 03/21/20 17:25:00 EST, [facility]ically[id number], 176, cm, 01/18/20 13:37:00 EDT, Height, 84, kg, 03/15/20... Start Date: 03/21/20 Status: Orderedhydrochlorothiazide 25 mg oral tablet 12.5 mg, 0.5, tablet, By Mouth, Daily, BURUNDIAN LABEL, # 15 tablet, Refills 1, Tot. Refills 1, Maintenance, 03/21/20 9:45:00 EST, Route to Pharmacy Electronically, [facility], 176, cm, 01/18/20 13:37:00 EDT, Height, 84, kg, 03/15/20 6:5... Start Date: 03/21/20 Status: Orderedlidocaine 5% topical film See Instructions, 1 patch to affected area Topically Daily, remove at HS, # 30 patch, 1 Refills, Maintenance, 08/13/19 13:28:00 EDT, Patch, [facility], 1 patch to affected area Topically Daily, remove at HS, 175, cm, 05/30/19 19:11:00... Start Date: 08/13/19 Status: OrderedmetFORMIN 500 mg oral tablet 1 tablet = 500 mg, By Mouth, 2 times a day, BURUNDIAN LABEL, # 60 tablet, 3 Refills, Maintenance, 03/21/20 17:26:00 EST, Tablet, [facility]/pharmacy #[id number], 176, cm, 01/18/20 13:37:00 EDT, Height, 84, kg, 03/15/20 6:52:00 EST, Dry Weight Start Date: 03/21/20 Status: Orderedmontelukast 10 mg oral tablet 10 mg, 1, tablet, By Mouth, Daily, BURUNDIAN LABEL, # 30 tablet, Refills 1, Tot. Refills 1, Maintenance, 03/21/20 9:45:00 EST, Route to Pharmacy Electronically, [facility], 176, cm, 01/18/20 13:37:00 EDT, Height, 84, kg, 03/15/20 6:52:00... Start Date: 03/21/20 Status: OrderedNeurontin 300 mg oral capsule 300 mg, 1, capsule, By Mouth, 3 times a day, PRN, As needed for neuropathic pain up to 3 times dailySPANISH LABEL, # 60 capsule, Refills 1, Tot. Refills 1, Maintenance, Pain , Moderate, 03/21/20 17:23:00 EST, Route to Pharmacy Electronically, [facility]... Start Date: 03/21/20 Status: OrderedPlavix 75 mg oral tablet 75 mg, 1, tablet, By Mouth, Daily, BURUNDIAN LABEL, # 30 tablet, Refills 3, Tot. Refills 3, Maintenance, 01/18/20 14:12:00 EDT, Route to Pharmacy Electronically, [facility], 176, cm, 01/18/20 13:37:00 EDT, Height, 84, kg, 01/01/20 22:36:... Start Date: 01/18/20 Status: OrderedProAir HFA 90 mcg/inh inhalation aerosol with adapter 1, puffs, Inhalation, Every 4 hours, PRN, # 8.5 Gm, Refills 0, Tot. Refills 0, Maintenance, :39:00 EST, Aerosol, Route to Pharmacy Electronically, [id number], [facility], 176, cm, 01/18/20 13:37:00 E... Start Date: 03/21/20 Status: OrderedSEROquel XR 300 mg oral tablet, extended release 1 tablet = 300 mg, By Mouth, Daily at bedtime, BURUNDIAN LABEL, # 30 tablet, 1 Refills, Maintenance, 03/21/20 9:45:00 EST, ER Tablet, [facility], 1 tablet By Mouth Daily at bedtime,Instr:BURUNDIAN LABEL, 176, cm, 01/18/20 13:37:00 EDT, Hei... Start Date: 03/21/20 Status: Ordered Problem List Condition Effective Dates Status Health Status Informant Chronic Basilar artery Active occlusion(Confirmed) Aborted CVA- Was given tPA(Confirmed) Active Chronic pain syndrome(Confirmed) Active Constipation(Confirmed) Active Depression(Confirmed) Active Dysuria(Confirmed) Active Heartburn(Confirmed) Active CVA, old, hemiparesis(Confirmed) Active Elevated MCV(Confirmed) Active Nausea & vomiting(Confirmed) Active *Julissa Fraga, [facility] Care Active Coordinator [phone](Confirmed) Lumbar radicular pain(Confirmed) Active Right hemiplegia(Confirmed) Active Encounter for screening Active colonoscopy(Confirmed) Tobacco dependence(Confirmed) Active DMII (diabetes mellitus, type Active 2)(Confirmed) Vertigo(Confirmed) Active Social History Social History Type Response Smoking Status 5-9 cigarettes (between 1/4 to 1/2 pack)/day in last 30 days entered on: 01/01/20 Sex
--- OUTSIDE RECORDS SUMMARY | 2022-06-19 23:11 | XMS_ITS | Continuity of Care Document ---
:1965 Author Organization [facility] Address [address] [place] [address]- Care Team Providers Name Role Phone Greyson LARES, Mauricio Primary Care Physician Encounter [facility] Date(s): 08/25/21 - 10/11/21 [facility] [address] [place] [id number] Attending Physician: Tomi Saavedra MD [...] Patient Refuses 1Early/Late Reason: Other : Patient [id number] Comment: [01/16/2017] [facility] [id number] Comment: lot # [id number] Medications albuterol 0.083% inhalation solution 3 mL = 2.5 mg, Inhalation, Every 6 hours, PRN Wheezing/Shortness of Breath, # 1 each, 6 Refills, Maintenance, 04/03/21 9:01:00 EST, Solution, [facility] 175, cm, 04/03/21 8:32:00 EST, Height, 82.4, kg, 07/21/20 11:02:00 EDT, Dry Weight Start Date: 04/03/21 Status: OrderedamLODIPine 10 mg oral tablet 10 mg, 1, tablet, By Mouth, Daily at bedtime, # 90 tablet, Refills 4, Tot. Refills 4, Maintenance, 09/30/20 9:34:00 EDT, Route to Pharmacy Electronically, [facility] #[id number], Partial fill uponpatient request if the prescription is for a sche... Start Date: 09/30/20 Stop Date: 12/24/21 Status: Orderedaspirin 81 mg oral delayed release tablet 81 mg, 1, tablet, By Mouth, Daily, MALTESE LABEL, # 90 tablet, Refills 3, Tot. Refills 3, Maintenance, 08/09/21 5:53:00 EDT, Route to Pharmacy Electronically, [facility], 175, cm, 04/03/21 8:32:00 EST, Height, 82.4, kg, 07/21/20 11:02:... Start Date: 08/09/21 Status: Orderedatorvastatin 20 mg oral tablet 1 tablet = 20 mg, By Mouth, Daily at bedtime, MALTESE LABEL, # 90 tablet, 1 Refills, Maintenance, 04/03/21 9:05:00 EST, Tablet, [facility] 175, cm, 04/03/21 8:32:00 EST, Height, 82.4, kg, 07/21/20 11:02:00 EDT, Dry Weight Start Date: 04/03/21 Status: Ordereddivalproex sodium 500 mg oral enteric coated tablet 1 tablet = 500 mg, By Mouth, 2 times a day, MALTESE LABEL, # 60 tablet, 0 Refills, Maintenance, 10/11/21 13:36:00 EDT, Tablet, [facility] 175, cm, 10/05/21 14:47:00 EDT, Height, 82.4, kg, 09/20/21 13:17:00 EDT, Dry Weight Start Date: 10/11/21 Status: Orderedduloxetine 60 mg oral enteric coated capsule 1 capsule = 60 mg, By Mouth, Daily, MALTESE LABEL, # 90 capsule, 2 Refills, Maintenance, 04/03/21 9:05:00 EST, Capsule, [facility], 175, cm, 04/03/21 8:32:00 EST, Height, 82.4, kg, 07/21/20 11:02:00 EDT, Dry Weight Start Date: 04/03/21 Status: OrderedFlonase 50 mcg/inh nasal spray 1 sprays, Nares, Both, 2 times a day, Uzbek label please., # 16 Gm, 1 Refills, Maintenance, 09/30/20 9:34:00 EDT, [facility] #[id number], Partial fill upon patient request if the prescription isfor a schedule II opioid drug., 1 sprays Nares, B... Start Date: 09/30/20 Status: Orderedfluticasone-salmeterol 500 mcg-50 mcg inhalation powder 1 puff, Inhalation, 2 times a day, # 1 each, Refills 3, Tot. Refills 3, Maintenance, 10/11/21 13:36:00 EDT, Powder, Route to Pharmacy Electronically, [id number], [facility], 175, cm, 10/05/21 14:47:00 EDT, Hei... Start Date: 10/11/21 Status: Orderedgabapentin 300 mg oral capsule 600 mg, 2, capsule, By Mouth, Daily at bedtime, MALTESE LABEL, # 60 capsule, Refills 3, Tot. Refills3, Maintenance, 10/11/21 13:32:00 EDT, Route to Pharmacy Electronically, [facility]175, cm, 10/05/21 14:47:00 EDT, Height, 82.4, [...] 10 mg, 1, tablet, By Mouth, Daily, Uzbek label please., # 30 tablet, Refills 0, Tot. Refills 0, Maintenance, 04/03/21 9:08:00 EST, Route to Pharmacy Electronically, [facility], Partial fill upon patient request if [...] 0 Refills, Maintenance, 09/18/21 11:48:00 EDT, Tablet, [facility] #[id number], Partial fill upon patient request if the prescription is for a schedule II opioid drug., 175, cm, 09/18/21 10:48:00 ED... Start Date: 09/18/21 Stop Date: 09/28/21 Status: OrderedmetFORMIN 500 mg oral tablet, extended release 2 tablet = 1,000 mg, By Mouth, 2 times a day, # 120 tablet, 6 Refills, Maintenance, 10/05/21 14:16:00 EDT, [facility] #[id number], Partial fill upon patient request if the prescription is for a schedule II opioid drug., 175, cm, 09/23/21 4:10:00... Start Date: 10/05/21 Status: Orderedmontelukast 10 mg oral tablet 10 mg, 1, tablet, By Mouth, Daily, MALTESE LABEL, # 30 tablet, Refills 11, Tot. Refills 11, Maintenance, 10/03/21 16:07:00 EDT, Route to Pharmacy Electronically, [facility] #[id number], 175, cm, 09/23/21 4:10:00 EDT, Height, 82.4, [...] 75 mg, 1, tablet, By Mouth, Daily, MALTESE LABEL, # 30 tablet, Refills 3, Tot. Refills 3, Maintenance, 08/09/21 5:53:00 EDT, Route to Pharmacy Electronically, [facility], 175, cm, 04/03/21 8:32:00 EST, Height, 82.4, kg, 07/21/20 11:02:... Start Date: 08/09/21 Status: OrderedProAir HFA 90 mcg/inh inhalation aerosol with adapter 1, puffs, Inhalation, Every 4 hours, PRN, # 1 each, Refills 5, Tot. Refills 5, Maintenance, 219:01:00 EST, Aerosol, Route to Pharmacy Electronically, [id number], [facility], 175, cm, 04/03/21 8:32:00 ES... Start [...] RIGHT UPPER. CTA - done Active at [facility]. 07/2021 - scanned in [facility](Confirmed) *Julissa Fraga, [facility] Care Active Coordinator [phone](Confirmed) Lumbar radicular pain(Confirmed) Active Right hemiplegia(Confirmed) Active Encounter for screening Active colonoscopy(Confirmed) Tobacco dependence(Confirmed) Active DMII (diabetes mellitus, type Active 2)(Confirmed) Vertigo(Confirmed) Active Social History Social History Type Response Smoking Status 5-9 cigarettes (between 1/4 to 1/2 pack)/day in last 30 days entered on: 01/01/20 Sex
--- OUTSIDE RECORDS SUMMARY | 2022-06-19 23:11 | XMS_ITS | Continuity of Care Document ---
:1965 Author Organization [facility] Address [address] [place] [address]- Care Team Providers Name Role Phone Greyson LARES, Mauricio Primary Care Physician [facility] Date(s): 07/01/20 - 07/31/20 [facility] [address] [place] [address] Allergies, Adverse Reactions, Alerts No Known Medication [...] Patient Refuses 1Early/Late Reason: Other : Patient [id number] Comment: [01/16/2017] [facility] [phone] Comment: lot # [id number] Medications Advair Diskus 250 mcg-50 mcg inhalation powder 1, puffs, Inhalation, 2 times a day, # 180 each, Refills 1, Tot. Refills 1, Maintenance, 07/22/20 10:04:00 EDT, Powder, Route to Pharmacy Electronically, [id number], [facility] #[id number], 175, cm, 07/22/20 7:07:00 EDT,... Start Date: 07/22/20 Status: Orderedalbuterol 0.083% inhalation solution 3 mL = 2.5 mg, Inhalation, Every 6 hours, PRN Wheezing/Shortness of Breath, # 1 each, 6 Refills, Maintenance, 05/30/20 13:29:00 EST, Solution, [facility] 176, cm, 01/18/20 13:37:00 EDT, Height, 84, kg, 03/15/20 6:52:00 EST, Dry Weight Start Date: 05/30/20 Status: OrderedamLODIPine 10 mg oral tablet 10 mg, 1, tablet, By Mouth, Daily at bedtime, # 90 tablet, Refills 4, Tot. Refills 4, Maintenance, 07/14/20 11:22:00 EDT, Route to Pharmacy Electronically, [facility] #[id number], Partial fill upon patient request if the prescription is for a xena... Start Date: 07/14/20 Stop Date: 10/07/21 Status: Orderedaspirin 81 mg oral delayed release tablet 81 mg, 1, tablet, By Mouth, Daily, AUSTRALIAN LABEL, # 30 tablet, Refills 1, Tot. Refills 1, Maintenance, 05/30/20 13:29:00 EST, Route to Pharmacy Electronically, [facility], 176, cm, 01/18/20 13:37:00 EDT, Height, 84, kg, 03/15/20 6:52:0... Start Date: 05/30/20 Status: Orderedatorvastatin 20 mg oral tablet 1 tablet = 20 mg, By Mouth, Daily at bedtime, AUSTRALIAN LABEL, # 30 tablet, 1 Refills, Maintenance, 05/30/20 13:29:00 EST, Tablet, [facility] 176, cm, 01/18/20 13:37:00 EDT, Height, 84, kg, 03/15/20 6:52:00 EST, Dry Weight Start Date: 05/30/20 Status: Ordereddivalproex sodium 500 mg oral enteric coated tablet 1 tablet = 500 mg, By Mouth, 2 times a day, AUSTRALIAN LABEL, # 60 tablet, 2 Refills, Maintenance, 05/30/20 13:29:00 EST, Tablet, [facility] 176, cm, 01/18/20 13:37:00 EDT, Height, 84, kg, 03/15/20 6:52:00 EST, Dry Weight Start Date: 05/30/20 Status: Orderedduloxetine 60 mg oral enteric coated capsule 1 capsule = 60 mg, By Mouth, Daily, AUSTRALIAN LABEL, # 30 capsule, 1 Refills, Maintenance, 05/30/20 13:29:00 EST, Capsule, [facility], 176, cm, 01/18/20 13:37:00 EDT, Height, 84, kg, 03/15/20 6:52:00 EST, Dry Weight Start Date: 05/30/20 Status: OrderedFlonase 50 mcg/inh nasal spray 1 sprays, Nares, Both, 2 times a day, Chinese label please., # 16 Gm, 1 Refills, Maintenance, 07/01/20 14:30:00 EST, [facility] #[id number], Partial fill upon patient request if the prescription is for a schedule II opioid drug., 1 sprays Nares,... Start Date: 07/01/20 Status: Orderedgabapentin 300 mg oral capsule 600 mg, 2, capsule, By Mouth, Daily at bedtime, AUSTRALIAN LABEL, # 60 capsule, Refills 3, Tot. Refills3, Maintenance, 05/30/20 13:29:00 EST, Route to Pharmacy Electronically, [facility],176, cm, 01/18/20 13:37:00 EDT, Height, 84, kg, 1... Start Date: 05/30/20 Status: Orderedlidocaine 5% topical film See Instructions, 1 patch to affected area Topically Daily, remove at HS, # 30 patch, 1 Refills, Maintenance, 08/13/19 13:28:00 EDT, Patch, [facility] 1 patch to affected area Topically Daily, remove at HS, 175, cm, 05/30/19 19:11:00... Start Date: 08/13/19 Status: Orderedloratadine 10 mg oral tablet 10 mg, 1, tablet, By Mouth, Daily, Chinese label please., # 30 tablet, Refills 0, Tot. Refills 0, Maintenance, 07/01/20 14:30:00 EST, Route to Pharmacy Electronically, [facility] #[id number], Partial fill upon patient request if the prescription... Start Date: 07/01/20 Stop Date: 07/31/20 Status: Orderedmontelukast 10 mg oral tablet 10 mg, 1, tablet, By Mouth, Daily, AUSTRALIAN LABEL, # 30 tablet, Refills 11, Tot. Refills 11, Maintenance, 07/14/20 11:23:00 EDT, Route to Pharmacy Electronically, [facility] #[id number], 175, cm, 07/14/20 10:19:00 EDT, Height, 86, kg, 07/05/20 1:5... Start Date: 07/14/20 Status: Orderednicotine 7 mg/24 hr transdermal film, extended release 1 patch, Topically, Daily, for 14 days, # 14 patch, 0 Refills, Acute 08/05/20 10:07:00 EDT, 07/22/2109:07:00 EDT, Patch, [facility] #[id number], Partial fill upon patient request if the prescription is for a schedule II opioid drug., 1 patch Top... Start Date: 07/22/20 Stop Date: 08/05/20 Status: OrderedPlavix 75 mg oral tablet 75 mg, 1, tablet, By Mouth, Daily, AUSTRALIAN LABEL, # 30 tablet, Refills 3, Tot. Refills 3, Maintenance, 01/18/20 14:12:00 EDT, Route to Pharmacy Electronically, [facility], 176, cm, 01/18/20 13:37:00 EDT, Height, 84, kg, 01/01/20 22:36:... Start Date: 01/18/20 Status: OrderedpredniSONE 10 mg oral tablet See Instructions, 40 mg for 2 days, 20 mg for 2 days 10 mg for 2 days., # 14 tablet, 0 Refills, Maintenance, 07/22/20 10:06:00 EDT, [facility] #[id number], Partial fill upon patient request if theprescription is for a schedule II opioid drug., 1... Start Date: 07/22/20 Status: OrderedProAir HFA 90 mcg/inh inhalation aerosol with adapter 1, puffs, Inhalation, Every 4 hours, PRN, # 1 each, Refills 5, Tot. Refills 5, Maintenance, 07/22/2109:04:00 EDT, Aerosol, Route to Pharmacy Electronically, [id number], [facility] #[id number], 175, cm, 07/22/20 7:07:00... Start Date: 07/22/20 Stop Date: 01/18/21 Status: OrderedSEROquel XR 300 mg oral tablet, extended release 1 tablet = 300 mg, By Mouth, Daily at bedtime, AUSTRALIAN LABEL, # 30 tablet, 1 Refills, Maintenance, 05/30/20 13:29:00 EST, ER Tablet, [facility], 1 tablet By Mouth Daily at bedtime,Instr:AUSTRALIAN LABEL, 176, cm, 01/18/20 13:37:00 EDT, He... [...] Active Nausea & vomiting(Confirmed) Active *Julissa Fraga, [facility] Care Active Coordinator [phone](Confirmed) Lumbar radicular pain(Confirmed) Active Right hemiplegia(Confirmed) Active Encounter for screening Active colonoscopy(Confirmed) Tobacco dependence(Confirmed) Active DMII (diabetes mellitus, type Active 2)(Confirmed) Vertigo(Confirmed) Active Social History Social History Type Response Smoking Status 5-9 cigarettes (between 1/4 to 1/2 pack)/day in last 30 days entered on: 01/01/20 Sex
--- OUTSIDE RECORDS SUMMARY | 2022-06-19 23:11 | XMS_ITS | Continuity of Care Document ---
:1965 Author Organization [facility] Address [address] [place] [phone]- Care Team Providers Name Role Phone Manuel Amador DO Primary Care Physician [facility] Date[facility]s): 11/09/21 - 12/09/21 [facility] Medicine [address] [place] [id number]- Attending Physician: Jacky Wren Admitting Physician: AdmJacky [...] Patient Refuses 1Early/Late Reason: Other : Patient [id number] Comment: [01/16/2017] [facility] [id number] Comment: lot # [id number] Medications albuterol 0.083% inhalation solution 3 mL = 2.5 mg, Inhalation, Every 6 hours, PRN Wheezing/Shortness of Breath, # 1 each, 6 Refills, Maintenance, 04/03/21 9:01:00 EST, Solution, [facility], 175, cm, 04/03/21 8:32:00 EST, Height, 82.4, kg, 07/21/20 11:02:00 EDT, Dry Weight Start Date: 04/03/21 Status: OrderedamLODIPine 10 mg oral tablet 10 mg, 1, tablet, By Mouth, Daily at bedtime, # 30 tablet, Refills 2, Tot. Refills 2, Maintenance, 10/19/21 21:06:00 EDT, Route to Pharmacy Electronically, [facility], Partial fill uponpatient request if the prescription is for a sche... Start Date: 10/19/21 Status: OrderedamLODIPine 10 mg oral tablet 10 mg, 1, tablet, By Mouth, Daily at bedtime, for 90 days, # 90 tablet, Refills 4, Tot. Refills 4, Hard Stop 12/24/21 9:34:00 EDT, 09/30/20 9:34:00 EDT, [id number], Partial fill upon patient request i... Start Date: 09/30/20 Stop Date: 12/24/21 Status: Orderedaspirin 81 mg oral delayed release tablet 81 mg, 1, tablet, By Mouth, Daily, ALGERIAN LABEL, # 90 tablet, Refills 3, Tot. Refills 3, Maintenance, 08/09/21 5:53:00 EDT, Route to Pharmacy Electronically, [facility], 175, cm, 04/03/21 8:32:00 EST, Height, 82.4, kg, 07/21/20 11:02:... Start Date: 08/09/21 Status: Orderedatorvastatin 20 mg oral tablet 1 tablet = 20 mg, By Mouth, Daily at bedtime, ALGERIAN LABEL, # 90 tablet, 1 Refills, Maintenance, 04/03/21 9:05:00 EST, Tablet, [facility] 175, cm, 04/03/21 8:32:00 EST, Height, 82.4, kg, 07/21/20 11:02:00 EDT, Dry Weight Start Date: 04/03/21 Status: Ordereddivalproex sodium 500 mg oral enteric coated tablet 1 tablet = 500 mg, By Mouth, 2 times a day, ALGERIAN LABEL, # 60 tablet, 0 Refills, Maintenance, 11/24/21 12:56:00 EDT, Tablet, [facility] 175, cm, 10/05/21 14:47:00 EDT, Height, 82.4, kg, 09/20/21 13:17:00 EDT, Dry Weight Start Date: 11/24/21 Status: Orderedduloxetine 60 mg oral enteric coated capsule 1 capsule = 60 mg, By Mouth, Daily, ALGERIAN LABEL, # 90 capsule, 2 Refills, Maintenance, 04/03/21 9:05:00 EST, Capsule, [facility]., 175, cm, 04/03/21 8:32:00 EST, Height, 82.4, kg, 07/21/20 11:02:00 EDT, Dry Weight Start Date: 04/03/21 Status: OrderedFlonase 50 mcg/inh nasal spray 1 sprays, Nares, Both, 2 times a day, Brazilian label please., # 16 Gm, 1 Refills, Maintenance, 09/30/20 9:34:00 EDT, [facility] #[id number], Partial fill upon patient request if the prescription isfor a schedule II opioid drug., 1 sprays Nares, B... Start Date: 09/30/20 Status: Orderedfluticasone-salmeterol 500 mcg-50 mcg inhalation powder 1 puff, Inhalation, 2 times a day, # 1 each, Refills 3, Tot. Refills 3, Maintenance, 10/11/21 13:36:00 EDT, Powder, Route to Pharmacy Electronically, [id number], [facility] 175, cm, 10/05/21 14:47:00 EDT, Hei... Start Date: 10/11/21 Status: Orderedgabapentin 300 mg oral capsule 600 mg, 2, capsule, By Mouth, Daily at bedtime, ALGERIAN LABEL, # 60 capsule, Refills 3, Tot. Refills3, Maintenance, 10/11/21 13:32:00 EDT, Route to Pharmacy Electronically, [facility]175, cm, 10/05/21 14:47:00 EDT, Height, 82.4, [...] 10 mg, 1, tablet, By Mouth, Daily, Brazilian label please., # 30 tablet, Refills 0, Tot. Refills 0, Maintenance, 04/03/21 9:08:00 EST, Route to Pharmacy Electronically, [facility], Partial fill upon patient request if [...] 0 Refills, Maintenance, 09/18/21 11:48:00 EDT, Tablet, [facility] #[id number], Partial fill upon patient request if the prescription is for a schedule II opioid drug., 175, cm, 09/18/21 10:48:00 ED... Start Date: 09/18/21 Stop Date: 09/28/21 Status: OrderedmetFORMIN 500 mg oral tablet, extended release 2 tablet = 1,000 mg, By Mouth, 2 times a day, # 120 tablet, 6 Refills, Maintenance, 10/05/21 14:16:00 EDT, [facility] #[id number], Partial fill upon patient request if the prescription is for a schedule II opioid drug., 175, cm, 09/23/21 4:10:00... Start Date: 10/05/21 Status: Orderedmontelukast 10 mg oral tablet 10 mg, 1, tablet, By Mouth, Daily, ALGERIAN LABEL, # 30 tablet, Refills 11, Tot. Refills 11, Maintenance, 10/03/21 16:07:00 EDT, Route to Pharmacy Electronically, [facility] #[id number], 175, cm, 09/23/21 4:10:00 EDT, Height, 82.4, [...] 75 mg, 1, tablet, By Mouth, Daily, ALGERIAN LABEL, # 30 tablet, Refills 3, Tot. Refills 3, Maintenance, 08/09/21 5:53:00 EDT, Route to Pharmacy Electronically, [facility], 175, cm, 04/03/21 8:32:00 EST, Height, 82.4, kg, 07/21/20 11:02:... Start Date: 08/09/21 Status: OrderedProAir HFA 90 mcg/inh inhalation aerosol with adapter 1, puffs, Inhalation, Every 4 hours, PRN, # 1 each, Refills 5, Tot. Refills 5, Maintenance, :01:00 EST, Aerosol, Route to Pharmacy Electronically, [id number], [facility], 175, cm, 04/03/21 8:32:00 ES... Start [...] CTA - done Active at [facility]. 07/2021 - scanned in CIS(Confirmed) *Julissa Fraga, [facility] Care Active Coordinator [phone](Confirmed) Lumbar radicular pain(Confirmed) Active Right hemiplegia(Confirmed) Active Encounter for screening Active colonoscopy(Confirmed) Tobacco dependence(Confirmed) Active DMII (diabetes mellitus, type Active 2)(Confirmed) Vertigo(Confirmed) Active Social History Social History Type Response Smoking Status 5-9 cigarettes (between 1/4 to 1/2 pack)/day in last 30 days entered on: 01/01/20 Sex
--- OUTSIDE RECORDS SUMMARY | 2022-06-19 23:11 | XMS_ITS | Continuity of Care Document ---
:1965 Author Organization [facility] Address [address] [place] [address]- Care Team Providers Name Role Phone Greyson LARES, Mauricio Primary Care Physician [facility]counter [facility] Date(s): 09/28/21 - 10/28/[address] [address]- Allergies, Adverse Reactions, Alerts No Known Medication [...] Patient Refuses 1Early/Late Reason: Other : Patient [id number] Comment: [01/16/2017] [facility] [id number] Comment: lot # [id number] Medications albuterol 0.083% inhalation solution 3 mL = 2.5 mg, Inhalation, Every 6 hours, PRN Wheezing/Shortness of Breath, # 1 each, 6 Refills, Maintenance, 04/03/21 9:01:00 EST, Solution, [facility] 175, cm, 04/03/21 8:32:00 EST, Height, 82.4, kg, 07/21/20 11:02:00 EDT, Dry Weight Start Date: 04/03/21 Status: OrderedamLODIPine 10 mg oral tablet 10 mg, 1, tablet, By Mouth, Daily at bedtime, # 30 tablet, Refills 2, Tot. Refills 2, Maintenance, 10/19/21 21:06:00 EDT, Route to Pharmacy Electronically, [facility], Partial fill uponpatient request if the prescription is for a sche... Start Date: 10/19/21 Status: OrderedamLODIPine 10 mg oral tablet 10 mg, 1, tablet, By Mouth, Daily at bedtime, for 90 days, # 90 tablet, Refills 4, Tot. Refills 4, Hard Stop 12/24/21 9:34:00 EDT, 09/30/20 9:34:00 EDT, Route to Pharmacy Electronically, [facility] #[id number], Partial fill upon patient request i... Start Date: 09/30/20 Stop Date: 12/24/21 Status: Orderedaspirin 81 mg oral delayed release tablet 81 mg, 1, tablet, By Mouth, Daily, POLISH LABEL, # 90 tablet, Refills 3, Tot. Refills 3, Maintenance, 08/09/21 5:53:00 EDT, Route to Pharmacy Electronically, [facility] 175, cm, 04/03/21 8:32:00 EST, Height, 82.4, kg, 07/21/20 11:02:... Start Date: 08/09/21 Status: Orderedatorvastatin 20 mg oral tablet 1 tablet = 20 mg, By Mouth, Daily at bedtime, POLISH LABEL, # 90 tablet, 1 Refills, Maintenance, 04/03/21 9:05:00 EST, Tablet, [facility] 175, cm, 04/03/21 8:32:00 EST, Height, 82.4, kg, 07/21/20 11:02:00 EDT, Dry Weight Start Date: 04/03/21 Status: Ordereddivalproex sodium 500 mg oral enteric coated tablet 1 tablet = 500 mg, By Mouth, 2 times a day, POLISH LABEL, # 60 tablet, 0 Refills, Maintenance, 10/11/21 13:36:00 EDT, Tablet, [facility] 175, cm, 10/05/21 14:47:00 EDT, Height, 82.4, kg, 09/20/21 13:17:00 EDT, Dry Weight Start Date: 10/11/21 Status: Orderedduloxetine 60 mg oral enteric coated capsule 1 capsule = 60 mg, By Mouth, Daily, POLISH LABEL, # 90 capsule, 2 Refills, Maintenance, 04/03/21 9:05:00 EST, Capsule, [facility] 175, cm, 04/03/21 8:32:00 EST, Height, 82.4, kg, 07/21/20 11:02:00 EDT, Dry Weight Start Date: 04/03/21 Status: OrderedFlonase 50 mcg/inh nasal spray 1 sprays, Nares, Both, 2 times a day, Urugu[place] label please., # 16 Gm, 1 Refills, Maintenance, 09/30/20 9:34:00 EDT, [facility] #[id number], Partial fill upon patient request if the prescription isfor a schedule II opioid drug., 1 sprays Nares, B... Start Date: 09/30/20 Status: Orderedfluticasone-salmeterol 500 mcg-50 mcg inhalation powder 1 puff, Inhalation, 2 times a day, # 1 each, Refills 3, Tot. Refills 3, Maintenance, 10/11/21 13:36:00 EDT, Powder, Route to Pharmacy Electronically, [id number], [facility] 175, cm, 10/05/21 14:47:00 EDT, Hei... Start Date: 10/11/21 Status: Orderedgabapentin 300 mg oral capsule 600 mg, 2, capsule, By Mouth, Daily at bedtime, POLISH LABEL, # 60 capsule, Refills 3, Tot. Refills3, Maintenance, 10/11/21 13:32:00 EDT, Route to Pharmacy Electronically, [facility]175, cm, 10/05/21 14:47:00 EDT, Height, 82.4, [...] 10 mg, 1, tablet, By Mouth, Daily, Uruguayan label please., # 30 tablet, Refills 0, Tot. Refills 0, Maintenance, 04/03/21 9:08:00 EST, Route to Pharmacy Electronically, [facility], Partial fill upon patient request [...] 0 Refills, Maintenance, 09/18/21 11:48:00 EDT, Tablet, [facility] #[id number], Partial fill upon patient request if the prescription is for a schedule II opioid drug., 175, cm, 09/18/21 10:48:00 ED... Start Date: 09/18/21 Stop Date: 09/28/21 Status: OrderedmetFORMIN 500 mg oral tablet, extended release 2 tablet = 1,000 mg, By Mouth, 2 times a day, # 120 tablet, 6 Refills, Maintenance, 10/05/21 14:16:00 EDT, [facility] #[id number], Partial fill upon patient request if the prescription is for a schedule II opioid drug., 175, cm, 09/23/21 4:10:00... Start Date: 10/05/21 Status: Orderedmontelukast 10 mg oral tablet 10 mg, 1, tablet, By Mouth, Daily, POLISH LABEL, # 30 tablet, Refills 11, Tot. Refills 11, Maintenance, 10/03/21 16:07:00 EDT, Route to Pharmacy Electronically, [facility] #[id number], 175, cm, 09/23/21 4:10:00 EDT, Height, 82.4, [...] 75 mg, 1, tablet, By Mouth, Daily, POLISH LABEL, # 30 tablet, Refills 3, Tot. Refills 3, Maintenance, 08/09/21 5:53:00 EDT, Route to Pharmacy Electronically, [facility], 175, cm, 04/03/21 8:32:00 EST, Height, 82.4, kg, 07/21/20 11:02:... Start Date: 08/09/21 Status: OrderedProAir HFA 90 mcg/inh inhalation aerosol with adapter 1, puffs, Inhalation, Every 4 hours, PRN, # 1 each, Refills 5, Tot. Refills 5, Maintenance, :01:00 EST, Aerosol, Route to Pharmacy Electronically, [id number], [facility], 175, cm, 04/03/21 8:32:00 ES... [...] RIGHT UPPER. CTA - done Active at [facility]. 07/2021 - scanned in CIS(Confirmed) *Julissa Fraga, [facility] Care Active Coordinator [phone](Confirmed) Lumbar radicular pain(Confirmed) Active Right hemiplegia(Confirmed) Active Encounter for screening Active colonoscopy(Confirmed) Tobacco dependence(Confirmed) Active DMII (diabetes mellitus, type Active 2)(Confirmed) Vertigo(Confirmed) Active Social History Social History Type Response Smoking Status 5-9 cigarettes (between 1/4 to 1/2 pack)/day in last 30 days entered on: 01/01/20 Sex
--- OUTSIDE RECORDS SUMMARY | 2022-06-19 23:11 | XMS_ITS | Continuity of Care Document ---
:1965 Author Organization [facility] Address [address] [place] [phone]- Care Team Providers Name Role Phone Greyson LARES, Mauricio Primary Care Physician Encounter [facility] Date(s): 05/18/20 - 08/04/20 [facility] [address] [place] [address] Attending Physician: Kiet Burgess MD Admitting Physician: Kiet Burgess MD Referring Physician: Ct Armenta DO Allergies, Adverse Reactions, Alerts No Known [...] Patient Refuses 1Early/Late Reason: Other : Patient [id number] Comment: [01/16/2017] [facility] [id number] Comment: lot # [id number] Medications Advair Diskus 250 mcg-50 mcg inhalation powder 1, puffs, Inhalation, 2 times a day, # 180 each, Refills 1, Tot. Refills 1, Maintenance, 07/22/20 10:04:00 EDT, Powder, Route to Pharmacy Electronically, [id number], [facility] #[id number], 175, cm, 07/22/20 7:07:00 EDT,... Start Date: 07/22/20 Status: Orderedalbuterol 0.083% inhalation solution 3 mL = 2.5 mg, Inhalation, Every 6 hours, PRN Wheezing/Shortness of Breath, # 1 each, 6 Refills, Maintenance, 05/30/20 13:29:00 EST, Solution, [facility] 176, cm, 01/18/20 13:37:00 EDT, Height, 84, kg, 03/15/20 6:52:00 EST, Dry Weight Start Date: 05/30/20 Status: OrderedamLODIPine 10 mg oral tablet 10 mg, 1, tablet, By Mouth, Daily at bedtime, # 90 tablet, Refills 4, Tot. Refills 4, Maintenance, 07/14/20 11:22:00 EDT, Route to Pharmacy Electronically, [facility] #[id number], Partial fill upon patient request if the prescription is for a xena... Start Date: 07/14/20 Stop Date: 10/07/21 Status: Orderedaspirin 81 mg oral delayed release tablet 81 mg, 1, tablet, By Mouth, Daily, SIERRA LEONE[place] LABEL, # 30 tablet, Refills 1, Tot. Refills 1, Maintenance, 05/30/20 13:29:00 EST, Route to Pharmacy Electronically, [facility], 176, cm, 01/18/20 13:37:00 EDT, Height, 84, kg, 03/15/20 6:52:0... Start Date: 05/30/20 Status: Orderedatorvastatin 20 mg oral tablet 1 tablet = 20 mg, By Mouth, Daily at bedtime, [place]ER[place] LEONE[place] LABEL, # 30 tablet, 1 Refills, Maintenance, 05/30/20 13:29:00 EST, Tablet, [facility], 176, cm, 01/18/20 13:37:00 EDT, Height, 84, kg, 03/15/20 6:52:00 EST, Dry Weight Start Date: 05/30/20 Status: Ordereddivalproex sodium 500 mg oral enteric coated tablet 1 tablet = 500 mg, By Mouth, 2 times a day, SIERRA LEONE[place] LABEL, # 60 tablet, 2 Refills, Maintenance, 05/30/20 13:29:00 EST, Tablet, [facility], 176, cm, 01/18/20 13:37:00 EDT, Height, 84, kg, 03/15/20 6:52:00 EST, Dry Weight Start Date: 05/30/20 Status: Orderedduloxetine 60 mg oral enteric coated capsule 1 capsule = 60 mg, By Mouth, Daily, SIERRA LEONE[place] LABEL, # 30 capsule, 1 Refills, Maintenance, 05/30/20 13:29:00 EST, Capsule, [facility], 176, cm, 01/18/20 13:37:00 EDT, Height, 84, kg, 03/15/20 6:52:00 EST, Dry Weight Start Date: 05/30/20 Status: OrderedFlonase 50 mcg/inh nasal spray 1 sprays, Nares, Both, 2 times a day, Citizen Of [place] label please., # 16 Gm, 1 Refills, Maintenance, 07/01/20 14:30:00 EST, [facility] #[id number], Partial fill upon patient request if the prescription is for a schedule II opioid drug., 1 sprays Nares,... Start Date: 07/01/20 Status: Orderedgabapentin 300 mg oral capsule 600 mg, 2, capsule, By Mouth, Daily at bedtime, SIERRA LEONE[place] LABEL, # 60 capsule, Refills 3, Tot. Refills3, Maintenance, 05/30/20 13:29:00 EST, Route to Pharmacy Electronically, [facility],176, cm, 01/18/20 13:37:00 EDT, Height, 84, kg, 1... Start Date: 05/30/20 Status: Orderedlidocaine 5% topical film See Instructions, 1 patch to affected area Topically Daily, remove at HS, # 30 patch, 1 Refills, Maintenance, 08/13/19 13:28:00 EDT, Patch, [facility], 1 patch to affected area Topically Daily, remove at HS, 175, cm, 05/30/19 19:11:00... Start Date: 08/13/19 Status: Orderedloratadine 10 mg oral tablet 10 mg, 1, tablet, By Mouth, Daily, Citizen Of [place] label please., # 30 tablet, Refills 0, Tot. Refills 0, Maintenance, 07/01/20 14:30:00 EST, Route to Pharmacy Electronically, [facility] #[id number], Partial fill upon patient request if the prescription... Start Date: 07/01/20 Stop Date: 07/31/20 Status: Orderedmontelukast 10 mg oral tablet 10 mg, 1, tablet, By Mouth, Daily, SIERRA LEONE[place] LABEL, # 30 tablet, Refills 11, Tot. Refills 11, Maintenance, 07/14/20 11:23:00 EDT, Route to Pharmacy Electronically, [facility] #[id number], 175, cm, 07/14/20 10:19:00 EDT, Height, 86, kg, 07/05/20 1:5... Start Date: 07/14/20 Status: Orderednicotine 7 mg/24 hr transdermal film, extended release 1 patch, Topically, Daily, for 14 days, # 14 patch, 0 Refills, Acute 08/05/20 10:07:00 EDT, 07/22/2109:07:00 EDT, Patch, [facility] #[id number], Partial fill upon patient request if the prescription is for a schedule II opioid drug., 1 patch Top... Start Date: 07/22/20 Stop Date: 08/05/20 Status: OrderedPlavix 75 mg oral tablet 75 mg, 1, tablet, By Mouth, Daily, SIER[place] LEONE[place] LABEL, # 30 tablet, Refills 3, Tot. Refills 3, Maintenance, 01/18/20 14:12:00 EDT, Route to Pharmacy Electronically, [facility], 176, cm, 01/18/20 13:37:00 EDT, Height, 84, kg, 01/01/20 22:36:... Start Date: 01/18/20 Status: OrderedpredniSONE 10 mg oral tablet See Instructions, 40 mg for 2 days, 20 mg for 2 days 10 mg for 2 days., # 14 tablet, 0 Refills, Maintenance, 07/22/20 10:06:00 EDT, [facility] #[id number], Partial fill upon patient request if theprescription is for a schedule II opioid drug., 1... Start Date: 07/22/20 Status: OrderedProAir HFA 90 mcg/inh inhalation aerosol with adapter 1, puffs, Inhalation, Every 4 hours, PRN, # 1 each, Refills 5, Tot. Refills 5, Maintenance, 07/22/2109:04:00 EDT, Aerosol, Route to Pharmacy Electronically, [id number], [id number], 175, cm, 07/22/20 7:07:00... Start Date: 07/22/20 Stop Date: 01/18/21 Status: OrderedSEROquel XR 300 mg oral tablet, extended release 1 tablet = 300 mg, By Mouth, Daily at bedtime, SIERRA LEONE[place] LABEL, # 30 tablet, 1 Refills, Maintenance, 05/30/20 13:29:00 EST, ER Tablet, [facility], 1 tablet By Mouth Daily at bedtime,Instr:SIERRA [...] Active Nausea & vomiting(Confirmed) Active *Julissa Fraga, [facility] Care Active Coordinator [phone](Confirmed) Lumbar radicular pain(Confirmed) Active Right hemiplegia(Confirmed) Active Encounter for screening Active colonoscopy(Confirmed) Tobacco dependence(Confirmed) Active DMII (diabetes mellitus, type Active 2)(Confirmed) Vertigo(Confirmed) Active Social History Social History Type Response Smoking Status 5-9 cigarettes (between 1/4 to 1/2 pack)/day in last 30 days entered on: 01/01/20 Sex
--- OUTSIDE RECORDS SUMMARY | 2022-06-19 23:11 | XMS_ITS | Continuity of Care Document ---
:1965 Author Organization [facility] Address [address] [place] [id number]- Care Team Providers Name Role Phone Gladismary Manuel KU Primary Care Physician [facility] Date[facility]): [facility]21 - 12/09/21 [facility] [address] [place] [id number] Attending Physician: Not on Staff, Attending [...] Patient Refuses 1Early/Late Reason: Other : Patient [id number] Comment: [01/16/2017] [facility] [id number] Comment: lot # [id number] Medications albuterol 0.083% inhalation solution 3 mL = 2.5 mg, Inhalation, Every 6 hours, PRN Wheezing/Shortness of Breath, # 1 each, 6 Refills, Maintenance, 04/03/21 9:01:00 EST, Solution, [facility] 175, cm, 04/03/21 8:32:00 EST, Height, 82.4, kg, 07/21/20 11:02:00 EDT, Dry Weight Start Date: 04/03/21 Status: OrderedamLODIPine 10 mg oral tablet 10 mg, 1, tablet, By Mouth, Daily at bedtime, # 30 tablet, Refills 2, Tot. Refills 2, Maintenance, 10/19/21 21:06:00 EDT, Route to Pharmacy Electronically, [facility], Partial fill uponpatient request if the prescription is for a sche... Start Date: 10/19/21 Status: OrderedamLODIPine 10 mg oral tablet 10 mg, 1, tablet, By Mouth, Daily at bedtime, for 90 days, # 90 tablet, Refills 4, Tot. Refills 4, Hard Stop 12/24/21 9:34:00 EDT, 09/30/20 9:34:00 EDT, Route to Pharmacy Electronically, [facility] #[id number], Partial fill upon patient request i... Start Date: 09/30/20 Stop Date: 12/24/21 Status: Orderedaspirin 81 mg oral delayed release tablet 81 mg, 1, tablet, By Mouth, Daily, MALTESE LABEL, # 90 tablet, Refills 3, Tot. Refills 3, Maintenance, 08/09/21 5:53:00 EDT, Route to Pharmacy Electronically, [facility], 175, cm, 04/03/21 8:32:00 EST, Height, 82.4, kg, 07/21/20 11:02:... Start Date: 08/09/21 Status: Orderedatorvastatin 20 mg oral tablet 1 tablet = 20 mg, By Mouth, Daily at bedtime, MALTESE LABEL, # 90 tablet, 1 Refills, Maintenance, 04/03/21 9:05:00 EST, Tablet, [facility] 175, cm, 04/03/21 8:32:00 EST, Height, 82.4, kg, 07/21/20 11:02:00 EDT, Dry Weight Start Date: 04/03/21 Status: Ordereddivalproex sodium 500 mg oral enteric coated tablet 1 tablet = 500 mg, By Mouth, 2 times a day, MALTESE LABEL, # 60 tablet, 0 Refills, Maintenance, 11/24/21 12:56:00 EDT, Tablet, [facility]., 175, cm, 10/05/21 14:47:00 EDT, Height, 82.4, kg, 09/20/21 13:17:00 EDT, Dry Weight Start Date: 11/24/21 Status: Orderedduloxetine 60 mg oral enteric coated capsule 1 capsule = 60 mg, By Mouth, Daily, MALTESE LABEL, # 90 capsule, 2 Refills, Maintenance, 04/03/21 9:05:00 EST, Capsule, [facility], 175, cm, 04/03/21 8:32:00 EST, Height, 82.4, kg, 07/21/20 11:02:00 EDT, Dry Weight Start Date: 04/03/21 Status: OrderedFlonase 50 mcg/inh nasal spray 1 sprays, Nares, Both, 2 times a day, Nicaraguan label please., # 16 Gm, 1 Refills, Maintenance, 09/30/20 9:34:00 EDT, [facility] #[id number], Partial fill upon patient request if the prescription isfor a schedule II opioid drug., 1 sprays Nares, B... Start Date: 09/30/20 Status: Orderedfluticasone-salmeterol 500 mcg-50 mcg inhalation powder 1 puff, Inhalation, 2 times a day, # 1 each, Refills 3, Tot. Refills 3, Maintenance, 10/11/21 13:36:00 EDT, Powder, Route to Pharmacy Electronically, [id number], [facility] 175, cm, 10/05/21 14:47:00 EDT, Hei... Start Date: 10/11/21 Status: Orderedgabapentin 300 mg oral capsule 600 mg, 2, capsule, By Mouth, Daily at bedtime, MALTESE LABEL, # 60 capsule, Refills 3, Tot. Refills3, Maintenance, 10/11/21 13:32:00 EDT, Route to Pharmacy Electronically, [facility]175, cm, 10/05/21 14:47:00 EDT, Height, 82.4, [...] 10 mg, 1, tablet, By Mouth, Daily, Nicaraguan label please., # 30 tablet, Refills 0, Tot. Refills 0, Maintenance, 04/03/21 9:08:00 EST, Route to Pharmacy Electronically, [facility], Partial fill upon patient request [...] 0 Refills, Maintenance, 09/18/21 11:48:00 EDT, Tablet, [facility] #[id number], Partial fill upon patient request if the prescription is for a schedule II opioid drug., 175, cm, 09/18/21 10:48:00 ED... Start Date: 09/18/21 Stop Date: 09/28/21 Status: OrderedmetFORMIN 500 mg oral tablet, extended release 2 tablet = 1,000 mg, By Mouth, 2 times a day, # 120 tablet, 6 Refills, Maintenance, 10/05/21 14:16:00 EDT, [facility] #[id number], Partial fill upon patient request if the prescription is for a schedule II opioid drug., 175, cm, 09/23/21 4:10:00... Start Date: 10/05/21 Status: Orderedmontelukast 10 mg oral tablet 10 mg, 1, tablet, By Mouth, Daily, MALTESE LABEL, # 30 tablet, Refills 11, Tot. Refills 11, Maintenance, 10/03/21 16:07:00 EDT, Route to Pharmacy Electronically, [facility] #[id number], 175, cm, 09/23/21 4:10:00 EDT, Height, 82.4, [...] 08/09/21 5:53:00 EDT, Route to Pharmacy Electronically, [facility], 175, cm, 04/03/21 8:32:00 EST, Height, 82.4, kg, 07/21/20 11:02:... Start Date: 08/09/21 Status: OrderedProAir HFA 90 mcg/inh inhalation aerosol with adapter 1, puffs, Inhalation, Every 4 hours, PRN, # 1 each, Refills 5, Tot. Refills 5, Maintenance, 219:01:00 EST, Aerosol, Route to Pharmacy Electronically, [id number], [facility], 175, cm, 04/03/21 8:32:00 ES... [...] RIGHT UPPER. CTA - done Active at [facility]. 07/2021 - scanned in [facility](Confirmed) *Julissa Fraga, [facility] Care Active Coordinator [phone](Confirmed) Lumbar radicular pain(Confirmed) Active Right hemiplegia(Confirmed) Active Encounter for screening Active colonoscopy(Confirmed) Tobacco dependence(Confirmed) Active DMII (diabetes mellitus, type Active 2)(Confirmed) Vertigo(Confirmed) Active Social History Social History Type Response Smoking Status 5-9 cigarettes (between 1/4 to 1/2 pack)/day in last 30 days entered on: 01/01/20 Sex
--- OUTSIDE RECORDS SUMMARY | 2022-06-19 23:11 | XMS_ITS | Continuity of Care Document ---
:1965 Author Organization [facility] Address [address] [place] [address]- Care Team Providers Name Role Phone Greyson LARES, Mauricio Primary Care Physician [facility]): 08[facility]18[facility]19 - 08/25/19 [facility] [address] [place] [address]- [facility] Attending Physician: Not on Staff, Attending MD [...] Patient Refuses 1Early/Late Reason: Other : Patient [id number] Comment: [01/16/2017] [facility] [id number] Comment: lot # [id number] Medications AirDuo RespiClick 232 mcg-14 mcg/inh inhalation powder 1, puffs, Inhalation, 2 times a day, # 1 each, Refills 11, Tot. Refills 11, Maintenance, 07/07/19 19:06:00 EDT, Powder, Route to Pharmacy Electronically, [id number], [facility] advair [facility], 175,... Start Date: 07/07/19 Status: Orderedalbuterol 0.083% inhalation solution 3 mL = 2.5 mg, Inhalation, Every 6 hours, PRN Wheezing/Shortness of Breath, # 1 each, 6 Refills, Maintenance, 07/07/19 19:06:00 EDT, Solution, [facility], 175, cm, 05/30/19 19:11:00 EST, Height, 84.5, kg, 12/25/18 16:15:00 EDT, Dry Weight Start Date: 07/07/19 Status: Orderedaspirin 81 mg oral delayed release tablet 81 mg, 1, tablet, By Mouth, Daily, # 90 tablet, Refills 4, Tot. Refills 4, Maintenance, 07/07/19 19:06:00 EDT, Route to Pharmacy Electronically, [facility], 175, cm, 05/30/19 19:11:00 EST, Height, 84.5, kg, 12/25/18 16:15:00 EDT, Dry W... Start Date: 07/07/19 Stop Date: 09/29/20 Status: Orderedatorvastatin 20 mg oral tablet 1 tablet = 20 mg, By Mouth, Daily at bedtime, # 30 tablet, 5 Refills, Maintenance, 08/13/19 13:04:00EDT, Tablet, [facility], 175, cm, 05/30/19 19:11:00 EST, Height, 84.5, kg, 12/25/18 16:15:00 EDT, Dry Weight Start Date: 08/13/19 Status: OrderedCymbalta 60 mg oral enteric coated capsule 1 capsule = 60 mg, By Mouth, Daily, # 30 capsule, 6 Refills, Maintenance, 07/07/19 19:06:00 EDT, EC Capsule, [facility], 175, cm, 05/30/19 19:11:00 EST, Height, 84.5, kg, 12/25/18 16:15:00 EDT, Dry Weight Start Date: 07/07/19 Status: Ordereddivalproex sodium 500 mg oral enteric coated tablet = 500 mg, By Mouth, 2 times a day, # 60 tablet, 5 Refills, Maintenance, 07/07/19 19:06:00 EDT, Tablet, [facility] 175, cm, 05/30/19 19:11:00 EST, [...] tablet, 5 Refills, Maintenance, 07/07/19 19:06:00 EDT, [facility] 175, cm, 05/30/19 19:11:00 EST, Height, 84.5, kg, 12/25/18 16:15:00 EDT, Dry Weight Start Date: 07/07/19 Status: Orderedhydrochlorothiazide 25 mg oral tablet 12.5 mg, 0.5, tablet, By Mouth, Daily, # 15 tablet, Refills 1, Tot. Refills 1, Maintenance, 08/12/2012:07:00 EDT, Route to Pharmacy Electronically, [facility], 175, cm, 05/30/19 19:11:00 EST, Height, 84.5, kg, 12/25/18 16:15:00 EDT, D... Start Date: 08/13/19 Status: Orderedlidocaine 5% topical film See Instructions, 1 patch to affected area Topically Daily, remove at HS, # 30 patch, 1 Refills, Maintenance, 08/13/19 13:28:00 EDT, Patch, [facility], 1 patch to affected area Topically Daily, remove at HS, 175, cm, 05/30/19 19:11:00... Start Date: 08/13/19 Status: OrderedmetFORMIN 500 mg oral tablet 1 tablet = 500 mg, By Mouth, 2 times a day, with meals, Gambian label, # 180 tablet, 1 Refills, Maintenance, 07/07/19 19:06:00 EDT, Tablet, [facility], 175, cm, 05/30/19 19:11:00 EST, Height, 84.5, kg, 12/25/18 16:15:00 EDT, Dry Weight Start Date: 07/07/19 Stop Date: 01/03/20 Status: Orderedmontelukast 10 mg oral tablet 10 mg, By Mouth, Daily, # 30 tablet, Refills 9, Tot. Refills 9, Maintenance, 07/07/19 19:06:00 EDT, Route to Pharmacy Electronically, [facility], 175, cm, 05/30/19 19:11:00 EST, Height,84.5, kg, 12/25/18 16:15:00 EDT, Dry Weight Start Date: 07/07/19 Status: OrderedNuLYTELY with Flavor Packs oral powder for reconstitution 240 mL, By Mouth, Every 15 minutes, # 4,000 mL, 0 Refills, Maintenance, 07/07/19 19:06:00 EDT, [facility], 240 mL By Mouth Every 15 minutes, 175, cm, 05/30/19 19:11:00 EST, Height, 84.5, kg, 12/25/18 16:15:00 EDT, Dry Weight Start Date: 07/07/19 Status: OrderedPlavix 75 mg oral tablet 75 mg, By Mouth, Daily, Gambian label, # 90 each, Refills 1, Tot. Refills 1, Maintenance, 07/07/19 19:06:00 EDT, Route to Pharmacy Electronically, [facility] 175, cm, 05/30/19 19:11:00EST, Height, 84.5, kg, 12/25/18 16:15:00 EDT, Dry... Start Date: 07/07/19 Stop Date: 01/03/20 Status: OrderedProAir HFA 90 mcg/inh inhalation aerosol with adapter 1, puffs, Inhalation, Every 4 hours, PRN, # 8.5 Gm, Refills 0, Tot. Refills 0, Maintenance, 07/06/2018:06:00 EDT, Aerosol, Route to Pharmacy Electronically, [id number], [facility], 175, cm, 05/30/19 19:11:00... Start Date: 07/07/19 Status: Ordered Problem List Condition Effective Dates Status Health Status Informant Chronic Basilar artery Active occlusion(Confirmed) Aborted CVA- Was given tPA(Confirmed) Active Chronic pain syndrome(Confirmed) Active Constipation(Confirmed) Active Depression(Confirmed) Active Dysuria(Confirmed) Active Heartburn(Confirmed) Active CVA, old, hemiparesis(Confirmed) Active Elevated MCV(Confirmed) Active Nausea & vomiting(Confirmed) Active *Julissa Fraga, [facility] Care Active Coordinator [phone](Confirmed) Lumbar radicular pain(Confirmed) Active Right hemiplegia(Confirmed) Active Encounter for screening Active colonoscopy(Confirmed) Tobacco dependence(Confirmed) Active DMII (diabetes mellitus, type Active 2)(Confirmed) Vertigo(Confirmed) Active Social History Social History Type Response Smoking Status Former smoker, quit more krissy n 30 days ago entered on: 06/18/18 Sex
--- OUTSIDE RECORDS SUMMARY | 2022-06-19 23:11 | XMS_ITS | Continuity of Care Document ---
:1965 Author Organization [facility] Address [address] [place] [address]- Care Team Providers Name Role Phone Greyson LARES, Mauricio Primary Care Physician [facility] 07[facility]20 - 08/06/20 [facility] [address] [place] [id number] Allergies, Adverse Reactions, Alerts No Known [...] Patient Refuses 1Early/Late Reason: Other : Patient [id number] Comment: [01/16/2017] [facility] [id number] Comment: lot # [id number] Medications Advair Diskus 250 mcg-50 mcg inhalation powder 1, puffs, Inhalation, 2 times a day, # 180 each, Refills 1, Tot. Refills 1, Maintenance, 07/22/20 10:04:00 EDT, Powder, Route to Pharmacy Electronically, [id number], [facility] #[id number], 175, cm, 07/22/20 7:07:00 EDT,... Start Date: 07/22/20 Status: Orderedalbuterol 0.083% inhalation solution 3 mL = 2.5 mg, Inhalation, Every 6 hours, PRN Wheezing/Shortness of Breath, # 1 each, 6 Refills, Maintenance, 05/30/20 13:29:00 EST, Solution, [facility] 176, cm, 01/18/20 13:37:00 EDT, Height, 84, kg, 03/15/20 6:52:00 EST, Dry Weight Start Date: 05/30/20 Status: OrderedamLODIPine 10 mg oral tablet 10 mg, 1, tablet, By Mouth, Daily at bedtime, # 90 tablet, Refills 4, Tot. Refills 4, Maintenance, 07/14/20 11:22:00 EDT, Route to Pharmacy Electronically, [facility] #[id number], Partial fill upon patient request if the prescription is for a xena... Start Date: 07/14/20 Stop Date: 10/07/21 Status: Orderedaspirin 81 mg oral delayed release tablet 81 mg, 1, tablet, By Mouth, Daily, KUWAITI LABEL, # 30 tablet, Refills 1, Tot. Refills 1, Maintenance, 05/30/20 13:29:00 EST, Route to Pharmacy Electronically, [facility], 176, cm, 01/18/20 13:37:00 EDT, Height, 84, kg, 03/15/20 6:52:0... Start Date: 05/30/20 Status: Orderedatorvastatin 20 mg oral tablet 1 tablet = 20 mg, By Mouth, Daily at bedtime, KUWAITI LABEL, # 30 tablet, 1 Refills, Maintenance, 05/30/20 13:29:00 EST, Tablet, [facility] 176, cm, 01/18/20 13:37:00 EDT, Height, 84, kg, 03/15/20 6:52:00 EST, Dry Weight Start Date: 05/30/20 Status: Ordereddivalproex sodium 500 mg oral enteric coated tablet 1 tablet = 500 mg, By Mouth, 2 times a day, KUWAITI LABEL, # 60 tablet, 2 Refills, Maintenance, 05/30/20 13:29:00 EST, Tablet, [facility] 176, cm, 01/18/20 13:37:00 EDT, Height, 84, kg, 03/15/20 6:52:00 EST, Dry Weight Start Date: 05/30/20 Status: Orderedduloxetine 60 mg oral enteric coated capsule 1 capsule = 60 mg, By Mouth, Daily, KUWAITI LABEL, # 30 capsule, 1 Refills, Maintenance, 05/30/20 13:29:00 EST, Capsule, [facility], 176, cm, 01/18/20 13:37:00 EDT, Height, 84, kg, 03/15/20 6:52:00 EST, Dry Weight Start Date: 05/30/20 Status: OrderedFlonase 50 mcg/inh nasal spray 1 sprays, Nares, Both, 2 times a day, Belarusian label please., # 16 Gm, 1 Refills, Maintenance, 07/01/20 14:30:00 EST, [facility] #[id number], Partial fill upon patient request if the prescription is for a schedule II opioid drug., 1 sprays Nares,... Start Date: 07/01/20 Status: Orderedgabapentin 300 mg oral capsule 600 mg, 2, capsule, By Mouth, Daily at bedtime, KUWAITI LABEL, # 60 capsule, Refills 3, Tot. Refills3, Maintenance, 05/30/20 13:29:00 EST, Route to Pharmacy Electronically, [facility],176, cm, 01/18/20 13:37:00 EDT, Height, 84, kg, 1... Start Date: 05/30/20 Status: Orderedlidocaine 5% topical film See Instructions, 1 patch to affected area Topically Daily, remove at HS, # 30 patch, 1 Refills, Maintenance, 08/13/19 13:28:00 EDT, Patch, [facility]., 1 patch to affected area Topically Daily, remove at HS, 175, cm, 05/30/19 19:11:00... Start Date: 08/13/19 Status: Orderedloratadine 10 mg oral tablet 10 mg, 1, tablet, By Mouth, Daily, Belarusian label please., # 30 tablet, Refills 0, Tot. Refills 0, Maintenance, 07/01/20 14:30:00 EST, Route to Pharmacy Electronically, [facility] #[id number], Partial fill upon patient request if the prescription... Start Date: 07/01/20 Stop Date: 07/31/20 Status: Orderedmontelukast 10 mg oral tablet 10 mg, 1, tablet, By Mouth, Daily, KUWAITI LABEL, # 30 tablet, Refills 11, Tot. Refills 11, Maintenance, 07/14/20 11:23:00 EDT, Route to Pharmacy Electronically, [facility] #[id number], 175, cm, 07/14/20 10:19:00 EDT, Height, 86, kg, 07/05/20 1:5... Start Date: 07/14/20 Status: OrderedPlavix 75 mg oral tablet 75 mg, 1, tablet, By Mouth, Daily, KUWAITI LABEL, # 30 tablet, Refills 3, Tot. Refills 3, Maintenance, 01/18/20 14:12:00 EDT, Route to Pharmacy Electronically, [facility], 176, cm, 01/18/20 13:37:00 EDT, Height, 84, kg, 01/01/20 22:36:... Start Date: 01/18/20 Status: OrderedpredniSONE 10 mg oral tablet See Instructions, 40 mg for 2 days, 20 mg for 2 days 10 mg for 2 days., # 14 tablet, 0 Refills, Maintenance, 07/22/20 10:06:00 EDT, [facility] #[id number], Partial fill upon patient request if theprescription is for a schedule II opioid drug., 1... Start Date: 07/22/20 Status: OrderedProAir HFA 90 mcg/inh inhalation aerosol with adapter 1, puffs, Inhalation, Every 4 hours, PRN, # 1 each, Refills 5, Tot. Refills 5, Maintenance, 07/22/2109:04:00 EDT, Aerosol, Route to Pharmacy Electronically, [id number], [facility] #[id number], 175, cm, 07/22/20 7:07:00... Start Date: 07/22/20 Stop Date: 01/18/21 Status: OrderedSEROquel XR 300 mg oral tablet, extended release 1 tablet = 300 mg, By Mouth, Daily at bedtime, KUWAITI LABEL, # 30 tablet, 1 Refills, Maintenance, 05/30/20 13:29:00 EST, ER Tablet, [facility], 1 tablet By Mouth Daily at bedtime,Instr:KUWAITI LABEL, 176, cm, 01/18/20 13:37:00 EDT, He... [...] & vomiting(Confirmed) Active *Julissa Fraga, [facility] Care Active Coordinator [phone](Confirmed) Lumbar radicular pain(Confirmed) Active Right hemiplegia(Confirmed) Active Encounter for screening Active colonoscopy(Confirmed) Tobacco dependence(Confirmed) Active DMII (diabetes mellitus, type Active 2)(Confirmed) Vertigo(Confirmed) Active Social History Social History Type Response Smoking Status 5-9 cigarettes (between 1/4 to 1/2 pack)/day in last 30 days entered on: 01/01/20 Sex
--- OUTSIDE RECORDS SUMMARY | 2022-06-19 23:11 | XMS_ITS | Continuity of Care Document ---
:1965 Author Organization [facility] Address [address] [place] [address]- Care Team Providers Name Role Phone Greyson LARES, Mauricio Primary Care Physician [facility]counter [facility] Date(s): 09/28/21 - 10/28/[address] [address]- Allergies, Adverse Reactions, Alerts No Known Medication [...] Patient Refuses 1Early/Late Reason: Other : Patient [id number] Comment: [01/16/2017] [facility] [id number] Comment: lot # [id number] Medications albuterol 0.083% inhalation solution 3 mL = 2.5 mg, Inhalation, Every 6 hours, PRN Wheezing/Shortness of Breath, # 1 each, 6 Refills, Maintenance, 04/03/21 9:01:00 EST, Solution, [facility] 175, cm, 04/03/21 8:32:00 EST, Height, 82.4, kg, 07/21/20 11:02:00 EDT, Dry Weight Start Date: 04/03/21 Status: OrderedamLODIPine 10 mg oral tablet 10 mg, 1, tablet, By Mouth, Daily at bedtime, # 30 tablet, Refills 2, Tot. Refills 2, Maintenance, 10/19/21 21:06:00 EDT, Route to Pharmacy Electronically, [facility], Partial fill uponpatient request if the prescription is for a sche... Start Date: 10/19/21 Status: OrderedamLODIPine 10 mg oral tablet 10 mg, 1, tablet, By Mouth, Daily at bedtime, for 90 days, # 90 tablet, Refills 4, Tot. Refills 4, Hard Stop 12/24/21 9:34:00 EDT, 09/30/20 9:34:00 EDT, Route to Pharmacy Electronically, [facility] #[id number], Partial fill upon patient request i... Start Date: 09/30/20 Stop Date: 12/24/21 Status: Orderedaspirin 81 mg oral delayed release tablet 81 mg, 1, tablet, By Mouth, Daily, [place] LABEL, # 90 tablet, Refills 3, Tot. Refills 3, Maintenance, 08/09/21 5:53:00 EDT, Route to Pharmacy Electronically, [facility] 175, cm, 04/03/21 8:32:00 EST, Height, 82.4, kg, 07/21/20 11:02:... Start Date: 08/09/21 Status: Orderedatorvastatin 20 mg oral tablet 1 tablet = 20 mg, By Mouth, Daily at bedtime, [place] LABEL, # 90 tablet, 1 Refills, Maintenance, 04/03/21 9:05:00 EST, Tablet, [facility] 175, cm, 04/03/21 8:32:00 EST, Height, 82.4, kg, 07/21/20 11:02:00 EDT, Dry Weight Start Date: 04/03/21 Status: Ordereddivalproex sodium 500 mg oral enteric coated tablet 1 tablet = 500 mg, By Mouth, 2 times a day, [place] LABEL, # 60 tablet, 0 Refills, Maintenance, 10/11/21 13:36:00 EDT, Tablet, [facility] 175, cm, 10/05/21 14:47:00 EDT, Height, 82.4, kg, 09/20/21 13:17:00 EDT, Dry Weight Start Date: 10/11/21 Status: Orderedduloxetine 60 mg oral enteric coated capsule 1 capsule = 60 mg, By Mouth, Daily, [place] LABEL, # 90 capsule, 2 Refills, Maintenance, 04/03/21 9:05:00 EST, Capsule, [facility], 175, cm, 04/03/21 8:32:00 EST, Height, 82.4, kg, 07/21/20 11:02:00 EDT, Dry Weight Start Date: 04/03/21 Status: OrderedFlonase 50 mcg/inh nasal spray 1 sprays, Nares, Both, 2 times a day, German label please., # 16 Gm, 1 Refills, Maintenance, 09/30/20 9:34:00 EDT, [facility] #[id number], Partial fill upon patient request if the prescription isfor a schedule II opioid drug., 1 sprays Nares, B... Start Date: 09/30/20 Status: Orderedfluticasone-salmeterol 500 mcg-50 mcg inhalation powder 1 puff, Inhalation, 2 times a day, # 1 each, Refills 3, Tot. Refills 3, Maintenance, 10/11/21 13:36:00 EDT, Powder, Route to Pharmacy Electronically, [id number], [facility] 175, cm, 10/05/21 14:47:00 EDT, Hei... Start Date: 10/11/21 Status: Orderedgabapentin 300 mg oral capsule 600 mg, 2, capsule, By Mouth, Daily at bedtime, [place] LABEL, # 60 capsule, Refills 3, Tot. Refills3, Maintenance, 10/11/21 13:32:00 EDT, Route to Pharmacy Electronically, [facility]175, cm, 10/05/21 14:47:00 EDT, Height, 82.4, [...] 04/03/21 9:08:00 EST, Route to Pharmacy Electronically, [facility], Partial fill upon patient request if the [...] 0 Refills, Maintenance, 09/18/21 11:48:00 EDT, Tablet, [facility] #[id number], Partial fill upon patient request if the prescription is for a schedule II opioid drug., 175, cm, 09/18/21 10:48:00 ED... Start Date: 09/18/21 Stop Date: 09/28/21 Status: OrderedmetFORMIN 500 mg oral tablet, extended release 2 tablet = 1,000 mg, By Mouth, 2 times a day, # 120 tablet, 6 Refills, Maintenance, 10/05/21 14:16:00 EDT, [facility] #[id number], Partial fill upon patient request if the prescription is for a schedule II opioid drug., 175, cm, 09/23/21 4:10:00... Start Date: 10/05/21 Status: Orderedmontelukast 10 mg oral tablet 10 mg, 1, tablet, By Mouth, Daily, [place] LABEL, # 30 tablet, Refills 11, Tot. Refills 11, Maintenance, 10/03/21 16:07:00 EDT, Route to Pharmacy Electronically, [facility] #[id number], 175, cm, 09/23/21 4:10:00 EDT, Height, 82.4, [...] 75 mg, 1, tablet, By Mouth, Daily, [place] LABEL, # 30 tablet, Refills 3, Tot. Refills 3, Maintenance, 08/09/21 5:53:00 EDT, Route to Pharmacy Electronically, [facility], 175, cm, 04/03/21 8:32:00 EST, Height, 82.4, kg, 07/21/20 11:02:... Start Date: 08/09/21 Status: OrderedProAir HFA 90 mcg/inh inhalation aerosol with adapter 1, puffs, Inhalation, Every 4 hours, PRN, # 1 each, Refills 5, Tot. Refills 5, Maintenance, :01:00 EST, Aerosol, Route to Pharmacy Electronically, [id number], [facility], 175, cm, 04/03/21 8:32:00 ES... Start Date: [...] RIGHT UPPER. CTA - done Active at [facility]. 07/2021 - scanned in CIS(Confirmed) *Julissa Fraga, [facility] Care Active Coordinator [phone](Confirmed) Lumbar radicular pain(Confirmed) Active Right hemiplegia(Confirmed) Active Encounter for screening Active colonoscopy(Confirmed) Tobacco dependence(Confirmed) Active DMII (diabetes mellitus, type Active 2)(Confirmed) Vertigo(Confirmed) Active Social History Social History Type Response Smoking Status 5-9 cigarettes (between 1/4 to 1/2 pack)/day in last 30 days entered on: 01/01/20 Sex
--- OUTSIDE RECORDS SUMMARY | 2022-06-19 23:11 | XMS_ITS | Continuity of Care Document ---
:1965 Author Organization [facility] Address [address] [place] [address]- Care Team Providers Name Role Phone Greyson LARES, Mauricio Primary Care Physician Encounter [facility] Date(s): 08/08/21 - 09/21/21 [facility] [address] [place] [id number] Attending Physician: Shlomo Hamilton MD Admitting Physician: Shlomo Hamilton MD Allergies, Adverse Reactions, Alerts No Known [...] Patient Refuses 1Early/Late Reason: Other : Patient [id number] Comment: [01/16/2017] [facility] [id number] Comment: lot # [id number] Medications albuterol 0.083% inhalation solution 3 mL = 2.5 mg, Inhalation, Every 6 hours, PRN Wheezing/Shortness of Breath, # 1 each, 6 Refills, Maintenance, 04/03/21 9:01:00 EST, Solution, [facility] 175, cm, 04/03/21 8:32:00 EST, Height, 82.4, kg, 07/21/20 11:02:00 EDT, Dry Weight Start Date: 04/03/21 Status: OrderedamLODIPine 10 mg oral tablet 10 mg, 1, tablet, By Mouth, Daily at bedtime, # 90 tablet, Refills 4, Tot. Refills 4, Maintenance, 09/30/20 9:34:00 EDT, Route to Pharmacy Electronically, [facility] #[id number], Partial fill uponpatient request if the prescription is for a sche... Start Date: 09/30/20 Stop Date: 12/24/21 Status: Orderedaspirin 81 mg oral delayed release tablet 81 mg, 1, tablet, By Mouth, Daily, MALT[place] LABEL, # 90 tablet, Refills 3, Tot. Refills 3, Maintenance, 08/09/21 5:53:00 EDT, Route to Pharmacy Electronically, [facility], 175, cm, 04/03/21 8:32:00 EST, Height, 82.4, kg, 07/21/20 11:02:... Start Date: 08/09/21 Status: Orderedatorvastatin 20 mg oral tablet 1 tablet = 20 mg, By Mouth, Daily at bedtime, MALTESE LABEL, # 90 tablet, 1 Refills, Maintenance, 04/03/21 9:05:00 EST, Tablet, [facility] 175, cm, 04/03/21 8:32:00 EST, Height, 82.4, kg, 07/21/20 11:02:00 EDT, Dry Weight Start Date: 04/03/21 Status: Orderedbaclofen 10 mg oral tablet 10 mg, 1, tablet, By Mouth, 3 times a day, # 30 tablet, Refills 0, Tot. Refills 0, Maintenance, 09/18/21 11:43:00 EDT, Route to Pharmacy Electronically, [facility] #[id number], Partial fill upon patient request if the prescription is for a schedu... Start Date: 09/18/21 Stop Date: 09/28/21 Status: Ordereddivalproex sodium 500 mg oral enteric coated tablet 1 tablet = 500 mg, By Mouth, 2 times a day, MALTESE LABEL, # 60 tablet, 0 Refills, Maintenance, 09/09/21 12:13:00 EDT, Tablet, [facility], 175, cm, 04/03/21 8:32:00 EST, Height, 82.4, kg, 07/21/20 11:02:00 EDT, Dry Weight Start Date: 09/09/21 Status: Orderedduloxetine 60 mg oral enteric coated capsule 1 capsule = 60 mg, By Mouth, Daily, MALTESE LABEL, # 90 capsule, 2 Refills, Maintenance, 04/03/21 9:05:00 EST, Capsule, [facility], 175, cm, 04/03/21 8:32:00 EST, Height, 82.4, kg, 07/21/20 11:02:00 EDT, Dry Weight Start Date: 04/03/21 Status: OrderedFlonase 50 mcg/inh nasal spray 1 sprays, Nares, Both, 2 times a day, Polish label please., # 16 Gm, 1 Refills, Maintenance, 09/30/20 9:34:00 EDT, [facility] #[id number], Partial fill upon patient request if the prescription isfor a schedule II opioid drug., 1 sprays Nares, B... Start Date: 09/30/20 Status: Orderedfluticasone-salmeterol 500 mcg-50 mcg inhalation powder 1 puff, Inhalation, 2 times a day, # 1 each, Refills 3, Tot. Refills 3, Maintenance, 04/03/21 14:34:00 EST, Powder, Route to Pharmacy Electronically, [id number], [facility] 175, cm, 04/03/21 8:32:00 EST, Heig... Start Date: 04/03/21 Status: Orderedgabapentin 300 mg oral capsule 600 mg, 2, capsule, By Mouth, Daily at bedtime, MALTESE LABEL, # 60 capsule, Refills 3, Tot. Refills3, Maintenance, 04/03/21 9:08:00 EST, Route to Pharmacy Electronically, [facility], 175, cm, 04/03/21 8:32:00 EST, Height, [...] 2 Refills, Maintenance, 04/03/21 9:01:00 EST, Patch, [facility], 1 patch to affected area TopicallyDaily, remove at HS, 175, cm, 04/03/21 8:32:00 ES... Start Date: 04/03/21 Status: Orderedloratadine 10 mg oral tablet 10 mg, 1, tablet, By Mouth, Daily, Polish label please., # 30 tablet, Refills 0, Tot. Refills 0, Maintenance, 04/03/21 9:08:00 EST, Route to Pharmacy Electronically, [facility], Partial fill upon patient request if [...] 0 Refills, Maintenance, 09/18/21 11:48:00 EDT, Tablet, [facility] #[id number], Partial fill upon patient request if the prescription is for a schedule II opioid drug., 175, cm, 09/18/21 10:48:00 ED... Start Date: 09/18/21 Stop Date: 09/28/21 Status: OrderedmetFORMIN 500 mg oral tablet 1 tablet = 500 mg, By Mouth, 2 times a day, # 60 tablet, 0 Refills, Maintenance, 08/08/21 18:14:00 EDT, Tablet, [facility] #[id number], Partial fill upon patient request if the prescription is for a schedule II opioid drug., 175, cm, 04/03/21 8:32:00 EST,... Start Date: 08/08/21 Stop Date: 09/07/21 Status: Orderedmontelukast 10 mg oral tablet 10 mg, 1, tablet, By Mouth, Daily, MALTESE LABEL, # 30 tablet, Refills 11, Tot. Refills 11, Maintenance, 04/03/21 9:08:00 EST, Route to Pharmacy Electronically, [facility], 175, cm, 04/03/21 8:32:00 EST, Height, [...] 08/09/21 5:53:00 EDT, Route to Pharmacy Electronically, [facility] 175, cm, 04/03/21 8:32:00 EST, Height, 82.4, kg, 07/21/20 11:02:... Start Date: 08/09/21 Status: OrderedProAir HFA 90 mcg/inh inhalation aerosol with adapter 1, puffs, Inhalation, Every 4 hours, PRN, # 1 each, Refills 5, Tot. Refills 5, Maintenance, 219:01:00 EST, Aerosol, Route to Pharmacy Electronically, [id number], [facility], 175, cm, 04/03/21 8:32:00 ES... Start Date: 04/03/21 Stop Date: 09/30/21 Status: OrderedtraMADol 50 mg oral tablet 1 tablet = 50 mg, By Mouth, Every 8 hours, PRN Pain , Severe, # 30 tablet, 0 Refills, Acute 09/27/2211:00:00 EDT, 09/18/21 11:44:00 EDT, Tablet, [facility] #[id number], Partial fill upon patient request if the [...] CTA - done Active at [facility]. 07/2021 - scanned in CIS(Confirmed) *Julissa Fraga, [facility] Active Coordinator [phone](Confirmed) Lumbar radicular pain(Confirmed) Active Right hemiplegia(Confirmed) Active Encounter for screening Active colonoscopy(Confirmed) Tobacco dependence(Confirmed) Active DMII (diabetes mellitus, type Active 2)(Confirmed) Vertigo(Confirmed) Active Social History Social History Type Response Smoking Status 5-9 cigarettes (between 1/4 to 1/2 pack)/day in last 30 days entered on: 01/01/20 Sex
--- OUTSIDE RECORDS SUMMARY | 2022-06-19 23:11 | XMS_ITS | Continuity of Care Document ---
:1965 Author Organization [facility] Address [address] [place] [address]- Care Team Providers Name Role Phone Gladismary Manuel KU Primary Care Physician [facility]counter [facility] Date(s): 12/12/21 - 01/11/22 [facility] [address] [place] [id number] Allergies, Adverse Reactions, Alerts No Known [...] Patient Refuses 1Early/Late Reason: Other : Patient [id number] Comment: [01/16/2017] [facility] [id number] Comment: lot # [id number] Medications albuterol 0.083% inhalation solution 3 mL = 2.5 mg, Inhalation, Every 6 hours, PRN Wheezing/Shortness of Breath, # 1 each, 6 Refills, Maintenance, 04/03/21 9:01:00 EST, Solution, [facility] 175, cm, 04/03/21 8:32:00 EST, Height, 82.4, kg, 07/21/20 11:02:00 EDT, Dry Weight Start Date: 04/03/21 Status: OrderedamLODIPine 10 mg oral tablet 10 mg, 1, tablet, By Mouth, Daily at bedtime, # 30 tablet, Refills 2, Tot. Refills 2, Maintenance, 10/19/21 21:06:00 EDT, Route to Pharmacy Electronically, [facility], Partial fill uponpatient request if the prescription is for a sche... Start Date: 10/19/21 Status: Orderedaspirin 81 mg oral delayed release tablet 81 mg, 1, tablet, By Mouth, Daily, PARAGUAYAN LABEL, # 90 tablet, Refills 3, Tot. Refills 3, Maintenance, 08/09/21 5:53:00 EDT, Route to Pharmacy Electronically, [facility], 175, cm, 04/03/21 8:32:00 EST, Height, 82.4, kg, 07/21/20 11:02:... Start Date: 08/09/21 Status: Orderedatorvastatin 20 mg oral tablet See Instructions, REGINA 1 TABLETA POR LA BOCA A LA HORA DE DORMIR, # 30 tablet, 11 Refills, [facility], [facility], cm, 10/05/21 14:47:00 EDT, Height, 82.4, kg, 09/20/21 13:17:00 EDT, Dry Weight Start Date: 12/12/21 Status: Orderedclopidogrel 75 mg oral tablet See Instructions, REGINA 1 TABLETA POR LA BOCA CADA SARAH, # 30 tablet, Refills 6, Instructions ReplaceRequired Details, [facility], 175, cm, 10/05/21 14:47:00EDT, Height, 82.4, kg, 09/20/21 13:17:00 EDT, Dry... Start Date: 12/12/21 Status: Ordereddivalproex sodium 500 mg oral enteric coated tablet 1 tablet = 500 mg, By Mouth, 2 times a day, PARAGUAYAN LABEL, # 60 tablet, 0 Refills, Maintenance, 11/24/21 12:56:00 EDT, Tablet, [facility] 175, cm, 10/05/21 14:47:00 EDT, Height, 82.4, kg, 09/20/21 13:17:00 EDT, Dry Weight Start Date: 11/24/21 Status: Orderedduloxetine 60 mg oral enteric coated capsule 1 capsule = 60 mg, By Mouth, Daily, PARAGUAYAN LABEL, # 90 capsule, 2 Refills, Maintenance, 04/03/21 9:05:00 EST, Capsule, [facility], 175, cm, 04/03/21 8:32:00 EST, Height, 82.4, kg, 07/21/20 11:02:00 EDT, Dry Weight Start Date: 04/03/21 Status: OrderedFlonase 50 mcg/inh nasal spray 1 sprays, Nares, Both, 2 times a day, [place]ican label please., # 16 Gm, 1 Refills, Maintenance, 09/30/20 9:34:00 EDT, [facility] #[id number], Partial fill upon patient request if the prescription isfor a schedule II opioid drug., 1 sprays Nares, B... Start Date: 09/30/20 Status: Orderedfluticasone-salmeterol 500 mcg-50 mcg inhalation powder 1 puff, Inhalation, 2 times a day, # 1 each, Refills 3, Tot. Refills 3, Maintenance, 10/11/21 13:36:00 EDT, Powder, Route to Pharmacy Electronically, [id number], [facility], 175, cm, 10/05/21 14:47:00 EDT, Hei... Start Date: 10/11/21 Status: Orderedgabapentin 300 mg oral capsule 600 mg, 2, capsule, By Mouth, Daily at bedtime, PARAGUAYAN LABEL, # 60 capsule, Refills 3, Tot. Refills3, Maintenance, 10/11/21 13:32:00 EDT, Route to Pharmacy Electronically, [facility]175, cm, 10/05/21 14:47:00 EDT, Height, [...] 10 mg, 1, tablet, By Mouth, Daily, [place]ican label please., # 30 tablet, Refills 0, Tot. Refills 0, Maintenance, 04/03/21 9:08:00 EST, Route to Pharmacy Electronically, [facility], Partial fill upon patient request if [...] 0 Refills, Maintenance, 09/18/21 11:48:00 EDT, Tablet, [facility] #[id number], Partial fill upon patient request if the prescription is for a schedule II opioid drug., 175, cm, 09/18/21 10:48:00 ED... Start Date: 09/18/21 Stop Date: 09/28/21 Status: OrderedmetFORMIN 500 mg oral tablet, extended release 2 tablet = 1,000 mg, By Mouth, 2 times a day, # 120 tablet, 6 Refills, Maintenance, 10/05/21 14:16:00 EDT, [facility] #[id number], Partial fill upon patient request if the prescription is for a schedule II opioid drug., 175, cm, 09/23/21 4:10:00... Start Date: 10/05/21 Status: Orderedmontelukast 10 mg oral tablet 10 mg, 1, tablet, By Mouth, Daily, PARAGUAYAN LABEL, # 30 tablet, Refills 11, Tot. Refills 11, Maintenance, 10/03/21 16:07:00 EDT, Route to Pharmacy Electronically, [facility] #[id number], 175, cm, 09/23/21 4:10:00 EDT, Height, 82.4, [...] :01:00 EST, Aerosol, Route to Pharmacy Electronically, [id number], [facility]., 175, cm, 04/03/21 8:32:00 ES... [...] RIGHT UPPER. CTA - done [facility]. 07/2021 - scanned in CIS(Confirmed) *Julissa Fraga, [facility] Care Active Coordinator [phone](Confirmed) Lumbar radicular pain(Confirmed) Active Right hemiplegia(Confirmed) Active Encounter for screening Active colonoscopy(Confirmed) Tobacco dependence(Confirmed) Active DMII (diabetes mellitus, type Active 2)(Confirmed) Vertigo(Confirmed) Active Social History Social History Type Response Smoking Status 5-9 cigarettes (between 1/4 to 1/2 pack)/day in last 30 days entered on: 01/01/20 Sex Care Team PersonnelName: Manuel Amador DO Address: [address] [place] [address]
--- OUTSIDE RECORDS SUMMARY | 2022-06-19 23:11 | XMS_ITS | Continuity of Care Document ---
:1965 Author Organization [facility] Address [address] [place] [address]- Care Team Providers Name Role Phone Mauricio Rubi MD Primary Care Physician [facility] Date[facility] 05/27/19 - 07/10/19 [facility] [address] [place] [address] Attending [facility]ician: Not on Staff, [...] Patient Refuses 1Early/Late Reason: Other : Patient [id number] Comment: [01/16/2017] [facility] [phone] Comment: lot # [id number] Medications AirDuo RespiClick 232 mcg-14 mcg/inh inhalation powder 1, puffs, Inhalation, 2 times a day, # 1 each, Refills 11, Tot. Refills 11, Maintenance, 07/07/19 19:06:00 EDT, Powder, Route to Pharmacy Electronically, [id number], [facility] advair [facility] covered , 175,... Start Date: 07/07/19 Status: Orderedalbuterol 0.083% inhalation solution 3 mL = 2.5 mg, Inhalation, Every 6 hours, PRN Wheezing/Shortness of Breath, # 1 each, 6 Refills, Maintenance, 07/07/19 19:06:00 EDT, Solution, [facility] 175, cm, 05/30/19 19:11:00 EST, Height, 84.5, kg, 12/25/18 16:15:00 EDT, Dry Weight Start Date: 07/07/19 Status: Orderedaspirin 81 mg oral delayed release tablet 81 mg, 1, tablet, By Mouth, Daily, # 90 tablet, Refills 4, Tot. Refills 4, Maintenance, 07/07/19 19:06:00 EDT, Route to Pharmacy Electronically, [facility], 175, cm, 05/30/19 19:11:00 EST, Height, 84.5, kg, 12/25/18 16:15:00 EDT, Dry W... Start Date: 07/07/19 Stop Date: 09/29/20 Status: Orderedatorvastatin 20 mg oral tablet 1 tablet = 20 mg, By Mouth, Daily at bedtime, # 30 tablet, 0 Refills, Maintenance, 07/07/19 19:06:00EDT, Tablet, [facility] 175, cm, 05/30/19 19:11:00 EST, Height, 84.5, kg, 12/25/18 16:15:00 EDT, Dry Weight Start Date: 07/07/19 Status: OrderedCymbalta 60 mg oral enteric coated capsule 1 capsule = 60 mg, By Mouth, Daily, # 30 capsule, 6 Refills, Maintenance, 07/07/19 19:06:00 EDT, EC Capsule, [facility], 175, cm, 05/30/19 19:11:00 EST, Height, 84.5, kg, 12/25/18 16:15:00 EDT, Dry Weight Start Date: 07/07/19 Status: Ordereddivalproex sodium 500 mg oral enteric coated tablet = 500 mg, By Mouth, 2 times a day, # 60 tablet, 5 Refills, Maintenance, 07/07/19 19:06:00 EDT, Tablet, [facility] 175, cm, 05/30/19 19:11:00 [...] tablet, 5 Refills, Maintenance, 07/07/19 19:06:00 EDT, [facility] 175, cm, 05/30/19 19:11:00 EST, Height, 84.5, kg, 12/25/18 16:15:00 EDT, Dry Weight Start Date: 07/07/19 Status: Orderedhydrochlorothiazide 25 mg oral tablet 12.5 mg, 0.5, tablet, By Mouth, Daily, # 15 tablet, Refills 0, Tot. Refills 0, Maintenance, 07/06/2018:06:00 EDT, Route to Pharmacy Electronically, [facility] 175, cm, 05/30/19 19:11:00 EST, Height, 84.5, kg, 12/25/18 16:15:00 EDT, D... Start Date: 07/07/19 Status: Orderedlidocaine 5% topical film See Instructions, 1 patch to affected area Topically Daily, remove at HS, # 30 patch, 0 Refills, Maintenance, 07/07/19 19:06:00 EDT, Patch, [facility], 1 patch to affected area Topically Daily, remove at HS, 175, cm, 05/30/19 19:11:00... Start Date: 07/07/19 Status: OrderedmetFORMIN 500 mg oral tablet 1 tablet = 500 mg, By Mouth, 2 times a day, with meals, Kinyarwanda label, # 180 tablet, 1 Refills, Maintenance, 07/07/19 19:06:00 EDT, Tablet, [facility], 175, cm, 05/30/19 19:11:00 EST, Height, 84.5, kg, 12/25/18 16:15:00 EDT, Dry Weight Start Date: 07/07/19 Stop Date: 01/03/20 Status: Orderedmontelukast 10 mg oral tablet 10 mg, By Mouth, Daily, # 30 tablet, Refills 9, Tot. Refills 9, Maintenance, 07/07/19 19:06:00 EDT, Route to Pharmacy Electronically, [facility], 175, cm, 05/30/19 19:11:00 EST, Height,84.5, kg, 12/25/18 16:15:00 EDT, Dry Weight Start Date: 07/07/19 Status: OrderedNuLYTELY with Flavor Packs oral powder for reconstitution 240 mL, By Mouth, Every 15 minutes, # 4,000 mL, 0 Refills, Maintenance, 07/07/19 19:06:00 EDT, [facility], 240 mL By Mouth Every 15 minutes, 175, cm, 05/30/19 19:11:00 EST, Height, 84.5, kg, 12/25/18 16:15:00 EDT, Dry Weight Start Date: 07/07/19 Status: OrderedPlavix 75 mg oral tablet 75 mg, By Mouth, Daily, Kinyarwanda label, # 90 each, Refills 1, Tot. Refills 1, Maintenance, 07/07/19 19:06:00 EDT, [facility], cm, 05/30/19 19:11:00EST, Height, 84.5, kg, 12/25/18 16:15:00 EDT, Dry... Start Date: 07/07/19 Stop Date: 01/03/20 Status: OrderedProAir HFA 90 mcg/inh inhalation aerosol with adapter 1, puffs, Inhalation, Every 4 hours, PRN, # 8.5 Gm, Refills 0, Tot. Refills 0, Maintenance, 07/06/2018:06:00 EDT, Aerosol, Route to Pharmacy Electronically, [id number], [facility], 175, cm, 05/30/19 19:11:00... Start Date: [...]
--- OUTSIDE RECORDS SUMMARY | 2022-06-19 23:11 | XMS_ITS | Continuity of Care Document ---
:1965 Author Organization [facility] Address [address] [place] [address]- Care Team Providers Name Role Phone Mauricio Rubi MD Primary [facility] Phys[facility]): [facility] - 05/17/19 [facility] [address] [place] [address]- [facility] Attending Physician: Tomi Saavedra MD Admitting Physician: [...] Refuses 1Result Comment: [01/16/2017] [facility] [id number] Comment: lot # [id number] Medications AirDuo RespiClick 232 mcg-14 mcg/inh inhalation powder 1, puffs, Inhalation, 2 times a day, # 1 each, Refills 11, Tot. Refills 11, Maintenance, 11/19/18 15:20:42 EDT, Powder, Route to Pharmacy Electronically, [id number][facility] Start Date: [...] 11/19/18 14:00:09 EDT, Route to Pharmacy Electronically, [id number], [facility] Start Date: 11/19/18 Stop Date: [...] Topically, Daily, remove patches after 12 hours, Luxembourger label, # 30 patch, 1 Refills, Maintenance, 06/11/18 16:21:53 EST, 1 patch Topically Daily,Instr:remove patches after 12 hours, Luxembourger label Start Date: 06/11/18 Status: OrderedmetFORMIN 500 mg oral tablet 1 tablet = 500 mg, By Mouth, 2 times a day, with meals, Luxembourger label, # 180 tablet, 1 Refills, Maintenance, 11/19/18 13:59:10 EDT, Tablet Start Date: 11/19/18 Stop Date: 05/18/19 Status: Orderedmontelukast 10 mg oral tablet 10 mg, By Mouth, Daily, # 30 tablet, Refills 9, Tot. Refills 9, Maintenance, 11/19/18 14:00:53 EDT, Route to Pharmacy Electronically, [id number], [facility] Start Date: 11/19/18 Status: OrderedNicotine 2 [...] oral tablet 75 mg, By Mouth, Daily, Luxembourger label, # 90 each, Refills 1, Tot. Refills 1, Maintenance, 11/19/18 14:01:50 EDT, Route to Pharmacy Electronically, [id number], [facility]. Start Date: 11/19/18 Stop Date: 05/18/19 Status: OrderedProAir HFA 90 mcg/inh inhalation aerosol with adapter 1, puffs, Inhalation, Every 4 hours, PRN, # 8.5 Gm, Refills 5, Tot. Refills 5, Maintenance, 12/16/1909:55:13 EDT, Aerosol, Route to Pharmacy Electronically, [id number], [facility] Start Date: 12/16/18 Status: OrderedShingrix intramuscular injection 0.5 mL, Intramuscular, Once, Luxembourger, # 0.5 mL, 0 Refills, Soft Stop, 11/19/18 14:10:40 EDT, 0.5 mL Intramuscular Once,Instr:Luxembourger Start Date: 11/19/18 Status: OrderedVitamin B12 By [...]
--- OUTSIDE RECORDS SUMMARY | 2022-06-19 23:11 | XMS_ITS | Continuity of Care Document ---
:1965 Author Organization [facility] Address [address] [place] [address]- Care Team Providers Name Role Phone Greyson LARES, Mauricio Primary Care Physician [facility]): 08[facility]21 - 09/07/21 [facility] [address] [place] [id number] Attending Physician: Not on Staff, [...] Patient Refuses 1Early/Late Reason: Other : Patient [id number] Comment: [01/16/2017] [facility] [id number] Comment: lot # [id number] Medications albuterol 0.083% inhalation solution 3 mL = 2.5 mg, Inhalation, Every 6 hours, PRN Wheezing/Shortness of Breath, # 1 each, 6 Refills, Maintenance, 04/03/21 9:01:00 EST, Solution, [facility] 175, cm, 04/03/21 8:32:00 EST, Height, 82.4, kg, 07/21/20 11:02:00 EDT, Dry Weight Start Date: 04/03/21 Status: OrderedamLODIPine 10 mg oral tablet 10 mg, 1, tablet, By Mouth, Daily at bedtime, # 90 tablet, Refills 4, Tot. Refills 4, Maintenance, 09/30/20 9:34:00 EDT, [id number], Partial fill uponpatient request if the prescription is for a sche... Start Date: 09/30/20 Stop Date: 12/24/21 Status: Orderedaspirin 81 mg oral delayed release tablet 81 mg, 1, tablet, By Mouth, Daily, VENEZUELAN LABEL, # 90 tablet, Refills 3, Tot. Refills 3, Maintenance, 08/09/21 5:53:00 EDT, Route to Pharmacy Electronically, [facility], 175, cm, 04/03/21 8:32:00 EST, Height, 82.4, kg, 07/21/20 11:02:... Start Date: 08/09/21 Status: Orderedatorvastatin 20 mg oral tablet 1 tablet = 20 mg, By Mouth, Daily at bedtime, VENEZUELAN LABEL, # 90 tablet, 1 Refills, Maintenance, 04/03/21 9:05:00 EST, Tablet, [facility], 175, cm, 04/03/21 8:32:00 EST, Height, 82.4, kg, 07/21/20 11:02:00 EDT, Dry Weight Start Date: 04/03/21 Status: Ordereddivalproex sodium 500 mg oral enteric coated tablet 1 tablet = 500 mg, By Mouth, 2 times a day, VENEZUELAN LABEL, # 60 tablet, 2 Refills, Maintenance, 09/30/20 9:34:00 EDT, Tablet[id number], 175, cm, 07/22/20 7:07:00 EDT, Height, 82.4, kg, 07/21/20 11:02:00 EDT, Dry Weight Start Date: 09/30/20 Status: Orderedduloxetine 60 mg oral enteric coated capsule 1 capsule = 60 mg, By Mouth, Daily, VENEZUELAN LABEL, # 90 capsule, 2 Refills, Maintenance, 04/03/21 9:05:00 EST, Capsule, [facility], 175, cm, 04/03/21 8:32:00 EST, Height, 82.4, kg, 07/21/20 11:02:00 EDT, Dry Weight Start Date: 04/03/21 Status: OrderedFlonase 50 mcg/inh nasal spray 1 sprays, Nares, Both, 2 times a day, Italian label please., # 16 Gm, 1 Refills, Maintenance, 09/30/20 9:34:00 EDT, [facility] #[id number], Partial fill upon patient request if the prescription isfor a schedule II opioid drug., 1 sprays Nares, B... Start Date: 09/30/20 Status: Orderedfluticasone-salmeterol 500 mcg-50 mcg inhalation powder 1 puff, Inhalation, 2 times a day, # 1 each, Refills 3, Tot. Refills 3, Maintenance, 04/03/21 14:34:00 EST, Powder, Route to Pharmacy Electronically, [id number], [facility], 175, cm, 04/03/21 8:32:00 EST, [facility]... Start Date: 04/03/21 Status: Orderedgabapentin 300 mg oral capsule 600 mg, 2, capsule, By Mouth, Daily at bedtime, VENEZUELAN LABEL, # 60 capsule, Refills 3, Tot. [...] 2 Refills, Maintenance, 04/03/21 9:01:00 EST, Patch, [facility] 1 patch to affected area TopicallyDaily, remove at HS, 175, cm, 04/03/21 8:32:00 ES... Start Date: 04/03/21 Status: Orderedloratadine 10 mg oral tablet 10 mg, 1, tablet, By Mouth, Daily, Italian label please., # 30 tablet, Refills 0, [...] Maintenance, 08/08/21 18:14:00 EDT, Tablet, [facility]/pharmacy #[id number], Partial fill upon patient request if the prescription is for a schedule II opioid drug., 175, cm, 04/03/21 8:32:00 EST,... Start Date: 08/08/21 Stop Date: 09/07/21 Status: Orderedmontelukast 10 mg oral tablet 10 mg, 1, tablet, By Mouth, Daily, VENEZUELAN LABEL, # 30 tablet, Refills 11, Tot. Refills 11, Maintenance, 04/03/21 9:08:00 EST, Route to Pharmacy Electronically, [facility] 175, cm, 04/03/21 8:32:00 EST, Height, [...] 75 mg, 1, tablet, By Mouth, Daily, VENEZUELAN LABEL, # 30 tablet, Refills 3, Tot. [...] tablet, 0 Refills, Maintenance, 07/22/20 10:06:00 EDT, [id number], Partial fill upon patient request if theprescription is for a schedule II opioid drug., 1... Start Date: 07/22/20 Status: OrderedProAir HFA 90 mcg/inh inhalation aerosol with adapter 1, puffs, Inhalation, Every 4 hours, PRN, # 1 each, Refills 5, Tot. Refills 5, Maintenance, 219:01:00 EST, Aerosol, Route to Pharmacy Electronically, [id number], [facility], 175, cm, 04/03/21 8:32:00 ES... Start Date: 04/03/21 Stop Date: 09/30/21 Status: OrderedSEROquel XR 300 mg oral tablet, extended release 1 tablet = 300 mg, By Mouth, Daily at bedtime, VENEZUELAN LABEL, # 30 tablet, 3 Refills, Maintenance, 04/03/21 9:09:00 EST, ER Tablet, [facility], 1 tablet By Mouth Daily at bedtime,Instr:VENEZUELAN LABEL, 175, cm, 04/03/21 8:32:00 EST, [facility]... [...] Active Nausea & vomiting(Confirmed) Active *Julissa Fraga, [facility] Care Active Coordinator [phone](Confirmed) Lumbar radicular pain(Confirmed) Active Right hemiplegia(Confirmed) Active Encounter for screening Active colonoscopy(Confirmed) Tobacco dependence(Confirmed) Active DMII (diabetes mellitus, type Active 2)(Confirmed) Vertigo(Confirmed) Active Social History Social History Type Response Smoking Status 5-9 cigarettes (between 1/4 to 1/2 pack)/day in last 30 days entered on: 01/01/20 Sex
--- OUTSIDE RECORDS SUMMARY | 2022-06-19 23:11 | XMS_ITS | Continuity of Care Document ---
:1965 Author Organization [facility] Address [address] [place] [address]- Care Team Providers Name Role Phone Mauricio Rubi MD Primary Care Physician [facility] 06[facility]19 - 08/12/19 [facility] [address] [place] [address]- [facility] Attending Physician: Tomi Saavedra MD Admitting Physician: [...] Patient Refuses 1Early/Late Reason: Other : Patient [id number] Comment: [01/16/2017] [facility] [id number] Comment: lot # [id number] Medications AirDuo RespiClick 232 mcg-14 mcg/inh inhalation powder 1, puffs, Inhalation, 2 times a day, # 1 each, Refills 11, Tot. Refills 11, Maintenance, 07/07/19 19:06:00 EDT, Powder, Route to Pharmacy Electronically, [id number], [facility], advair not covered , 175,... Start Date: 07/07/19 Status: Orderedalbuterol 0.083% inhalation solution 3 mL = 2.5 mg, Inhalation, Every 6 hours, PRN Wheezing/Shortness of Breath, # 1 each, 6 Refills, Maintenance, 07/07/19 19:06:00 EDT, Solution, [facility], 175, cm, 05/30/19 19:11:00 EST, Height, 84.5, kg, 12/25/18 16:15:00 EDT, Dry Weight Start Date: 07/07/19 Status: Orderedaspirin 81 mg oral delayed release tablet 81 mg, 1, tablet, By Mouth, Daily, # 90 tablet, Refills 4, Tot. Refills 4, Maintenance, 07/07/19 19:06:00 EDT, Route to Pharmacy Electronically, [facility], 175, cm, 05/30/19 19:11:00 EST, Height, 84.5, kg, 12/25/18 16:15:00 EDT, Dry W... Start Date: 07/07/19 Stop Date: 09/29/20 Status: Orderedatorvastatin 20 mg oral tablet 1 tablet = 20 mg, By Mouth, Daily at bedtime, # 30 tablet, 0 Refills, Maintenance, 07/07/19 19:06:00EDT, Tablet, [facility], 175, cm, 05/30/19 19:11:00 EST, Height, 84.5, kg, 12/25/18 16:15:00 EDT, Dry Weight Start Date: 07/07/19 Status: OrderedCymbalta 60 mg oral enteric coated capsule 1 capsule = 60 mg, By Mouth, Daily, # 30 capsule, 6 Refills, Maintenance, 07/07/19 19:06:00 EDT, EC Capsule, [facility], 175, cm, 05/30/19 19:11:00 EST, Height, 84.5, kg, 12/25/18 16:15:00 EDT, Dry Weight Start Date: 07/07/19 Status: Ordereddivalproex sodium 500 mg oral enteric coated tablet = 500 mg, By Mouth, 2 times a day, # 60 tablet, 5 Refills, Maintenance, 07/07/19 19:06:00 EDT, Tablet, [facility] 175, cm, 05/30/19 19:11:00 EST, Height, 84.5, [...] tablet, 5 Refills, Maintenance, 07/07/19 19:06:00 EDT, [facility]., 175, cm, 05/30/19 19:11:00 EST, Height, 84.5, kg, 12/25/18 16:15:00 EDT, Dry Weight Start Date: 07/07/19 Status: Orderedhydrochlorothiazide 25 mg oral tablet 12.5 mg, 0.5, tablet, By Mouth, Daily, # 15 tablet, Refills 0, Tot. Refills 0, Maintenance, 07/06/2018:06:00 EDT, Route to Pharmacy Electronically, [facility], 175, cm, 05/30/19 19:11:00 EST, Height, 84.5, kg, 12/25/18 16:15:00 EDT, D... Start Date: 07/07/19 Status: Orderedlidocaine 5% topical film See Instructions, 1 patch to affected area Topically Daily, remove at HS, # 30 patch, 0 Refills, Maintenance, 07/07/19 19:06:00 EDT, Patch, [facility], 1 patch to affected area Topically Daily, remove at HS, 175, cm, 05/30/19 19:11:00... Start Date: 07/07/19 Status: OrderedmetFORMIN 500 mg oral tablet 1 tablet = 500 mg, By Mouth, 2 times a day, with meals, Bhutanese label, # 180 tablet, 1 Refills, Maintenance, 07/07/19 19:06:00 EDT, Tablet, [facility], 175, cm, 05/30/19 19:11:00 EST, Height, 84.5, kg, 12/25/18 16:15:00 EDT, Dry Weight Start Date: 07/07/19 Stop Date: 01/03/20 Status: Orderedmontelukast 10 mg oral tablet 10 mg, By Mouth, Daily, # 30 tablet, Refills 9, Tot. Refills 9, Maintenance, 07/07/19 19:06:00 EDT, Route to Pharmacy Electronically, [facility], 175, cm, 05/30/19 19:11:00 EST, Height,84.5, kg, 12/25/18 16:15:00 EDT, Dry Weight Start Date: 07/07/19 Status: OrderedNuLYTELY with Flavor Packs oral powder for reconstitution 240 mL, By Mouth, Every 15 minutes, # 4,000 mL, 0 Refills, Maintenance, 07/07/19 19:06:00 EDT, [facility], 240 mL By Mouth Every 15 minutes, 175, cm, 05/30/19 19:11:00 EST, Height, 84.5, kg, 12/25/18 16:15:00 EDT, Dry Weight Start Date: 07/07/19 Status: OrderedPlavix 75 mg oral tablet 75 mg, By Mouth, Daily, Bhutanese label, # 90 each, Refills 1, Tot. Refills 1, Maintenance, 07/07/19 19:06:00 EDT, Route to Pharmacy Electronically, [facility], 175, cm, 05/30/19 19:11:00EST, Height, 84.5, kg, 12/25/18 16:15:00 EDT, Dry... Start Date: 07/07/19 Stop Date: 01/03/20 Status: OrderedProAir HFA 90 mcg/inh inhalation aerosol with adapter 1, puffs, Inhalation, Every 4 hours, PRN, # 8.5 Gm, Refills 0, Tot. Refills 0, Maintenance, 07/06/2018:06:00 EDT, Aerosol, Route to Pharmacy Electronically, [id number], [facility], 175, cm, 05/30/19 19:11:00... Start Date: 07/07/19 Status: Ordered Problem List Condition Effective Dates Status Health Status Informant Chronic Basilar artery Active occlusion(Confirmed) Aborted CVA- Was given tPA(Confirmed) Active Chronic pain syndrome(Confirmed) Active Constipation(Confirmed) Active Depression(Confirmed) Active Dysuria(Confirmed) Active Heartburn(Confirmed) Active CVA, old, hemiparesis(Confirmed) Active Elevated MCV(Confirmed) Active Nausea & vomiting(Confirmed) Active *Julissa Fraga, [facility] Care Active Coordinator [phone](Confirmed) Lumbar radicular pain(Confirmed) Active Right hemiplegia(Confirmed) Active Encounter for screening Active colonoscopy(Confirmed) Tobacco dependence(Confirmed) Active DMII (diabetes mellitus, type Active 2)(Confirmed) Vertigo(Confirmed) Active Social History Social History Type Response Smoking Status Former smoker, quit more krissy n 30 days ago entered on: 06/18/18 Sex
--- OUTSIDE RECORDS SUMMARY | 2022-06-19 23:11 | XMS_ITS | Continuity of Care Document ---
:1965 Author Organization [facility] Address [address] [place] [address]- Care Team Providers Name Role Phone Mauricio Rubi MD Primary Care Physician [facility] 06[facility]24[facility]19 - 07/26/19 [facility] [address] [place] [address]- [facility] Attending Physician: Not on Staff, Attending MD [...] Patient Refuses 1Early/Late Reason: Other : Patient [id number] Comment: [01/16/2017] [facility] [id number] Comment: lot # [id number] Medications AirDuo RespiClick 232 mcg-14 mcg/inh inhalation powder 1, puffs, Inhalation, 2 times a day, # 1 each, Refills 11, Tot. Refills 11, Maintenance, 07/07/19 19:06:00 EDT, Powder, Route to Pharmacy Electronically, [id number], [facility] , 175,... Start Date: 07/07/19 Status: Orderedalbuterol 0.083% inhalation solution 3 mL = 2.5 mg, Inhalation, Every 6 hours, PRN Wheezing/Shortness of Breath, # 1 each, 6 Refills, Maintenance, 07/07/19 19:06:00 EDT, Solution, [facility] 175, cm, 05/30/19 19:11:00 EST, Height, 84.5, kg, 12/25/18 16:15:00 EDT, Dry Weight Start Date: 07/07/19 Status: Orderedaspirin 81 mg oral delayed release tablet 81 mg, 1, tablet, By Mouth, Daily, # 90 tablet, Refills 4, Tot. Refills 4, Maintenance, 07/07/19 19:06:00 EDT, Route to Pharmacy Electronically, [facility], 175, cm, 05/30/19 19:11:00 EST, Height, 84.5, kg, 12/25/18 16:15:00 EDT, Dry W... Start Date: 07/07/19 Stop Date: 09/29/20 Status: Orderedatorvastatin 20 mg oral tablet 1 tablet = 20 mg, By Mouth, Daily at bedtime, # 30 tablet, 0 Refills, Maintenance, 07/07/19 19:06:00EDT, Tablet, [facility] 175, cm, 05/30/19 19:11:00 EST, Height, 84.5, kg, 12/25/18 16:15:00 EDT, Dry Weight Start Date: 07/07/19 Status: OrderedCymbalta 60 mg oral enteric coated capsule 1 capsule = 60 mg, By Mouth, Daily, # 30 capsule, 6 Refills, Maintenance, 07/07/19 19:06:00 EDT, EC Capsule, [facility], 175, cm, 05/30/19 19:11:00 EST, Height, 84.5, kg, 12/25/18 16:15:00 EDT, Dry Weight Start Date: 07/07/19 Status: Ordereddivalproex sodium 500 mg oral enteric coated tablet = 500 mg, By Mouth, 2 times a day, # 60 tablet, 5 Refills, Maintenance, 07/07/19 19:06:00 EDT, Tablet, [facility] 175, cm, 05/30/19 19:11:00 EST, Height, [...] tablet, 5 Refills, Maintenance, 07/07/19 19:06:00 EDT, [facility] 175, cm, 05/30/19 19:11:00 EST, Height, 84.5, kg, 12/25/18 16:15:00 EDT, Dry Weight Start Date: 07/07/19 Status: Orderedhydrochlorothiazide 25 mg oral tablet 12.5 mg, 0.5, tablet, By Mouth, Daily, # 15 tablet, Refills 0, Tot. Refills 0, Maintenance, 07/06/2018:06:00 EDT, Route to Pharmacy Electronically, [facility] 175, cm, 05/30/19 19:11:00 EST, Height, 84.5, kg, 12/25/18 16:15:00 EDT, D... Start Date: 07/07/19 Status: Orderedlidocaine 5% topical film See Instructions, 1 patch to affected area Topically Daily, remove at HS, # 30 patch, 0 Refills, Maintenance, 07/07/19 19:06:00 EDT, Patch, [facility], 1 patch to affected area Topically Daily, remove at HS, 175, cm, 05/30/19 19:11:00... Start Date: 07/07/19 Status: OrderedmetFORMIN 500 mg oral tablet 1 tablet = 500 mg, By Mouth, 2 times a day, with meals, Welsh label, # 180 tablet, 1 Refills, Maintenance, 07/07/19 19:06:00 EDT, Tablet, [facility], 175, cm, 05/30/19 19:11:00 EST, Height, 84.5, kg, 12/25/18 16:15:00 EDT, Dry Weight Start Date: 07/07/19 Stop Date: 01/03/20 Status: Orderedmontelukast 10 mg oral tablet 10 mg, By Mouth, Daily, # 30 tablet, Refills 9, Tot. Refills 9, Maintenance, 07/07/19 19:06:00 EDT, Route to Pharmacy Electronically, [facility], 175, cm, 05/30/19 19:11:00 EST, Height,84.5, kg, 12/25/18 16:15:00 EDT, Dry Weight Start Date: 07/07/19 Status: OrderedNuLYTELY with Flavor Packs oral powder for reconstitution 240 mL, By Mouth, Every 15 minutes, # 4,000 mL, 0 Refills, Maintenance, 07/07/19 19:06:00 EDT, [facility], 240 mL By Mouth Every 15 minutes, 175, cm, 05/30/19 19:11:00 EST, Height, 84.5, kg, 12/25/18 16:15:00 EDT, Dry Weight Start Date: 07/07/19 Status: OrderedPlavix 75 mg oral tablet 75 mg, By Mouth, Daily, Welsh label, # 90 each, Refills 1, Tot. Refills 1, Maintenance, 07/07/19 19:06:00 EDT, [facility], cm, 05/30/19 19:11:00EST, Height, 84.5, kg, 12/25/18 16:15:00 EDT, Dry... Start Date: 07/07/19 Stop Date: 01/03/20 Status: OrderedProAir HFA 90 mcg/inh inhalation aerosol with adapter 1, puffs, Inhalation, Every 4 hours, PRN, # 8.5 Gm, Refills 0, Tot. Refills 0, Maintenance, 07/06/2018:06:00 EDT, Aerosol, Route to Pharmacy Electronically, [id number], [facility], 175, cm, 05/30/19 19:11:00... Start [...]
--- OUTSIDE RECORDS SUMMARY | 2022-06-19 23:11 | XMS_ITS | Continuity of Care Document ---
:1965 Author Organization [facility] Address [address] [place] [address]- Care Team Providers Name Role Phone Greyson LARES, Mauricio Primary Care Physician Encounter [facility] Date(s): 07/05/20 - 08/04/20 [facility] [address] [place] [id number] Attending Physician: AdmJacky lambert Admitting Physician: AdmtraJcky Referring Physician: Admtr, Ar8 Allergies, Adverse Reactions, [...] Patient Refuses 1Early/Late Reason: Other : Patient [id number] Comment: [01/16/2017] [facility] [id number] Comment: lot # [id number] Medications Advair Diskus 250 mcg-50 mcg inhalation powder 1, puffs, Inhalation, 2 times a day, # 180 each, Refills 1, Tot. Refills 1, Maintenance, 07/22/20 10:04:00 EDT, Powder, Route to Pharmacy Electronically, [id number], [facility] #[id number], 175, cm, 07/22/20 7:07:00 EDT,... Start Date: 07/22/20 Status: Orderedalbuterol 0.083% inhalation solution 3 mL = 2.5 mg, Inhalation, Every 6 hours, PRN Wheezing/Shortness of Breath, # 1 each, 6 Refills, Maintenance, 05/30/20 13:29:00 EST, Solution, [facility], 176, cm, 01/18/20 13:37:00 EDT, Height, 84, kg, 03/15/20 6:52:00 EST, Dry Weight Start Date: 05/30/20 Status: OrderedamLODIPine 10 mg oral tablet 10 mg, 1, tablet, By Mouth, Daily at bedtime, # 90 tablet, Refills 4, Tot. Refills 4, Maintenance, 07/14/20 11:22:00 EDT, Route to Pharmacy Electronically, [facility] #[id number], Partial fill upon patient request if the prescription is for a [facility]... Start Date: 07/14/20 Stop Date: 10/07/21 Status: Orderedaspirin 81 mg oral delayed release tablet 81 mg, 1, tablet, By Mouth, Daily, ENGLISH LABEL, # 30 tablet, Refills 1, Tot. Refills 1, Maintenance, 05/30/20 13:29:00 EST, Route to Pharmacy Electronically, [facility], 176, cm, 01/18/20 13:37:00 EDT, Height, 84, kg, 03/15/20 6:52:0... Start Date: 05/30/20 Status: Orderedatorvastatin 20 mg oral tablet 1 tablet = 20 mg, By Mouth, Daily at bedtime, ENGLISH LABEL, # 30 tablet, 1 Refills, Maintenance, 05/30/20 13:29:00 EST, Tablet, [facility], 176, cm, 01/18/20 13:37:00 EDT, Height, 84, kg, 03/15/20 6:52:00 EST, Dry Weight Start Date: 05/30/20 Status: Ordereddivalproex sodium 500 mg oral enteric coated tablet 1 tablet = 500 mg, By Mouth, 2 times a day, ENGLISH LABEL, # 60 tablet, 2 Refills, Maintenance, 05/30/20 13:29:00 EST, Tablet, [facility], 176, cm, 01/18/20 13:37:00 EDT, Height, 84, kg, 03/15/20 6:52:00 EST, Dry Weight Start Date: 05/30/20 Status: Orderedduloxetine 60 mg oral enteric coated capsule 1 capsule = 60 mg, By Mouth, Daily, ENGLISH LABEL, # 30 capsule, 1 Refills, Maintenance, 05/30/20 13:29:00 EST, Capsule, [facility], 176, cm, 01/18/20 13:37:00 EDT, Height, 84, kg, 03/15/20 6:52:00 EST, Dry Weight Start Date: 05/30/20 Status: OrderedFlonase 50 mcg/inh nasal spray 1 sprays, Nares, Both, 2 times a day, Burmese label please., # 16 Gm, 1 Refills, Maintenance, 07/01/20 14:30:00 EST, [facility] #[id number], Partial fill upon patient request if the prescription is for a schedule II opioid drug., 1 sprays Nares,... Start Date: 07/01/20 Status: Orderedgabapentin 300 mg oral capsule 600 mg, 2, capsule, By Mouth, Daily at bedtime, ENGLISH LABEL, # 60 capsule, Refills 3, Tot. Refills3, Maintenance, 05/30/20 13:29:00 EST, Route to Pharmacy Electronically, [facility],176, cm, 01/18/20 13:37:00 EDT, Height, 84, kg, 1... Start Date: 05/30/20 Status: Orderedlidocaine 5% topical film See Instructions, 1 patch to affected area Topically Daily, remove at HS, # 30 patch, 1 Refills, Maintenance, 08/13/19 13:28:00 EDT, Patch, [facility], 1 patch to affected area Topically Daily, remove at HS, 175, cm, 05/30/19 19:11:00... Start Date: 08/13/19 Status: Orderedloratadine 10 mg oral tablet 10 mg, 1, tablet, By Mouth, Daily, Burmese label please., # 30 tablet, Refills 0, Tot. Refills 0, Maintenance, 07/01/20 14:30:00 EST, Route to Pharmacy Electronically, [facility] #[id number], Partial fill upon patient request if the prescription... Start Date: 07/01/20 Stop Date: 07/31/20 Status: Orderedmontelukast 10 mg oral tablet 10 mg, 1, tablet, By Mouth, Daily, ENGLISH LABEL, # 30 tablet, Refills 11, Tot. Refills 11, Maintenance, 07/14/20 11:23:00 EDT, Route to Pharmacy Electronically, [facility] #[id number], 175, cm, 07/14/20 10:19:00 EDT, Height, 86, kg, 07/05/20 1:5... Start Date: 07/14/20 Status: Orderednicotine 7 mg/24 hr transdermal film, extended release 1 patch, Topically, Daily, for 14 days, # 14 patch, 0 Refills, Acute 08/05/20 10:07:00 EDT, 07/22/2109:07:00 EDT, Patch, [facility] #[id number], Partial fill upon patient request if the prescription is for a schedule II opioid drug., 1 patch Top... Start Date: 07/22/20 Stop Date: 08/05/20 Status: OrderedPlavix 75 mg oral tablet 75 mg, 1, tablet, By Mouth, Daily, ENGLISH LABEL, # 30 tablet, Refills 3, Tot. Refills 3, Maintenance, 01/18/20 14:12:00 EDT, Route to Pharmacy Electronically, [facility], 176, cm, 01/18/20 13:37:00 EDT, Height, 84, kg, 01/01/20 22:36:... Start Date: 01/18/20 Status: OrderedpredniSONE 10 mg oral tablet See Instructions, 40 mg for 2 days, 20 mg for 2 days 10 mg for 2 days., # 14 tablet, 0 Refills, Maintenance, 07/22/20 10:06:00 EDT, [facility] #[id number], Partial fill upon patient request if theprescription is for a schedule II opioid drug., 1... Start Date: 07/22/20 Status: OrderedProAir HFA 90 mcg/inh inhalation aerosol with adapter 1, puffs, Inhalation, Every 4 hours, PRN, # 1 each, Refills 5, Tot. Refills 5, Maintenance, 07/22/2109:04:00 EDT, Aerosol, Route to Pharmacy Electronically, [id number], [facility] #[id number], 175, cm, 07/22/20 7:07:00... Start Date: 07/22/20 Stop Date: 01/18/21 Status: OrderedSEROquel XR 300 mg oral tablet, extended release 1 tablet = 300 mg, By Mouth, Daily at bedtime, ENGLISH LABEL, # 30 tablet, 1 Refills, Maintenance, 05/30/20 13:29:00 EST, ER Tablet, [facility], 1 tablet By Mouth Daily at bedtime,Instr:ENGLISH LABEL, 176, cm, 01/18/20 13:37:00 EDT, He... [...] Active Nausea & vomiting(Confirmed) Active *Julissa Fraga, [facility] Care Active Coordinator [phone](Confirmed) Lumbar radicular pain(Confirmed) Active Right hemiplegia(Confirmed) Active Encounter for screening Active colonoscopy(Confirmed) Tobacco dependence(Confirmed) Active DMII (diabetes mellitus, type Active 2)(Confirmed) Vertigo(Confirmed) Active Social History Social History Type Response Smoking Status 5-9 cigarettes (between 1/4 to 1/2 pack)/day in last 30 days entered on: 01/01/20 Sex
--- OUTSIDE RECORDS SUMMARY | 2022-06-19 23:11 | XMS_ITS | Continuity of Care Document ---
:1965 Author Organization [facility] Address [address] [place] [address]- Care Team Providers Name Role Phone Greyson LARES, Mauricio Primary Care Physician Encounter [facility] Date(s): 08/22/20 - 10/01/20 [facility] [address] [place] [id number] Attending Physician: Alex Jones MD Admitting Physician: Alex Jones MD Allergies, Adverse Reactions, Alerts No Known [...] Patient Refuses 1Early/Late Reason: Other : Patient [id number] Comment: [01/16/2017] [facility] [id number] Comment: lot # [id number] Medications Advair Diskus 250 mcg-50 mcg inhalation powder 1, puffs, Inhalation, 2 times a day, # 180 each, Refills 1, Tot. Refills 1, Maintenance, 07/22/20 10:04:00 EDT, Powder, Route to Pharmacy Electronically, [id number], [facility] #[id number], 175, cm, 07/22/20 7:07:00 EDT,... Start Date: 07/22/20 Status: Orderedalbuterol 0.083% inhalation solution 3 mL = 2.5 mg, Inhalation, Every 6 hours, PRN Wheezing/Shortness of Breath, # 1 each, 6 Refills, Maintenance, 09/30/20 9:34:00 EDT, Solution, [facility] #[id number], 175, cm, 07/22/20 7:07:00 EDT,Height, 82.4, kg, 07/21/20 11:02:00 EDT, Dry Weight Start Date: 09/30/20 Status: OrderedamLODIPine 10 mg oral tablet 10 mg, 1, tablet, By Mouth, Daily at bedtime, # 90 tablet, Refills 4, Tot. Refills 4, Maintenance, 09/30/20 9:34:00 EDT, Route to Pharmacy Electronically, [facility] #[id number], Partial fill uponpatient request if the prescription is for a sche... Start Date: 09/30/20 Stop Date: 12/24/21 Status: Orderedaspirin 81 mg oral delayed release tablet 81 mg, 1, tablet, By Mouth, Daily, QATARI LABEL, # 30 tablet, Refills 1, Tot. Refills 1, Maintenance, 09/30/20 9:34:00 EDT, Route to Pharmacy Electronically, [facility] #[id number], 175, cm, 07/22/20 7:07:00 EDT, Height, 82.4, kg, 07/21/20 11:02... Start Date: 09/30/20 Status: Orderedatorvastatin 20 mg oral tablet 1 tablet = 20 mg, By Mouth, Daily at bedtime, QATARI LABEL, # 30 tablet, 1 Refills, Maintenance, 09/30/20 9:34:00 EDT, Tablet, [facility] #[id number], 175, cm, 07/22/20 7:07:00 EDT, Height, 82.4,kg, 07/21/20 11:02:00 EDT, Dry Weight Start Date: 09/30/20 Status: Ordereddivalproex sodium 500 mg oral enteric coated tablet 1 tablet = 500 mg, By Mouth, 2 times a day, QATARI LABEL, # 60 tablet, 2 Refills, Maintenance, 09/30/20 9:34:00 EDT, Tablet, [facility] #[id number], 175, cm, 07/22/20 7:07:00 EDT, Height, 82.4, kg, 07/21/20 11:02:00 EDT, Dry Weight Start Date: 09/30/20 Status: Orderedduloxetine 60 mg oral enteric coated capsule 1 capsule = 60 mg, By Mouth, Daily, QATARI LABEL, # 30 capsule, 1 Refills, Maintenance, 09/30/20 9:34:00 EDT, Capsule, [facility] #[id number], 175, cm, 07/22/20 7:07:00 EDT, Height, 82.4, kg, 07/21/20 11:02:00 EDT, Dry Weight Start Date: 09/30/20 Status: OrderedFlonase 50 mcg/inh nasal spray 1 sprays, Nares, Both, 2 times a day, Chinese label please., # 16 Gm, 1 Refills, Maintenance, 09/30/20 9:34:00 EDT, [facility] #[id number], Partial fill upon patient request if the prescription isfor a schedule II opioid drug., 1 sprays Nares, B... Start Date: 09/30/20 Status: Orderedgabapentin 300 mg oral capsule 600 mg, 2, capsule, By Mouth, Daily at bedtime, QATARI LABEL, # 60 capsule, Refills 3, Tot. Refills3, Maintenance, 09/30/20 9:34:00 EDT, Route to Pharmacy Electronically, [facility] #[id number],175, cm, 07/22/20 7:07:00 EDT, Height, 82.4, kg,... Start Date: 09/30/20 Status: Orderedlidocaine 5% topical film See Instructions, 1 patch to affected area Topically Daily, remove at HS, # 30 patch, 1 Refills, Maintenance, 09/30/20 9:34:00 EDT, Patch, [facility] #[id number], 1 patch to affected area Topically Daily, remove at HS, 175, cm, 07/22/20 7:07:00 E... Start Date: 09/30/20 Status: Orderedloratadine 10 mg oral tablet 10 mg, 1, tablet, By Mouth, Daily, Chinese label please., # 30 tablet, Refills 0, Tot. Refills 0, Maintenance, 09/30/20 9:34:00 EDT, Route to Pharmacy Electronically, [facility] #[id number], Partial fill upon patient request if the prescription i... Start Date: 09/30/20 Stop Date: 10/30/20 Status: Orderedmontelukast 10 mg oral tablet 10 mg, 1, tablet, By Mouth, Daily, QATARI LABEL, # 30 tablet, Refills 11, Tot. Refills 11, Maintenance, 09/30/20 9:34:00 EDT, Route to Pharmacy Electronically, [facility] #[id number], 175, cm, 07/22/20 7:07:00 EDT, Height, 82.4, kg, 07/21/20 11:... Start Date: 09/30/20 Status: OrderedPlavix 75 mg oral tablet 75 mg, 1, tablet, By Mouth, Daily, QATARI LABEL, # 30 tablet, Refills 3, Tot. Refills 3, Maintenance, 09/30/20 9:34:00 EDT, Route to Pharmacy Electronically, [facility] #[id number], 175, cm, 07/22/20 7:07:00 EDT, Height, 82.4, kg, 07/21/20 11:02... Start Date: 09/30/20 Status: OrderedpredniSONE 10 mg oral tablet See Instructions, 40 mg for 2 days, 20 mg for 2 days 10 mg for 2 days., # 14 tablet, 0 Refills, Maintenance, 07/22/20 10:06:00 EDT, [facility] #[id number], Partial fill upon patient request if theprescription is for a schedule II opioid drug., 1... Start Date: 07/22/20 Status: OrderedProAir HFA 90 mcg/inh inhalation aerosol with adapter 1, puffs, Inhalation, Every 4 hours, PRN, # 1 each, Refills 5, Tot. Refills 5, Maintenance, :34:00 EDT, Aerosol, Route to Pharmacy Electronically, [id number], [facility][id number], 175, cm, 07/22/20 7:07:00 E... Start Date: 09/30/20 Stop Date: 03/29/21 Status: OrderedSEROquel XR 300 mg oral tablet, extended release 1 tablet = 300 mg, By Mouth, Daily at bedtime, QATARI LABEL, # 30 tablet, 1 Refills, Maintenance, 09/30/20 9:34:00 EDT, ER Tablet, [facility] #[id number], 1 tablet By Mouth Daily at bedtime,Instr:QATARI LABEL, 175, cm, 07/22/20 7:07:00 EDT, Hei... [...] Active Nausea & vomiting(Confirmed) Active *Julissa Fraga, [facility] Care Active Coordinator [phone](Confirmed) Lumbar radicular pain(Confirmed) Active Right hemiplegia(Confirmed) Active Encounter for screening Active colonoscopy(Confirmed) Tobacco dependence(Confirmed) Active DMII (diabetes mellitus, type Active 2)(Confirmed) Vertigo(Confirmed) Active Social History Social History Type Response Smoking Status 5-9 cigarettes (between 1/4 to 1/2 pack)/day in last 30 days entered on: 01/01/20 Sex
--- OUTSIDE RECORDS SUMMARY | 2022-06-19 23:11 | XMS_ITS | Continuity of Care Document ---
:[address] [facility] Address [address] [place] [address]- Care Team Providers Name Role Phone Mauricio Rubi MD Primary Care Physician Encounter [facility] AC[facility] R [id number] Date(s): 11/26/19 - 01/10/20 [facility] [address] [place] [address]- [facility] Attending Physician: Tomi Saavedra MD [...] Patient Refuses 1Early/Late Reason: Other : Patient [id number] Comment: [01/16/2017] [facility] [id number] Comment: lot # [id number] Medications acetaminophen 325 mg oral tablet 650 mg, 2, tablet, By Mouth, 4 times a day, PRN, as needed for headache/pain not to exceed 4000 mg/day SAO TOMEAN LABEL, # 50 tablet, Refills 1, Tot. Refills 1, Acute 03/10/20 10:19:00 EST, Pain , Mild, 01/08/20 10:18:00 EDT, Route to Pharmacy Electron... Start Date: 01/08/20 Stop Date: 03/10/20 Status: OrderedAirDuo RespiClick 232 mcg-14 mcg/inh inhalation powder 1, puffs, Inhalation, 2 times a day, # 1 each, Refills 11, Tot. Refills 11, Maintenance, 07/07/19 19:06:00 EDT, Powder, Route to Pharmacy Electronically, [id number], [facility], advair not covered , 175,... Start Date: 07/07/19 Status: Orderedalbuterol 0.083% inhalation solution 3 mL = 2.5 mg, Inhalation, Every 6 hours, PRN Wheezing/Shortness of Breath, # 1 each, 6 Refills, Maintenance, 07/07/19 19:06:00 EDT, Solution, [facility], 175, cm, 05/30/19 19:11:00 EST, Height, 84.5, kg, 12/25/18 16:15:00 EDT, Dry Weight Start Date: 07/07/19 Status: Orderedaspirin 81 mg oral delayed release tablet 81 mg, 1, tablet, By Mouth, Daily, SAO TOMEAN LABEL, # 30 tablet, Refills 1, Tot. Refills 1, Maintenance, 01/08/20 10:20:00 EDT, Route to Pharmacy Electronically, [facility], 176, cm, 01/08/20 9:45:00 EDT, Height, 84, kg, 01/01/20 22:36:0... Start Date: 01/08/20 Status: Orderedatorvastatin 20 mg oral tablet 1 tablet = 20 mg, By Mouth, Daily at bedtime, SAO TOMEAN LABEL, # 30 tablet, 1 Refills, Maintenance, 01/08/20 10:20:00 EDT, Tablet, [facility], 176, cm, 01/08/20 9:45:00 EDT, Height, 84, kg, 01/01/20 22:36:00 EDT, Dry Weight Start Date: 01/08/20 Status: Ordereddivalproex sodium 500 mg oral enteric coated tablet 1 tablet = 500 mg, By Mouth, 2 times a day, SAO TOMEAN LABEL, # 60 tablet, 1 Refills, Maintenance, 01/08/20 10:21:00 EDT, Tablet, [facility], 176, cm, 01/08/20 9:45:00 EDT, Height, 84, kg,01/01/20 22:36:00 EDT, Dry Weight Start Date: 01/08/20 Status: Orderedduloxetine 60 mg oral enteric coated capsule 1 capsule = 60 mg, By Mouth, Daily, SAO TOMEAN LABEL, # 30 capsule, 1 Refills, Maintenance, 01/08/20 10:21:00 EDT, Capsule, [facility], 176, cm, 01/08/20 9:45:00 EDT, Height, 84, kg, 01/01/20 22:36:00 EDT, Dry Weight Start Date: 01/08/20 Status: Orderedgabapentin 300 mg oral capsule 600 mg, 2, capsule, By Mouth, Daily at bedtime, SAO TOMEAN LABEL, # 60 capsule, Refills 1, Tot. Refills1, Maintenance, 01/08/20 10:21:00 EDT, Route to Pharmacy Electronically, [facility],176, cm, 01/08/20 9:45:00 EDT, Height, 84, kg, 09... Start Date: 01/08/20 Status: Orderedhydrochlorothiazide 25 mg oral tablet 12.5 mg, 0.5, tablet, By Mouth, Daily, SAO TOMEAN LABEL, # 15 tablet, Refills 1, Tot. Refills 1, Maintenance, 01/08/20 10:23:00 EDT, Route to Pharmacy Electronically, [facility], 176, cm, 01/08/20 9:45:00 EDT, Height, 84, kg, 01/01/20 22:... Start Date: 01/08/20 Status: Orderedlidocaine 5% topical film See Instructions, 1 patch to affected area Topically Daily, remove at HS, # 30 patch, 1 Refills, Maintenance, 08/13/19 13:28:00 EDT, Patch, [facility] 1 patch to affected area Topically Daily, remove at HS, 175, cm, 05/30/19 19:11:00... Start Date: 08/13/19 Status: OrderedmetFORMIN 500 mg oral tablet 1 tablet = 500 mg, By Mouth, 2 times a day, SAO TOMEAN LABEL, # 60 tablet, 1 Refills, Maintenance, 01/08/20 10:23:00 EDT, Tablet, [facility] 176, cm, 01/08/20 9:45:00 EDT, Height, 84, kg,01/01/20 22:36:00 EDT, Dry Weight Start Date: 01/08/20 Status: Orderedmontelukast 10 mg oral tablet 10 mg, 1, tablet, By Mouth, Daily, SAO TOMEAN LABEL, # 30 tablet, Refills 1, Tot. Refills 1, Maintenance, 01/08/20 10:24:00 EDT, Route to Pharmacy Electronically, [facility], 176, cm, 01/08/20 9:45:00 EDT, Height, 84, kg, 01/01/20 22:36:0... Start Date: 01/08/20 Status: OrderedNeurontin 300 mg oral capsule 300 mg, 1, capsule, By Mouth, 3 times a day, PRN, As needed for neuropathic pain up to 3 times dailySPANISH LABEL, # 60 capsule, Refills 1, Tot. Refills 1, Maintenance, Pain , Moderate, 01/08/20 10:22:00 EDT, Route to Pharmacy Electronically, [facility]... Start Date: 01/08/20 Status: OrderedNicoderm C-Q Clear 14 mg/24 hr transdermal film, extended release 1 patch, Topically, Daily, # 30 patch, 1 Refills, Acute 02/08/20 10:25:00 EDT, 01/08/20 10:25:00 EDT, Patch, [facility], 176, cm, 01/08/20 9:45:00 EDT, Height, 84, kg, 01/01/20 22:36:00EDT, Dry Weight Start Date: 01/08/20 Stop Date: 02/08/20 Status: OrderedPlavix 75 mg oral tablet 75 mg, 1, tablet, By Mouth, Daily, SAO TOMEAN LABEL, # 30 tablet, Refills 1, Tot. Refills 1, Maintenance, 01/08/20 10:20:00 EDT, Route to Pharmacy Electronically, [facility], 176, cm, 01/08/20 9:45:00 EDT, Height, 84, kg, 01/01/20 22:36:0... Start Date: 01/08/20 Status: OrderedProAir HFA 90 mcg/inh inhalation aerosol with adapter 1, puffs, Inhalation, Every 4 hours, PRN, # 8.5 Gm, Refills 0, Tot. Refills 0, Maintenance, 07/06/2018:06:00 EDT, Aerosol, Route to Pharmacy Electronically, [id number], [facility], 175, cm, 05/30/19 19:11:00... Start Date: 07/07/19 Status: OrderedSEROquel XR 300 mg oral tablet, extended release 1 tablet = 300 mg, By Mouth, Daily at bedtime, SAO TOMEAN LABEL, # 30 tablet, 1 Refills, Maintenance, 01/08/20 10:26:00 EDT, ER Tablet, [facility], 1 tablet By Mouth Daily at bedtime,Instr:SAO TOMEAN LABEL, 176, cm, 01/08/20 9:45:00 EDT, Hei... Start Date: 01/08/20 Status: Ordered Problem List Condition Effective Dates Status Health Status Informant Chronic Basilar artery Active occlusion(Confirmed) Aborted CVA- Was given tPA(Confirmed) Active Chronic pain syndrome(Confirmed) Active Constipation(Confirmed) Active Depression(Confirmed) Active Dysuria(Confirmed) Active Heartburn(Confirmed) Active CVA, old, hemiparesis(Confirmed) Active Elevated MCV(Confirmed) Active Nausea & vomiting(Confirmed) Active *Julissa Fraga, [facility] Care Active Coordinator [phone](Confirmed) Lumbar radicular pain(Confirmed) Active Right hemiplegia(Confirmed) Active Encounter for screening Active colonoscopy(Confirmed) Tobacco dependence(Confirmed) Active DMII (diabetes mellitus, type Active 2)(Confirmed) Vertigo(Confirmed) Active Social History Social History Type Response Smoking Status 5-9 cigarettes (between 1/4 to 1/2 pack)/day in last 30 days entered on: 01/01/20 Sex
[2022-06-19] MEDS: Magnesium Sulfate/H2O 2 GM/50 ML PIGGYBACK IV (23:12)
[2022-06-19] MEDS: methylPREDNISolone Sod Succ 125 MG/2 ML VIAL IVPUSH (23:12)
--- OUTSIDE RECORDS SUMMARY | 2022-06-19 23:12 | XMS_ITS | Continuity of Care Document ---
:1965 Author Organization [facility] Address [address] [place] [phone]- Care Team Providers Name Role Phone Greyson LARES, Mauricio Primary Care Physician Encounter [place] Date(s): 07/04/20 - 07/06/[address] [address] Encounter Diagnosis COPD exacerbation (Final) - 07/04/20 Discharge Disposition: A-D/C Home Attending Physician: Jessica David DO Admitting Physician: Angie Wallace MD Referring Physician: Not on Staff, Referring [...] Patient Refuses 1Early/Late Reason: Other : Patient [id number] Comment: [01/16/2017] [facility] [phone] Comment: lot # [id number] Medications Advair Diskus 250 mcg-50 mcg inhalation powder 1, puffs, Inhalation, 2 times a day, # 180 each, Refills 1, Tot. Refills 1, Maintenance, 05/30/20 14:25:00 EST, Powder, Route to Pharmacy Electronically, [id number], [facility], 176, cm, 01/18/20 13:37:00 EDT,... Start Date: 05/30/20 Status: Orderedalbuterol 0.083% inhalation solution 3 mL = 2.5 mg, Inhalation, Every 6 hours, PRN Wheezing/Shortness of Breath, # 1 each, 6 Refills, Maintenance, 05/30/20 13:29:00 EST, Solution, [facility], 176, cm, 01/18/20 13:37:00 EDT, Height, 84, kg, 03/15/20 6:52:00 EST, Dry Weight Start Date: 05/30/20 Status: OrderedamLODIPine 10 mg oral tablet 10 mg, 1, tablet, By Mouth, Daily at bedtime, # 30 tablet, Refills 0, Tot. Refills 0, Maintenance, 07/06/20 12:31:00 EST, Route to Pharmacy Electronically, [facility], Partial fill uponpatient request if the prescription is for a sche... Start Date: 07/06/20 Status: Orderedaspirin 81 mg oral delayed release tablet 81 mg, 1, tablet, By Mouth, Daily, TAIWANESE LABEL, # 30 tablet, Refills 1, Tot. Refills 1, Maintenance, 05/30/20 13:29:00 EST, Route to Pharmacy Electronically, [facility], 176, cm, 01/18/20 13:37:00 EDT, Height, 84, kg, 03/15/20 6:52:0... Start Date: 05/30/20 Status: Orderedatorvastatin 20 mg oral tablet 1 tablet = 20 mg, By Mouth, Daily at bedtime, TAIWANESE LABEL, # 30 tablet, 1 Refills, Maintenance, 05/30/20 13:29:00 EST, Tablet, [facility], 176, cm, 01/18/20 13:37:00 EDT, Height, 84, kg, 03/15/20 6:52:00 EST, Dry Weight Start Date: 05/30/20 Status: Ordereddivalproex sodium 500 mg oral enteric coated tablet 1 tablet = 500 mg, By Mouth, 2 times a day, TAIWANESE LABEL, # 60 tablet, 2 Refills, Maintenance, 05/30/20 13:29:00 EST, Tablet, [facility] 176, cm, 01/18/20 13:37:00 EDT, Height, 84, kg, 03/15/20 6:52:00 EST, Dry Weight Start Date: 05/30/20 Status: Orderedduloxetine 60 mg oral enteric coated capsule 1 capsule = 60 mg, By Mouth, Daily, TAIWANESE LABEL, # 30 capsule, 1 Refills, Maintenance, 05/30/20 13:29:00 EST, Capsule, [facility], 176, cm, 01/18/20 13:37:00 EDT, Height, 84, kg, 03/15/20 6:52:00 EST, Dry Weight Start Date: 05/30/20 Status: OrderedFlonase 50 mcg/inh nasal spray 1 sprays, Nares, Both, 2 times a day, Australian label please., # 16 Gm, 1 Refills, Maintenance, 07/01/20 14:30:00 EST, [facility] #[id number], Partial fill upon patient request if the prescription is for a schedule II opioid drug., 1 sprays Nares,... Start Date: 07/01/20 Status: Orderedgabapentin 300 mg oral capsule 600 mg, 2, capsule, By Mouth, Daily at bedtime, TAIWANESE LABEL, # 60 capsule, Refills 3, Tot. Refills3, Maintenance, 05/30/20 13:29:00 EST, Route to Pharmacy Electronically, [facility],176, cm, 01/18/20 13:37:00 EDT, Height, 84, kg, 1... Start Date: 05/30/20 Status: Orderedhydrochlorothiazide 25 mg oral tablet 12.5 mg, 0.5, tablet, By Mouth, Daily, TAIWANESE LABEL, # 15 tablet, Refills 1, Tot. Refills 1, Maintenance, 05/30/20 13:29:00 EST, Route to Pharmacy Electronically, [facility], 176, cm, 01/18/20 13:37:00 EDT, Height, 84, kg, 03/15/20 6:... Start Date: 05/30/20 Status: Orderedlidocaine 5% topical film See Instructions, 1 patch to affected area Topically Daily, remove at HS, # 30 patch, 1 Refills, Maintenance, 08/13/19 13:28:00 EDT, Patch, [facility] 1 patch to affected area Topically Daily, remove at HS, 175, cm, 05/30/19 19:11:00... Start Date: 08/13/19 Status: Orderedloratadine 10 mg oral tablet 10 mg, 1, tablet, By Mouth, Daily, Australian label please., # 30 tablet, Refills 0, Tot. Refills 0, Maintenance, 07/01/20 14:30:00 EST, Route to Pharmacy Electronically, [facility] #[id number], Partial fill upon patient request if the prescription... Start Date: 07/01/20 Stop Date: 07/31/20 Status: OrderedmetFORMIN 500 mg oral tablet 1 tablet = 500 mg, By Mouth, 2 times a day, TAIWANESE LABEL, # 60 tablet, 1 Refills, Maintenance, 05/18/20 16:40:00 EST, Tablet, [facility], 176, cm, 01/18/20 13:37:00 EDT, Height, 84, kg, 03/15/20 6:52:00 EST, Dry Weight Start Date: 05/18/20 Status: Orderedmontelukast 10 mg oral tablet 10 mg, 1, tablet, By Mouth, Daily, TAIWANESE LABEL, # 30 tablet, Refills 1, Tot. Refills 1, Maintenance, 05/30/20 13:29:00 EST, Route to Pharmacy Electronically, [facility], 176, cm, 01/18/20 13:37:00 EDT, Height, 84, kg, 03/15/20 6:52:0... Start Date: 05/30/20 Status: OrderedPlavix 75 mg oral tablet 75 mg, 1, tablet, By Mouth, Daily, TAIWANESE LABEL, # 30 tablet, Refills 3, Tot. Refills 3, Maintenance, 01/18/20 14:12:00 EDT, Route to Pharmacy Electronically, [facility], 176, cm, 01/18/20 13:37:00 EDT, Height, 84, kg, 01/01/20 22:36:... Start Date: 01/18/20 Status: OrderedpredniSONE 20 mg oral tablet 2 tablet = 40 mg, By Mouth, Daily, for 5 days, with food or milk. Australian label please., # 10 tablet, 0 Refills, Acute 07/11/20 12:31:00 EDT, 07/06/20 12:31:00 EST, [facility], Partial fill upon patient request if the prescription is f... Start Date: 07/06/20 Stop Date: 07/11/20 Status: OrderedProAir HFA 90 mcg/inh inhalation aerosol with adapter 1, puffs, Inhalation, Every 4 hours, PRN, # 8.5 Gm, Refills 0, Tot. Refills 0, Maintenance, 05/30/2112:29:00 EST, Aerosol, Route to Pharmacy Electronically, [id number], [facility], 176, cm, 01/18/20 13:37:00... Start Date: 05/30/20 Status: OrderedSEROquel XR 300 mg oral tablet, extended release 1 tablet = 300 mg, By Mouth, Daily at bedtime, TAIWANESE LABEL, # 30 tablet, 1 Refills, Maintenance, 05/30/20 13:29:00 EST, ER Tablet, [facility], 1 tablet By Mouth Daily at bedtime,Instr:TAIWANESE LABEL, 176, cm, 01/18/20 13:37:00 EDT, He... [...] Nausea & vomiting(Confirmed) Active *Julissa Fraga, [facility] Care Active Coordinator [phone](Confirmed) Lumbar radicular pain(Confirmed) Active Right hemiplegia(Confirmed) Active Encounter for screening Active colonoscopy(Confirmed) Tobacco dependence(Confirmed) Active DMII (diabetes mellitus, type Active 2)(Confirmed) Vertigo(Confirmed) Active Results Radiology Reports Exam Date Time Procedure Performing Provider Status 07/04/20 4:18 PM Chest 2 Views Frontal and Lat Tricemoustapha Quita; Em th (Verified) Notes:(Chest 2 Views Frontal and Lat) Reason For Exam: Chest Pain;Other:RESULT: Chest 2 Views Frontal and Lat Chest 2 Views Frontal and Lat Reason: Shortness of breath COMPARISON: 03/14/2020 FINDINGS: LINES AND TUBES: None. LUNGS AND PLEURA: Clear lungs. Normal pulmonary vascularity. No pleural effusion. No pneumothorax. HEART, MEDIASTINUM AND JOIE: Heart is normal in size. Normal upper mediastinal and hilar contour. BONES AND SOFT TISSUES: No acute abnormality. IMPRESSION: No acute abnormality. I have personally reviewed the images and I agree with this report. WSN: [id number] Ordering Physician: Frank Yang Dictated By: Bimal Rich DO Dictated Date/Time: 07/04/20 4:25 pm Reviewed By: Pedro Owens MD Signed By: Pedro Owens MD Signed Date/Time: 07/04/20 4:30 pm Transcribed By: JENNIFER Transcribed Date/Time: 07/04/20 4:19 pm Vital Signs Most recent to oldest 1 2 3 [Reference Range]: Height 175 cm 175 cm 175 cm (07/06/20 10:46 AM) (07/06/20 6:39 AM) (07/06/20 3: 43 AM) Weight 86 kg (07/05/20 1:53 AM) Oxygen Saturation [94-100 %] 97 % 99 % 96 % (07/06/20 10:46 AM) (07/06/20 6:39 AM) (07/06/20 3: 43 AM) Pulse Rate [55-90 bpm] 57 bpm 53 bpm 106 bpm (07/06/20 10:46 AM) *L* *H* (07/06/20 6:39 AM) (07/06/20 3:43 AM) Body Mass Index [18.5-24.99] 28.08 *H* (07/05/20 1:53 AM) Blood Pressure [90-138/55-84 94/57 mm Hg 129/75 mm Hg 102 /65 mm Hg mm Hg] (07/06/20 10:46 AM) (07/06/20 6:39 AM) (07/06/20 3: 43 AM) Respiratory Rate [16-30 17 br/min 17 br/min 18 br/mi n br/min] (07/06/20 10:46 AM) (07/06/20 6:39 AM) (07/06/20 3: 43 AM) Temperature [96.8-100.4 DegF] 97.2 DegF 97.4 DegF 97 .5 DegF (07/06/20 10:46 AM) (07/06/20 6:39 AM) (07/06/20 3: 43 AM) Liters per Minute 2 L/min 2 L/min 2 L/min (07/06/20 6:39 AM) (07/06/20 3:43 AM) (07/05/20 11:0 9 PM) Mode of Delivery (Oxygen) Room air Nasal cannula Nasal cannula (07/06/20 10:46 AM) (07/06/20 6:39 AM) (07/06/20 3: 43 AM) Blood pressure sites Arm, left Arm, left Arm, left (07/06/20 10:46 AM) (07/06/20 6:39 AM) (07/06/20 3: 43 AM) Temperature Route Oral Oral Oral (07/06/20 10:46 AM) (07/06/20 6:39 AM) (07/06/20 3: 43 AM) Dry Weight 86 kg (07/05/20 1:53 AM) Social History Social History Type Response Smoking Status 5-9 cigarettes (between 1/4 to 1/2 pack)/day in last 30 days entered on: 01/01/20 Sex
--- OUTSIDE RECORDS SUMMARY | 2022-06-19 23:12 | XMS_ITS | Continuity of Care Document ---
:1965 Author Organization [facility] Address [address] [place] [address]- Care Team Providers Name Role Phone Greyson LARES, Mauricio Primary Care Physician Encounter [facility] Date(s): 12/25/19 - 12/26/[address] [address]- [facility] Encounter Diagnosis Asthma exacerbation (Final) - 12/25/19 Discharge Disposition: A-D/C Home Attending Physician: Reji Alvarenga MD Admitting Physician: Zion Lopes MD Referring Physician: Not on Staff, Referring [...] Patient Refuses 1Early/Late Reason: Other : Patient [id number] Comment: [01/16/2017] [facility] [id number] Comment: lot # [id number] Medications AirDuo RespiClick 232 mcg-14 mcg/inh inhalation powder 1, puffs, Inhalation, 2 times a day, # 1 each, Refills 11, Tot. Refills 11, Maintenance, 07/07/19 19:06:00 EDT, Powder, Route to Pharmacy Electronically, [id number], [facility], advair not covered , 175,... Start Date: 07/07/19 Status: Orderedalbuterol 0.083% inhalation solution 3 mL = 2.5 mg, Inhalation, Every 6 hours, PRN Wheezing/Shortness of Breath, # 1 each, 6 Refills, Maintenance, 07/07/19 19:06:00 EDT, Solution, [facility], 175, cm, 05/30/19 19:11:00 EST, Height, 84.5, kg, 12/25/18 16:15:00 EDT, Dry Weight Start Date: 07/07/19 Status: Orderedaspirin 81 mg oral delayed release tablet 81 mg, 1, tablet, By Mouth, Daily, # 90 tablet, Refills 4, Tot. Refills 4, Maintenance, 07/07/19 19:06:00 EDT, Route to Pharmacy Electronically, [facility], 175, cm, 05/30/19 19:11:00 EST, Height, 84.5, kg, 12/25/18 16:15:00 EDT, Dry W... Start Date: 07/07/19 Stop Date: 09/29/20 Status: Orderedatorvastatin 20 mg oral tablet 1 tablet = 20 mg, By Mouth, Daily at bedtime, # 30 tablet, 5 Refills, Maintenance, 08/13/19 13:04:00EDT, Tablet, [facility], 175, cm, 05/30/19 19:11:00 EST, Height, 84.5, kg, 12/25/18 16:15:00 EDT, Dry Weight Start Date: 08/13/19 Status: Orderedazithromycin 250 mg oral tablet 1 tablet = 250 mg, By Mouth, Daily, for 4 days, # 4 tablet, 0 Refills, Acute 12/30/19 12:42:00 EDT, 12/26/19 12:42:00 EDT, Tablet, [facility], 168, cm, 12/26/19 11:17:00 EDT, Height, 84.5, kg, 12/26/19 6:43:00 EDT, Dry Weight Start Date: 12/26/19 Stop Date: 12/30/19 Status: OrderedCymbalta 60 mg oral enteric coated capsule 1 capsule = 60 mg, By Mouth, Daily, # 30 capsule, 6 Refills, Maintenance, 07/07/19 19:06:00 EDT, EC Capsule, [facility]., 175, cm, 05/30/19 19:11:00 EST, Height, 84.5, kg, 12/25/18 16:15:00 EDT, Dry Weight Start Date: 07/07/19 Status: Ordereddivalproex sodium 500 mg oral enteric coated tablet = 500 mg, By Mouth, 2 times a day, # 60 tablet, 5 Refills, Maintenance, 07/07/19 19:06:00 EDT, Tablet, [facility], 175, cm, 05/30/19 19:11:00 EST, Height, 84.5, kg, 12/25/18 16:15:00 EDT, Dry Weight Start Date: 07/07/19 Stop Date: 01/03/20 Status: Orderedgabapentin 600 mg oral tablet 1 tablet = 600 mg, By Mouth, Daily at bedtime, dose changed, # 30 tablet, 5 Refills, Maintenance, 07/07/19 19:06:00 EDT, [facility], 175, cm, 05/30/19 19:11:00 EST, Height, 84.5, kg, 12/25/18 16:15:00 EDT, Dry Weight Start Date: 07/07/19 Status: Orderedhydrochlorothiazide 25 mg oral tablet 12.5 mg, 0.5, tablet, By Mouth, Daily, # 15 tablet, Refills 1, Tot. Refills 1, Maintenance, 08/12/2012:07:00 EDT, Route to Pharmacy Electronically, [facility], 175, cm, 05/30/19 19:11:00 EST, Height, 84.5, kg, 12/25/18 16:15:00 EDT, D... Start Date: 08/13/19 Status: Orderedlidocaine 5% topical film See Instructions, 1 patch to affected area Topically Daily, remove at HS, # 30 patch, 1 Refills, Maintenance, 08/13/19 13:28:00 EDT, Patch, [facility] 1 patch to affected area Topically Daily, remove at HS, 175, cm, 05/30/19 19:11:00... Start Date: 08/13/19 Status: OrderedmetFORMIN 500 mg oral tablet 1 tablet = 500 mg, By Mouth, 2 times a day, with meals, Libyan label, # 180 tablet, 1 Refills, Maintenance, 07/07/19 19:06:00 EDT, Tablet, [facility] 175, cm, 05/30/19 19:11:00 EST, Height, 84.5, kg, 12/25/18 16:15:00 EDT, Dry Weight Start Date: 07/07/19 Stop Date: 01/03/20 Status: Orderedmontelukast 10 mg oral tablet 10 mg, By Mouth, Daily, # 30 tablet, Refills 9, Tot. Refills 9, Maintenance, 07/07/19 19:06:00 EDT, Route to Pharmacy Electronically, [facility] 175, cm, 05/30/19 19:11:00 EST, Height,84.5, kg, 12/25/18 16:15:00 EDT, Dry Weight Start Date: 07/07/19 Status: OrderedPlavix 75 mg oral tablet 75 mg, By Mouth, Daily, Libyan label, # 90 each, Refills 1, Tot. Refills 1, Maintenance, 07/07/19 19:06:00 EDT, Route to Pharmacy Electronically, [facility]., 175, cm, 05/30/19 19:11:00EST, Height, 84.5, kg, 12/25/18 16:15:00 EDT, Dry... Start Date: 07/07/19 Stop Date: 01/03/20 Status: OrderedpredniSONE 50 mg oral tablet 1 tablet = 50 mg, By Mouth, Daily, for 5 days, # 5 tablet, 0 Refills, Acute 12/31/19 12:42:00 EDT, 12/26/19 12:42:00 EDT, Tablet, [facility] 168, cm, 12/26/19 11:17:00 EDT, Height, 84.5, kg, 12/26/19 6:43:00 EDT, Dry Weight Start Date: 12/26/19 Stop Date: 12/31/19 Status: OrderedProAir HFA 90 mcg/inh inhalation aerosol with adapter 1, puffs, Inhalation, Every 4 hours, PRN, # 8.5 Gm, Refills 0, Tot. Refills 0, Maintenance, 07/06/2018:06:00 EDT, Aerosol, Route to Pharmacy Electronically, [id number], [facility] 175, cm, 05/30/19 19:11:00... Start Date: 07/07/19 Status: OrderedTylenol 325 mg oral tablet 650 mg, 2, tablet, By Mouth, Every 6 hours, PRN, # 30 tablet, Refills 0, Tot. Refills 0, Acute 02/05/20 10:00:00 EDT, Pain , Mild, 12/26/19 12:41:00 EDT, Route to Pharmacy Electronically, [facility], 168, cm, 12/26/19 11:17:00 EDT, Hei... Start Date: 12/26/19 Stop Date: 02/05/20 Status: Ordered Problem List Condition Effective Dates Status Health Status Informant Chronic Basilar artery Active occlusion(Confirmed) Aborted CVA- Was given tPA(Confirmed) Active Chronic pain syndrome(Confirmed) Active Constipation(Confirmed) Active Depression(Confirmed) Active Dysuria(Confirmed) Active Heartburn(Confirmed) Active CVA, old, hemiparesis(Confirmed) Active Elevated MCV(Confirmed) Active Nausea & vomiting(Confirmed) Active *Julissa Farga, [facility] Care Active Coordinator [phone](Confirmed) Lumbar radicular pain(Confirmed) Active Right hemiplegia(Confirmed) Active Encounter for screening Active colonoscopy(Confirmed) Tobacco dependence(Confirmed) Active DMII (diabetes mellitus, type Active 2)(Confirmed) Vertigo(Confirmed) Active Results Radiology Reports Exam Date Time Procedure Performing Provider Status 12/26/19 1:15 PM Hand Min 3 Views Left Archambeau, Milla; Auth (V erified) Notes:(Hand Min 3 Views Left) Reason For Exam: PainRESULT: Hand Min 3 Views Left Hand Min 3 Views Left INDICATION: Reason: Pain; Clinical Question(s): Fracture COMPARISON: 09/16/2018 FINDINGS: Unremarkable soft tissue. There is no fracture or dislocation. Joint space is maintained. IMPRESSION: Normal. WSN: [id number] Ordering Physician: Reji Alvarenga Dictated By: Jennifer Fajardo MD Dictated Date/Time: 12/26/19 1:56 pm Reviewed By: Jennifer Fajardo MD Signed By: Jennifer Fajardo MD Signed Date/Time: 12/26/19 1:56 pm Transcribed By: JENNIFER Transcribed Date/Time: 12/26/19 1:56 pm Exam Date Time Procedure Performing Provider Status 12/25/19 12:27 PM Chest 2 Views Frontal and Lat Sarah Baez; Jonathan (Verified) Notes:(Chest 2 Views Frontal and Lat) Reason For Exam: Chest Pain;Other:RESULT: Chest 2 Views Frontal and Lat Chest 2 Views Frontal and Lat INDICATION: An asthmatic with cough. COMPARISON: Multiple priors most recent is 05/26/2019. FINDINGS: LINES AND TUBES: None. LUNGS AND PLEURA: Clear lungs. Normal pulmonary vascularity. No pleural effusion. No pneumothorax. HEART, MEDIASTINUM AND JOIE: Heart is normal in size. Normal mediastinal and hilar contour. BONES AND SOFT TISSUES: No acute abnormality. IMPRESSION: No acute abnormality. WSN: [id number] Ordering Physician: Bo Celestin Dictated By: Pedro Owens MD Dictated Date/Time: 12/25/19 12:58 p Reviewed By: Pedro Owens MD Signed By: Pedro Owens MD Signed Date/Time: 12/25/19 12:58 pm Transcribed By: JENNIFER Transcribed Date/Time: 12/25/19 12:57 pm Vital Signs Most recent to oldest 1 2 3 [Reference Range]: Height 168 cm 168 cm 168 cm (12/26/19 11:17 AM) (12/26/19 8:39 AM) (12/25/19 9: 34 PM) Weight 84.5 kg (12/25/19 9:34 PM) Oxygen Saturation [94-100 %] 99 % 98 % 96 % (12/26/19 11:17 AM) (12/26/19 8:39 AM) (12/26/19 1: 47 AM) Pulse Rate [55-90 bpm] 70 bpm 68 bpm 84 bpm (12/26/19 11:17 AM) (12/26/19 8:39 AM) (12/26/19 1: 47 AM) Body Mass Index [18.5-24.99] 29.94 *H* (12/25/19 9:34 PM) Blood Pressure [90-138/55-84 138/82 mm Hg 134/76 mm Hg 120 /62 mm Hg mm Hg] (12/26/19 11:17 AM) (12/26/19 8:39 AM) (12/26/19 1: 47 AM) Respiratory Rate [16-30 20 br/min 18 br/min 18 br/mi n br/min] (12/26/19 11:17 AM) (12/26/19 10:58 AM) (12/26/19 9 :14 AM) Temperature [96.8-100.4 DegF] 97.8 DegF 98.3 DegF 98 .5 DegF (12/26/19 11:17 AM) (12/26/19 8:39 AM) (12/26/19 1: 47 AM) Mode of Delivery (Oxygen) Room air Room air Room a ir (12/26/19 11:17 AM) (12/26/19 8:39 AM) (12/26/19 1: 47 AM) Blood pressure sites Arm, right Arm, right Arm, right (12/26/19 11:17 AM) (12/26/19 8:39 AM) (12/26/19 1: 47 AM) Temperature Route Oral Oral Oral (12/26/19 11:17 AM) (12/26/19 8:39 AM) (12/26/19 1: 47 AM) Dry Weight 84.5 kg (12/25/19 9:34 PM) Social History Social History Type Response Smoking Status Former smoker, quit more krissy n 30 days ago entered on: 06/18/18 Sex
[2022-06-19 23:20] LABS: MANUAL DIFF FLAG NO
--- NOTE | 2022-06-19 23:20 | PC.NURSE ---
Pt brought back to room, difficult stick. Dr. Gutierrez attempted to obtain external jugular IV without success, this RN and ANASTASIIA Abrams attempted peripheral IVs without success. Dr. Gutierrez attempted US guided 18 in the LAC with success. Pt received all medications per MAR, blood work has been obtained as well
[2022-06-19 23:23] LABS: Basophils Percent Auto 0.4 % (0-2); Eosinophils Absolute Auto 0.2 X10*3/uL (0.0-0.4); Eosinophils Percent Auto 2.4 % (0-4); Hematocrit 40.4 % (42.0-52.0); Hemoglobin 13.8 g/dl (14.0-18.0); Imm Gran Abs Auto 0.02 X10*3/uL (0.00-0.03); Imm Gran Pct Auto 0.3 % (0.0-0.4); Lymphocytes Absolute Auto 3.6 X10*3/uL (1.2-4.9); Lymphocytes Percent Auto 47.5 % (20-40); Mean Corpuscular HGB Conc 34.2 g/dl (31.0-36.0); Mean Corpuscular Hemoglobin 31.5 pg (27.0-33.0); Mean Corpuscular Volume 92.2 fL (80.0-98.0); Mean Platelet Volume 9.7 fL (9.4-12.4); Monocytes Absolute Auto 0.6 X10*3/uL (0.1-1.2); Monocytes Percent Auto 7.4 % (2-11); Neutrophils Absolute Auto 3.2 x10*3/uL (2.0-8.3); Platelet Count 292 X10*3/uL (160-400); Red Blood Count 4.38 X10*6/uL (4.60-5.80); Red Cell Distribution Width 12.9 % (11.0-16.0); White Blood Count 7.6 X10*3/uL (4.8-10.8)
[2022-06-19 23:31] LABS: D Dimer High Sensitivity 638 NG/ML
--- NOTE | 2022-06-19 23:37 | ED.SOB ---
HPI - SOB/Dyspnea General Chief Complaint: Dyspnea Stated Complaint: Asthma Time Seen by Provider: 06/19/22 22:40 Source: patient Mode of arrival: ambulatory Limitations: no limitations History of Present Illness HPI Narrative: Patient with history of asthma/COPD, hypertension , hyperlipidemia, cocaine use, CVA with chronic basilar artery occlusion, chronic lb/left thalamic/cerebellar stroke, multiple TIAs, type 2 diabetes comes in for increased shortness of breath for last 1 week got worse since yesterday after got exposed to the [place] when someone else was cleaning the house. Patient been using inhaler and nebulizer treatment without much relief patient came here with severe distress wheezing unable to speak full sentences. Patient denies any chest pain or palpitation Related Data Previous Rx's Medication Instructions Recorded prednisone 20 mg tablet 40 mg PO DAILY #10 tabs 06/20/22 Allergies Allergy/AdvReac Type Severity Reaction Status Date / Time No Known Allergies Allergy Verified 06/19/22 22:49 Review of Systems Review of Systems: Yes all other systems are reviewed and are negative PMFSH Past Medical History Medical History Asthma Basilar artery occlusion Cerebellar stroke Chronic low back pain Cocaine abuse COPD (chronic obstructive pulmonary disease) CVA (cerebral vascular accident) Hyperlipidemia Hypertension Migraine headache Type 2 diabetes mellitus Social History Social History Alcohol intake: current Alcohol intake frequency: holidays/special occasions only Smoked in Last 30 Days: Yes Use of substances other than those prescribed or required for medical reasons: No Advance Directives: No Advance Directives Information Provided: Yes Physical Exam Vital Signs: Vital Signs: Last Vital Signs Temp 98.3 F 06/19/22 22:24 Pulse 90 06/20/22 01:18 Resp 19 06/20/22 01:18 BP 129/92 H 06/20/22 01:18 Pulse Ox 97 06/20/22 01:18 O2 Del Method 06/20/22 01:18 O2 Flow Rate 4 06/20/22 00:20 BMI result Body Mass Index 27.3 Appearance: Alert. Oriented X3. In severe respiratory distress. Eyes: No pallor or icterus ENT: Pharynx normal. Oral Mucosa moist Neck: Normal inspection. Neck supple. CVS: Normal heart rate and rhythm. Pulses normal. Respiratory: Severe respiratory distress with audible wheezing bilaterally unable to speak full sentences tachypneic Equal air entry bilateral, Abdomen: Soft and nontender. Bowel sounds are present, no mass palpable, no CVA tenderness Skin: Skin warm and dry. Normal skin color. Normal skin turgor. Extremities: No lower extremity edema. No calf tenderness Neuro: Oriented X 3. No motor deficit. No sensory deficit.No cerebellar signs , cranial nerves II-XII intact Medications Administered Discontinued Medications Generic Name Dose Route Start Last Admin Trade Name Alfie PRN Reason Stop Dose Admin Albuterol Sulfate 5 mg 06/19/22 22:56 06/19/22 23:04 Albuterol Sulfate (0.083%) 2.5 Mg/3 Ml Vial.Neb INHALE 06/19/22 22:57 5 mg ONCE ONE Administration Albuterol Sulfate 2.5 mg/ 0 mg 06/19/22 22:50 06/19/22 23:03 Ipratropium [place] 0.5 mg INHALE 06/19/22 22:51 1 each ONCE ONE Administration Magnesium Sulfate 2 gm in 50 mls @ 100 mls/hr 06/19/22 22:51 06/19/22 23:44 Magnesium Sulfate/H2o IV 06/19/22 23:20 Infused ONCE ONE Infusion Iohexol 65 ml 06/20/22 00:42 06/20/22 00:42 Iohexol 350 Mg/Ml 100 Ml Infus..Btl IV 06/20/22 00:43 65 ml ONCE ONE Administration Methylprednisolone Sodium Succinate 125 mg 06/19/22 22:51 06/19/22 23:12 Methylprednisolone Sod Succ 125 Mg/2 Ml Vial IVPUSH 06/19/22 22:52 125 mg ONCE ONE Administration Medical Decision Making Medical Decision Making [facility] Narrative: Patient with COPD/asthma with shortness of breath for last 1 week got worse after exposure to [place] with prs came in severe distress 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 06/19/22 23:07 06/19/22 23:07 Labs: Lab Results 06/19/22 06/19/22 06/19/22 Range/Units 23:06 23:06 23:07 WBC 7.6 (4.8-10.8) X10*3/uL RBC 4.38 L (4.60-5.80) X10*6/uL Hgb 13.8 L (14.0-18.0) g/dl Hct 40.4 L (42.0-52.0) % MCV 92.2 (80.0-98.0) fL MCH 31.5 (27.0-33.0) pg MCHC 34.2 (31.0-36.0) g/dl RDW 12.9 (11.0-16.0) % Plt Count 292 (160-400) X10*3/uL MPV 9.7 (9.4-12.4) fL Immature Gran % (Auto) 0.3 (0.0-0.4) % Neut % (Auto) 42.0 L (45-73) % Lymph % (Auto) 47.5 H (20-40) % [place] % (Auto) 7.4 (2-11) % Eos % (Auto) 2.4 (0-4) % Baso % (Auto) 0.4 (0-2) % Lymph # (Auto) 3.6 (1.2-4.9) X10*3/uL [place] # (Auto) 0.6 (0.1-1.2) X10*3/uL Eos # (Auto) 0.2 (0.0-0.4) X10*3/uL Baso # (Auto) 0.0 (0.0-0.2) X10*3/uL Abs Immat Gran (auto) 0.02 (0.00-0.03) X10*3/uL Absolute Neuts (auto) 3.2 (2.0-8.3) x10*3/uL Absolute Nucleated RBC 0.000 (0.0-0.012) X10*3/uL Nucleated RBC % (auto) 0.0 (0.0-0.2) /100WBC D-Dimer High Sensitivty NG/ML Sodium (135-145) mmol/L Potassium (3.3-5.1) mmol/L Chloride (96-108) mmol/L Carbon Dioxide (22-29) mmol/L Anion Gap (12-20) BUN (9-16) mg/dL Creatinine (0.5-1.4) mg/dL Estim Creat Clear Calc Estimated GFR Random Glucose (60-115) mg/dL Lactic Acid 1.5 (0.5-2.0) mmol/L Calcium (8.4-10.2) mg/dL Total Bilirubin (0.0-1.0) mg/dL Direct Bilirubin (0.0-0.5) mg/dL AST (5-37) U/L ALT (0-40) U/L Alkaline Phosphatase (39-117) U/L Troponin I High Sens 4.5 (<3.5-35.0) ng/L Total Protein (6.5-8.0) g/dL Albumin (3.5-5.0) g/dL Influenza Type A (PCR) (Negative) Influenza Type B (PCR) (Negative) RSV RNA Qual (PCR) (Negative) SARS-CoV-2 RNA (RT-PCR) (Negative) 06/19/22 06/19/22 06/19/22 Range/Units 23:07 23:07 23:07 WBC (4.8-10.8) X10*3/uL RBC (4.60-5.80) X10*6/uL Hgb (14.0-18.0) g/dl Hct (42.0-52.0) % MCV (80.0-98.0) fL MCH (27.0-33.0) pg MCHC (31.0-36.0) g/dl RDW (11.0-16.0) % Plt Count (160-400) X10*3/uL MPV (9.4-12.4) fL Immature Gran % (Auto) (0.0-0.4) % Neut % (Auto) (45-73) % Lymph % (Auto) (20-40) % [place] % (Auto) (2-11) % Eos % (Auto) (0-4) % Baso % (Auto) (0-2) % Lymph # (Auto) (1.2-4.9) X10*3/uL [place] # (Auto) (0.1-1.2) X10*3/uL Eos # (Auto) (0.0-0.4) X10*3/uL Baso # (Auto) (0.0-0.2) X10*3/uL Abs Immat Gran (auto) (0.00-0.03) X10*3/uL Absolute Neuts (auto) (2.0-8.3) x10*3/uL Absolute Nucleated RBC (0.0-0.012) X10*3/uL Nucleated RBC % (auto) (0.0-0.2) /100WBC D-Dimer High Sensitivty 638 NG/ML Sodium 139 (135-145) mmol/L Potassium 3.9 (3.3-5.1) mmol/L Chloride 107 (96-108) mmol/L Carbon Dioxide 24 (22-29) mmol/L Anion Gap 12 (12-20) BUN 9 (9-16) mg/dL Creatinine 1.05 (0.5-1.4) mg/dL Estim Creat Clear Calc 80.4 Estimated GFR > 60 Random Glucose 133 H (60-115) mg/dL Lactic Acid (0.5-2.0) mmol/L Calcium 9.0 (8.4-10.2) mg/dL Total Bilirubin 0.3 (0.0-1.0) mg/dL Direct Bilirubin < 0.2 (0.0-0.5) mg/dL AST 22 (5-37) U/L ALT 22 (0-40) U/L Alkaline Phosphatase 79 (39-117) U/L Troponin I High Sens (<3.5-35.0) ng/L Total Protein 7.3 (6.5-8.0) g/dL Albumin 4.0 (3.5-5.0) g/dL Influenza Type A (PCR) NEGATIVE (Negative) Influenza Type B (PCR) NEGATIVE (Negative) RSV RNA Qual (PCR) NEGATIVE (Negative) SARS-CoV-2 RNA (RT-PCR) NEGATIVE (Negative) Critical Care Time Critical Care Time Critical Care Time: Yes Total Critical Care Time: 60 Attestation: The patient was critically ill with a high probability of imminent or life threatening deterioration. I spent greater than 60 minutes of discontinuous time evaluating the patient,delivering critical care at the bedside, discussing and evaluating pertinent data with consultants. Critical care time does not include time spent performing separately billable procedures or teaching. Total time spent performing critical care was 60 minutes. Discharge Plan Discharge Clinical Impression: Asthma with exacerbation Patient Disposition: Home, Self-Care Instructions: Asthma (ED) Additional Instructions: Continue use inhaler/nebulizing treatment every 4-6 hours as needed Prednisone as advised Avoid exposure to chemicals Stop using cocaine Prescriptions: New prednisone 20 mg tablet 40 mg PO DAILY Qty: 10 0RF Interventions: ED Discharge Assessment Last Done: 06/20/22 01:57 Discharge Date/Time: 06/20/22 01:59
[2022-06-19 23:40] LABS: Lactic Acid 1.5 mmol/L (0.5-2.0)
[2022-06-19 23:51] LABS: Troponin-I High Sensitivity 4.5 ng/L (<3.5-35.0)
[2022-06-19 23:55] LABS: Alanine Aminotransferase 22 U/L (0-40); Alkaline Phosphatase 79 U/L (39-117); Anion Gap 12 (12-20); Aspartate Amino Transferase 22 U/L (5-37); Bilirubin Direct < 0.2 mg/dL (0.0-0.5); Bilirubin Total 0.3 mg/dL (0.0-1.0); Blood Urea Nitrogen 9 mg/dL (9-16); Carbon Dioxide 24 mmol/L (22-29); Chloride 107 mmol/L (96-108); Creatinine Clr Calc Pharmacy 80.4; Estimated Glomerular Filt Rate > 60; Glucose Random 133 mg/dL (60-115); Potassium 3.9 mmol/L (3.3-5.1); Sodium 139 mmol/L (135-145); Total Protein 7.3 g/dL (6.5-8.0)
[2022-06-20] LABS: Influenza A PCR NEGATIVE (Negative); Influenza B PCR NEGATIVE (Negative); Resp Syncy Virus RNA Qual PCR NEGATIVE (Negative); SARS COV2 PCR INHOUSE NEGATIVE (Negative)
[2022-06-20 00:20] VITALS: BP 131/87; PULSE 77; RESP 15; O2SAT 99
[2022-06-20] MEDS: iohexoL 350 MG/ML 100 ML INFUS..BTL 65 ML IV (00:42)
[2022-06-20 01:18] VITALS: BP 129/92; PULSE 90; RESP 19; O2SAT 97
== END 2022-06-20 01:59 | disposition home or self-care (01) ==
PROVIDERS: Emergency Provider Internal Medicine; PCP Internal Medicine
DX: J45.901 Unspecified asthma with (acute) exacerbation (principal); Z20.822 Contact with and (suspected) exposure to COVID-19; Z20.828 Contact with and (suspected) exposure to other viral communicable diseases; I10 Essential (primary) hypertension; E78.5 Hyperlipidemia, unspecified; F14.10 Cocaine abuse, uncomplicated
CPT/HCPCS: 0241U; 36415; 71045; 71275; 80048; 80076; 83605; 84484; 85025; 85379; 87040; 93005; 96365; 96375; 99285; J2930; J3475; Q9967

== ENCOUNTER 2022-09-26 23:43 | Emergency (ER) | payer OTHER, SELFPAY ==
--- NOTE | ~2022-09-26 | CT_ITS ---
EXAMINATION: CT HEAD WITHOUT CONTRAST CLINICAL INFORMATION: Acute dizziness COMPARISON: None available. TECHNIQUE: Contiguous axial imaging was performed from the skull base to vertex without intravenous administration of contrast. This CT examination was performed using dose optimization techniques as appropriate, variously including the following: *Automated exposure control *Adjustment of mA and/or kV according to patient size (this includes techniques or standardized protocols for targeted exams where dose is matched to indication/reason for exam; i.e. extremities or head) *Use of iterative reconstruction technique DLP: 729 mGy-cm FINDINGS: There is no evidence of acute intracranial hemorrhage or territorial infarction. No abnormal mass-effect or midline shift is seen. Judge to white matter differentiation is well preserved. No extra-axial fluid collections are identified. The ventricles are normal in size. Hypoattenuating foci in the [place] and left thalamus are suspicious for chronic lacunar infarcts, though no prior studies are available for comparison. The osseous structures and soft tissues are normal. The mastoid air cells and visualized portions of the paranasal sinuses are well-aerated. CT/CT head/brain wo IV con IMPRESSION: Hypoattenuating foci in the ros[place] and left thalamus are suspicious for chronic lacunar infarcts, though no prior studies are available for comparison; if clinically warranted, this could be further assessed with MRI.
[2022-09-26 23:56] VITALS: BP 142/86; BP 147/96; PULSE 84; PULSE 88; RESP 18; TEMP 36; O2SAT 100; O2SAT 98; BMI 27.3
[2022-09-27] VITALS: BP 134/83; PULSE 70; RESP 15; TEMP 37.3; O2SAT 97
--- NOTE | 2022-09-27 | ECG_ITS ---
Test Reason : CHEST PAIN Blood Pressure : / mmHG Vent. Rate : 082 BPM Atrial Rate : 082 BPM P-R Int : 144 ms QRS Dur : 094 ms QT Int : 388 ms P-R-T Axes : 048 -02 039 degrees QTc Int : 453 ms Sinus rhythm with frequent Premature ventricular complexes Otherwise normal ECG When compared with ECG of 19-JUN-2022 22:54, No significant change was found Referred By: Abel Martinez Electronically Signed By:TROY GRAHAM MD
[2022-09-27 00:18] LABS: Basophils Percent Auto 0.6 % (0-2); Eosinophils Absolute Auto 0.2 X10*3/uL (0.0-0.4); Eosinophils Percent Auto 2.2 % (0-4); Hematocrit 41.2 % (42.0-52.0); Hemoglobin 14.2 g/dl (14.0-18.0); Imm Gran Abs Auto 0.02 X10*3/uL (0.00-0.03); Imm Gran Pct Auto 0.3 % (0.0-0.4); Lymphocytes Absolute Auto 2.8 X10*3/uL (1.2-4.9); Lymphocytes Percent Auto 37.9 % (20-40); MANUAL DIFF FLAG NO; Mean Corpuscular HGB Conc 34.5 g/dl (31.0-36.0); Mean Corpuscular Hemoglobin 30.9 pg (27.0-33.0); Mean Corpuscular Volume 89.6 fL (80.0-98.0); Mean Platelet Volume 9.9 fL (9.4-12.4); Monocytes Absolute Auto 0.6 X10*3/uL (0.1-1.2); Monocytes Percent Auto 7.7 % (2-11); Neutrophils Absolute Auto 3.7 x10*3/uL (2.0-8.3); Neutrophils Percent Auto 51.3 % (45-73); Platelet Count 275 X10*3/uL (160-400); Red Cell Distribution Width 12.4 % (11.0-16.0); White Blood Count 7.3 X10*3/uL (4.8-10.8)
--- NOTE | 2022-09-27 00:24 | ED_ITS ---
HPI - Dizziness General Chief Complaint: Chest Pain Stated Complaint: MID CHEST PAIN SINCE 5PM,ASA GIVEN PER EMS Source: patient Mode of arrival: ambulatory Limitations: no limitations History of Present Illness HPI Narrative: Patient history of left CVA comes here for feeling dizzy for last 1 week or so getting worse now also was feeling chest discomfort earlier when he had spicy chicken no chest pain at this time patient describes dizziness as off balance get worse on head movement Related Data Previous Rx's Medication Instructions Recorded prednisone 20 mg tablet 40 mg PO DAILY #10 tabs 06/20/22 meclizine 25 mg tablet 25 mg PO TID PRN dizziness #20 tabs 09/27/22 Allergies Allergy/AdvReac Type Severity Reaction Status Date / Time No Known Allergies Allergy Verified 06/19/22 22:49 Review of Systems Review of Systems: Yes all other systems are reviewed and are negative [facility] Past Medical History Medical History Asthma Basilar artery occlusion Cerebellar stroke Chronic low back pain Cocaine abuse COPD (chronic obstructive pulmonary disease) CVA (cerebral vascular accident) Hyperlipidemia Hypertension Migraine headache Type 2 diabetes mellitus Social History Social History Alcohol intake: current Alcohol intake frequency: holidays/special occasions only Smoked in Last 30 Days: No Use of substances other than those prescribed or required for medical reasons: Yes Substance Use Type: Crack/Cocaine Substance Use Frequency: Occasionally Last Used Substance: Just Prior to Admission Advance Directives: No Advance Directives Information Provided: Yes Physical Exam Vital Signs: Vital Signs: Last Vital Signs Temp 99.2 F 09/27/22 00:00 Pulse 61 09/27/22 02:09 Resp 15 09/27/22 02:09 BP 118/75 09/27/22 02:09 Pulse Ox 97 09/27/22 02:09 O2 Del Method Room Air 09/27/22 02:09 BMI result Body Mass Index 27.3 Appearance: Alert. Oriented X3. No acute distress. Eyes: PERRLA, No Nystagmus give dizziness on turning the head to the right side ENT: Pharynx normal. Oral Mucosa moist Neck: Normal inspection. Neck supple. CVS: Normal heart rate and rhythm. Pulses normal. Respiratory: No respiratory distress. Equal air entry bilateral, no wheezing/rales/rhonchi Abdomen: Soft and nontender. Bowel sounds are present, no mass palpable, no CVA tenderness Skin: Skin warm and dry. Normal skin color. Normal skin turgor. Extremities: No lower extremity edema. No calf tenderness Neuro: Oriented X 3. Residual weakness right side No sensory deficit.No cer ebellar signs , cranial nerves II-XII intact Medications Administered Discontinued Medications Generic Name Dose Route Start Last Admin Trade Name Freq PRN Reason Stop Dose Admin Meclizine HCl 50 mg 09/27/22 00:23 09/27/22 00:47 Meclizine Hcl 25 Mg Tablet PO 09/27/22 00:24 50 mg ONCE ONE Administration Medical Decision Making Medical Decision Making [facility] Narrative: Patient with history of CVA in with residual right-sided weakness came here for dizziness likely benign positional vertigo no known new focal weakness no cerebellar signs patient improved after meclizine chest pain was atypical after eating food no chest pain on arrival EKG without ischemic changes high sensitive troponin negative, patient ambulatory in the ER without any imbalance, will discharge patient home advised to follow up with his PCP Differential Diagnosis CVA/benign positional vertigo/cardiac arrhythmias/ACS Lab Data [facility] Lab Attestation statement: I reviewed the patient's lab results. 09/27/22 00:12 09/27/22 00:12 Labs: Lab Results 09/27/22 09/27/22 09/27/22 Range/Units 00:03 00:12 00:12 WBC 7.3 (4.8-10.8) X10*3/uL RBC 4.60 (4.60-5.80) X10*6/uL Hgb 14.2 (14.0-18.0) g/dl Hct 41.2 L (42.0-52.0) % MCV 89.6 (80.0-98.0) fL MCH 30.9 (27.0-33.0) pg MCHC 34.5 (31.0-36.0) g/dl RDW 12.4 (11.0-16.0) % Plt Count 275 (160-400) X10*3/uL MPV 9.9 (9.4-12.4) fL Immature Gran % (Auto) 0.3 (0.0-0.4) % Neut % (Auto) 51.3 (45-73) % Lymph % (Auto) 37.9 (20-40) % [place] % (Auto) 7.7 (2-11) % Eos % (Auto) 2.2 (0-4) % Baso % (Auto) 0.6 (0-2) % Lymph # (Auto) 2.8 (1.2-4.9) X10*3/uL [place] # (Auto) 0.6 (0.1-1.2) X10*3/uL Eos # (Auto) 0.2 (0.0-0.4) X10*3/uL Baso # (Auto) 0.0 (0.0-0.2) X10*3/uL Abs Immat Gran (auto) 0.02 (0.00-0.03) X10*3/uL Absolute Neuts (auto) 3.7 (2.0-8.3) x10*3/uL Absolute Nucleated RBC 0.000 (0.0-0.012) X10*3/uL Nucleated RBC % (auto) 0.0 (0.0-0.2) /100WBC PT (10.0-13.1) SEC INR (0.9-1.1) Sodium 138 (135-145) mmol/L Potassium 3.7 (3.3-5.1) mmol/L Chloride 106 (96-108) mmol/L Carbon Dioxide 24 (22-29) mmol/L Anion Gap 12 (12-20) BUN 10 (9-16) mg/dL Creatinine 1.15 (0.5-1.4) mg/dL Estim Creat Clear Calc 73.4 Estimated GFR > 60 POC Glucose 243 H (60-115) mg/dL Random Glucose 238 H (60-115) mg/dL Calcium 9.2 (8.4-10.2) mg/dL Troponin I High Sens (<3.5-35.0) ng/L 09/27/22 09/27/22 Range/Units 00:12 00:24 WBC (4.8-10.8) X10*3/uL RBC (4.60-5.80) X10*6/uL Hgb (14.0-18.0) g/dl Hct (42.0-52.0) % MCV (80.0-98.0) fL MCH (27.0-33.0) pg MCHC (31.0-36.0) g/dl RDW (11.0-16.0) % Plt Count (160-400) X10*3/uL MPV (9.4-12.4) fL Immature Gran % (Auto) (0.0-0.4) % Neut % (Auto) (45-73) % Lymph % (Auto) (20-40) % [place] % (Auto) (2-11) % Eos % (Auto) (0-4) % Baso % (Auto) (0-2) % Lymph # (Auto) (1.2-4.9) X10*3/uL [place] # (Auto) (0.1-1.2) X10*3/uL Eos # (Auto) (0.0-0.4) X10*3/uL Baso # (Auto) (0.0-0.2) X10*3/uL Abs Immat Gran (auto) (0.00-0.03) X10*3/uL Absolute Neuts (auto) (2.0-8.3) x10*3/uL Absolute Nucleated RBC (0.0-0.012) X10*3/uL Nucleated RBC % (auto) (0.0-0.2) /100WBC PT 11.1 (10.0-13.1) SEC INR 1.0 (0.9-1.1) Sodium (135-145) mmol/L Potassium (3.3-5.1) mmol/L Chloride (96-108) mmol/L Carbon Dioxide (22-29) mmol/L Anion Gap (12-20) BUN (9-16) mg/dL Creatinine (0.5-1.4) mg/dL Estim Creat Clear Calc Estimated GFR POC Glucose (60-115) mg/dL Random Glucose (60-115) mg/dL Calcium (8.4-10.2) mg/dL Troponin I High Sens < 2.7 (<3.5-35.0) ng/L Independent Interpretation I performed an independent interpretation of an: EKG Interpretation: Normal sinus rhythm heart rate 82 beats per minute unifocal PVCs no acute ST-T changes no acute ischemia Discharge Plan Discharge Clinical Impression: Benign paroxysmal positional vertigo Patient Disposition: Home, Self-Care Instructions: Benign Paroxysmal Positional Vertigo (ED) Additional Instructions: Take medication for dizziness as prescribed Care and cautions as advised Continue medications as prescribed by your PCP Report to the ER if worsening of dizziness Prescriptions: New meclizine 25 mg tablet 25 mg PO TID PRN (Reason: dizziness) Qty: 20 0RF No Action prednisone 20 mg tablet 40 mg PO DAILY Qty: 10 0RF
--- NOTE | 2022-09-27 00:26 | MHC.EDTECH ---
This Tech assumed care of this Pt upon arrival. Pt complaint is chest pain. EKG done and handed to provider. Pt placed on case monitor and changed into hospital gown. Vital signs and P.O.C completed and charted. Blood work done and sent for processing
[2022-09-27 00:27] LABS: Glucose, Whole Blood 243 mg/dL (60-115)
[2022-09-27 00:31] LABS: Anion Gap 12 (12-20); Blood Urea Nitrogen 10 mg/dL (9-16); Calcium 9.2 mg/dL (8.4-10.2); Carbon Dioxide 24 mmol/L (22-29); Chloride 106 mmol/L (96-108); Creatinine Clr Calc Pharmacy 73.4; Estimated Glomerular Filt Rate > 60; Glucose Random 238 mg/dL (60-115); Potassium 3.7 mmol/L (3.3-5.1); Sodium 138 mmol/L (135-145)
[2022-09-27 00:39] LABS: Prothrombin Time 11.1 SEC (10.0-13.1)
[2022-09-27 00:39] LABS: Troponin-I High Sensitivity < 2.7 ng/L (<3.5-35.0)
[2022-09-27] MEDS: Meclizine HCl 25 MG TABLET 50 MG PO (00:47)
[2022-09-27 02:09] VITALS: BP 118/75; PULSE 61; RESP 15; O2SAT 97
--- NOTE | 2022-09-27 03:00 | PC.NURSE ---
Pt was given a ambulation test to see how well he was able to walk without any difficulties. Pt was able to ambulate without difficulties. MD made aware of pts ability to ambulate
--- NOTE | 2022-09-27 04:04 | PC.NURSE ---
Pt is resting in bed, denies any pain. Pt on cardiac monitoring, displaying NSR with PVCs. Pt and family are awaiting disposition.
== END 2022-09-27 04:07 | disposition home or self-care (01) ==
PROVIDERS: Emergency Provider Internal Medicine
DX: R07.89 Other chest pain (principal); F14.10 Cocaine abuse, uncomplicated; H81.10 Benign paroxysmal vertigo, unspecified ear; Z79.899 Other long term (current) drug therapy; Z86.73 Personal history of transient ischemic attack (TIA), and cerebral infarction without residual deficits
CPT/HCPCS: 36415; 70450; 80048; 82947; 84484; 85025; 85610; 93005; 99284; 99285

== ENCOUNTER 2022-10-09 01:52 | Emergency (ER) | payer OTHER, SELFPAY ==
[2022-10-09 02:01] VITALS: BP 171/98; PULSE 91; RESP 18; TEMP 36.8; O2SAT 98; BMI 27.3
[2022-10-09 02:35] LABS: MANUAL DIFF FLAG NO
[2022-10-09 02:37] LABS: Basophils Absolute Auto 0.1 X10*3/uL (0.0-0.2); Basophils Percent Auto 0.6 % (0-2); Eosinophils Absolute Auto 0.3 X10*3/uL (0.0-0.4); Eosinophils Percent Auto 3.6 % (0-4); Hematocrit 42.7 % (42.0-52.0); Hemoglobin 14.4 g/dl (14.0-18.0); Imm Gran Abs Auto 0.01 X10*3/uL (0.00-0.03); Imm Gran Pct Auto 0.1 % (0.0-0.4); Lymphocytes Absolute Auto 3.2 X10*3/uL (1.2-4.9); Lymphocytes Percent Auto 40.8 % (20-40); Mean Corpuscular HGB Conc 33.7 g/dl (31.0-36.0); Mean Corpuscular Hemoglobin 30.8 pg (27.0-33.0); Mean Corpuscular Volume 91.2 fL (80.0-98.0); Mean Platelet Volume 9.8 fL (9.4-12.4); Monocytes Absolute Auto 0.6 X10*3/uL (0.1-1.2); Neutrophils Absolute Auto 3.7 x10*3/uL (2.0-8.3); Neutrophils Percent Auto 46.9 % (45-73); Platelet Count 319 X10*3/uL (160-400); Red Blood Count 4.68 X10*6/uL (4.60-5.80); Red Cell Distribution Width 12.7 % (11.0-16.0); White Blood Count 7.9 X10*3/uL (4.8-10.8)
--- NOTE | 2022-10-09 02:43 | ED.ABDPAIN ---
HPI - Abdominal Pain General Chief Complaint: Abdominal Pain Stated Complaint: Abd pain Time Seen by Provider: 10/09/22 02:42 Source: patient Mode of arrival: ambulatory Limitations: no limitations History of Present Illness HPI narrative: Patient otherwise healthy had shrimp and caro food at 17:00 and 19:00 after eating food felt dizzy with abdominal bloating and nausea no diarrhea patient with same symptoms no fever no chest pain no chills no vomiting Related Data Previous Rx's Medication Instructions Recorded prednisone 20 mg tablet 40 mg PO DAILY #10 tabs 06/20/22 meclizine 25 mg tablet 25 mg PO TID PRN dizziness #20 tabs 09/27/22 Allergies Allergy/AdvReac Type Severity Reaction Status Date / Time No Known Allergies Allergy Verified 06/19/22 22:49 Review of Systems Review of Systems Yes all other systems are reviewed and are negative [facility] Past Medical History Medical History Asthma Basilar artery occlusion Cerebellar stroke Chronic low back pain Cocaine abuse COPD (chronic obstructive pulmonary disease) CVA (cerebral vascular accident) Hyperlipidemia Hypertension Migraine headache Type 2 diabetes mellitus Social History Social History Alcohol intake: current Alcohol intake frequency: does not drink Use of substances other than those prescribed or required for medical reasons: No Substance Use Type: Crack/Cocaine Advance Directives: No Advance Directives Information Provided: Yes Physical Exam ED Vital Signs: Vital Signs - 24 hr 10/09/22 02:01 10/09/22 03:12 Temperature 98.2 F Pulse Rate 91 76 Respiratory Rate 18 16 Blood Pressure 171/98 H 142/87 H Pulse Oximetry 98 98 Oxygen Delivery Method Room Air Room Air BMI result Body Mass Index 27.3 Appearance: Alert. Oriented X3. No acute distress. ENT: Pharynx normal. Oral Mucosa moist Neck: Normal inspection. Neck supple. CVS: Normal heart rate and rhythm. Pulses normal. Respiratory: No respiratory distress. Equal air entry bilateral, no wheezing/rales/rhonchi Abdomen: Soft mild diffuse tenderness no rebound tenderness/ guarding. Bowel sounds are present, no mass palpable, no CVA tenderness Skin: Skin warm and dry. Normal skin color. Normal skin turgor. Extremities: No lower extremity edema. No calf tenderness Neuro: Oriented X 3. Medical Decision Making Medical Decision Making [facility] [place] Narrative: Patient with mild symptoms likely from food poisoning asymptomatic now will discharge patient home Lab Data [facility] [place] Lab Attestation statement: I reviewed the patient's lab results. 10/09/22 02:30 10/09/22 02:30 Labs: Lab Results 10/09/22 10/09/22 Range/Units 02:30 02:30 WBC 7.9 (4.8-10.8) X10*3/uL RBC 4.68 (4.60-5.80) X10*6/uL Hgb 14.4 (14.0-18.0) g/dl Hct 42.7 (42.0-52.0) % MCV 91.2 (80.0-98.0) fL MCH 30.8 (27.0-33.0) pg MCHC 33.7 (31.0-36.0) g/dl RDW 12.7 (11.0-16.0) % Plt Count 319 (160-400) X10*3/uL MPV 9.8 (9.4-12.4) fL Immature Gran % (Auto) 0.1 (0.0-0.4) % Neut % (Auto) 46.9 (45-73) % Lymph % (Auto) 40.8 H (20-40) % [place] % (Auto) 8.0 (2-11) % Eos % (Auto) 3.6 (0-4) % Baso % (Auto) 0.6 (0-2) % Lymph # (Auto) 3.2 (1.2-4.9) X10*3/uL [place] # (Auto) 0.6 (0.1-1.2) X10*3/uL Eos # (Auto) 0.3 (0.0-0.4) X10*3/uL Baso # (Auto) 0.1 (0.0-0.2) X10*3/uL Abs Immat Gran (auto) 0.01 (0.00-0.03) X10*3/uL Absolute Neuts (auto) 3.7 (2.0-8.3) x10*3/uL Absolute Nucleated RBC 0.000 (0.0-0.012) X10*3/uL Nucleated RBC % (auto) 0.0 (0.0-0.2) /100WBC Sodium 140 (135-145) mmol/L Potassium 4.1 (3.3-5.1) mmol/L Chloride 105 (96-108) mmol/L Carbon Dioxide 27 (22-29) mmol/L Anion Gap 12 (12-20) BUN 10 (9-16) mg/dL Creatinine 1.16 (0.5-1.4) mg/dL Estim Creat Clear Calc 72.7 Estimated GFR > 60 Random Glucose 170 H (60-115) mg/dL Calcium 9.6 (8.4-10.2) mg/dL Total Bilirubin 0.2 (0.0-1.0) mg/dL AST 12 (5-37) U/L ALT 11 (0-40) U/L Alkaline Phosphatase 87 (39-117) U/L Total Protein 7.5 (6.5-8.0) g/dL Albumin 4.3 (3.5-5.0) g/dL Medications Administered Discontinued Medications Generic Name Dose Route Start Last Admin Trade Name Freq PRN Reason Stop Dose Admin Dicyclomine HCl 20 mg 10/09/22 02:56 10/09/22 03:11 Dicyclomine Hcl 10 Mg Capsule PO 10/09/22 02:57 20 mg ONCE ONE Administration Ondansetron HCl 4 mg 10/09/22 02:56 10/09/22 03:11 Ondansetron Odt 4 Mg Tab.Rapdis TRANSLINGU 10/09/22 02:57 4 mg ONCE ONE Administration Discharge Plan Discharge Clinical Impression: Food contamination Patient Disposition: Home, Self-Care Instructions: Food Poisoning (ED) Additional Instructions: Regular symptoms because the bed food you ate Which should get better with time Drink plenty of fluids Prescriptions: No Action prednisone 20 mg tablet 40 mg PO DAILY Qty: 10 0RF meclizine 25 mg tablet 25 mg PO TID PRN (Reason: dizziness) Qty: 20 0RF
[2022-10-09 02:59] LABS: Alanine Aminotransferase 11 U/L (0-40); Albumin Level 4.3 g/dL (3.5-5.0); Alkaline Phosphatase 87 U/L (39-117); Anion Gap 12 (12-20); Aspartate Amino Transferase 12 U/L (5-37); Bilirubin Total 0.2 mg/dL (0.0-1.0); Blood Urea Nitrogen 10 mg/dL (9-16); Calcium 9.6 mg/dL (8.4-10.2); Carbon Dioxide 27 mmol/L (22-29); Chloride 105 mmol/L (96-108); Creatinine Clr Calc Pharmacy 72.7; Estimated Glomerular Filt Rate > 60; Glucose Random 170 mg/dL (60-115); Potassium 4.1 mmol/L (3.3-5.1); Sodium 140 mmol/L (135-145); Total Protein 7.5 g/dL (6.5-8.0)
[2022-10-09] MEDS: Dicyclomine HCl 10 MG CAPSULE 20 MG PO (03:11)
[2022-10-09] MEDS: Ondansetron ODT 4 MG TAB.RAPDIS TRANSLINGU (03:11)
[2022-10-09 03:12] VITALS: BP 142/87; PULSE 76; RESP 16; O2SAT 98
== END 2022-10-09 03:53 | disposition home or self-care (01) ==
PROVIDERS: Emergency Provider Internal Medicine
DX: A05.9 Bacterial foodborne intoxication, unspecified (principal); R42 Dizziness and giddiness; Z79.899 Other long term (current) drug therapy
CPT/HCPCS: 36415; 80053; 85025; 99283; 99284

== ENCOUNTER 2023-02-03 21:04 | Emergency (ER) | payer OTHER, SELFPAY ==
[2023-02-03 21:23] VITALS: BP 134/96; PULSE 76; RESP 18; TEMP 36.8; O2SAT 97; BMI 27.4
--- NOTE | 2023-02-03 21:25 | ED.SOB ---
HPI - SOB/Dyspnea General Chief Complaint: Dyspnea Stated Complaint: Asthma, wheezing Time Seen by Provider: 02/03/23 21:25 Source: patient Mode of arrival: ambulatory Limitations: no limitations History of Present Illness HPI Narrative: Patient with history of asthma been having increased shortness of breath for last few days got worse today prior to arrival just took the prednisone which he finished 3 days ago started again with increased shortness of breath and wheeze with dry cough no fever no chills patient does use cocaine last use was 1 week ago complaining of chest tightness patient type 2 diabetic noncompliant to medication or diet not taking his medications Related Data Previous Rx's Medication Instructions Recorded prednisone 20 mg tablet 40 mg (2 x 20 mg) PO DAILY #10 tabs 06/20/22 meclizine 25 mg tablet 25 mg PO TID PRN dizziness #20 tabs 09/27/22 albuterol sulfate 2.5 mg/3 mL 2.5 mg (3 mL) inhalation Q4-6H PRN 02/04/23 (0.083 %) solution for nebulization shortness of breath or wheezing #90 mL blood-glucose meter #1 ea 02/04/23 glipizide 10 mg tablet, extended 10 mg PO DAILY #90 tabs 02/04/23 release 24 hr (Glucotrol XL) insulin glargine 100 unit/mL (3 20 unit (0.2 mL) subcut QPM #15 mL 02/04/23 mL) subcutaneous pen (Lantus Solostar U-100 Insulin) insulin lispro 100 unit/mL 1 sliding scale dose subcut 02/04/23 subcutaneous pen (Humalog KwikPen USEASDIRECTD #15 mL (U-100) Insulin) prednisone 20 mg tablet 40 mg (2 x 20 mg) PO DAILY #10 tabs 02/04/23 Allergies Allergy/AdvReac Type Severity Reaction Status Date / Time No Known Allergies Allergy Verified 06/19/22 22:49 Review of Systems Review of Systems: Yes all other systems are reviewed and are negative [facility] Past Medical History Medical History (Updated 02/04/23 @ 01:21 by Abel Martinez MD) Cerebellar stroke Basilar artery occlusion Chronic low back pain COPD (chronic obstructive pulmonary disease) Asthma Hyperlipidemia CVA (cerebral vascular accident) Migraine headache Cocaine abuse Type 2 diabetes mellitus Hypertension Social History Social History Alcohol intake: current Alcohol intake frequency: does not drink Smoked in Last 30 Days: Yes Use of substances other than those prescribed or required for medical reasons: No Substance Use Type: Crack/Cocaine Advance Directives: No Advance Directives Information Provided: No Physical Exam Vital Signs: Vital Signs: Last Vital Signs Temp 97.9 F 02/03/23 21:52 Pulse 78 02/03/23 23:18 Resp 16 02/03/23 23:18 BP 129/72 02/03/23 23:18 Pulse Ox 95 02/03/23 23:18 O2 Del Method Room Air 02/03/23 23:18 BMI result Body Mass Index 27.4 Appearance: Alert. Oriented X3. Moderate respiratory distress Eyes: PERRLA, No Nystagmus ENT: Pharynx normal. Oral Mucosa moist Neck: Normal inspection. Neck supple. CVS: Normal heart rate and rhythm. Pulses normal. Respiratory: Moderate respiratory distress. Equal air entry bilateral, bilateral wheezing and rhonchi Abdomen: Soft and nontender. Bowel sounds are present, no mass palpable, no CVA tenderness Skin: Skin warm and dry. Normal skin color. Normal skin turgor. Extremities: No lower extremity edema. No calf tenderness Neuro: Oriented X 3. No motor deficit. No sensory deficit.No cerebellar signs , cranial nerves II-XII intact Medications Administered Discontinued Medications Generic Name Dose Route Start Last Admin Trade Name Freq PRN Reason Stop Dose Admin Albuterol Sulfate 5 mg/ 7.5 mg 02/03/23 21:27 02/03/23 21:36 Albuterol Sulfate 2.5 mg INHALE 02/03/23 21:28 7.5 mg ONCE ONE Administration Magnesium Sulfate 2 gm in 50 mls @ 150 mls/hr 02/03/23 21:29 02/03/23 22:19 Magnesium Sulfate/H2o IV 02/03/23 21:48 Infused ONCE ONE Infusion Sodium Chloride 1,000 mls @ 999 mls/hr 02/03/23 22:59 02/03/23 23:39 Ns IV 02/03/23 23:59 999 mls/hr .Q1H1M ONE Administration Ibuprofen 600 mg 02/03/23 23:21 02/03/23 23:37 Ibuprofen 600 Mg Tablet PO 02/03/23 23:22 600 mg ONCE ONE Administration Insulin Glargine 20 unit 02/03/23 23:16 02/03/23 23:37 Insulin Glargine,Hum.Rec.Anlog 100 Unit/Ml 10 Ml Vial SUBCUT 02/03/23 23:17 20 unit ONCE ONE Administration Insulin Human Lispro 14 unit 02/03/23 22:59 02/03/23 23:19 Insulin Lispro 100 Unit/Ml 3 Ml Vial SUBCUT 02/03/23 23:00 14 unit ONCE ONE Administration Methylprednisolone Sodium Succinate 125 mg 02/03/23 21:29 02/03/23 21:36 Methylprednisolone Sod Succ 125 Mg/2 Ml Vial IVPUSH 02/03/23 21:30 125 mg ONCE ONE Administration Medical Decision Making Medical Decision Making [facility] Narrative: Patient's asthma improved after nebulizing treatment lab showed elevated blood glucose patient noncompliant with diet and metformin does want take metformin isn't like it was given long-acting insulin and patient would like to continue insulin patient's girlfriend knows how to give insulin injection will discharge patient home on insulin along with prednisone and albuterol treatment patient saturating 96% on room air Differential Diagnosis Differential Diagnoses: The differential diagnosis associated with the presentation includes Asthma/COPD/pneumothorax/pneumonia diabetes hyperglycemia Admission/Observation Consideration of admission/observation: Escalation of care including admission/observation considered Lab Data [facility] Lab Attestation statement: I reviewed the patient's lab results. 02/03/23 21:28 02/03/23 21:28 Labs: Lab Results 02/03/23 02/03/23 02/03/23 Range/Units 21:28 21:34 21:51 WBC 6.7 (4.8-10.8) X10*3/uL RBC 5.01 (4.60-5.80) X10*6/uL Hgb 15.5 (14.0-18.0) g/dl Hct 45.3 (42.0-52.0) % MCV 90.4 (80.0-98.0) fL MCH 30.9 (27.0-33.0) pg MCHC 34.2 (31.0-36.0) g/dl RDW 13.1 (11.0-16.0) % Plt Count 310 (160-400) X10*3/uL MPV 10.1 (9.4-12.4) fL Immature Gran % (Auto) 0.4 (0.0-0.4) % Neut % (Auto) 74.9 H (45-73) % Lymph % (Auto) 19.8 L (20-40) % [place] % (Auto) 4.3 (2-11) % Eos % (Auto) 0.3 (0-4) % Baso % (Auto) 0.3 (0-2) % Lymph # (Auto) 1.3 (1.2-4.9) X10*3/uL [place] # (Auto) 0.3 (0.1-1.2) X10*3/uL Eos # (Auto) 0.0 (0.0-0.4) X10*3/uL Baso # (Auto) 0.0 (0.0-0.2) X10*3/uL Abs Immat Gran (auto) 0.03 (0.00-0.03) X10*3/uL Absolute Neuts (auto) 5.0 (2.0-8.3) x10*3/uL Absolute Nucleated RBC 0.000 (0.0-0.012) X10*3/uL Nucleated RBC % (auto) 0.0 (0.0-0.2) /100WBC VBG pH 7.37 (7.32-7.43) VBG pCO2 46 mmHg VBG pO2 53 mmHg VBG HCO3 27 H (22-26) mmol/L VBG O2 Saturation 84.0 % VBG Base Excess 1.5 mmol/L Sodium 138 (135-145) mmol/L Potassium 4.6 (3.3-5.1) mmol/L Chloride 105 (96-108) mmol/L Carbon Dioxide 22 (22-29) mmol/L Anion Gap 16 (12-20) BUN 11 (9-16) mg/dL Creatinine 1.23 (0.5-1.4) mg/dL Estim Creat Clear Calc 67.8 Estimated GFR > 60 POC Glucose (60-115) mg/dL Random Glucose 404 H* (60-115) mg/dL Calcium 10.0 (8.4-10.2) mg/dL Total Bilirubin 0.3 (0.0-1.0) mg/dL AST 17 (5-37) U/L ALT 21 (0-40) U/L Alkaline Phosphatase 94 (39-117) U/L Troponin I High Sens < 2.7 (<3.5-35.0) ng/L B-Natriuretic Peptide < 10 (<100) pg/mL Total Protein 8.3 H (6.5-8.0) g/dL Albumin 4.7 (3.5-5.0) g/dL COVID-19 (STEFANIE) Negative (Negative) COVID-19 Clin Com See Note 02/03/23 02/04/23 Range/Units 23:17 00:29 WBC (4.8-10.8) X10*3/uL RBC (4.60-5.80) X10*6/uL Hgb (14.0-18.0) g/dl Hct (42.0-52.0) % MCV (80.0-98.0) fL MCH (27.0-33.0) pg MCHC (31.0-36.0) g/dl RDW (11.0-16.0) % Plt Count (160-400) X10*3/uL MPV (9.4-12.4) fL Immature Gran % (Auto) (0.0-0.4) % Neut % (Auto) (45-73) % Lymph % (Auto) (20-40) % [place] % (Auto) (2-11) % Eos % (Auto) (0-4) % Baso % (Auto) (0-2) % Lymph # (Auto) (1.2-4.9) X10*3/uL [place] # (Auto) (0.1-1.2) X10*3/uL Eos # (Auto) (0.0-0.4) X10*3/uL Baso # (Auto) (0.0-0.2) X10*3/uL Abs Immat Gran (auto) (0.00-0.03) X10*3/uL Absolute Neuts (auto) (2.0-8.3) x10*3/uL Absolute Nucleated RBC (0.0-0.012) X10*3/uL Nucleated RBC % (auto) (0.0-0.2) /100WBC VBG pH (7.32-7.43) VBG pCO2 mmHg VBG pO2 mmHg VBG HCO3 (22-26) mmol/L VBG O2 Saturation % VBG Base Excess mmol/L Sodium (135-145) mmol/L Potassium (3.3-5.1) mmol/L Chloride (96-108) mmol/L Carbon Dioxide (22-29) mmol/L Anion Gap (12-20) BUN (9-16) mg/dL Creatinine (0.5-1.4) mg/dL Estim Creat Clear Calc Estimated GFR POC Glucose 421 H* 377 H* (60-115) mg/dL Random Glucose (60-115) mg/dL Calcium (8.4-10.2) mg/dL Total Bilirubin (0.0-1.0) mg/dL AST (5-37) U/L ALT (0-40) U/L Alkaline Phosphatase (39-117) U/L Troponin I High Sens (<3.5-35.0) ng/L B-Natriuretic Peptide (<100) pg/mL Total Protein (6.5-8.0) g/dL Albumin (3.5-5.0) g/dL COVID-19 (STEFANIE) (Negative) COVID-19 Clin Com Discharge Plan Discharge Clinical Impression: Asthma with exacerbation, Diabetes mellitus with hyperglycemia Patient Disposition: Home, Self-Care Instructions: Asthma (ED), Diabetic Hyperglycemia (ED) Additional Instructions: Drink plenty of fluids Prednisone as prescribed Start taking insulin according to sliding scale as instructed 100-150 = 0 unit 151-200 = 2 units 201-250 = 4 units 251-300 = 6 units 301-350 = 8 units 351- 400 = 10 units >401 = 12 units and call md or come to ED Take long-acting insulin at nighttime Glucotrol 10 mg daily Follow with PCP Prescriptions: New glipizide [Glucotrol XL] 10 mg tablet extended release 24hr 10 mg PO DAILY Qty: 90 0RF insulin glargine [Lantus Solostar U-100 Insulin] 100 unit/mL (3 mL) insulin pen 20 unit subcut QPM Qty: 15 3RF insulin lispro [Humalog KwikPen Insulin] 100 unit/mL insulin pen 1 sliding scale dose subcut USEASDIRECTD Qty: 15 3RF Rx Instructions: 0-150= 0 units SQ 151-200 = 2 units SQ 201-250 = 4 units SQ 251-300 = 6 units SQ 301-350 = 8 units 351-400 = 10 units SQ >401 = 12 units SQ (DME) blood-glucose meter Kit See Rx Instructions .Route Qty: 1 0RF Rx Instructions: As directed albuterol sulfate 2.5 mg /3 mL (0.083 %) solution for nebulization 2.5 mg inhalation Q4-6H PRN (Reason: shortness of breath or wheezing) Qty: 90 0RF prednisone 20 mg tablet 40 mg PO DAILY Qty: 10 0RF No Action prednisone 20 mg tablet 40 mg PO DAILY Qty: 10 0RF meclizine 25 mg tablet 25 mg PO TID PRN (Reason: dizziness) Qty: 20 0RF
[2023-02-03 21:26] VITALS: PULSE 85; RESP 16; O2SAT 97
[2023-02-03 21:37] VITALS: PULSE 75; RESP 28; O2SAT 95
--- NOTE | 2023-02-03 21:41 | PC.NURSE ---
pt on nebulizer at this time, respirations even but labored, at 20-26 RPM. Pt endorses CP. Pt has inspiratory wheezing in all lobes bilaterally. Pt is now resting comfortable offers no complaints to this RN
--- NOTE | 2023-02-03 21:42 | MHC.EDTECH ---
THIS PCT JUST ASSUMED CARE OF PATIENT ,EKG TAKEN AND WAS READ BY PROVIDER ,,BLOOD DRAWN AND SENT TO LAB ,PT DANNA MIRANDA ,PT AT BEDSIDE ,WILL CONTINUE TO MONITOR .
--- NOTE | 2023-02-03 21:44 | PC.NURSE ---
20g in LAC, 22g in LH
[2023-02-03 21:52] VITALS: BP 138/77; PULSE 86; RESP 16; TEMP 36.6; O2SAT 98
--- NOTE | 2023-02-03 21:55 | MHC.EDTECH ---
PT COVID SWAB COLLECTED AND SENT TO LAB ,AND VITALS SIGN TAKEN .
[2023-02-03 22:06] LABS: Alanine Aminotransferase 21 U/L (0-40); Albumin Level 4.7 g/dL (3.5-5.0); Alkaline Phosphatase 94 U/L (39-117); Anion Gap 16 (12-20); Aspartate Amino Transferase 17 U/L (5-37); Bilirubin Total 0.3 mg/dL (0.0-1.0); Blood Urea Nitrogen 11 mg/dL (9-16); Carbon Dioxide 22 mmol/L (22-29); Chloride 105 mmol/L (96-108); Creatinine Clr Calc Pharmacy 67.8; Estimated Glomerular Filt Rate > 60; Glucose Random 404 mg/dL (60-115); Potassium 4.6 mmol/L (3.3-5.1); Sodium 138 mmol/L (135-145); Total Protein 8.3 g/dL (6.5-8.0)
[2023-02-03 23:18] VITALS: BP 129/72; PULSE 78; RESP 16; O2SAT 95
== END 2023-02-04 00:45 | disposition home or self-care (01) ==
PROVIDERS: Emergency Provider Internal Medicine
DX: J45.901 Unspecified asthma with (acute) exacerbation (principal); E11.65 Type 2 diabetes mellitus with hyperglycemia; R06.02 Shortness of breath; J45.909 Unspecified asthma, uncomplicated; R07.89 Other chest pain; Z20.822 Contact with and (suspected) exposure to COVID-19; Z11.52 Encounter for screening for COVID-19; Z91.199 Patient's noncompliance with other medical treatment and regimen due to unspecified reason; Z79.899 Other long term (current) drug therapy; Z79.4 Long term (current) use of insulin
CPT/HCPCS: 36415; 71045; 80053; 82803; 82947; 83880; 84484; 85025; 87635; 93005; 94640; 96361; 96372; 96374; 96375; 99285; J2930; J3475

== ENCOUNTER 2023-05-16 08:22 | Emergency (ER) | payer OTHER, SELFPAY ==
[2023-05-16] VITALS (8 sets, daily range): BP systolic 121–164; BP diastolic 73–97; PULSE 61–89; RESP 16–22; TEMP 36.9; O2SAT 96–100; BMI 27.3
--- NOTE | ~2023-05-16 | CT_ITS ---
EXAMINATION: CT ANGIOGRAM CHEST CLINICAL INFORMATION: Chest pain and shortness of breath. Cocaine abuse COMPARISON: CT angiogram chest 06/20/2022 TECHNIQUE: Multiple axial images were obtained through the chest after the administration of 70 mL of Omnipaque 350 intravenous contrast. Extensive vascular post-processing including two-dimensional and three-dimensional reformatted images were created and reviewed on an independent workstation. This CT examination was performed using dose optimization techniques as appropriate, variously including the following: *Automated exposure control *Adjustment of mA and/or kV according to patient size (this includes techniques or standardized protocols for targeted exams where dose is matched to indication/reason for exam; i.e. extremities or head) *Use of iterative reconstruction technique DLP: 278 mGy-cm VASCULAR FINDINGS: The thoracic aorta appears unremarkable without evidence of aneurysm, dissection or intramural hematoma. Three-vessel branching pattern of the arch is seen with widely patent great vessels. The small visualized portion of the abdominal aorta appears unremarkable with patent celiac, SMA and single renal arteries seen bilaterally. It is possible that there is a small accessory left renal artery although the origin of this is not seen in the included slices. Although not carried out for evaluation of the pulmonary artery is pulmonary veins, they are moderately well seen. No large pulmonary emboli are present. The pulmonary veins appear normal. No thrombus is seen in the left atrial appendage. NONVASCULAR FINDINGS: LUNGS: Again seen is a 4 mm perifissural left lower lobe lymph node and a 3 mm lingular nodule unchanged. A small 3 mm right upper lobe pulmonary nodule at the apex is seen, not noted previously (16:98). The lungs are otherwise clear with no evidence of inflammation or nodules. MEDIASTINUM: The mediastinum is unremarkable. PLEURA: There is no pleural effusion. No pleural mass or thickening. AXILLA: No lymphadenopathy. UPPER ABDOMEN: Unremarkable. OSSEOUS STRUCTURES: Unremarkable. CT/CT angio chest aorta IMPRESSION: 1. No evidence of aortic dissection or aneurysm. 2. No large pulmonary emboli are seen. 3. Small lung nodules as described above. One new 3 mm right upper lobe pulmonary nodule is seen. 4. VTE: Negative. According to the UPDATED 2017 Fleischner Society recommendations, the advised follow-up imaging for nodules <6mm in the upper lobes is not necessarily required in low-risk patients. In high-risk patients with a nodule in the upper lobe and/or demonstrating suspicious morphology, an optional CT follow-up at 12 months may be obtained. If stable at 12 months, no further follow-up is recommended.
--- NOTE | ~2023-05-16 | CT_ITS ---
EXAMINATION: CT HEAD WITHOUT CONTRAST CLINICAL INFORMATION: Status post drug use. Possible fall. COMPARISON: CT scan of the head 09/27/2022. TECHNIQUE: Multidetector CT imaging of the head was obtained without the use of intravenous contrast. Coronal and sagittal reformatted images were generated at the technologist workstation. This CT examination was performed using dose optimization techniques as appropriate, variously including the following: *Automated exposure control *Adjustment of mA and/or kV according to patient size (this includes techniques or standardized protocols for targeted exams where dose is matched to indication/reason for exam; i.e. extremities or head) *Use of iterative reconstruction technique DLP: 727.35 mGy-cm. FINDINGS: The study demonstrates areas of low-attenuation in the rosaura and left thalamus, consistent with chronic lacunar infarcts. There is no evidence of acute intracranial hemorrhage or territorial infarction. No abnormal mass-effect or midline shift is seen. Judge to white matter differentiation is well preserved. There is mild prominence of the extra-axial CSF around the cerebral convexities bilaterally, which may be consistent with cortical volume loss. The ventricles and sulci are normal in size. There are no acute osseous or soft tissue abnormalities. The mastoid air cells are well-aerated. There is mucoperiosteal thickening in the left maxillary and right sphenoid sinuses. There is a prominent right middle turbinate conchae bullosa. The nasal septum is deviated to the right inferiorly and toward the left more superiorly and posteriorly. There is soft tissue fullness in the visualized left nasal cavity. CT/CT head/brain wo IV con IMPRESSION: 1. There are no acute bleeds or territorial infarcts. No masses are demonstrated. 2. There are chronic lacunar infarcts in the rosaura and left thalamus. 3. There are no acute osseous or soft tissue abnormalities. 4. There is soft tissue fullness in the visualized left nasal cavity which could be clinically assessed. There is mild mucoperiosteal thickening in the left maxillary and right sphenoid sinuses.
--- NOTE | 2023-05-16 08:25 | ED_ITS ---
HPI - General Adult General Chief complaint: Headache Stated complaint: DRUG USE W/NEW ONSET COYNE PER EMS Time Seen by Provider: 05/16/23 08:24 Source: patient Mode of arrival: EMS Limitations: language barrier History of Present Illness HPI narrative: Patient is a 57 yr old male with a past medical history of DM Type 2, right sided weakness due to previous stroke, asthma, illicit drug use presenting with a new onset headache after 60 of cocaine last night. Patient states he was out partying all night until 5 am this morning, where he had 5 beers, and took cocaine. Reports a 02/05 headache that started at 6 am this morning. Reports chest pain and weakness that started 1 hour ago. Denies fever, chills, SOB, nausea, vomiting, abdominal pain. Related Data Previous Rx's Medication Instructions Recorded prednisone 20 mg tablet 40 mg (2 x 20 mg) PO DAILY #10 tabs 06/20/22 meclizine 25 mg tablet 25 mg PO TID PRN dizziness #20 tabs 09/27/22 albuterol sulfate 2.5 mg/3 mL 2.5 mg (3 mL) inhalation Q4-6H PRN 02/04/23 (0.083 %) solution for nebulization shortness of breath or wheezing #90 mL albuterol sulfate 90 mcg/actuation 2 puff inhalation Q4-6H PRN 02/04/23 aerosol inhaler (ProAir HFA) shortness of breath or wheezing #8.5 grams blood-glucose meter #1 ea 02/04/23 glipizide 10 mg tablet, extended 10 mg PO DAILY #90 tabs 02/04/23 release 24 hr (Glucotrol XL) insulin glargine 100 unit/mL (3 20 unit (0.2 mL) subcut QPM #15 mL 02/04/23 mL) subcutaneous pen (Lantus Solostar U-100 Insulin) insulin lispro 100 unit/mL 1 sliding scale dose subcut 02/04/23 subcutaneous pen (Humalog KwikPen USEASDIRECTD #15 mL (U-100) Insulin) prednisone 20 mg tablet 40 mg (2 x 20 mg) PO DAILY #10 tabs 02/04/23 amlodipine 5 mg tablet 5 mg PO DAILY 30 days #30 tabs 05/16/23 nitroglycerin 0.4 mg sublingual 0.4 mg sublingual Q5M PRN chest 05/16/23 tablet pain #7 tabs prednisone 20 mg tablet 20 mg PO DAILY 5 days #5 tabs 05/16/23 Allergies Allergy/AdvReac Type Severity Reaction Status Date / Time No Known Allergies Allergy Verified 06/19/22 22:49 Review of Systems 2 Review of Systems: Constitutional : No Weight loss, No Fever, No Chills, No Fatigue, No Malaise ENT/Mouth : No sore throat, No Rhinorrhea Eyes: No Eye Pain, No Swelling, No Redness Cardiovascular : + Chest Pain, No SOB, No Dyspnea on Exertion, No Orthopnea, No Edema, No Palpitations Respiratory : No Cough, No Sputum, No Wheezing Gastrointestinal : No Nausea, No Vomiting, No Diarrhea, No Constipation, No abdominal Pain, No Hematochezia, No Melena Genitourinary : No Dysuria, No Urinary Frequency, No Hematuria, Musculoskeletal : No joint pain, No Myalgias, No Joint Swelling Skin : No Skin Lesions, No rash Neuro : + Headache. No Weakness, No Numbness, No Dizziness Psych : No Anxiety/Panic, No Depression Heme/Lymph: No Bruising, No Bleeding,No Lymphadenopathy Endocrine : No Polyuria, No Polydipsia All other systems reviewed and are negative Yes all other systems are reviewed and are negative PMFSH Past Medical History Onset Date is defined in the Problem List Problems that require an onset date and time if occurred within 24 hrs of arrival to the ED Aortic Dissection and Rupture; Neurologic impairment; Cardiopulmonary Arrest; Endotracheal Intubation; Insertion or Replacement of Mechanical Circulatory Assist Device Medical History (Updated 05/16/23 @ 15:45 by KO Dennison) Cerebellar stroke Basilar artery occlusion Chronic low back pain COPD (chronic obstructive pulmonary disease) Asthma Hyperlipidemia CVA (cerebral vascular accident) Migraine headache Cocaine abuse Type 2 diabetes mellitus Hypertension Social History Social History Alcohol intake: current Alcohol intake frequency: 0-2 drinks per day Smoked in Last 30 Days: Yes Use of substances other than those prescribed or required for medical reasons: Yes Substance Use Type: Crack/Cocaine Advance Directives: No Physical Exam ED Vital Signs: Vital Signs - 24 hr 05/16/23 08:35 05/16/23 08:41 05/16/23 10:00 Temperature 98.4 F Pulse Rate 89 83 Respiratory Rate 19 16 18 Blood Pressure 164/78 H 152/85 H Pulse Oximetry 100 97 Oxygen Delivery Method Room Air Room Air 05/16/23 13:49 05/16/23 13:58 05/16/23 14:00 Temperature Pulse Rate 61 66 85 Respiratory Rate 16 22 H 18 Blood Pressure 121/73 152/97 H Pulse Oximetry 98 96 Oxygen Delivery Method Room Air Room Air 05/16/23 15:05 Temperature Pulse Rate 82 Respiratory Rate Blood Pressure 129/77 Pulse Oximetry Oxygen Delivery Method BMI result Body Mass Index 27.3 vss for hypertension of 164/78 Appearance: Alert.? Oriented X3.? No acute distress.? Head: Normocephalic, atraumatic, no step-offs or deformities Eyes: Pupils equal, round and reactive to light.? Neck: Normal inspection.? Neck supple.? CVS: Normal heart rate and rhythm.? Pulses normal.? Respiratory: No respiratory distress.?Mild wheeze bilaterally.? Abdomen: Soft and nontender.? Skin: Skin warm and dry.? Normal skin color.? Normal skin turgor.? Extremities: No lower extremity edema.? No calf ttp. 5/5 strength to bilateral upper and lower extremities Back: No midline tenderness, no C-spine tenderness, full range of motion, no CVA tenderness bilaterally Neuro: Oriented X 3.? Right sided weakness.? No sensory deficit. CN 2-12 intact Course Course Course Narrative: I also discussed this case with my attending prior to discharge he agrees with my diagnosis and treatment plan. Reevaluation(s) Reevaluation #1: CBC unremarkable. Chemistry no acute findings requiring acute intervention. Troponin negative x2, EKG nonischemic however noted to have PVCs. When I went to go re-evaluate patient he states he still having some substernal intermittent sharp chest discomfort, I did reach out to Cardiology due to the amount of cocaine that patient use and coronary artery vasospasms are on my differential, recommended giving amlodipine 5 and seeing if pain resolved. I did try this, patient reports pain improved however not completely resolved. Sharp intermittent pain still present. Cardiology recommends sublingual nitro tab. Time: 14:54 Reevaluation #2: CTA with no evidence of aortic dissection or aneurysm. No large pulmonary emboli seen small lung nodules noted. CT head and brain no acute bleed or territorial infarcts. No masses or demonstrated. Chronic lacunar infarcts in the rosaura and left thalamus. No acute osseous or soft tissue abnormalities. Although CT scan shows soft tissue fullness in the visualized left nasal cavity no signs of sinusitis on exam no complaints. Nitro being given at this time Time: 15:08 Reevaluation #3: Patient feels pain-free after nitro. Cardiology recommends patient be discharged with amlodipine 5 mg p.o. daily and p.r.n. nitroglycerin for chest pain if needed. Patient is not having pain therefore no need for admission per Cardiology. Will educate patient on this. Patient to be discharged home. Educated patient on diagnosis and treatment plan, answered all question, patient verbalizes understanding. At this time patient will be discharged home, advised to return with new or worsening symptoms. Educated on worrisome signs and symptoms and when to return. At this time I feel comfortable discharge home. Time: 15:41 Medications Administered Discontinued Medications Generic Name Dose Route Start Last Admin Trade Name Jordonq PRN Reason Stop Dose Admin Acetaminophen 975 mg 05/16/23 08:47 05/16/23 09:22 Acetaminophen 325 Mg Tablet PO 05/16/23 08:48 975 mg ONCE ONE Administration Amlodipine Besylate 5 mg 05/16/23 14:10 05/16/23 14:37 Amlodipine Besylate 5 Mg Tablet PO 05/16/23 14:11 5 mg ONCE ONE Administration Protocol Albuterol Sulfate 2.5 mg/ 0 mg 05/16/23 13:53 05/16/23 14:32 Albuterol/Ipratropium 3 ml INHALE 05/16/23 13:54 1 dose ONCE ONE Administration Sodium Chloride 1,000 mls @ 999 mls/hr 05/16/23 10:00 05/16/23 12:25 Ns IV 05/16/23 11:00 Infused .Q1H1M BEV Infusion Iohexol 70 ml 05/16/23 10:21 05/16/23 10:22 Iohexol 350 Mg/Ml 100 Ml Infus..Btl IV 05/16/23 10:22 70 ml ONCE ONE Administration Midazolam HCl 2 mg 05/16/23 08:56 05/16/23 09:22 Midazolam Hcl/Pf 2 Mg/2 Ml Vial IVPUSH 05/16/23 08:57 2 mg ONCE ONE Administration Nitroglycerin 0.4 mg 05/16/23 14:54 05/16/23 15:05 Nitroglycerin 0.4 Mg Tab.Subl SUBLINGUAL 05/16/23 14:55 0.4 mg ONCE ONE Administration Medical Decision Making Medical Decision Making [facility] Narrative: Patient is a 57 yr old male with a past medical history of DM Type 2, right sided weakness due to previous stroke, asthma, illicit drug use presenting with a new onset headache after 60 of cocaine last night. PE significant for wheezes bilaterally and quadrigemeny PVCs. Most likely drug induced headache and cardiac changes/ pvcs. Unlikely dissection, OH, coronary artery vasospasm, intracranial hemorrhage, acs. Unlikely metabolic derangements. Plan labs, imaging, EKG Differential Diagnosis Differential Diagnoses: The differential diagnosis associated with the presentation includes Most likely drug induced headache and cardiac changes/ pvcs. Unlikely dissection, OH, coronary artery vasospasm, intracranial hemorrhage, acs Unlikely metabolic derangements. Admission/Observation Consideration of admission/observation: Escalation of care including admission/observation considered Lab Data [facility] Lab Attestation statement: I reviewed the patient's lab results. U tox positive for cocaine. CBC unremarkable. CK elevated at 227 05/16/23 09:09 05/16/23 09:29 Labs: Lab Results 05/16/23 05/16/23 05/16/23 Range/Units 09:09 09:29 12:21 WBC 9.1 (4.8-10.8) X10*3/uL RBC 5.54 (4.60-5.80) X10*6/uL Hgb 17.1 (14.0-18.0) g/dl Hct 49.3 (42.0-52.0) % MCV 89.0 (80.0-98.0) fL MCH 30.9 (27.0-33.0) pg MCHC 34.7 (31.0-36.0) g/dl RDW 12.0 (11.0-16.0) % Plt Count 321 (160-400) X10*3/uL MPV 9.7 (9.4-12.4) fL Immature Gran % (Auto) 0.3 (0.0-0.4) % Neut % (Auto) 58.6 (45-73) % Lymph % (Auto) 33.3 (20-40) % [place] % (Auto) 6.2 (2-11) % Eos % (Auto) 1.3 (0-4) % Baso % (Auto) 0.3 (0-2) % Lymph # (Auto) 3.0 (1.2-4.9) X10*3/uL [place] # (Auto) 0.6 (0.1-1.2) X10*3/uL Eos # (Auto) 0.1 (0.0-0.4) X10*3/uL Baso # (Auto) 0.0 (0.0-0.2) X10*3/uL Abs Immat Gran (auto) 0.03 (0.00-0.03) X10*3/uL Absolute Neuts (auto) 5.3 (2.0-8.3) x10*3/uL Absolute Nucleated RBC 0.000 (0.0-0.012) X10*3/uL Nucleated RBC % (auto) 0.0 (0.0-0.2) /100WBC Sodium 137 (135-145) mmol/L Potassium 3.6 (3.3-5.1) mmol/L Chloride 105 (96-108) mmol/L Carbon Dioxide 25 (22-29) mmol/L Anion Gap 11 L (12-20) BUN 8 L (9-16) mg/dL Creatinine 1.07 (0.5-1.4) mg/dL Estim Creat Clear Calc 78.0 Estimated GFR > 60 Random Glucose 160 H (60-115) mg/dL Calcium 9.5 (8.4-10.2) mg/dL Magnesium 1.9 (1.6-2.6) mg/dL Total Bilirubin 0.4 (0.0-1.0) mg/dL AST 16 (5-37) U/L ALT 13 (0-40) U/L Alkaline Phosphatase 79 (39-117) U/L Total Creatine Kinase 227 H (38-174) U/L Troponin I High Sens 6.8 D 5.8 (<3.5-35.0) ng/L Total Protein 7.5 (6.5-8.0) g/dL Albumin 4.1 (3.5-5.0) g/dL Urine Opiates Screen Not Detected (Not Detect) Urine Fentanyl Screen Not Detected (Not Detect) Ur Barbiturates Screen Not Detected (Not Detect) Ur Phencyclidine Scrn Not Detected (Not Detect) Ur Amphetamines Screen Not Detected (Not Detect) U Benzodiazepines Scrn Not Detected (Not Detect) Urine Cocaine Screen POSITIVE H (Not Detect) U Marijuana (THC) Screen Not Detected (Not Detect) Ethyl Alcohol < 10 mg/dL COVID-19 (STEFANIE) Negative (Negative) COVID-19 Clin Com See Note Independent Interpretation I performed an independent interpretation of an: EKG (Vent. Rate : 087 BPM Atrial Rate : 087 BPM P-R Int : 136 ms QRS Dur : 100 ms QT Int : 390 ms P-R-T Axes : 040 -06 036 degrees QTc Int : 469 ms Sinus rhythm with frequent Premature ventricular complexes Otherwise normal ECG When compared with ECG of 03-FEB-2023 21:20, P) and CT Scan (CT/CT angio chest aorta IMPRESSION: 1. No evidence of aortic dissection or aneurysm. 2. No large pulmonary emboli are seen. 3. Small lung nodules as described above. One new 3 mm right upper lobe pulmonary nodule is seen. 4. VTE: Negative. According to the UPDATED 2017 Fleischner Society felicia) Interpretation: EKG Vent. Rate : 087 BPM Atrial Rate : 087 BPM P-R Int : 136 ms QRS Dur : 100 ms QT Int : 390 ms P-R-T Axes : 040 -06 036 degrees QTc Int : 469 ms Sinus rhythm with frequent Premature ventricular complexes Otherwise normal ECG When compared with ECG of 03-FEB-2023 21:20, Premature ventricular complexes are now Present Radiology Impression Discussion of test interpretation with radiology: I have reviewed the radiologist's reading. Radiologist Impression: CT/CT head/brain wo IV con IMPRESSION: 1. There are no acute bleeds or territorial infarcts. No masses are demonstrated. 2. There are chronic lacunar infarcts in the rosaura and left thalamus. 3. There are no acute osseous or soft tissue abnormalities. 4. There is soft tissue fullness in the visualized left nasal cavity which could be clinically assessed. There is mild mucoperiosteal thickening in the left maxillary and right sphenoid sinuses. CT/CT angio chest aorta IMPRESSION: 1. No evidence of aortic dissection or aneurysm. 2. No large pulmonary emboli are seen. 3. Small lung nodules as described above. One new 3 mm right upper lobe pulmonary nodule is seen. 4. VTE: Negative. According to the UPDATED 2017 Fleischner Society recommendations, the advised follow-up imaging for nodules <6mm in the upper lobes is not necessarily required in low-risk patients. In high-risk patients with a nodule in the upper lobe and/or demonstrating suspicious morphology, an optional CT follow-up at 12 months may be obtained. If stable at 12 months, no further follow-up is recommended. External Record Review External record reviewed: Inpatient record and Outpatient record Social Determinants Patient?s care significantly limited by Social Determinants of Health including: Other Social Determinant of Health Critical Care Time Critical Care Time Critical Care Time: Yes Total Critical Care Time: 60 Attestation: I attest to this time spent taking care of the patient, obtaining history, physical, reviewing labs, imaging, speaking to my attending, speaking to specialist. Discharge Plan Discharge Clinical Impression: Cocaine abuse, Headache, Marijuana abuse, Chest pain, Wheezing Patient Disposition: Home, Self-Care Instructions: Chest Pain (ED), Acute Headache (DC) Additional Instructions: Take your medications as prescribed. If you were prescribed antibiotics today, it is important that you take your medication to their entirety, do not skip any doses, do not finish them early. Follow-up with your primary care provider this week. Return to the emergency department with new or worsening symptoms. Such as fevers, chills, chest pain, shortness of breath, nausea, vomiting, dizziness, headache, vision changes, lethargy In case of emergency call 911 Amlodipine is a medication that is for your heart/blood pressure please take this daily. Nitroglycerin is medication that should only be taken if you have severe chest pain, please follow instructions on packaging. You should follow-up with cardiology within a week and follow-up with your primary care provider as soon as possible. [place] terrence medicamentos seg?n lo recetado. Si hoy te recetaron antibi?ticos, es importante que tomes tu medicaci?n en lakhani totalidad, no te saltes ninguna dosis, no las termines antes de tiempo. Gabriella un seguimiento con lakhani proveedor de atenci?n primaria esta semana. Regrese al departamento de emergencias si los s?ntomas son nuevos o empeoran. [place] fiebre, escalofr?os, dolor de pecho, dificultad para respirar, n?useas, v?mitos, mareos, dolor de erika, cambios en la visi?n, letargo. En mo de emergencia llame al 911. Amlodipino es un medicamento para el coraz?n y la presi?n arterial. T?renee diariamente. La nitroglicerina es un medicamento que solo debe tomarse si tiene dolor de pecho intenso; siga las instrucciones del paquete. Debe realizar un seguimiento con cardiolog?a dentro de nilson semana y realizar un seguimiento con lakhani proveedor de atenci?n primaria lo antes posible. Prescriptions: New prednisone 20 mg tablet 20 mg PO DAILY 5 Days Qty: 5 0RF nitroglycerin 0.4 mg tablet, sublingual 0.4 mg sublingual Q5M PRN (Reason: chest pain) Qty: 7 0RF Rx Instructions: do not exceed 3 doses per episode amlodipine 5 mg tablet 5 mg PO DAILY 30 Days Qty: 30 0RF No Action prednisone 20 mg tablet 40 mg PO DAILY Qty: 10 0RF glipizide [Glucotrol XL] 10 mg tablet extended release 24hr 10 mg PO DAILY Qty: 90 0RF insulin glargine [Lantus Solostar U-100 Insulin] 100 unit/mL (3 mL) insulin pen 20 unit subcut QPM Qty: 15 3RF insulin lispro [Humalog KwikPen Insulin] 100 unit/mL insulin pen 1 sliding scale dose subcut USEASDIRECTD Qty: 15 3RF Rx Instructions: 0-150= 0 units SQ 151-200 = 2 units SQ 201-250 = 4 units SQ 251-300 = 6 units SQ 301-350 = 8 units 351-400 = 10 units SQ >401 = 12 units SQ (DME) blood-glucose meter Kit See Rx Instructions .Route Qty: 1 0RF Rx Instructions: As directed albuterol sulfate 2.5 mg /3 mL (0.083 %) solution for nebulization 2.5 mg inhalation Q4-6H PRN (Reason: shortness of breath or wheezing) Qty: 90 0RF prednisone 20 mg tablet 40 mg PO DAILY Qty: 10 0RF albuterol sulfate [ProAir HFA] 90 mcg/actuation HFA aerosol inhaler 2 puff inhalation Q4-6H PRN (Reason: shortness of breath or wheezing) Qty: 8.5 0RF meclizine 25 mg tablet 25 mg PO TID PRN (Reason: dizziness) Qty: 20 0RF Referrals: [facility] [place] Cardiovascular Services [Provider Group] - 1 day Mansi Myrick MD [Primary Care Provider] - 2 days Stand Alone Forms: Work/School Release
--- NOTE | 2023-05-16 08:34 | ECG_ITS ---
Test Reason : cocaine use Blood Pressure : / mmHG Vent. Rate : 087 BPM Atrial Rate : 087 BPM P-R Int : 136 ms QRS Dur : 100 ms QT Int : 390 ms P-R-T Axes : 040 -06 036 degrees QTc Int : 469 ms Sinus rhythm with frequent Premature ventricular complexes Otherwise normal ECG When compared with ECG of 03-FEB-2023 21:20, Premature ventricular complexes are now Present Referred By: Jean-Pierre Cruz Electronically Signed By:QUINN ANTUNEZ
[2023-05-16 09:17] LABS: MANUAL DIFF FLAG NO
[2023-05-16 09:20] LABS: Basophils Percent Auto 0.3 % (0-2); Eosinophils Absolute Auto 0.1 X10*3/uL (0.0-0.4); Eosinophils Percent Auto 1.3 % (0-4); Hematocrit 49.3 % (42.0-52.0); Hemoglobin 17.1 g/dl (14.0-18.0); Imm Gran Abs Auto 0.03 X10*3/uL (0.00-0.03); Imm Gran Pct Auto 0.3 % (0.0-0.4); Lymphocytes Percent Auto 33.3 % (20-40); Mean Corpuscular HGB Conc 34.7 g/dl (31.0-36.0); Mean Corpuscular Hemoglobin 30.9 pg (27.0-33.0); Mean Platelet Volume 9.7 fL (9.4-12.4); Monocytes Absolute Auto 0.6 X10*3/uL (0.1-1.2); Monocytes Percent Auto 6.2 % (2-11); Neutrophils Absolute Auto 5.3 x10*3/uL (2.0-8.3); Neutrophils Percent Auto 58.6 % (45-73); Platelet Count 321 X10*3/uL (160-400); Red Blood Count 5.54 X10*6/uL (4.60-5.80); White Blood Count 9.1 X10*3/uL (4.8-10.8)
[2023-05-16] MEDS: Acetaminophen 325 MG TABLET 975 MG PO (09:22)
[2023-05-16] MEDS: Midazolam HCl/PF 2 MG/2 ML VIAL IVPUSH (09:22)
[2023-05-16 09:27] LABS: Amphetamine Screen Urine Not Detected (Not Detect); Barbiturates, Urine Not Detected (Not Detect); Benzodiazepines Screen Urine Not Detected (Not Detect); Cannabinoid Screen Urine Not Detected (Not Detect); Cocaine Screen Urine POSITIVE (Not Detect); Fentanyl, urine Not Detected (Not Detect); Opiate Screen Urine Not Detected (Not Detect); Phencyclidine Screen Urine Not Detected (Not Detect)
--- NOTE | 2023-05-16 09:28 | PC.NURSE ---
Pt is a&ox4 coming in for having a 10/10 headache that started about an hour ago after partying all night and drinking alcohol and doing cocaine. Pt has right side weakness from previous stroke states this is his baseline. skin pwd. able to make needs known, respirations even and unlabored.
[2023-05-16 09:51] LABS: Alanine Aminotransferase 13 U/L (0-40); Albumin Level 4.1 g/dL (3.5-5.0); Alkaline Phosphatase 79 U/L (39-117); Anion Gap 11 (12-20); Aspartate Amino Transferase 16 U/L (5-37); Bilirubin Total 0.4 mg/dL (0.0-1.0); Blood Urea Nitrogen 8 mg/dL (9-16); Calcium 9.5 mg/dL (8.4-10.2); Carbon Dioxide 25 mmol/L (22-29); Chloride 105 mmol/L (96-108); Estimated Glomerular Filt Rate > 60; Glucose Random 160 mg/dL (60-115); Magnesium 1.9 mg/dL (1.6-2.6); Potassium 3.6 mmol/L (3.3-5.1); Sodium 137 mmol/L (135-145); Total Protein 7.5 g/dL (6.5-8.0)
[2023-05-16 10:05] LABS: COVID-19 Test Negative (Negative); IDNOW Serial# 152EDE1D
[2023-05-16 10:13] LABS: Troponin-I High Sensitivity 6.8 ng/L (<3.5-35.0)
[2023-05-16] MEDS: iohexoL 350 MG/ML 100 ML INFUS..BTL 70 ML IV (10:22)
[2023-05-16] MEDS: 0.9 % Sodium Chloride 1,000 ML 999 ML IV (10:43)
[2023-05-16 12:51] LABS: Troponin-I High Sensitivity 5.8 ng/L (<3.5-35.0)
[2023-05-16] MEDS: Albuterol Sulfate 2.5 MG, Albuterol/Iprat 2.5/0.5MG 3 ML 3 ML INHALE (14:32)
[2023-05-16 14:33] LABS: Ethanol < 10 mg/dL
[2023-05-16] MEDS: amLODIPine Besylate 5 MG TABLET PO (14:37)
[2023-05-16] MEDS: Nitroglycerin 0.4 MG TAB.SUBL SUBLINGUAL (15:05)
--- NOTE | 2023-05-16 15:08 | PC.NURSE ---
Before nitro 129/77 provider aware.
== END 2023-05-16 15:56 | disposition home or self-care (01) ==
PROVIDERS: Physician Assistant; Emergency Provider Emergency Medicine; PCP Internal Medicine
DX: F14.10 Cocaine abuse, uncomplicated (principal); R51.9 Headache, unspecified; F12.10 Cannabis abuse, uncomplicated; R07.89 Other chest pain; R06.2 Wheezing; R91.1 Solitary pulmonary nodule; Z11.52 Encounter for screening for COVID-19; Z20.828 Contact with and (suspected) exposure to other viral communicable diseases; Z79.899 Other long term (current) drug therapy
CPT/HCPCS: 36415; 70450; 71275; 80053; 80307; 82550; 83735; 84484; 85025; 87635; 93005; 94640; 94664; 96361; 96374; 99285; J2250; Q9967

== ENCOUNTER → 2023-05-16 08:34 | Outpatient (BNV) | payer OTHER, SELFPAY | PROVIDERS: Emergency Provider Emergency Medicine; PCP Internal Medicine; Visit Provider Internal Medicine | DX: I49.3 Ventricular premature depolarization (principal) | CPT/HCPCS: 93010 ==

== ENCOUNTER 2023-06-17 13:39 | Inpatient (IN) | payer OTHER, SELFPAY ==
--- NOTE | ~2023-06-17 | CT_ITS ---
CT ANGIOGRAM NECK WITH CONTRAST CT ANGIOGRAM BRAIN WITH CONTRAST CLINICAL INFORMATION: Left-sided CVA. COMPARISON: Head CT 05/16/2023. TECHNIQUE: Test bolus sequences followed by intravenous administration 70 mL of Omnipaque 350. Helical imaging was performed in the axial plane from the thoracic inlet to the skull vertex. Delayed postcontrast imaging of the head was also performed. The data was processed at the sonography technologist workstation for generation of MIP sequences. Angled MIPs and volume rendered reformatted images were also generated at an offline 3D workstation under concurrent supervision. Stenoses are assessed in accordance with NASCET criteria unless otherwise indicated. This CT examination was performed using dose optimization techniques as appropriate, variously including the following: *Automated exposure control *Adjustment of mA and/or kV according to patient size (this includes techniques or standardized protocols for targeted exams where dose is matched to indication/reason for exam; i.e. extremities or head) *Use of iterative reconstruction technique FINDINGS: BRAIN: Chronic infarcts within the rosaura, right cerebellum, and left thalamus are again noted. [There is no intracranial hemorrhage, hydrocephalus, extra-axial surface collection, midline shift, or other herniation pattern. Judge to white matter differentiation is diffusely maintained without evidence of an evolved acute territorial infarct. The basilar cisterns are preserved. No significant soft tissue abnormality. No acute osseous abnormality. The paranasal sinuses and the mastoid air cells are well aerated.] CERVICAL SOFT TISSUES AND LUNG APICES: Advanced cervical spondylosis. Imaged upper lungs are clear. NECK CTA: [There is a classic 3 vessel configuration of the aortic arch. Proximal arch vessels are non-stenotic. The right vertebral artery is dominant. 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 The intradural left vertebral artery also appears occluded distal to the PICA origin of indeterminate age. Both common and internal carotid arteries are normal in course and caliber.] BRAIN CTA: Occlusion of the proximal to mid basilar artery which may be chronic given the chronic pontine infarct and can be compared to any prior intracranial vascular imaging if available. The distal third of the basilar artery is patent as are the posterior cerebral arteries bilaterally. No aneurysm. Timing of the contrast bolus allows assessment of the major dural venous sinuses, which all opacify normally] CT/CT angio head neck IMPRESSION: - No acute intracranial findings. Chronic infarcts within the rosaura, right cerebellum, and left thalamus are again noted. 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 The intradural left vertebral artery is occluded distal to the PICA origin. 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 The distal third of the basilar artery is patent as are the posterior cerebral arteries bilaterally. Neurovascular consultation advised. - No additional occlusions intracranially.
--- NOTE | ~2023-06-17 | MR_ITS ---
EXAMINATION: MR BRAIN WITHOUT CONTRAST CLINICAL INFORMATION: Question stroke. COMPARISON: CT angiogram of the head and neck 06/17/2023. TECHNIQUE: MRI of the brain was obtained using routine sequences without contrast. FINDINGS: There are chronic lacunar infarcts involving the rosaura and left thalamus. A few small chronic cerebellar infarcts are also noted and there are a few scattered chronic small vessel ischemic changes primarily involving the periventricular white matter. No acute territorial infarct. No pathological magnetic susceptibility artifact. The vertebrobasilar system appears hypoplastic. The remainder of the intracranial vascular flow voids are grossly maintained. There is no intracranial mass effect or midline shift. No abnormal extra-axial collection. Lateral and third ventricles are normal. No hydrocephalus. Midline structures including the cervicomedullary junction are normal. No acute bone marrow signal changes. There is a trace left mastoid tip effusion. Mild paranasal sinus disease primarily affecting the ethmoid air cells. MR/MR head/brain wo con IMPRESSION: There are chronic lacunar infarcts involving the rosaura, left thalamus, and a few small chronic cerebellar infarcts. Scattered chronic small vessel ischemic changes are also visualized within the periventricular white matter. No evidence of acute territorial infarct or hemorrhage.
--- NOTE | ~2023-06-17 | XR_ITS ---
EXAMINATION: XR CHEST CLINICAL INFORMATION: Fatigue. COMPARISON: Chest radiograph 02/03/2023. TECHNIQUE: AP view of the chest was obtained. FINDINGS: Normal appearance of the cardiomediastinal silhouette. Low lung volumes. Query very subtle peripheral hazy opacities projecting over the right lower lung, otherwise clear lungs. No pleural effusion or pneumothorax. No acute osseous findings. Visualized upper abdomen is within normal limits. XR/XR chest 1V IMPRESSION: Query very subtle peripheral hazy opacities in the right lower lung that could be related with aspiration or pneumonia. Recommend short-term follow-up chest radiograph.
[2023-06-17 13:54] VITALS: BP 131/79; PULSE 58; PULSE 70; RESP 16; TEMP 36.6; O2SAT 98; BMI 27.3
--- NOTE | 2023-06-17 13:58 | ED_ITS ---
HPI - General Adult General Chief complaint: General Medical Stated complaint: MULTIPLE ABSENT SZ PER EMS Time Seen by Provider: 06/17/23 13:58 History of Present Illness HPI narrative: 57 y/o M patient; PMH T2DM, hx one prior tonic clonic seizure 2022 (without subsequent neurology follow up or anti-epileptic medication) residual right- sided weakness 2/2 CVA with chronic lacunar infarcts in the rosaura and left thalamus, asthma, bipolar disorder, illicit drug use (cocaine); presents from home via EMS with report of increased fatigue and witnessed seizure activity. Per the patient's partner, for the last 2 - 3 days he has had increased fatigue in which he has been laying in bed daily. Today he was laying in bed immediately prior to arrival when his partner witnessed his right foot shaking and then he developed whole body shaking that lasted for approx 10 seconds. Following this episode he remained confused and not baseline per his partner. She states that on EMS arrival she noticed increased weakness of his right leg and arm, however she reports her last time seeing him with normal motor function was sometime yesterday as he was in bed all day today. The patient himself is uncertain when his last normal motor function was of his right side. He states he has a mild right sided weakness due to his prior CVA, but that it is more of a limp with gait and not his current demonstrated motor dysfunction. The patient otherwise reports he has fallen three times in the last 2 weeks, including one fall yesterday when he thinks he also had a seizure there as he felt dizzy, fell to the ground hitting his head, and then lost time. He otherwise denies: fever, nausea/vomiting, diarrhea, chest pain, difficulty breathing, cough/congestion, abdominal pain. No known sick contacts. The patient states he takes Plavix and does not typically miss his medication doses. He reports occasional alcohol use but denies history of withdrawal or withdrawal seizures. He denies any history of IVDU previously. Related Data Previous Rx's Medication Instructions Recorded prednisone 20 mg tablet 40 mg (2 x 20 mg) PO DAILY #10 tabs 06/20/22 meclizine 25 mg tablet 25 mg PO TID PRN dizziness #20 tabs 09/27/22 albuterol sulfate 2.5 mg/3 mL 2.5 mg (3 mL) inhalation Q4-6H PRN 02/04/23 (0.083 %) solution for nebulization shortness of breath or wheezing #90 mL albuterol sulfate 90 mcg/actuation 2 puff inhalation Q4-6H PRN 02/04/23 aerosol inhaler (ProAir HFA) shortness of breath or wheezing #8.5 grams blood-glucose meter #1 ea 02/04/23 glipizide 10 mg tablet, extended 10 mg PO DAILY #90 tabs 02/04/23 release 24 hr (Glucotrol XL) insulin glargine 100 unit/mL (3 20 unit (0.2 mL) subcut QPM #15 mL 02/04/23 mL) subcutaneous pen (Lantus Solostar U-100 Insulin) insulin lispro 100 unit/mL 1 sliding scale dose subcut 02/04/23 subcutaneous pen (Humalog KwikPen USEASDIRECTD #15 mL (U-100) Insulin) prednisone 20 mg tablet 40 mg (2 x 20 mg) PO DAILY #10 tabs 02/04/23 amlodipine 5 mg tablet 5 mg PO DAILY 30 days #30 tabs 05/16/23 nitroglycerin 0.4 mg sublingual 0.4 mg sublingual Q5M PRN chest 05/16/23 tablet pain #7 tabs prednisone 20 mg tablet 20 mg PO DAILY 5 days #5 tabs 05/16/23 Allergies Allergy/AdvReac Type Severity Reaction Status Date / Time No Known Allergies Allergy Verified 06/19/22 22:49 Review of Systems 2 Review of Systems: Yes all other systems are reviewed and are negative Neurologic: Denies Abnormal speech present and Denies Sensory deficit (Neuro) [facility] Past Medical History Attestation statement: The following information was validated with the patient. Source: old records reviewed Medical History Cerebellar stroke Basilar artery occlusion Chronic low back pain COPD (chronic obstructive pulmonary disease) Asthma Hyperlipidemia CVA (cerebral vascular accident) Migraine headache Cocaine abuse Type 2 diabetes mellitus Hypertension Social History Social History Alcohol intake: current Alcohol intake frequency: 0-2 drinks per day Substance Use Type: Crack/Cocaine Advance Directives: No Advance Directives Information Provided: No Physical Exam ED Vital Signs: Vital Signs - 24 hr 06/17/23 13:54 06/17/23 15:51 06/17/23 18:12 Temperature 97.9 F 98.0 F 97.6 F Pulse Rate 58 56 57 Respiratory Rate 16 16 16 Blood Pressure 131/79 135/87 117/76 Pulse Oximetry 98 98 100 Oxygen Delivery Method Room Air Room Air Room Air BMI result Body Mass Index 27.3 Patient is afebrile and hemodynamically stable. Const General: cooperative and comfortable Orientation/consciousness: oriented to person, oriented to place and oriented to time HENGA Head: Yes atraumatic Eyes General: appearance normal, both eyes and all related structures Conjunctivae: conjunctivae normal Pupils: Equal, round and reactive pupils present Neck Neck: Yes normal visual inspection, Yes full ROM, Yes supple and No tender Chest Chest palpation & inspection: normal inspection of the chest and normal palpation of entire chest wall Resp Effort & Inspection: normal respiratory effort, able to speak in complete sentences and no respiratory distress Auscultation: clear to auscultation bilaterally Cardio Rate: regular rate Rhythm: regular rhythm Peripheral pulses: Peripheral pulses 2+ throughout GI Inspection: Yes normal to inspection Palpation (GI): Soft to palpation, not firm, nontender, no guarding and not rigid Auscultation: normal bowel sounds Neuro Other: Strength right upper extremity: 4/5, strength right lower extremity: 2/5 General: oriented to person, oriented to place and oriented to time Cranial nerves: Yes CN's II-XII intact bilaterally, Yes Equal, round and reactive pupils present, Yes Bilaterally intact EOM present and Yes Midline tongue present Cognition (Neuro): normal cognition Speech: No Abnormal speech present Motor exam (neuro): Other motor observations present (Strength left upper and lower extremity: 5/5) Sensory Exam: No Sensory deficit (Neuro) Coordination: [id number] test normal and [id number] test normal NIH Stroke Scale Internal: Initial- Upon Arrival Level of Consciousness: Alert Level of Consciousness Questions: Answers both questions correctly Level of Consciousness Commands: Performs both tasks correctly Best Gaze: Normal Visual: No visual loss Facial Palsy: Normal Motor Arm (Right): Drift Motor Arm (Left): No drift Motor Leg (Right): No effort against gravity Motor Leg (Left): No drift Limb Ataxia: Absent Sensory: Normal Best Language: No aphasia Dysarthia: Normal Extinction and Inattention: No abnormality Score: 4 Course Course Course Narrative: Patient is afebrile and hemodynamically stable. History and exam concerning for possible CVA with unknown last time normal, likely over 24 hours ago. Patient is thus outside the window for lytics, however may be candidate for thrombectomy pending imaging results. NIHSS 4 for right upper extremity drift, right lower extremity with no effort against gravity. Will obtain CTA Head and Neck. Will obtain EKG, laboratory studies, CXR. Patient will require admission. Concerns discussed with patient and partner at bedside including that his symptoms are outside the window for lytics. Patient and partner expressed understanding. Reevaluation(s) Reevaluation #1: CTA Head/Neck with no acute intracranial findings. Chronic infarctions within the rosaura, right cerebellum, left thalamus. Interminate age occlusion left verebral artery at C2 - C3 with reconstitution. Intradural left vertebral artery occlusion distal to the PICA origin. Occlusion of the proximal to mid basilar artery which may be chronic given chronic pontine infarct. CXR with possible right lower lung infiltrate - suspect pneumonitis 2/2 to aspiration with recent seizure activity. Patient provided ASA. Patient found to be in bed eating delivery food - passed swallow screen. Discussed with Neurology. Noted chronic findings. Recommend starting anti-epileptic with Keppra, ordered Keppra 1g IV. Recommend anti-platelet - patient states he is on Plavix currently. Recommend MRI Brain. Hospitalist informed of recommendations. Plan: Admit to hospitalist Condition: Stable Medications Administered Discontinued Medications Generic Name Dose Route Start Last Admin Trade Name Freq PRN Reason Stop Dose Admin Aspirin 324 mg 06/17/23 18:06 06/17/23 18:11 Aspirin 81 Mg Tab.Chew PO 06/17/23 18:07 324 mg ONCE ONE Administration Iohexol 70 ml 06/17/23 15:20 06/17/23 15:21 Iohexol 350 Mg/Ml 100 Ml Infus..Btl IV 06/17/23 15:21 70 ml ONCE ONE Administration Medical Decision Making Lab Data 06/17/23 14:21 06/17/23 14:21 Labs: Lab Results 06/17/23 06/17/23 06/17/23 Range/Units 14:21 14:27 16:03 WBC 6.3 (4.8-10.8) X10*3/uL RBC 4.67 (4.60-5.80) X10*6/uL Hgb 14.6 (14.0-18.0) g/dl Hct 42.9 (42.0-52.0) % MCV 91.9 (80.0-98.0) fL MCH 31.3 (27.0-33.0) pg MCHC 34.0 (31.0-36.0) g/dl RDW 12.9 (11.0-16.0) % Plt Count 237 D (160-400) X10*3/uL MPV 10.2 (9.4-12.4) fL Immature Gran % (Auto) 0.3 (0.0-0.4) % Neut % (Auto) 45.4 (45-73) % Lymph % (Auto) 43.8 H (20-40) % [place] % (Auto) 7.8 (2-11) % Eos % (Auto) 2.1 (0-4) % Baso % (Auto) 0.6 (0-2) % Lymph # (Auto) 2.8 (1.2-4.9) X10*3/uL [place] # (Auto) 0.5 (0.1-1.2) X10*3/uL Eos # (Auto) 0.1 (0.0-0.4) X10*3/uL Baso # (Auto) 0.0 (0.0-0.2) X10*3/uL Abs Immat Gran (auto) 0.02 (0.00-0.03) X10*3/uL Absolute Neuts (auto) 2.9 (2.0-8.3) x10*3/uL Absolute Nucleated RBC 0.000 (0.0-0.012) X10*3/uL Nucleated RBC % (auto) 0.0 (0.0-0.2) /100WBC PT 10.4 L (11.1-13.3) SEC INR 0.9 (0.9-1.1) Sodium 135 (135-145) mmol/L Potassium 4.7 D (3.3-5.1) mmol/L Chloride 104 (96-108) mmol/L Carbon Dioxide 25 (22-29) mmol/L Anion Gap 11 L (12-20) BUN 9 (9-16) mg/dL Creatinine 1.03 (0.5-1.4) mg/dL Estim Creat Clear Calc 81.0 Estimated GFR > 60 Random Glucose 207 H (60-115) mg/dL Lactic Acid 1.5 (0.5-2.0) mmol/L Calcium 9.0 (8.4-10.2) mg/dL Total Bilirubin 0.2 (0.0-1.0) mg/dL Direct Bilirubin < 0.2 (0.0-0.5) mg/dL AST 17 (5-37) U/L ALT 19 (0-40) U/L Alkaline Phosphatase 78 (39-117) U/L Total Protein 7.3 (6.5-8.0) g/dL Albumin 3.7 (3.5-5.0) g/dL Lipase 43 (8-78) U/L Influenza Type A (PCR) NEGATIVE (Negative) Influenza Type B (PCR) NEGATIVE (Negative) RSV RNA Qual (PCR) NEGATIVE (Negative) SARS-CoV-2 RNA (RT-PCR) NEGATIVE (Negative) Independent Interpretation I performed an independent interpretation of an: EKG Interpretation: SB 57BPM without ischemic changes, normal intervals. Radiology Impression Discussion of test interpretation with radiology: I have reviewed the radiologist's reading. Radiologist Impression: CT ANGIOGRAM NECK WITH CONTRAST CT ANGIOGRAM BRAIN WITH CONTRAST CLINICAL INFORMATION: Left-sided CVA. COMPARISON: Head CT 05/16/2023. TECHNIQUE: Test bolus sequences followed by intravenous administration 70 mL of Omnipaque 350. Helical imaging was performed in the axial plane from the thoracic inlet to the skull vertex. Delayed postcontrast imaging of the head was also performed. The data was processed at the radiological technologist workstation for generation of MIP sequences. Angled MIPs and volume rendered reformatted images were also generated at an offline 3D workstation under concurrent supervision. Stenoses are assessed in accordance with NASCET criteria unless otherwise indicated. This CT examination was performed using dose optimization techniques as appropriate, variously including the following: *Automated exposure control *Adjustment of mA and/or kV according to patient size (this includes techniques or standardized protocols for targeted exams where dose is matched to indication/reason for exam; i.e. extremities or head) *Use of iterative reconstruction technique FINDINGS: BRAIN: Chronic infarcts within the rosaura, right cerebellum, and left thalamus are again noted. [There is no intracranial hemorrhage, hydrocephalus, extra-axial surface collection, midline shift, or other herniation pattern. Judge to white matter differentiation is diffusely maintained without evidence of an evolved acute territorial infarct. The basilar cisterns are preserved. No significant soft tissue abnormality. No acute osseous abnormality. The paranasal sinuses and the mastoid air cells are well aerated.] CERVICAL SOFT TISSUES AND LUNG APICES: Advanced cervical spondylosis. Imaged upper lungs are clear. NECK CTA: [There is a classic 3 vessel configuration of the aortic arch. Proximal arch vessels are non-stenotic. The right vertebral artery is dominant. 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 The intradural left vertebral artery also appears occluded distal to the PICA origin of indeterminate age. Both common and internal carotid arteries are normal in course and caliber.] BRAIN CTA: Occlusion of the proximal to mid basilar artery which may be chronic given the chronic pontine infarct and can be compared to any prior intracranial vascular imaging if available. The distal third of the basilar artery is patent as are the posterior cerebral arteries bilaterally. No aneurysm. Timing of the contrast bolus allows assessment of the major dural venous sinuses, which all opacify normally] CT/CT angio head neck IMPRESSION: - No acute intracranial findings. Chronic infarcts within the rosaura, right cerebellum, and left thalamus are again noted. 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 The intradural left vertebral artery is occluded distal to the PICA origin. 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 The distal third of the basilar artery is patent as are the posterior cerebral arteries bilaterally. Neurovascular consultation advised. - No additional occlusions intracranially. EXAMINATION: XR CHEST CLINICAL INFORMATION: Fatigue. COMPARISON: Chest radiograph 02/03/2023. TECHNIQUE: AP view of the chest was obtained. FINDINGS: Normal appearance of the cardiomediastinal silhouette. Low lung volumes. Query very subtle peripheral hazy opacities projecting over the right lower lung, otherwise clear lungs. No pleural effusion or pneumothorax. No acute osseous findings. Visualized upper abdomen is within normal limits. XR/XR chest 1V IMPRESSION: Query very subtle peripheral hazy opacities in the right lower lung that could be related with aspiration or pneumonia. Recommend short-term follow-up chest radiograph. Discharge Plan Discharge Clinical Impression: Acute CVA (cerebrovascular accident), Seizure Patient Disposition: Admitted As Inpatient
--- NOTE | 2023-06-17 14:19 | ECG_ITS ---
Test Reason : ARRYTHMIA Blood Pressure : / mmHG Vent. Rate : 057 BPM Atrial Rate : 057 BPM P-R Int : 128 ms QRS Dur : 092 ms QT Int : 430 ms P-R-T Axes : 009 -01 031 degrees QTc Int : 418 ms Sinus bradycardia Otherwise normal ECG When compared with ECG of 16-MAY-2023 08:41, Premature ventricular complexes are no longer Present Vent. rate has decreased BY 30 BPM QT has shortened Referred By: Janine Simpson Electronically Signed By:TROY GRAHAM MD
[2023-06-17 14:26] LABS: MANUAL DIFF FLAG NO
[2023-06-17 14:29] LABS: Basophils Percent Auto 0.6 % (0-2); Eosinophils Absolute Auto 0.1 X10*3/uL (0.0-0.4); Eosinophils Percent Auto 2.1 % (0-4); Hematocrit 42.9 % (42.0-52.0); Hemoglobin 14.6 g/dl (14.0-18.0); Imm Gran Abs Auto 0.02 X10*3/uL (0.00-0.03); Imm Gran Pct Auto 0.3 % (0.0-0.4); Lymphocytes Absolute Auto 2.8 X10*3/uL (1.2-4.9); Lymphocytes Percent Auto 43.8 % (20-40); Mean Corpuscular Hemoglobin 31.3 pg (27.0-33.0); Mean Corpuscular Volume 91.9 fL (80.0-98.0); Mean Platelet Volume 10.2 fL (9.4-12.4); Monocytes Absolute Auto 0.5 X10*3/uL (0.1-1.2); Monocytes Percent Auto 7.8 % (2-11); Neutrophils Absolute Auto 2.9 x10*3/uL (2.0-8.3); Neutrophils Percent Auto 45.4 % (45-73); Platelet Count 237 X10*3/uL (160-400); Red Blood Count 4.67 X10*6/uL (4.60-5.80); Red Cell Distribution Width 12.9 % (11.0-16.0); White Blood Count 6.3 X10*3/uL (4.8-10.8)
[2023-06-17 14:40] LABS: INTERNATIONAL NORM RATIO 0.9 (0.9-1.1); Prothrombin Time 10.4 SEC (11.1-13.3)
[2023-06-17 14:42] LABS: Alanine Aminotransferase 19 U/L (0-40); Albumin Level 3.7 g/dL (3.5-5.0); Alkaline Phosphatase 78 U/L (39-117); Anion Gap 11 (12-20); Aspartate Amino Transferase 17 U/L (5-37); Bilirubin Direct < 0.2 mg/dL (0.0-0.5); Bilirubin Total 0.2 mg/dL (0.0-1.0); Blood Urea Nitrogen 9 mg/dL (9-16); Carbon Dioxide 25 mmol/L (22-29); Chloride 104 mmol/L (96-108); Estimated Glomerular Filt Rate > 60; Glucose Random 207 mg/dL (60-115); Lipase 43 U/L (8-78); Potassium 4.7 mmol/L (3.3-5.1); Sodium 135 mmol/L (135-145); Total Protein 7.3 g/dL (6.5-8.0)
[2023-06-17 14:52] LABS: Lactic Acid 1.5 mmol/L (0.5-2.0)
[2023-06-17] MEDS: iohexoL 350 MG/ML 100 ML INFUS..BTL 70 ML IV (15:21)
[2023-06-17 15:51] VITALS: BP 135/87; PULSE 56; RESP 16; TEMP 36.7; O2SAT 98
[2023-06-17 16:46] LABS: Influenza A PCR NEGATIVE (Negative); Influenza B PCR NEGATIVE (Negative); Resp Syncy Virus RNA Qual PCR NEGATIVE (Negative); SARS COV2 PCR INHOUSE NEGATIVE (Negative)
--- NOTE | 2023-06-17 16:54 | PC.NURSE ---
patient found to be in room eating pork strip and rice, patient educated that he is not cleared to eat due to his CT scan results not being back yet.
[2023-06-17] MEDS: Aspirin 81 MG TAB.CHEW 324 MG PO (18:11)
[2023-06-17 18:12] VITALS: BP 117/76; PULSE 57; RESP 16; TEMP 36.4; O2SAT 100
--- NOTE | 2023-06-17 18:39 | P.HPHOSP_ITS ---
History of Present Illness Date of Service: 06/17/23 Chief Complaint: Seizure history obtained via firebreak cutter 57 with 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 He reportedly had an unwitnessed seizure and another witnessed seizure by the . Additionally he has been having augmented righ sided weakness more than his baseline. CT of the heada and CTA of the head and neck show no acute finding. Patient and family report LKN yesterday. He is given aspirin. Chronic issues from [facility] record Asthma Chronic Basilar artery occlusion Chronic pain syndrome Constipation CVA, old, hemiparesis Depression DMII (diabetes mellitus, type 2) Dysuria Elevated MCV Encounter for screening colonoscopy Fall GERD (gastroesophageal reflux disease) Hyperlipidemia Hypertension Lumbar radicular pain Lung nodule - RIGHT UPPER. CTA - done at [facility]. 07/2021 - scanned in [facility] Nausea & vomiting Neck strain Right hemiplegia Tobacco dependence Vertigo Review of Systems 2 Review of Systems: Gen: no fever Resp: no sob, no cough CV: no chest, no RICHARDS, no leg edema GI: No n/v, no abd pain Neuro: No confusion, right sided weakness, old but worse [facility] Medical History Cerebellar stroke Basilar artery occlusion Chronic low back pain COPD (chronic obstructive pulmonary disease) Asthma Hyperlipidemia CVA (cerebral vascular accident) Migraine headache Cocaine abuse Type 2 diabetes mellitus Hypertension Social History Alcohol intake: current Alcohol intake frequency: 0-2 drinks per day Patient Tobacco Use Status: Tobacco use Unknown Substance Use Type: Crack/Cocaine Advance Directives: No Advance Directives Information Provided: No Nutrition Risks: No Nutritional Risk Meds Allergies Allergy/AdvReac Type Severity Reaction Status Date / Time No Known Allergies Allergy Verified 06/19/22 22:49 Home Medications Medication Instructions Recorded Confirmed Last Taken Type albuterol sulfate 2.5 mg/3 mL 2.5 mg inhalation Q6H PRN 06/18/23 06/18/23 Unknown History (0.083 %) solution for nebulization shortness of breath or wheezing aspirin 81 mg tablet,delayed 81 mg PO DAILY 06/18/23 06/18/23 Unknown History release atorvastatin 20 mg tablet 20 mg PO BEDTIME 06/18/23 06/18/23 Unknown History clopidogrel 75 mg tablet 75 mg PO DAILY 06/18/23 06/18/23 Unknown History divalproex 500 mg tablet,delayed 500 mg PO BID 06/18/23 06/18/23 Unknown History release duloxetine 60 mg capsule,delayed 60 mg PO DAILY 06/18/23 06/18/23 Unknown History release fluticasone 500 mcg-salmeterol 50 1 ea inhalation BID 06/18/23 06/18/23 Unknown History mcg/dose blistr powdr for inhalation (Advair Diskus) insulin glargine 100 unit/mL (3 20 unit subcut BEDTIME 06/18/23 06/18/23 Unknown History mL) subcutaneous pen (Lantus Solostar U-100 Insulin) insulin lispro 100 unit/mL 1 sliding scale dose subcut TIDWM 06/18/23 06/18/23 Unknown History subcutaneous pen (Humalog KwikPen (U-100) Insulin) metformin 500 mg tablet,extended 1,000 mg PO BIDWM 06/18/23 06/18/23 Unknown History release 24 hr montelukast 10 mg tablet 10 mg PO BEDTIME 06/18/23 06/18/23 Unknown History Physical Exam 2 Vital Signs and Narrative: Vital Signs: Last Vital Signs Temp 98.0 F 06/17/23 15:51 Pulse 56 06/17/23 15:51 Resp 16 06/17/23 15:51 BP 135/87 06/17/23 15:51 Pulse Ox 98 06/17/23 15:51 O2 Del Method Room Air 06/17/23 15:51 BMI result Body Mass Index 27.3 Constitutional: Alert, in no distress, overweight. Mental Status: Oriented to person, place and time. Eyes: Pupils are equal, round and reactive to light. Ear, Nose and Throat: Oropharynx clear, mucous membranes moist. Ears and nose without eformities. Respiratory: Clear to auscultation. No wheezing, rales or rhonchi. Cardiovascular: S1 S2 regular. No murmurs, rubs or gallops. Gastrointestinal: Abdomen soft, non-tender, non-distended. Normal bowel sounds.? Neurologic: Cranial nerves II-XII grossly intact. weakness in the right arm and leg, he is able to lift the right arm up against gravity but has more difficulty with the leg Skin: No rashes or lesions.? Musculoskeletal: No cyanosis or clubbing. Psychiatric: Normal mood and affect? Results Labs 06/17/23 14:21 06/17/23 14:21 Labs: Laboratory Results - last 24 hr 06/17/23 06/17/23 06/17/23 14:21 14:27 16:03 MCV 91.9 MCH 31.3 MCHC 34.0 RDW 12.9 Plt Count 237 D MPV 10.2 Immature Gran % (Auto) 0.3 Neut % (Auto) 45.4 Lymph % (Auto) 43.8 H [place] % (Auto) 7.8 Eos % (Auto) 2.1 Baso % (Auto) 0.6 Lymph # (Auto) 2.8 [place] # (Auto) 0.5 Eos # (Auto) 0.1 Baso # (Auto) 0.0 Abs Immat Gran (auto) 0.02 Absolute Neuts (auto) 2.9 Absolute Nucleated RBC 0.000 Nucleated RBC % (auto) 0.0 PT 10.4 L INR 0.9 Anion Gap 11 L Estim Creat Clear Calc 81.0 Estimated GFR > 60 Random Glucose 207 H Lactic Acid 1.5 Calcium 9.0 Total Bilirubin 0.2 Direct Bilirubin < 0.2 AST 17 ALT 19 Alkaline Phosphatase 78 Total Protein 7.3 Albumin 3.7 Lipase 43 Influenza Type A (PCR) NEGATIVE Influenza Type B (PCR) NEGATIVE RSV RNA Qual (PCR) NEGATIVE SARS-CoV-2 RNA (RT-PCR) NEGATIVE Imaging Radiologist's Impressions: Impressions Head/Neck CTA 06/17/23 15:47 IMPRESSION: - No acute intracranial findings. Chronic infarcts within the rosaura, right cerebellum, and left thalamus are again noted. 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 The intradural left vertebral artery is occluded distal to the PICA origin. 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 The distal third of the basilar artery is patent as are the posterior cerebral arteries bilaterally. Neurovascular consultation advised. - No additional occlusions intracranially. Chest X-Ray 06/17/23 16:36 IMPRESSION: Query very subtle peripheral hazy opacities in the right lower lung that could be related with aspiration or pneumonia. Recommend short-term follow-up chest radiograph. Assessment and Plan (1) Acute CVA (cerebrovascular accident): Status: Acute (2) Seizure: Status: Acute (3) Type 2 diabetes mellitus: Status: Acute Plan 57 with 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 He reportedly had an unwitnessed seizure and another witnessed seizure by the . Additionally he has been having augmented righ sided weakness more than his baseline. CT of the heada and CTA of the head and neck show no acute finding. Patient and family report LKN yesterday. He is given aspirin. Seizure deosorder with breakthrough, he is already on depakote, added Keppra and ask Neuro to assess, ? need for eeg right sided weakness mostly old, ct and cta show no acute finding, basilar occlusion is old continue ASA, Plavix, statin and BP meds, PT and OT eval, neuro as above Diabetes --resume home meds once med rec done, add sliding scale HTN--continue home meds HLD--statin dvt prophylaxis lovenox full code admisson for at least 2 midnights for possible cva and seizure needing Iv meds Quality Stroke Does the patient have a stroke diagnosis?: Yes Reason for No Anti-thrombotic by Day Two: N/A - Med Ordered VTE Prior VTE?: No VTE Risk Level:: Medical - moderate - high VTE Device Contraindication: Treatment Not Indicated VTE Drug Contraindication: N/A - Med Ordered
[2023-06-17] MEDS: levETIRAcetam in NaCl (iso-os) 1,000 MG/100 ML PIGGYBACK 400 MG IV (19:34)
--- NOTE | 2023-06-17 19:45 | PC.NURSE ---
came in with seizure with . Pt has hx of seizures and on depakote PMH CVA -right side weakness, htn, hld, gerd, dm2 ASA given CTA- no acute findings xray-aspiration/ pneumonia. Admit Seizure/weakness Keppra IV, PT eval, diabetic diet, lipid panal, neuro consult, vitals 4 hrs IV 20 R forearm diabetic diet
[2023-06-17] MEDS: Enoxaparin Sodium 40 MG/0.4 ML SYRINGE SUBCUT (19:50)
[2023-06-17 20:09] LABS: Cholesterol 282 mg/dL (<200); HDL Cholesterol 76 mg/dL (>40); LDL Cholesterol Calculated 168 mg/dL (<100); Triglycerides 191 mg/dL (<150)
[2023-06-17 20:17] VITALS: BP 129/76; PULSE 65; RESP 16; TEMP 36.4; O2SAT 98
[2023-06-17 20:49] LABS: Glucose, Whole Blood 224 mg/dL (60-115)
[2023-06-17] MEDS: Insulin Lispro 100 UNIT/ML 3 ML VIAL SUBCUT (20:49)
[2023-06-17 22:19] VITALS: BP 123/76; PULSE 75; RESP 14; TEMP 36.7; O2SAT 99
--- NOTE | 2023-06-17 22:20 | MHC.EDTECH ---
This pct assumed care of patient at 2200 ,vitals taken ,pt awake watching television in bed .
[2023-06-17 23:48] VITALS: BP 115/73; PULSE 78; RESP 16; TEMP 36.6; O2SAT 100
--- NOTE | 2023-06-17 23:48 | MHC.EDTECH ---
This tech took over care of patient at 2300,hourly rounds and vitals completed, patient is resting comfortably at this time and call leblanc in reach
--- NOTE | 2023-06-17 23:50 | PC.NURSE ---
ambualted with walker to bathroom and pt became dizzy. Pt also noted his R foot was dragging more than usual. Provider will be made aware. Vitals take when returning to stretcher and all wnl
[2023-06-18] VITALS (10 sets, daily range): BP systolic 101–147; BP diastolic 64–89; PULSE 57–83; RESP 15–20; TEMP 36–36.8; O2SAT 96–99
--- NOTE | 2023-06-18 01:35 | MHC.EDTECH ---
Hourly rounds and vitals completed,patient is resting at this time,call leblanc in reach
--- NOTE | 2023-06-18 03:46 | MHC.EDTECH ---
Hourly rounds and vitals completed,patient is resting at this time,call leblanc within reach
--- NOTE | 2023-06-18 06:23 | MHC.EDTECH ---
Hourly rounds and vitals completed,patient is resting at this time and call benji romero
--- NOTE | 2023-06-18 07:28 | PC.NURSE ---
assumed care of pt at 0700. pt a&o x4, pleasant, calm, and cooperative. seizure pads in place. pt reporting 10/10 head pain. blood glucose taken 170. PT with pt jeane. rr even/unlabored. call leblanc within reach. plan of care ongoing.
[2023-06-18 07:31] LABS: Glucose, Whole Blood 170 mg/dL (60-115)
[2023-06-18] MEDS: Insulin Lispro 100 UNIT/ML 3 ML VIAL SUBCUT (07:46)
--- NOTE | 2023-06-18 08:21 | PC.NURSE ---
inpatient report complete. awaiting pt transport.
--- NOTE | 2023-06-18 08:32 | PHA.MEDREC ---
Addendum entered by Shea Courtney [facility] 06/18/23 08:56: dr. flood notified med rec complete Original Note: Pharmacy Consult ? Medication Reconciliation Pharmacy has completed the medication reconciliation. Spoke with Lupe who was able to confirm medications and doses
--- NOTE | 2023-06-18 09:02 | P.PNIM_ITS ---
Subjective Subjective Date of Service: 06/18/23 Interval History: f/u on seizure, weakness and right sided weakness Physical Exam 2 Vital Signs: Vital Signs: Last Vital Signs Temp 98.2 F 06/18/23 06:20 Pulse 83 06/18/23 07:58 Resp 16 06/18/23 06:20 BP 134/75 06/18/23 07:58 Pulse Ox 97 06/18/23 07:58 O2 Del Method Room Air 06/18/23 06:20 O2 Flow Rate 2 06/17/23 22:19 BMI result Body Mass Index 27.3 General: AO X 3, no acute distress Resp: CTA bilateral CVS: S1,S2,RRR GI: +BS, NT, no distention Skin: No rash Neuro: right sided weakness, unchaged Psych: appropriate affect Objective Data Active Medications Acetaminophen (Acetaminophen 325 Mg Tablet) 650 mg PO Q6H PRN PRN Reason: Pain, Mild (Pain Scale 1-3) Albuterol Sulfate (Albuterol Sulfate (0.083%) 2.5 Mg/3 Ml Vial.Ramírez) 2.5 mg INHALE Q6H PRN PRN Reason: shortness of breath or wheezing Albuterol Sulfate (Albuterol Sulfate 90 Mcg 8 Gm Inhaler) 2 puff INHALE Q4-6H PRN PRN Reason: shortness of breath or wheezing Amlodipine Besylate (Amlodipine Besylate 5 Mg Tablet) 5 mg PO DAILY [facility]; Protocol Aspirin (Aspirin 81 Mg Tab.Chew) 81 mg PO DAILY [facility] Aspirin (Aspirin Enteric Coated 81 Mg Tablet.) 81 mg PO DAILY [facility] Atorvastatin Calcium (Atorvastatin Calcium 20 Mg Tablet) 20 mg PO BEDTIME [facility] Clopidogrel Bisulfate (Clopidogrel Bisulfate 75 Mg Tablet) 75 mg PO DAILY [facility] Dextrose (Dextrose 50 % 25 Gm/50 Ml Syringe) 25 gm IVPUSH Q15M PRN; Protocol PRN Reason: per Hypoglycemia Standing Ord. Divalproex Sodium (Divalproex Sodium 500 Mg Tablet.) 500 mg PO BID [facility] Duloxetine HCl (Duloxetine Hcl 60 Mg Capsule.) 60 mg PO DAILY [facility] Enoxaparin Sodium (Enoxaparin Sodium 40 Mg/0.4 Ml Syringe) 40 mg SUBCUT Q24H [facility] Last Admin: 06/17/23 19:50 Dose: 40 mg Documented By: ANITA Glipizide (Glipizide Xl 10 Mg Tab.Er.24) 10 mg PO DAILY [facility] Glucose (Glucose Gel 15 Gm Gel..Gram.) 15 gm PO Q15M PRN; Protocol PRN Reason: per Hypoglycemia Standing Ord. Levetiracetam (Keppra) 500 mg in 100 mls @ 400 mls/hr IV BID [facility] Insulin Glargine (Insulin Glargine,Hum.Rec.Anlog 100 Unit/Ml 10 Ml Vial) 20 unit SUBCUT BEDTIME BEV Insulin Human Lispro (Insulin Lispro 100 Unit/Ml 3 Ml Vial) 0 unit SUBCUT QIDACHS [facility]; Protocol Last Admin: 06/18/23 07:46 Dose: 2 unit Documented By: ANJU Melatonin (Melatonin 3 Mg Tablet) 6 mg PO BEDTIME PRN PRN Reason: Insomnia Metformin HCl (Metformin Hcl Er 500 Mg Tab.Er.24h) 1,000 mg PO BIDWM [facility] Montelukast Sodium (Montelukast Sodium 10 Mg Tablet) 10 mg PO BEDTIME [facility] Nitroglycerin (Nitroglycerin 0.4 Mg Tab.Subl) 0.4 mg SUBLINGUAL Q5M PRN PRN Reason: chest pain Non-Formulary Medication (Fluticasone Propion-Salmeterol [Advair Diskus]) 1 each INHALE BID [facility] Ondansetron HCl (Ondansetron Hcl 4 Mg/2 Ml Vial) 4 mg IVPUSH Q8H PRN PRN Reason: Nausea and Vomiting Sodium Chloride (0.9 % Sodium Chloride Flush 3 Ml Syringe) 3 ml IVFLUSH QSHIFT [facility] Last Admin: 06/18/23 08:11 Dose: Not Given Documented By: ANJU Non-Admin Reason: Med Not Available Labs 06/17/23 14:21 06/17/23 14:21 Labs: Laboratory Results - last 24 hr 06/17/23 06/17/23 06/17/23 14:21 14:27 16:03 MCV 91.9 MCH 31.3 MCHC 34.0 RDW 12.9 Plt Count 237 D MPV 10.2 Immature Gran % (Auto) 0.3 Neut % (Auto) 45.4 Lymph % (Auto) 43.8 H [place] % (Auto) 7.8 Eos % (Auto) 2.1 Baso % (Auto) 0.6 Lymph # (Auto) 2.8 [place] # (Auto) 0.5 Eos # (Auto) 0.1 Baso # (Auto) 0.0 Abs Immat Gran (auto) 0.02 Absolute Neuts (auto) 2.9 Absolute Nucleated RBC 0.000 Nucleated RBC % (auto) 0.0 PT 10.4 L INR 0.9 Anion Gap 11 L Estim Creat Clear Calc 81.0 Estimated GFR > 60 POC Glucose Random Glucose 207 H Lactic Acid 1.5 Calcium 9.0 Total Bilirubin 0.2 Direct Bilirubin < 0.2 AST 17 ALT 19 Alkaline Phosphatase 78 Total Protein 7.3 Albumin 3.7 Triglycerides 191 H Cholesterol 282 H LDL Cholesterol, Calc 168 H HDL Cholesterol 76 Lipase 43 Influenza Type A (PCR) NEGATIVE Influenza Type B (PCR) NEGATIVE RSV RNA Qual (PCR) NEGATIVE SARS-CoV-2 RNA (RT-PCR) NEGATIVE 06/17/23 06/18/23 20:45 07:28 MCV MCH MCHC RDW Plt Count MPV Immature Gran % (Auto) Neut % (Auto) Lymph % (Auto) [place] % (Auto) Eos % (Auto) Baso % (Auto) Lymph # (Auto) [place] # (Auto) Eos # (Auto) Baso # (Auto) Abs Immat Gran (auto) Absolute Neuts (auto) Absolute Nucleated RBC Nucleated RBC % (auto) PT INR Anion Gap Estim Creat Clear Calc Estimated GFR POC Glucose 224 H 170 H Random Glucose Lactic Acid Calcium Total Bilirubin Direct Bilirubin AST ALT Alkaline Phosphatase Total Protein Albumin Triglycerides Cholesterol LDL Cholesterol, Calc HDL Cholesterol Lipase Influenza Type A (PCR) Influenza Type B (PCR) RSV RNA Qual (PCR) SARS-CoV-2 RNA (RT-PCR) Assessment and Plan (1) Seizure: Status: Acute (2) Acute CVA (cerebrovascular accident): Status: Acute (3) Type 2 diabetes mellitus: Status: Acute Plan 57 with 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 He reportedly had an unwitnessed seizure and another witnessed seizure by the . Additionally he has been having augmented righ sided weakness more than his baseline. CT of the heada and CTA of the head and neck show no acute finding. Patient and family report LKN yesterday. He is given aspirin. Seizure deosorder with breakthrough, he is already on depakote, added Keppra and ask Neuro to assess, ? need for eeg right sided weakness mostly old, ct and cta show no acute finding, basilar occlusion is old on Plavix, ASA added Plavix, statin and BP meds, PT and OT eval, neuro as above to decide if MRI is warranted Diabetes --resume home meds once med rec done, add sliding scale HTN--continue home meds HLD--statin dvt prophylaxis lovenox full code admisson for at least 2 midnights for possible cva and seizure needing Iv meds Quality Stroke Does the patient have a stroke diagnosis?: Yes Reason for No Anti-thrombotic by Day Two: N/A - Med Ordered VTE Prior VTE?: No VTE Risk Level:: Medical - moderate - high VTE Device Contraindication: Treatment Not Indicated VTE Drug Contraindication: N/A - Med Ordered
[2023-06-18] MEDS: levETIRAcetam in NaCl (iso-os) 500 MG/100 ML PIGGYBACK 400 MG IV ×3 (09:44→20:46)
[2023-06-18] MEDS: DULoxetine HCl 60 MG CAPSULE.DR PO (09:44)
[2023-06-18] MEDS: Clopidogrel Bisulfate 75 MG TABLET PO (09:44)
[2023-06-18] MEDS: Aspirin Enteric Coated 81 MG TABLET.DR PO (09:44)
[2023-06-18] MEDS: Insulin Glargine,Hum.rec.anlog 100 UNIT/ML 10 ML VIAL 20 UNIT SUBCUT (09:44)
[2023-06-18] MEDS: amLODIPine Besylate 5 MG TABLET PO (09:44)
[2023-06-18] MEDS: Atorvastatin Calcium 20 MG TABLET PO (09:44)
[2023-06-18] MEDS: glipiZIDE XL 10 MG TAB.ER.24 PO (09:51)
[2023-06-18] MEDS: Divalproex Sodium 500 MG TABLET.DR PO ×2 (09:51→20:48)
[2023-06-18] MEDS: ondansetron HCL 4 MG/2 ML VIAL IVPUSH (10:10)
[2023-06-18 10:13] LABS: Glucose, Whole Blood 137 mg/dL (60-115)
--- NOTE | 2023-06-18 10:19 | MHC.CM.PN ---
CM met with Patient at bedside with the assist of a [facility] Commissary Officer. Patient lives in an apartment with his and he uses a walker to assist with mobility. Patient's has a [employer] and home/resume said services is the goal. CM has initiated and will follow for dc planning. PCP is from the [facility] in [place].
[2023-06-18 10:54] LABS: Glucose, Whole Blood 123 mg/dL (60-115)
--- NOTE | 2023-06-18 11:54 | P.CNNE_ITS ---
History of Present Illness Data of Consult Service Date: 06/18/23 Primary Care Provider: Unknown Physician HPI Reason for consult: Seizures This is a 57 yr old man with history of CVA with residual right sided weakness, HTN, HLD, depression, GERD, chronic basilar artery occulusion, seizure disorder on depakote was brought to the ED because of an unwitnessed seizure followed by another seizure witnessed by the . There is also some increased right leg weakness since then . CT of the head and CTA of the head and neck show no acute finding. 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 Review of Systems 2 Review of Systems: Gen: no fever Resp: no sob, no cough CV: no chest, no RICHARDS, no leg edema GI: No n/v, no abd pain Neuro: No confusion, right sided weakness, old but worse Yes all other systems are reviewed and are negative and Unobtainable due to mental status Neurologic: Denies Abnormal speech present and Denies Sensory deficit (Neuro) PMFSH Past Medical History Medical History Cerebellar stroke Basilar artery occlusion Chronic low back pain COPD (chronic obstructive pulmonary disease) Asthma Hyperlipidemia CVA (cerebral vascular accident) Migraine headache Cocaine abuse Type 2 diabetes mellitus Hypertension Social History Social History Household Members: Spouse Housing: Apartment Do you presently have visiting nurse or other home services: Yes (Helps with medications and ADLs) Alcohol intake: current Alcohol intake frequency: 0-2 drinks per day Patient Tobacco Use Status: Current someday Tobacco user Tobacco use type: Cigarette Cigarette Packs Per Day: 1 Cigarettes Per Day: 20.0 Smoked in Last 30 Days: Yes e-Cigarette/Vaping Use: Never Used Patient Interested in Nicotine Replacement: Yes Patient Given Instructions on How to Stop Smoking: Yes Date Education Initiated: 06/18/23 Second Hand Smoke Exposure: No Use of substances other than those prescribed or required for medical reasons: No Substance Use Type: Crack/Cocaine Currently Displaying Signs/Symptoms of Drug Intoxication Withdrawal: No Any prior treatment program specific to substance use: No Have you been hit, kicked, punched, or otherwise hurt by someone within the past year? If so, by whom?: No Do you feel safe in your current relationship?: No Is there a partner from a previous relationship who is making you feel unsafe now?: No Are you made to feel afraid or neglected: No Anabaptism Healthcare Practices: Hoahaoism Advance Directives: No Advance Directives Information Provided: No Do you have thoughts of harming others: None Do you have a plan to hurt others: No Plan Recently lost weight without trying: Yes How much weight loss: 2-13 pounds Eating poorly because of decreased appetite: No Nutrition screen score: 3 Nutrition Risks: Difficulty swallowing Poor oral hygiene: No service: No Meds Allergies Allergy/AdvReac Type Severity Reaction Status Date / Time No Known Allergies Allergy Verified 06/19/22 22:49 Active Medications: Current Medications Acetaminophen (Acetaminophen 325 Mg Tablet) 650 mg PO Q6H PRN PRN Reason: Pain, Mild (Pain Scale 1-3) Albuterol Sulfate (Albuterol Sulfate (0.083%) 2.5 Mg/3 Ml Vial.Ramírez) 2.5 mg INHALE Q6H PRN PRN Reason: shortness of breath or wheezing Albuterol Sulfate (Albuterol Sulfate 90 Mcg 8 Gm Inhaler) 2 puff INHALE Q4H PRN PRN Reason: shortness of breath or wheezin Amlodipine Besylate (Amlodipine Besylate 5 Mg Tablet) 5 mg PO DAILY [facility]; Protocol Last Admin: 06/18/23 09:44 Dose: 5 mg Aspirin (Aspirin Enteric Coated 81 Mg Tablet.) 81 mg PO DAILY [facility] Last Admin: 06/18/23 09:44 Dose: 81 mg Atorvastatin Calcium (Atorvastatin Calcium 40 Mg Tablet) 40 mg PO BEDTIME [facility] Clopidogrel Bisulfate (Clopidogrel Bisulfate 75 Mg Tablet) 75 mg PO DAILY [facility] Last Admin: 06/18/23 09:44 Dose: 75 mg Dextrose (Dextrose 50 % 25 Gm/50 Ml Syringe) 25 gm IVPUSH Q15M PRN; Protocol PRN Reason: per Hypoglycemia Standing Ord. Divalproex Sodium (Divalproex Sodium 500 Mg Tablet.) 500 mg PO BID [facility] Last Admin: 06/18/23 09:51 Dose: 500 mg Duloxetine HCl (Duloxetine Hcl 60 Mg Capsule.) 60 mg PO DAILY [facility] Last Admin: 06/18/23 09:44 Dose: 60 mg Enoxaparin Sodium (Enoxaparin Sodium 40 Mg/0.4 Ml Syringe) 40 mg SUBCUT Q24H [facility] Last Admin: 06/17/23 19:50 Dose: 40 mg Fluticasone/Vilanterol (Fluticasone/Vilanterol 200/25 Blst.W.Dev) 1 puff INHALE RDAILY [facility] Last Admin: 06/18/23 10:30 Dose: Not Given Glipizide (Glipizide Xl 10 Mg Tab.Er.24) 10 mg PO DAILY [facility] Last Admin: 06/18/23 09:51 Dose: 10 mg Glucose (Glucose Gel 15 Gm Gel..Gram.) 15 gm PO Q15M PRN; Protocol PRN Reason: per Hypoglycemia Standing Ord. Levetiracetam (Keppra) 500 mg in 100 mls @ 400 mls/hr IV BID [facility] Last Infusion: 06/18/23 10:10 Dose: Infused Insulin Glargine (Insulin Glargine,Hum.Rec.Anlog 100 Unit/Ml 10 Ml Vial) 20 unit SUBCUT BEDTIME [facility] Last Admin: 06/18/23 09:44 Dose: 20 unit Insulin Human Lispro (Insulin Lispro 100 Unit/Ml 3 Ml Vial) 0 unit SUBCUT QIDACHS [facility]; Protocol Last Admin: 06/18/23 11:07 Dose: Not Given Melatonin (Melatonin 3 Mg Tablet) 6 mg PO BEDTIME PRN PRN Reason: Insomnia Montelukast Sodium (Montelukast Sodium 10 Mg Tablet) 10 mg PO BEDTIME [facility] Nitroglycerin (Nitroglycerin 0.4 Mg Tab.Subl) 0.4 mg SUBLINGUAL Q5M PRN PRN Reason: chest pain Ondansetron HCl (Ondansetron Hcl 4 Mg/2 Ml Vial) 4 mg IVPUSH Q8H PRN PRN Reason: Nausea and Vomiting Last Admin: 06/18/23 10:10 Dose: 4 mg Sodium Chloride (0.9 % Sodium Chloride Flush 3 Ml Syringe) 3 ml IVFLUSH QSHIFT [facility] Last Admin: 06/18/23 08:11 Dose: Not Given Home Medications Medication Instructions Recorded Confirmed Last Taken Type albuterol sulfate 2.5 mg/3 mL 2.5 mg inhalation Q6H PRN 06/18/23 06/18/23 Unknown History (0.083 %) solution for nebulization shortness of breath or wheezing aspirin 81 mg tablet,delayed 81 mg PO DAILY 06/18/23 06/18/23 Unknown History release atorvastatin 20 mg tablet 20 mg PO BEDTIME 06/18/23 06/18/23 Unknown History clopidogrel 75 mg tablet 75 mg PO DAILY 06/18/23 06/18/23 Unknown History divalproex 500 mg tablet,delayed 500 mg PO BID 06/18/23 06/18/23 Unknown History release duloxetine 60 mg capsule,delayed 60 mg PO DAILY 06/18/23 06/18/23 Unknown History release fluticasone 500 mcg-salmeterol 50 1 ea inhalation BID 06/18/23 06/18/23 Unknown History mcg/dose blistr powdr for inhalation (Advair Diskus) insulin glargine 100 unit/mL (3 20 unit subcut BEDTIME 06/18/23 06/18/23 Unknown History mL) subcutaneous pen (Lantus Solostar U-100 Insulin) insulin lispro 100 unit/mL 1 sliding scale dose subcut TIDWM 06/18/23 06/18/23 Unknown History subcutaneous pen (Humalog KwikPen (U-100) Insulin) metformin 500 mg tablet,extended 1,000 mg PO BIDWM 06/18/23 06/18/23 Unknown History release 24 hr montelukast 10 mg tablet 10 mg PO BEDTIME 06/18/23 06/18/23 Unknown History Physical Exam 2 Vital Signs: Vital Signs: Last Vital Signs Temp 97.0 F 06/18/23 11:16 Pulse 68 06/18/23 11:16 Resp 20 06/18/23 11:16 BP 135/71 06/18/23 11:16 Pulse Ox 98 06/18/23 11:16 O2 Del Method Room Air 06/18/23 11:16 O2 Flow Rate 2 06/17/23 22:19 BMI result Body Mass Index 27.3 Const: General: cooperative and comfortable Orientation/consciousness: o riented to person, oriented to place and oriented to time HEENT: Head: Yes atraumatic Eyes: General: appearance normal, both eyes and all related structures C onjunctivae: conjunctivae normal Pupils: Equal, round and reactive pupils present Neck: Neck: Yes normal visual inspection, Yes full ROM, Yes supple and No tender Chest: Chest palpation & inspection: normal inspection of the chest and normal palpation of entire chest wall Resp: Effort & Inspection: normal respiratory effort, able to speak in complete sentences and no respiratory distress Auscultation: clear to auscultation bilaterally Cardio: Rate: regular rate Rhythm: regular rhythm Peripheral pulses: P eripheral pulses 2+ throughout GI: Inspection: Yes normal to inspection Palpation (GI): Soft to palpation, not firm, nontender, no guarding and not rigid Auscultation: normal bowel sounds Neuro: Other: Alert and oriented . Speech is slow. Swallowing ok. Left chas estrength normal. Strength right upper extremity: 4/5, strength right lower extremity: 2/5 General: oriented to person, oriented to place and oriented to time C ranial nerves: Yes CN's II-XII intact bilaterally, Yes Equal, round and reactive pupils present, Yes Bilaterally intact EOM present, Yes Normal facial strength present (right facial droop ) and Yes Midline tongue present Cognition (Neuro): normal cognition Speech: No Abnormal speech present Motor exam (neuro): Other motor observations present (Strength left upper and lower extremity: 5/5) Sensory Exam: No Sensory deficit (Neuro) Coordination: f [id number] test normal and [id number] test normal Results Labs 06/17/23 14:21 06/17/23 14:21 Labs: Short CBC 06/17/23 Range/Units 14:21 WBC 6.3 (4.8-10.8) X10*3/uL Hgb 14.6 (14.0-18.0) g/dl Hct 42.9 (42.0-52.0) % Plt Count 237 D (160-400) X10*3/uL BMP 06/17/23 14:21 Sodium 135 Potassium 4.7 D Chloride 104 Carbon Dioxide 25 BUN 9 Creatinine 1.03 Calcium 9.0 Liver Function 06/17/23 Range/Units 14:21 Total Bilirubin 0.2 (0.0-1.0) mg/dL Direct Bilirubin < 0.2 (0.0-0.5) mg/dL AST 17 (5-37) U/L ALT 19 (0-40) U/L Alkaline Phosphatase 78 (39-117) U/L Albumin 3.7 (3.5-5.0) g/dL Assessment and Plan (1) Seizure: Status: Acute Break thru seizures . Recom : Check Valproate level. Increase Depakote to 500mg in am and 1000mg hs. EEG (2) Acute CVA (cerebrovascular accident): Status: Acute Increased weakness RLE either a new stroke or post ictal paralysis. Recom. MRI brain to r/o new stroke Increase Atorvastatin to 80 mg / day as LDL is very high. Continue ASA and Clopidogrel (3) Type 2 diabetes mellitus: Status: Acute Plan 57 with 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 He reportedly had an unwitnessed seizure and another witnessed seizure by the . Additionally he has been having augmented righ sided weakness more than his baseline. CT of the heada and CTA of the head and neck show no acute finding. Patient and family report LKN yesterday. He is given aspirin. Seizure deosorder with breakthrough, he is already on depakote, added Keppra and ask Neuro to assess, ? need for eeg right sided weakness mostly old, ct and cta show no acute finding, basilar occlusion is old on Plavix, ASA added Plavix, statin and BP meds, PT and OT eval, neuro as above to decide if MRI is warranted Diabetes --resume home meds once med rec done, add sliding scale HTN--continue home meds HLD--statin dvt prophylaxis lovenox full code admisson for at least 2 midnights for possible cva and seizure needing Iv meds Procedures Date of Service Date of Service: 06/18/23
[2023-06-18 12:22] LABS: Estimated Average Glucose 177 mg/dL; Hemoglobin A1c % 7.8 % (<6.0)
[2023-06-18] MEDS: 0.9 % Sodium Chloride Flush 3 ML SYRINGE IVFLUSH (15:59)
[2023-06-18 16:10] LABS: Glucose, Whole Blood 99 mg/dL (60-115)
[2023-06-18 16:27] LABS: Glucose, Whole Blood 90 mg/dL (60-115)
--- NOTE | 2023-06-18 16:29 | P.EN_ITS ---
Event Note Date of Service: 06/18/23 Event Note: STRETCHER LEVELER OPERATOR HELPER called for possible breakthrough seizure. Pt becomes unresponsive, eyes closed, with mild convulsions lasting several minutes. Awakens but disoriented. Third episode today. VSS. No acute focal deficits (chronic right sided weakness, L pupil dilitation). Had just been in MRI. Add 500mg Keppra IV x1, continue 500mg IV BID, continue depakote. POC glucose 90, typically in the 200s, so somewhat low for patient. Will hold glipizide. Time Spent With Patient Time: Total time managing care of this patient today ____ minutes.
--- NOTE | 2023-06-18 16:29 | PC.NURSE ---
during the conversation with RN pt stated that the room is spinning , became drowsy ,less responsive , his both eyes rolled back. SOFTWARE DESIGNER called at 1615 . Blood sugar 90 via finger stick, BP 124/77 , HR 64 O 2 sat 100 % RA. Pt slowly responded to voice and followed commands . HOB elevated now for aspiration precaution, pt resting alert and oriented ,stated he doesn't remember what happened
--- NOTE | 2023-06-18 18:01 | PC.NURSE ---
patient awake for dinner , RN supervised pt during the whole meal time . Pt was able to feed himself with the left hand , s/s of aspiration , VSS , responds slowly but appropriately,
[2023-06-18] MEDS: Enoxaparin Sodium 40 MG/0.4 ML SYRINGE SUBCUT (18:48)
--- NOTE | 2023-06-18 19:14 | PC.NURSE ---
ambulated to the bathroom with 1 assist with the walker ,
[2023-06-18 20:41] LABS: Glucose, Whole Blood 104 mg/dL (60-115)
[2023-06-18] MEDS: Atorvastatin Calcium 80 MG TABLET PO (20:48)
[2023-06-18] MEDS: Montelukast Sodium 10 MG TABLET PO (20:48)
[2023-06-19] VITALS (10 sets, daily range): BP systolic 117–1476; BP diastolic 64–96; PULSE 56–73; RESP 16–18; TEMP 36.2–37; O2SAT 97–99
--- NOTE | 2023-06-19 | EEG_ITS ---
FINDINGS: Waking background activity consists of a low voltage fast frequency seen diffusely intermixed with [id number] voltage, 9 to 10 hertz posterior alpha frequency. Photic stimulation is without activation. Hyperventilation was omitted. No focal, lateralizing, or paroxysmal discharges are seen. IMPRESSION: This waking EEG is within normal limits. MD FREDO Singh/JAMEY / [id number]
[2023-06-19] MEDS: 0.9 % Sodium Chloride Flush 3 ML SYRINGE IVFLUSH ×3 (00:01→16:13)
[2023-06-19] MEDS: Acetaminophen 325 MG TABLET 650 MG PO ×2 (02:55→21:03)
--- NOTE | 2023-06-19 07:00 | CA_ITS ---
Transthoracic Echocardiogram Patient (Last, First, Middle): Bib Galo, Gender: Male Date of : 1965 Age: 57 Procedure Date: 06/19/2023 Procedure Type: Transthoracic Echocardiogram Location: [facility] [place] Height: 175.26 cm Weight: 83.92 kg BSA: 2.00 m2 Heart Rate: bpm BP: 152 / 78 mmHg Safety Companion: Referring MD: Javed Mcclain DO Social Services Specialist: Obinna Qureshi MD Symptoms: cva Study Quality: Fair ECG Rhythm: Sinus with extra beats Conclusions: - 1. Normal LV ejection fraction 55-60% 2. No clear evidence of vegetations or PFO on this study 3. Normal cardiac valvular Dopplers 4. Normal RV systolic pressure Findings Procedure Information Contrast agent, definity, is being given per protocol without apparent complications. Left Ventricle Normal left ventricular size, thickness, and systolic function. The visually estimated ejection fraction is between 55-60%. Spectral Doppler is indicative of a normal filling pattern. Right Ventricle Normal right ventricular cavity size and systolic function. Atria Both atria are normal in size. There is no evidence of interatrial shunt by agitated saline. There is no evidence of a patent foramen ovale. Aortic Valve Normal aortic valve structure and function. There is no aortic valve stenosis. There is no aortic valve regurgitation. Mitral Valve Normal mitral valve structure and function. There is mild mitral valve regurgitation. There is no mitral valve stenosis. Pulmonic Valve The pulmonic valve is likely normal. Tricuspid Valve Normal tricuspid valve structure. There is trace tricuspid valve regurgitation. The right ventricular systolic pressure is normal. The right ventricular systolic pressure is 23 mmHg. Normal right atrial pressure. There is no evidence of pulmonary hypertension. Great Vessels All visible segments of the aorta are normal in size. The pulmonary artery was not well visualized. Venous The inferior vena cava is normal in size and collapses greater than 50% with inspiration. Pericardium/Pleural There is no evidence of pericardial effusion. Measurements 2D Linear Measurements IVSd: 0.78 0.6-0.9/0.6-1.0 cm LVIDd: 5.34 3.9-5.3/4.2-5.9 cm LVIDd Index: 2.67 2.4-3.2/2.2-3.1 cm/m2 LVIDs: 3.68 2.0-3.6 cm LVPWd: 0.87 0.7-1.1 cm Ao Root: 2.80 2.1-3.5 cm LA Diam: 3.70 2.7-3.8/3.0-4.0 cm LAIDs Index: 1.85 1.5-2.3 cm/m2 LV Mass: 196.37 67-162/88-224 g LV Mass Index: 98.19 43-95/49-115 g/m2 LVOT Diam: 2.00 3.0+(-)1.3 cm 2D Systolic Function EF 4C: 62.10 >55% EF 2C: 51.50 >55% Mitral Valve MV Pk E: 0.66 MV PK A: 0.57 MV Decel Time: 176.00 E/A: 1.20 E'Lateral: 11.30 E'Medial: 6.53 E/E' Med: 10.10 E/E' Lat: 5.80 PHT: 51.00 MVA PHT: 4.31 Decel Keith: 3.76 Aortic Valve AoV Pk Kervin: 1.61 AoV Mn Kervin: 0.98 AoV VTI: 0.35 AoV Pk Grad: 10.00 Aov Mn Grad: 5.00 RIO Cont.VTI: 1.93 LVOT LVOT Pk Kervin: 1.00 LVOT Mn Kervin: 0.65 LVOT VTI: 0.22 LVOT Pk Grad: 4.00 LVOT Mn Grad: 2.00 LVOT Diam: 2.00 LVOT Area: 3.14 Diastolic Function MV Pk E: 0.66 MV Pk A: 0.57 E/A: 1.20 E'Medial: 6.53 E/E' Med: 10.10 E' Laterial: 11.30 E/E' Lat: 5.80 Right Ventricle TAPSE (mm): 22.00 Tricuspid Valve TR Pk Kervin: 2.24 TR Pk Grad: 20.00 RA Press: 3.00 RVSP: 23.00 Great Vessels Aorta Ao Root-2D: 2.80 2.0-3.7 cm Ao Asc: 3.00 2.1-3.4 cm Pulmonary Valve PV Pk Kervin: 1.18 Peak PV Grad: 6.00 Updated in Other Vendor System with Status of Final Obinna Qureshi MD electronically signed on 06/19/2023 4:11:31 PM with status of Final
[2023-06-19 07:25] LABS: Glucose, Whole Blood 97 mg/dL (60-115)
[2023-06-19] MEDS: Fluticasone/Vilanterol 200/25 BLST.W.DEV 1 PUFF INHALE (07:35)
--- NOTE | 2023-06-19 08:05 | MHC.CM.PN ---
PT is recommending Acute Rehab; CM will follow.
[2023-06-19 08:36] LABS: Glucose, Whole Blood 115 mg/dL (60-115)
--- NOTE | 2023-06-19 09:01 | PC.NURSE ---
Patient was ambulating with physical therapist when he began to feel dizzy. PT promptly sat patient in chair when patient began to convulse but remained alert. TELEGRAPHIC TYPEWRITER REPAIRER called and MD arrived. All vital signs remained stable and POC was 115.patient was then transferred back to bed where he MD ordered EEG and depakote labs to be drawn. Patient denies any LOC and vital signs remain stable.
[2023-06-19 09:19] LABS: Valproate 47.4 mcg/mL (50.0-100.0)
[2023-06-19] MEDS: Divalproex Sodium 500 MG TABLET.DR PO ×2 (09:50→20:45)
[2023-06-19] MEDS: levETIRAcetam in NaCl (iso-os) 500 MG/100 ML PIGGYBACK 400 MG IV ×2 (09:50→20:45)
[2023-06-19] MEDS: Aspirin Enteric Coated 81 MG TABLET.DR PO (10:03)
[2023-06-19] MEDS: amLODIPine Besylate 5 MG TABLET PO (10:03)
[2023-06-19] MEDS: Clopidogrel Bisulfate 75 MG TABLET PO (10:03)
[2023-06-19] MEDS: DULoxetine HCl 60 MG CAPSULE.DR PO (10:04)
[2023-06-19 12:22] LABS: Glucose, Whole Blood 218 mg/dL (60-115)
[2023-06-19] MEDS: Insulin Lispro 100 UNIT/ML 3 ML VIAL SUBCUT ×2 (12:35→20:46)
--- NOTE | 2023-06-19 15:41 | P.PNIM_ITS ---
Subjective Subjective Date of Service: 06/19/23 Interval History: Episode this a.m. of extreme dizziness. Patient ambulating with therapy became dizzy requiring assistance. No notable seizure activity. Review of Systems Denies chest pain Denies shortness of breath Denies nausea vomiting diarrhea Denies fever chills Admits to intermittent dizziness (spinning) Physical Exam 2 Vital Signs: Vital Signs: Last Vital Signs Temp 97.5 F 06/19/23 15:13 Pulse 61 06/19/23 15:13 Resp 18 06/19/23 15:13 BP 139/74 06/19/23 15:13 Pulse Ox 98 06/19/23 15:13 O2 Del Method Room Air 06/19/23 15:13 O2 Flow Rate 2 06/17/23 22:19 BMI result Body Mass Index 27.3 Const: Other: Awake alert no acute distress Resp: Other: Clear to auscultation bilaterally no rales rhonchi or wheezes Cardio: Other: No S4; positive S1-S2; no S3 murmurs rubs or gallops Extrem: Other: No edema bilaterally Objective Data Active Medications Acetaminophen (Acetaminophen 325 Mg Tablet) 650 mg PO Q6H PRN PRN Reason: Pain, Mild (Pain Scale 1-3) Last Admin: 06/19/23 02:55 Dose: 650 mg Documented By: MAGNO Albuterol Sulfate (Albuterol Sulfate (0.083%) 2.5 Mg/3 Ml Vial.[facility]) 2.5 mg INHALE Q6H PRN PRN Reason: shortness of breath or wheezing Albuterol Sulfate (Albuterol Sulfate 90 Mcg 8 Gm Inhaler) 2 puff INHALE Q4H PRN PRN Reason: shortness of breath or wheezin Amlodipine Besylate (Amlodipine Besylate 5 Mg Tablet) 5 mg PO DAILY [facility]; Protocol Last Admin: 06/19/23 10:03 Dose: 5 mg Documented By: TYSON Aspirin (Aspirin Enteric Coated 81 Mg Tablet.) 81 mg PO DAILY [facility] Last Admin: 06/19/23 10:03 Dose: 81 mg Documented By: TYSON Atorvastatin Calcium (Atorvastatin Calcium 80 Mg Tablet) 80 mg PO BEDTIME [facility] Last Admin: 06/18/23 20:48 Dose: 80 mg Documented By: ANGELO Clopidogrel Bisulfate (Clopidogrel Bisulfate 75 Mg Tablet) 75 mg PO DAILY [facility] Last Admin: 06/19/23 10:03 Dose: 75 mg Documented By: TYSON Dextrose (Dextrose 50 % 25 Gm/50 Ml Syringe) 25 gm IVPUSH Q15M PRN; Protocol PRN Reason: per Hypoglycemia Standing Ord. Divalproex Sodium (Divalproex Sodium 500 Mg Tablet.) 500 mg PO BID [facility] Last Admin: 06/19/23 09:50 Dose: 500 mg Documented By: TYSON Duloxetine HCl (Duloxetine Hcl 60 Mg Capsule.) 60 mg PO DAILY [facility] Last Admin: 06/19/23 10:04 Dose: 60 mg Documented By: TYSON Enoxaparin Sodium (Enoxaparin Sodium 40 Mg/0.4 Ml Syringe) 40 mg SUBCUT Q24H [facility] Last Admin: 06/18/23 18:48 Dose: 40 mg Documented By: ANGELO Fluticasone/Vilanterol (Fluticasone/Vilanterol 200/25 Blst.W.Dev) 1 puff INHALE RDAILY [facility] Last Admin: 06/19/23 07:35 Dose: 1 puff Documented By: ILENE Glucose (Glucose Gel 15 Gm Gel..Gram.) 15 gm PO Q15M PRN; Protocol PRN Reason: per Hypoglycemia Standing Ord. Levetiracetam (Keppra) 500 mg in 100 mls @ 400 mls/hr IV BID [facility] Last Infusion: 06/19/23 11:53 Dose: Infused Documented By: TYSON Insulin Glargine (Insulin Glargine,Hum.Rec.Anlog 100 Unit/Ml 10 Ml Vial) 20 unit SUBCUT BEDTIME [facility] Last Admin: 06/18/23 20:30 Dose: Not Given Documented By: ANGELO Non-Admin Reason: Previously Administered Insulin Human Lispro (Insulin Lispro 100 Unit/Ml 3 Ml Vial) 0 unit SUBCUT QIDACHS [facility]; Protocol Last Admin: 06/19/23 12:35 Dose: 4 unit Documented By: TYSON Melatonin (Melatonin 3 Mg Tablet) 6 mg PO BEDTIME PRN PRN Reason: Insomnia Montelukast Sodium (Montelukast Sodium 10 Mg Tablet) 10 mg PO BEDTIME [facility] Last Admin: 06/18/23 20:48 Dose: 10 mg Documented By: ANGELO Nitroglycerin (Nitroglycerin 0.4 Mg Tab.Subl) 0.4 mg SUBLINGUAL Q5M PRN PRN Reason: chest pain Ondansetron HCl (Ondansetron Hcl 4 Mg/2 Ml Vial) 4 mg IVPUSH Q8H PRN PRN Reason: Nausea and Vomiting Last Admin: 06/18/23 10:10 Dose: 4 mg Documented By: PATSY Sodium Chloride (0.9 % Sodium Chloride Flush 3 Ml Syringe) 3 ml [facility]FLUSH [facility] Last Admin: 06/19/23 10:03 Dose: 3 ml Documented By: FOSTEKR Labs 06/17/23 14:21 06/17/23 14:21 Labs: Laboratory Results - last 24 hr 06/18/23 06/18/23 06/18/23 15:53 16:16 20:22 POC Glucose 99 90 104 Valproic Acid 06/19/23 06/19/23 06/19/23 07:02 08:30 08:56 POC Glucose 97 115 Valproic Acid 47.4 L 06/19/23 12:17 POC Glucose 218 H Valproic Acid Assessment and Plan (1) Seizure: Status: Acute (2) Acute CVA (cerebrovascular accident): Status: Acute (3) Type 2 diabetes mellitus: Status: Acute Plan 57 with 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 He reportedly had an unwitnessed seizure and another witnessed seizure by the . Additionally he has been having augmented righ sided weakness more than his baseline. CT of the heada and CTA of the head and neck show no acute finding. Patient and family report LKN yesterday. He is given aspirin. 1.Seizure diosorder with breakthrough -Depakote level subtherapeutic; Depakote 500 mg IV given -EEG done and is pending at this time -continue seizure precautions 2. Cerebellar CVA (question acute on chronic) -seizure treatment as above -Plavix/ASA/statin -PT/OT consult 3. Hypertension -acceptable control on current therapies -adjust as indicated 4.Type II Diabetes -acceptable control on current therapies -lispro correctional scale -adjust as indicated Full code Lovenox Patient requires ongoing hospitalization for adequate blood pressure control and seizure control. EEG pending at this time as well as ongoing specialty consultation HLD--statin dvt prophylaxis bridgettenox full code admisson for at least 2 midnights for possible cva and seizure needing Iv meds Quality Stroke Does the patient have a stroke diagnosis?: Yes Reason for No Anti-thrombotic by Day Two: N/A - Med Ordered VTE Prior VTE?: No VTE Risk Level:: Medical - moderate - high VTE Device Contraindication: Treatment Not Indicated VTE Drug Contraindication: N/A - Med Ordered
[2023-06-19 16:00] LABS: Glucose, Whole Blood 107 mg/dL (60-115)
[2023-06-19] MEDS: Valproic Acid (as Sodium Salt) 500 MG in Dextrose 5 % 50 ML 55 MG IV (16:09)
[2023-06-19 20:28] LABS: Glucose, Whole Blood 211 mg/dL (60-115)
[2023-06-19] MEDS: Enoxaparin Sodium 40 MG/0.4 ML SYRINGE SUBCUT (20:45)
[2023-06-19] MEDS: Montelukast Sodium 10 MG TABLET PO (20:45)
[2023-06-19] MEDS: Atorvastatin Calcium 80 MG TABLET PO (20:45)
[2023-06-19] MEDS: Insulin Glargine,Hum.rec.anlog 100 UNIT/ML 10 ML VIAL 20 UNIT SUBCUT (20:46)
[2023-06-19] MEDS: Melatonin 3 MG TABLET 6 MG PO (21:03)
[2023-06-19] MEDS: Butalb/Acetamin/Caff 50/325/40 TABLET 1 TAB PO (23:59)
[2023-06-20] VITALS (9 sets, daily range): BP systolic 126–156; BP diastolic 71–91; PULSE 59–100; RESP 18–28; TEMP 36.1–36.8; O2SAT 92–98
[2023-06-20 06:07] LABS: MANUAL DIFF FLAG NO
[2023-06-20 06:19] LABS: Basophils Percent Auto 0.4 % (0-2); Eosinophils Absolute Auto 0.1 X10*3/uL (0.0-0.4); Eosinophils Percent Auto 1.7 % (0-4); Hematocrit 43.2 % (42.0-52.0); Hemoglobin 14.8 g/dl (14.0-18.0); Imm Gran Abs Auto 0.03 X10*3/uL (0.00-0.03); Imm Gran Pct Auto 0.4 % (0.0-0.4); Lymphocytes Absolute Auto 3.2 X10*3/uL (1.2-4.9); Lymphocytes Percent Auto 39.4 % (20-40); Mean Corpuscular HGB Conc 34.3 g/dl (31.0-36.0); Mean Corpuscular Hemoglobin 31.3 pg (27.0-33.0); Mean Corpuscular Volume 91.3 fL (80.0-98.0); Monocytes Absolute Auto 0.7 X10*3/uL (0.1-1.2); Neutrophils Absolute Auto 4.1 x10*3/uL (2.0-8.3); Neutrophils Percent Auto 50.1 % (45-73); Platelet Count 262 X10*3/uL (160-400); Red Blood Count 4.73 X10*6/uL (4.60-5.80); Red Cell Distribution Width 12.3 % (11.0-16.0); White Blood Count 8.2 X10*3/uL (4.8-10.8)
[2023-06-20 06:29] LABS: Alanine Aminotransferase 14 U/L (0-40); Albumin Level 3.7 g/dL (3.5-5.0); Alkaline Phosphatase 71 U/L (39-117); Anion Gap 13 (12-20); Aspartate Amino Transferase 13 U/L (5-37); Bilirubin Total 0.2 mg/dL (0.0-1.0); Blood Urea Nitrogen 12 mg/dL (9-16); Calcium 8.9 mg/dL (8.4-10.2); Carbon Dioxide 25 mmol/L (22-29); Chloride 106 mmol/L (96-108); Creatinine Clr Calc Pharmacy 81.8; Estimated Glomerular Filt Rate > 60; Glucose Fasting 153 mg/dL (60-99); Potassium 4.4 mmol/L (3.3-5.1); Sodium 140 mmol/L (135-145)
[2023-06-20 07:54] LABS: Glucose, Whole Blood 127 mg/dL (60-115)
--- NOTE | 2023-06-20 09:07 | P.CDIM_ITS ---
PROVIDER RESPONSE TEXT: To clarify, the appropriate diagnosis supported by the clinical indicators: Clinically unable to determine (explain): one reading only. Cannot make diagnosis based on this data QUERY TEXT: PHYSICIAN'S DOCUMENTATION REQUEST Date of Query: 06/20/2023 08:11 AM EST Patient Name: Bib Galo Admit Date: 06/18/2023 Dear Javed Mcclain, A review of the medical record indicates additional documentation may be needed. Please review below and update the documentation accordingly. Clinical Indicators: Event note dated 06/18 - POC glucose 90 typically in the 200's, somewhat low for this patient. Add sliding scale POC glucose 115 224 107 211 Humalog Please clarify the following regarding the Complications of Diabetes Mellitus (DM): Diabetes mellitus type 2 uncontrolled, poorly controlled, hyperglycemia etc. No complications of DM Other (explain) Clinically unable to determine (explain) Thank you, Suzette Lowe, CCS, CDIS Use of terms such as suspected, likely, concern for, or probable (associated with a specific diagnosi s that is being evaluated, monitored, or treated as if it exists) are acceptable and can be coded in the inpatient se tting, when documented at the time of discharge. Please use your independent medical judgment in providing your response. THIS QUERY IS PART OF THE PERMANENT MEDICAL RECORD
[2023-06-20] MEDS: 0.9 % Sodium Chloride Flush 3 ML SYRINGE IVFLUSH ×2 (09:11→23:08)
[2023-06-20] MEDS: Aspirin Enteric Coated 81 MG TABLET.DR PO (09:11)
[2023-06-20] MEDS: levETIRAcetam in NaCl (iso-os) 500 MG/100 ML PIGGYBACK 400 MG IV ×2 (09:11→23:05)
[2023-06-20] MEDS: DULoxetine HCl 60 MG CAPSULE.DR PO (09:11)
[2023-06-20] MEDS: Divalproex Sodium 500 MG TABLET.DR PO (09:11)
[2023-06-20] MEDS: Clopidogrel Bisulfate 75 MG TABLET PO (09:11)
[2023-06-20] MEDS: amLODIPine Besylate 5 MG TABLET PO (09:11)
[2023-06-20 11:59] LABS: Glucose, Whole Blood 166 mg/dL (60-115)
[2023-06-20] MEDS: Valproic Acid 250 MG CAPSULE 1000 MG PO ×2 (12:05→23:06)
[2023-06-20] MEDS: Insulin Lispro 100 UNIT/ML 3 ML VIAL SUBCUT ×2 (12:05→23:06)
--- NOTE | 2023-06-20 14:32 | MHC.CM.PN ---
6 VNA referrals have been sent to all VNA's in this area that are in contract with [facility]; 5 of the 6 have denied Patient and CM awaits response from the last VNA in this area ([facility]). is aware; [facility] will lydia.
--- NOTE | 2023-06-20 15:14 | MHC.CM.PN ---
All of the VNAs in this area that are in contract with Patient's insurance ([employer]) have denied Patient. has been made aware.
--- NOTE | 2023-06-20 15:36 | HO.PM.IMPN ---
Subjective Subjective Date of Service: 06/20/23 Interval History: No acute issues overnight. Still with intermittent dizziness related to stroke Review of Systems Denies chest pain Denies shortness of breath Denies nausea vomiting diarrhea Denies fever chills Admits to intermittent dizziness (spinning) Physical Exam Vital Signs: Vital Signs: Last Vital Signs Temp 97.3 F 06/20/23 11:17 Pulse 59 06/20/23 11:17 Resp 20 06/20/23 11:17 BP 142/71 H 06/20/23 11:17 Pulse Ox 98 06/20/23 11:17 O2 Del Method Room Air 06/20/23 11:17 O2 Flow Rate 2 06/17/23 22:19 BMI result Body Mass Index 27.3 Const: Other: Awake alert no acute distress Resp: Other: Clear to auscultation bilaterally no rales rhonchi or wheezes Cardio: Other: No S4; positive S1-S2; no S3 murmurs rubs or gallops Extrem: Other: No edema bilaterally Objective Data Active Medications Acetaminophen (Acetaminophen 325 Mg Tablet) 650 mg PO Q6H PRN PRN Reason: Pain, Mild (Pain Scale 1-3) Last Admin: 06/19/23 21:03 Dose: 650 mg Documented By: ESEQUIEL Albuterol Sulfate (Albuterol Sulfate (0.083%) 2.5 Mg/3 Ml Vial.Neb) 2.5 mg INHALE Q6H PRN PRN Reason: shortness of breath or wheezing Albuterol Sulfate (Albuterol Sulfate 90 Mcg 8 Gm Inhaler) 2 puff INHALE Q4H PRN PRN Reason: shortness of breath or wheezin Amlodipine Besylate (Amlodipine Besylate 5 Mg Tablet) 5 mg PO DAILY REPLACED BY [facility]; Protocol Last Admin: 06/20/23 09:11 Dose: 5 mg Documented By: KATHRINE Aspirin (Aspirin Enteric Coated 81 Mg Tablet.) 81 mg PO DAILY REPLACED BY [facility] Last Admin: 06/20/23 09:11 Dose: 81 mg Documented By: KATHRINE Atorvastatin Calcium (Atorvastatin Calcium 80 Mg Tablet) 80 mg PO BEDTIME REPLACED BY [facility] Last Admin: 06/19/23 20:45 Dose: 80 mg Documented By: ESEQUIEL Clopidogrel Bisulfate (Clopidogrel Bisulfate 75 Mg Tablet) 75 mg PO DAILY REPLACED BY [facility] Last Admin: 06/20/23 09:11 Dose: 75 mg Documented By: KATHRINE Dextrose (Dextrose 50 % 25 Gm/50 Ml Syringe) 25 gm IVPUSH Q15M PRN; Protocol PRN Reason: per Hypoglycemia Standing Ord. Duloxetine HCl (Duloxetine Hcl 60 Mg Capsule.Dr) 60 mg PO DAILY REPLACED BY [facility] Last Admin: 06/20/23 09:11 Dose: 60 mg Documented By: KATHRINE Enoxaparin Sodium (Enoxaparin Sodium 40 Mg/0.4 Ml Syringe) 40 mg SUBCUT Q24H REPLACED BY [facility] Last Admin: 06/19/23 20:45 Dose: 40 mg Documented By: ESEQUIEL Fluticasone/Vilanterol (Fluticasone/Vilanterol 200/25 Blst.W.Dev) 1 puff INHALE RDAILY REPLACED BY [facility] Last Admin: 06/20/23 09:22 Dose: Not Given Documented By: ILENE Non-Admin Reason: py walking in good with PT/hypertrensive Glucose (Glucose Gel 15 Gm Gel..Gram.) 15 gm PO Q15M PRN; Protocol PRN Reason: per Hypoglycemia Standing Ord. Levetiracetam (Keppra) 500 mg in 100 mls @ 400 mls/hr IV BID REPLACED BY [facility] Last Infusion: 06/20/23 09:34 Dose: Infused Documented By: KATHRINE Insulin Glargine (Insulin Glargine,Hum.Rec.Anlog 100 Unit/Ml 10 Ml Vial) 20 unit SUBCUT BEDTIME REPLACED BY [facility] Last Admin: 06/19/23 20:46 Dose: 20 unit Documented By: ESEQUIEL Insulin Human Lispro (Insulin Lispro 100 Unit/Ml 3 Ml Vial) 0 unit SUBCUT QIDACHS REPLACED BY [facility]; Protocol Last Admin: 06/20/23 12:05 Dose: 2 unit Documented By: FOSTEKSarah Melatonin (Melatonin 3 Mg Tablet) 6 mg PO BEDTIME PRN PRN Reason: Insomnia Last Admin: 06/19/23 21:03 Dose: 6 mg Documented By: ESEQUIEL Montelukast Sodium (Montelukast Sodium 10 Mg Tablet) 10 mg PO BEDTIME REPLACED BY [facility] Last Admin: 06/19/23 20:45 Dose: 10 mg Documented By: ESEQUIEL Nitroglycerin (Nitroglycerin 0.4 Mg Tab.Subl) 0.4 mg SUBLINGUAL Q5M PRN PRN Reason: chest pain Ondansetron HCl (Ondansetron Hcl 4 Mg/2 Ml Vial) 4 mg IVPUSH Q8H PRN PRN Reason: Nausea and Vomiting Last Admin: 06/18/23 10:10 Dose: 4 mg Documented By: PATSY Sodium Chloride (0.9 % Sodium Chloride Flush 3 Ml Syringe) 3 ml IVFLUSH QSHIFT REPLACED BY [facility] Last Admin: 06/20/23 09:11 Dose: 3 ml Documented By: KATHRINE Valproic Acid (Valproic Acid 250 Mg Capsule) 1,000 mg PO BID REPLACED BY [facility] Last Admin: 06/20/23 12:05 Dose: 1,000 mg Documented By: FOSTEKR Labs 06/20/23 06:02 06/20/23 06:02 Labs: Laboratory Results - last 24 hr 06/19/23 06/19/23 06/20/23 15:50 20:24 06:02 MCV 91.3 MCH 31.3 MCHC 34.3 RDW 12.3 Plt Count 262 MPV 10.0 Immature Gran % (Auto) 0.4 Neut % (Auto) 50.1 Lymph % (Auto) 39.4 [place] % (Auto) 8.0 Eos % (Auto) 1.7 Baso % (Auto) 0.4 Lymph # (Auto) 3.2 [place] # (Auto) 0.7 Eos # (Auto) 0.1 Baso # (Auto) 0.0 Abs Immat Gran (auto) 0.03 Absolute Neuts (auto) 4.1 Absolute Nucleated RBC 0.000 Nucleated RBC % (auto) 0.0 Anion Gap 13 Estim Creat Clear Calc 81.8 Estimated GFR > 60 POC Glucose 107 211 H Fasting Glucose 153 H Calcium 8.9 Total Bilirubin 0.2 AST 13 ALT 14 Alkaline Phosphatase 71 Total Protein 7.0 Albumin 3.7 06/20/23 06/20/23 07:18 11:17 MCV MCH MCHC RDW Plt Count MPV Immature Gran % (Auto) Neut % (Auto) Lymph % (Auto) [place] % (Auto) Eos % (Auto) Baso % (Auto) Lymph # (Auto) [place] # (Auto) Eos # (Auto) Baso # (Auto) Abs Immat Gran (auto) Absolute Neuts (auto) Absolute Nucleated RBC Nucleated RBC % (auto) Anion Gap Estim Creat Clear Calc Estimated GFR POC Glucose 127 H 166 H Fasting Glucose Calcium Total Bilirubin AST ALT Alkaline Phosphatase Total Protein Albumin Assessment and Plan (1) Seizure: Status: Acute (2) Type 2 diabetes mellitus: Status: Acute Plan 57 with 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 He reportedly had an unwitnessed seizure and another witnessed seizure by the . Additionally he has been having augmented righ sided weakness more than his baseline. CT of the heada and CTA of the head and neck show no acute finding. Patient and family report LKN yesterday. He is given aspirin. 1.Seizure diosorder with breakthrough -Depakote level subtherapeutic; Depakote 500 mg IV given -Depakote 1000 mg p.o. b.i.d. -EEG done; no active seizure focus -continue seizure precautions 2. Cerebellar CVA (question acute on chronic) -seizure treatment as above -Plavix/ASA/statin -PT/OT consult 3. Hypertension -acceptable control on current therapies -adjust as indicated 4.Type II Diabetes -acceptable control on current therapies -lispro correctional scale -adjust as indicated Full code Stevex Patient requires ongoing hospitalization for adequate blood pressure control and seizure control. EEG pending at this time as well as ongoing specialty consultation HLD--statin dvt prophylaxis lovenox full code admisson for at least 2 midnights for possible cva and seizure needing Iv meds Quality Stroke Does the patient have a stroke diagnosis?: Yes Reason for No Anti-thrombotic by Day Two: N/A - Med Ordered VTE Prior VTE?: No VTE Risk Level:: Medical - moderate - high VTE Device Contraindication: Treatment Not Indicated VTE Drug Contraindication: N/A - Med Ordered
[2023-06-20 16:15] LABS: Glucose, Whole Blood 124 mg/dL (60-115)
[2023-06-20 20:46] LABS: Glucose, Whole Blood 165 mg/dL (60-115)
[2023-06-20] MEDS: Atorvastatin Calcium 80 MG TABLET PO (23:06)
[2023-06-20] MEDS: Montelukast Sodium 10 MG TABLET PO (23:06)
[2023-06-20] MEDS: Insulin Glargine,Hum.rec.anlog 100 UNIT/ML 10 ML VIAL 20 UNIT SUBCUT (23:07)
[2023-06-20] MEDS: Enoxaparin Sodium 40 MG/0.4 ML SYRINGE SUBCUT (23:08)
[2023-06-20] MEDS: Melatonin 3 MG TABLET 6 MG PO (23:10)
[2023-06-21 03:08] VITALS: BP 127/85; PULSE 60; RESP 16; TEMP 36.4; O2SAT 96
[2023-06-21 06:10] LABS: MANUAL DIFF FLAG NO
[2023-06-21 06:12] LABS: Basophils Percent Auto 0.5 % (0-2); Eosinophils Absolute Auto 0.2 X10*3/uL (0.0-0.4); Eosinophils Percent Auto 2.2 % (0-4); Hematocrit 42.8 % (42.0-52.0); Imm Gran Abs Auto 0.04 X10*3/uL (0.00-0.03); Imm Gran Pct Auto 0.5 % (0.0-0.4); Lymphocytes Absolute Auto 3.9 X10*3/uL (1.2-4.9); Lymphocytes Percent Auto 47.6 % (20-40); Mean Corpuscular Hemoglobin 31.6 pg (27.0-33.0); Mean Corpuscular Volume 90.3 fL (80.0-98.0); Mean Platelet Volume 10.2 fL (9.4-12.4); Monocytes Absolute Auto 0.5 X10*3/uL (0.1-1.2); Monocytes Percent Auto 6.7 % (2-11); Neutrophils Absolute Auto 3.4 x10*3/uL (2.0-8.3); Neutrophils Percent Auto 42.5 % (45-73); Platelet Count 259 X10*3/uL (160-400); Red Blood Count 4.74 X10*6/uL (4.60-5.80); Red Cell Distribution Width 12.5 % (11.0-16.0); White Blood Count 8.1 X10*3/uL (4.8-10.8)
[2023-06-21 06:31] LABS: Alanine Aminotransferase 14 U/L (0-40); Albumin Level 3.6 g/dL (3.5-5.0); Alkaline Phosphatase 67 U/L (39-117); Anion Gap 13 (12-20); Aspartate Amino Transferase 11 U/L (5-37); Bilirubin Total 0.2 mg/dL (0.0-1.0); Blood Urea Nitrogen 16 mg/dL (9-16); Calcium 8.8 mg/dL (8.4-10.2); Carbon Dioxide 23 mmol/L (22-29); Chloride 109 mmol/L (96-108); Creatinine Clr Calc Pharmacy 75.8; Estimated Glomerular Filt Rate > 60; Glucose Fasting 79 mg/dL (60-99); Potassium 3.8 mmol/L (3.3-5.1); Sodium 141 mmol/L (135-145); Total Protein 6.8 g/dL (6.5-8.0)
[2023-06-21 07:12] VITALS: BP 133/78; PULSE 67; RESP 14; TEMP 36.4; O2SAT 99
[2023-06-21 07:46] LABS: Glucose, Whole Blood 164 mg/dL (60-115)
[2023-06-21] MEDS: Fluticasone/Vilanterol 200/25 BLST.W.DEV 1 PUFF INHALE (08:14)
[2023-06-21 08:15] VITALS: PULSE 67; RESP 14; O2SAT 94
[2023-06-21] MEDS: Clopidogrel Bisulfate 75 MG TABLET PO (08:19)
[2023-06-21] MEDS: Aspirin Enteric Coated 81 MG TABLET.DR PO (08:19)
[2023-06-21] MEDS: Insulin Lispro 100 UNIT/ML 3 ML VIAL SUBCUT ×2 (08:19→13:26)
[2023-06-21] MEDS: DULoxetine HCl 60 MG CAPSULE.DR PO (08:19)
[2023-06-21] MEDS: Valproic Acid 250 MG CAPSULE 1000 MG PO (08:19)
[2023-06-21] MEDS: levETIRAcetam in NaCl (iso-os) 500 MG/100 ML PIGGYBACK 400 MG IV (08:19)
[2023-06-21] MEDS: amLODIPine Besylate 5 MG TABLET PO (08:19)
[2023-06-21] MEDS: 0.9 % Sodium Chloride Flush 3 ML SYRINGE IVFLUSH (08:20)
[2023-06-21 09:06] VITALS: PULSE 67
[2023-06-21 11:15] VITALS: BP 124/80; PULSE 57; RESP 16; TEMP 36.3; O2SAT 95
[2023-06-21 11:17] LABS: Glucose, Whole Blood 153 mg/dL (60-115)
--- NOTE | 2023-06-21 11:35 | MHC.CM.PN ---
[facility] was following Patient but per MD, he is insisting on going home. CM will follow.
--- NOTE | 2023-06-21 12:18 | P.DS_ITS ---
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 He reportedly had an unwitnessed seizure and another witnessed seizure by the . Additionally he has been having augmented righ sided weakness more than his baseline. CT of the heada and CTA of the head and neck show no acute finding. Patient and family report LKN yesterday. He is given aspirin. Patient did have cocaine in his urine on U tox Hospital Course Patient admitted to telemetry where monitor failed to shoe any acute dysrhyt hmia. CTA of head and neck were obtained which demonstrated chronic changes. 2D echo was unremarkable. Seen in consultation by Neurology who ordered EEG which failed to demonstrate seizure activity. Consensus was that this was related to his old cerebellar stroke as dizziness was made complaint. Initially seen by PT and thought to be a candidate for rehab however over time he returned to baseline and PT as screened in at regret he can go back home with services. He will continue his current medicines as ordered. Strongly advised to taper to quit tobacco and avoid cocaine at all cost. On the day of discharge medically acceptable same and follow up with PCP next available Time Attestation Discharge coordination time: Greater than 30 minutes Quality: Safe Use of Opioids Does Pt have an Active Cancer Diagnosis on the Problem List?: No Quality: Stroke Does the patient have a stroke diagnosis?: No Physical Exam Vital Signs: Vital Signs: Last Vital Signs Temp 97.3 F 06/21/23 11:15 Pulse 57 06/21/23 11:15 Resp 16 06/21/23 11:15 BP 124/80 06/21/23 11:15 Pulse Ox 95 06/21/23 11:15 O2 Del Method Room Air 06/21/23 11:15 O2 Flow Rate 2 06/17/23 22:19 BMI result Body Mass Index 27.3 Const: Other: Awake alert no acute distress Resp: Other: Clear to auscultation bilaterally no rales rhonchi or wheezes Cardio: Other: No S4; positive S1-S2; no S3 murmurs rubs or gallops Extrem: Other: No edema bilaterally DS: Data Data Completed and Pending Labs on day of discharge: Laboratory Results - last 24 hr 06/20/23 06/20/23 06/21/23 16:09 20:12 05:34 WBC 8.1 RBC 4.74 Hgb 15.0 Hct 42.8 MCV 90.3 MCH 31.6 MCHC 35.0 RDW 12.5 Plt Count 259 MPV 10.2 Immature Gran % (Auto) 0.5 H Neut % (Auto) 42.5 L Lymph % (Auto) 47.6 H [place] % (Auto) 6.7 Eos % (Auto) 2.2 Baso % (Auto) 0.5 Lymph # (Auto) 3.9 [place] # (Auto) 0.5 Eos # (Auto) 0.2 Baso # (Auto) 0.0 Abs Immat Gran (auto) 0.04 H Absolute Neuts (auto) 3.4 Absolute Nucleated RBC 0.000 Nucleated RBC % (auto) 0.0 Sodium 141 Potassium 3.8 Chloride 109 H Carbon Dioxide 23 Anion Gap 13 BUN 16 Creatinine 1.10 Estim Creat Clear Calc 75.8 Estimated GFR > 60 POC Glucose 124 H 165 H Fasting Glucose 79 Calcium 8.8 Total Bilirubin 0.2 AST 11 ALT 14 Alkaline Phosphatase 67 Total Protein 6.8 Albumin 3.6 06/21/23 06/21/23 07:12 11:04 WBC RBC Hgb Hct MCV MCH MCHC RDW Plt Count MPV Immature Gran % (Auto) Neut % (Auto) Lymph % (Auto) [place] % (Auto) Eos % (Auto) Baso % (Auto) Lymph # (Auto) [place] # (Auto) Eos # (Auto) Baso # (Auto) Abs Immat Gran (auto) Absolute Neuts (auto) Absolute Nucleated RBC Nucleated RBC % (auto) Sodium Potassium Chloride Carbon Dioxide Anion Gap BUN Creatinine Estim Creat Clear Calc Estimated GFR POC Glucose 164 H 153 H Fasting Glucose Calcium Total Bilirubin AST ALT Alkaline Phosphatase Total Protein Albumin Discharge Plan Discharge Anticipated Discharge Date/Time: 06/21/23 12:12 Patient Disposition: Home, Self-Care Discharge Diagnosis: Dizziness related to old CVA Referrals: Shlomo Hamilton MD [Primary Care Provider] - 1 Week Discharge Medications: New valproic acid 250 mg Capsule 1,000 mg PO BID Qty: 60 0RF Continued glipizide [Glucotrol XL] 10 mg tablet extended release 24hr 10 mg PO DAILY Qty: 90 0RF (DME) blood-glucose meter Kit See Rx Instructions .Route Qty: 1 0RF Rx Instructions: As directed albuterol sulfate [ProAir HFA] 90 mcg/actuation HFA aerosol inhaler 2 puff inhalation Q4-6H PRN (Reason: shortness of breath or wheezing) Qty: 8.5 0RF nitroglycerin 0.4 mg tablet, sublingual 0.4 mg sublingual Q5M PRN (Reason: chest pain) Qty: 7 0RF Rx Instructions: do not exceed 3 doses per episode amlodipine 5 mg tablet 5 mg PO DAILY 30 Days Qty: 30 0RF albuterol sulfate 2.5 mg /3 mL (0.083 %) solution for nebulization 2.5 mg inhalation Q6H PRN (Reason: shortness of breath or wheezing) atorvastatin 20 mg tablet 20 mg PO BEDTIME clopidogrel 75 mg tablet 75 mg PO DAILY aspirin 81 mg tablet,delayed release (DR/EC) 81 mg PO DAILY fluticasone propion-salmeterol [Advair Diskus] 500-50 mcg/dose blister with device 1 ea inhalation BID montelukast 10 mg tablet 10 mg PO BEDTIME metformin 500 mg tablet extended release 24 hr 1,000 mg PO BIDWM duloxetine 60 mg capsule,delayed release(DR/EC) 60 mg PO DAILY insulin lispro [Humalog KwikPen Insulin] 100 unit/mL insulin pen 1 sliding scale dose subcut TIDWM Protocol: Insulin Correction Scale Less than or equal to 110 ---- Give (units): 0 111 to 150 Give (units): 0 151 to 200 Give (units): 2 201 to 250 Give (units): 4 251 to 300 Give (units): 6 301 to 350 Give (units): 8 Greater than 350 Give (units): 10 Call MD if Blood Glucose > : 350 insulin glargine [Lantus Solostar U-100 Insulin] 100 unit/mL (3 mL) insulin pen 20 unit subcut BEDTIME Discontinued divalproex 500 mg tablet,delayed release (DR/EC) 500 mg PO BID Discharge Orders: Discharge Order (Routine); Ordered 06/21/23 Ordered By: Javed Mcclain Diet: Advance to usual diet Activity on Discharge: As tolerated Stand Alone Forms: Patient Portal Discharge page Care Plan Goals: Continue all medicines as previously taken to hospital Health Concerns: Your Depakote has been increased to 1000 mg twice daily Plan of Treatment: No cocaine. Attempt to decrease tobacco use. Follow up with PCP next available Assessment: See discharge summary
--- NOTE | 2023-06-21 12:24 | MHC.CM.PN ---
Patient has been medically cleared for dc to home today, self care.
== END 2023-06-21 15:00 | disposition home or self-care (01) | DRG 58 ==
LOC: HO.ED 18:15 → HO.EDOVER 19:32 → HO.IMC 06-18 07:38
PROVIDERS: Admitting Provider Internal Medicine; Emergency Provider Emergency Medicine; PCP Family Medicine; Visit Provider Hospitalist
DX: I69.398 Other sequelae of cerebral infarction (principal); I69.351 Hemiplegia and hemiparesis following cerebral infarction affecting right dominant side; F17.210 Nicotine dependence, cigarettes, uncomplicated; G40.909 Epilepsy, unspecified, not intractable, without status epilepticus; I10 Essential (primary) hypertension; E78.5 Hyperlipidemia, unspecified; R42 Dizziness and giddiness; Z20.822 Contact with and (suspected) exposure to COVID-19; Z71.6 Tobacco abuse counseling; Z79.4 Long term (current) use of insulin; Z79.02 Long term (current) use of antithrombotics/antiplatelets; Z79.82 Long term (current) use of aspirin; Z79.84 Long term (current) use of oral hypoglycemic drugs; Z79.899 Other long term (current) drug therapy
CPT/HCPCS: 0241U; 36415; 70496; 70498; 70551; 71045; 80048; 80053; 80061; 80076; 80164; 82947; 83036; 83605; 83690; 85025; 85610; 93005; 93306; 94640; 94799; 95816; 97116; 97162; 97166; 97530; 99285; J1650; J1953; J2405; Q9957; Q9967

== ENCOUNTER → 2023-06-17 14:19 | Outpatient (BNV) | payer OTHER, SELFPAY | PROVIDERS: Admitting Provider Internal Medicine; Emergency Provider Emergency Medicine; Visit Provider Internal Medicine Cardiovascular Disease | DX: R00.1 Bradycardia, unspecified (principal) | CPT/HCPCS: 93010 ==

== ENCOUNTER 2023-06-17 19:24 | Outpatient (BNV) | payer OTHER, SELFPAY | END 2023-06-19 07:00 | PROVIDERS: Admitting Provider Internal Medicine; Emergency Provider Emergency Medicine; PCP Family Medicine; Visit Provider Internal Medicine Cardiovascular Disease | DX: I34.0 Nonrheumatic mitral (valve) insufficiency (principal) | CPT/HCPCS: 93306 ==

== ENCOUNTER → 2023-06-17 19:24 | Outpatient (BNV) | payer OTHER, SELFPAY | PROVIDERS: Admitting Provider Internal Medicine; Emergency Provider Emergency Medicine; Visit Provider Internal Medicine | DX: E11.9 Type 2 diabetes mellitus without complications (principal); I69.351 Hemiplegia and hemiparesis following cerebral infarction affecting right dominant side | CPT/HCPCS: 99223; 99232; 99233; 99238; 99499 ==

== ENCOUNTER → 2023-06-17 19:24 | Outpatient (BNV) | payer OTHER, SELFPAY | PROVIDERS: Admitting Provider Internal Medicine; Emergency Provider Emergency Medicine; Visit Provider Psychiatry & Neurology Neurology | DX: R56.9 Unspecified convulsions (principal); I69.359 Hemiplegia and hemiparesis following cerebral infarction affecting unspecified side; E11.9 Type 2 diabetes mellitus without complications | CPT/HCPCS: 99222 ==

== ENCOUNTER 2023-07-18 21:59 | Emergency (ER) | payer OTHER, SELFPAY ==
[2023-07-18 22:05] VITALS: BP 163/106; PULSE 70; RESP 18; TEMP 36.6; O2SAT 98; BMI 27.3
--- NOTE | 2023-07-19 00:05 | ED.DENTAL ---
HPI - Dental/Oral General Chief complaint: Dental/Oral Stated complaint: tooth pain ? abscess Time Seen by Provider: 07/18/23 23:49 Source: patient and family Mode of arrival: ambulatory History of Present Illness HPI Narrative: 57-year-old male with presentation for dental pain, patient has multiple dental caries which are currently being evaluated by dentist but patient states that pain started this morning and is very sensitive to cold temperature but denies any fevers or chills. Related Data Home Medications Medication Instructions Recorded Confirmed albuterol sulfate 2.5 mg/3 mL 2.5 mg inhalation Q6H PRN 06/18/23 06/18/23 (0.083 %) solution for nebulization shortness of breath or wheezing aspirin 81 mg tablet,delayed 81 mg PO DAILY 06/18/23 06/18/23 release atorvastatin 20 mg tablet 20 mg PO BEDTIME 06/18/23 06/18/23 clopidogrel 75 mg tablet 75 mg PO DAILY 06/18/23 06/18/23 duloxetine 60 mg capsule,delayed 60 mg PO DAILY 06/18/23 06/18/23 release fluticasone 500 mcg-salmeterol 50 1 ea inhalation BID 06/18/23 06/18/23 mcg/dose blistr powdr for inhalation (Advair Diskus) insulin glargine 100 unit/mL (3 20 unit subcut BEDTIME 06/18/23 06/18/23 mL) subcutaneous pen (Lantus Solostar U-100 Insulin) insulin lispro 100 unit/mL 1 sliding scale dose subcut TIDWM 06/18/23 06/18/23 subcutaneous pen (Humalog KwikPen (U-100) Insulin) metformin 500 mg tablet,extended 1,000 mg PO BIDWM 06/18/23 06/18/23 release 24 hr montelukast 10 mg tablet 10 mg PO BEDTIME 06/18/23 06/18/23 Previous Rx's Medication Instructions Recorded albuterol sulfate 90 mcg/actuation 2 puff inhalation Q4-6H PRN 02/04/23 aerosol inhaler (ProAir HFA) shortness of breath or wheezing #8.5 grams blood-glucose meter #1 ea 02/04/23 glipizide 10 mg tablet, extended 10 mg PO DAILY #90 tabs 02/04/23 release 24 hr (Glucotrol XL) amlodipine 5 mg tablet 5 mg PO DAILY 30 days #30 tabs 05/16/23 nitroglycerin 0.4 mg sublingual 0.4 mg sublingual Q5M PRN chest 05/16/23 tablet pain #7 tabs valproic acid 250 mg capsule 1,000 mg (4 x 250 mg) PO BID #60 06/21/23 caps amoxicillin 875 mg-potassium 1 tab PO BID 5 days #10 tabs 07/19/23 clavulanate 125 mg tablet Allergies Allergy/AdvReac Type Severity Reaction Status Date / Time No Known Allergies Allergy Verified 07/18/23 22:05 Review of Systems Review of Systems: Pertinent positives and negatives as stated in [facility] Past Medical History Source: nursing notes reviewed Medical History Seizure Acute CVA (cerebrovascular accident) Cerebellar stroke Basilar artery occlusion Chronic low back pain COPD (chronic obstructive pulmonary disease) Asthma Hyperlipidemia CVA (cerebral vascular accident) Migraine headache Cocaine abuse Type 2 diabetes mellitus Hypertension Social History Social History Household Members: Spouse Housing: Apartment Do you presently have visiting nurse or other home services: Yes (Helps with medications and ADLs) Alcohol intake: current Alcohol intake frequency: 0-2 drinks per day Patient Tobacco Use Status: Current someday Tobacco user Tobacco use type: Cigarette Cigarette Packs Per Day: 1 Cigarettes Per Day: 20.0 e-Cigarette/Vaping Use: Never Used Second Hand Smoke Exposure: No Substance Use Type: Crack/Cocaine Advance Directives: No Advance Directives Information Provided: Yes service: No Physical Exam Vital Signs: Vital Signs: Last Vital Signs Temp 97.8 F 07/18/23 22:05 Pulse 70 07/18/23 22:05 Resp 18 07/18/23 22:05 BP 163/106 H 07/18/23 22:05 Pulse Ox 98 07/18/23 22:05 O2 Del Method Room Air 07/18/23 22:05 BMI result Body Mass Index 27.3 VITAL SIGNS: Reviewed. GENERAL: Well developed, well nourished, in no acute distress. HEAD: Normocephalic/atraumatic EYES: PERRLA, EOMI OROPHARYNX: no oral lesions noted, posterior pharynx clear and multiple dental care, there is almost no right upper eye tooth and swelling noted at the left upper front tooth NECK: Supple, no adenopathy LUNGS: Normal breath sounds. No adventitious sounds or accessory muscle use. SpO2<98> CARDIOVASCULAR: Regular rate and rhythm without noted murmurs ABDOMEN: Soft, non-tender, non-distended with bowel sounds. MUSCULOSKELETAL: No tenderness, deformities, or effusions noted on gross inspection. EXTREMITIES: No cyanosis, clubbing or edema. SKIN: Inspection of the skin reveals no rashes NEUROLOGIC: Alert and oriented x 4. Strength and sensation to light touch were grossly intact x 4. Medical Decision Making Medical Decision Making MDM Narrative: 57-year-old male with history and clinical presentation of multiple dental caries and likely dental infection, patient received combination analgesics, Lollicaine, and 1st antibiotics. He was then discharged home in stable condition. Differential Diagnosis Differential Diagnoses: The differential diagnosis associated with the presentation includes We see the discussion above Admission/Observation Consideration of admission/observation: Escalation of care including admission/observation considered Please see the discussion above External Record Review External record reviewed: Outpatient record and Prior outpatient labs Critical Care Time Critical Care Time Critical Care Time: Yes Total Critical Care Time: 30 Attestation: I personally attest to this time spent taking care of the patient. Discharge Plan Discharge Clinical Impression: Dental caries, Toothache, Dental abscess Patient Disposition: Home, Self-Care Instructions: Dental Abscess (ED), Toothache (ED) Additional Instructions: 1. Tylenol 1000 mg, orally, every 6 hours as needed for pain control. 2. Ibuprofen 400 mg, orally with milk or food, every 6 hours as needed for pain control. 3. I recommend using the Catie canes for additional pain relief 4. Complete the entire course of antibiotics as prescribed. 5. Follow-up with your dentist by calling the office in the morning Return to the ER for any worsening symptoms. Prescriptions: New amoxicillin-pot clavulanate 875-125 mg tablet 1 tab PO BID 5 Days Qty: 10 0RF No Action glipizide [Glucotrol XL] 10 mg tablet extended release 24hr 10 mg PO DAILY Qty: 90 0RF (DME) blood-glucose meter Kit See Rx Instructions .Route Qty: 1 0RF Rx Instructions: As directed albuterol sulfate [ProAir HFA] 90 mcg/actuation HFA aerosol inhaler 2 puff inhalation Q4-6H PRN (Reason: shortness of breath or wheezing) Qty: 8.5 0RF nitroglycerin 0.4 mg tablet, sublingual 0.4 mg sublingual Q5M PRN (Reason: chest pain) Qty: 7 0RF Rx Instructions: do not exceed 3 doses per episode amlodipine 5 mg tablet 5 mg PO DAILY 30 Days Qty: 30 0RF albuterol sulfate 2.5 mg /3 mL (0.083 %) solution for nebulization 2.5 mg inhalation Q6H PRN (Reason: shortness of breath or wheezing) atorvastatin 20 mg tablet 20 mg PO BEDTIME clopidogrel 75 mg tablet 75 mg PO DAILY aspirin 81 mg tablet,delayed release (DR/EC) 81 mg PO DAILY fluticasone propion-salmeterol [Advair Diskus] 500-50 mcg/dose blister with device 1 ea inhalation BID montelukast 10 mg tablet 10 mg PO BEDTIME metformin 500 mg tablet extended release 24 hr 1,000 mg PO BIDWM duloxetine 60 mg capsule,delayed release(DR/EC) 60 mg PO DAILY insulin lispro [Humalog KwikPen Insulin] 100 unit/mL insulin pen 1 sliding scale dose subcut TIDWM Protocol: Insulin Correction Scale Less than or equal to 110 ---- Give (units): 0 111 to 150 Give (units): 0 151 to 200 Give (units): 2 201 to 250 Give (units): 4 251 to 300 Give (units): 6 301 to 350 Give (units): 8 Greater than 350 Give (units): 10 Call MD if Blood Glucose > : 350 insulin glargine [Lantus Solostar U-100 Insulin] 100 unit/mL (3 mL) insulin pen 20 unit subcut BEDTIME valproic acid 250 mg Capsule 1,000 mg PO BID Qty: 60 0RF Referrals: Shlomo Hamilton MD [Primary Care Provider] - Print Language: Romanian
--- NOTE | 2023-07-19 00:53 | PC.NURSE ---
Pt aox4 resting at the bedside. No apparent distress noted. VSS. Reports mouth pain, 10/10. Discharge instructions reviewed with pt. Pt verbalizes understanding. Technical difficulty obtaining ordered meds from the [facility]. Nursing silverware supervisor is obtaining medications. Pt did not want to wait for medications to arrive and wanted to leave.
[2023-07-19 00:55] VITALS: BP 159/90; PULSE 84; RESP 16; TEMP 36.6; O2SAT 98
== END 2023-07-19 00:56 | disposition home or self-care (01) ==
PROVIDERS: Emergency Provider Student in an Organized Health Care Education/Training Program; PCP Family Medicine
DX: K02.9 Dental caries, unspecified (principal); K04.7 Periapical abscess without sinus
CPT/HCPCS: 99283; 99284

== ENCOUNTER 2023-10-10 02:34 | Emergency (ER) | payer OTHER, SELFPAY ==
--- NOTE | 2023-10-10 | ECG_ITS ---
Test Reason : SHORTNESS OF BREATH Blood Pressure : / mmHG Vent. Rate : 077 BPM Atrial Rate : 077 BPM P-R Int : 124 ms QRS Dur : 098 ms QT Int : 390 ms P-R-T Axes : 047 020 056 degrees QTc Int : 441 ms Sinus rhythm with frequent Premature ventricular complexes Otherwise normal ECG When compared with ECG of 17-JUN-2023 15:01, Premature ventricular complexes are now Present Referred By: Oma Allen Electronically Signed By:QUINN ANTUNEZ
--- NOTE | ~2023-10-10 | XR_ITS ---
EXAMINATION: XR CHEST CLINICAL INFORMATION: Shortness of breath. COMPARISON: 06/17/2023. TECHNIQUE: Frontal view of the chest was obtained. FINDINGS: No significant abnormality is noted involving the heart, lungs, mediastinum, bony thorax or soft tissues. XR/XR chest 1V IMPRESSION: Unremarkable examination.
[2023-10-10 02:39] VITALS: BP 147/75; BP 150/94; PULSE 73; PULSE 74; RESP 19; O2SAT 100; BMI 27.2
[2023-10-10 02:45] VITALS: BP 150/94; PULSE 79; RESP 20; TEMP 37.2; O2SAT 100
[2023-10-10] MEDS: Albuterol Sulfate 5 MG, Albuterol/Iprat 2.5/0.5MG 3 ML 3 ML INHALE (02:49)
--- NOTE | 2023-10-10 03:04 | ED_ITS ---
HPI - SOB/Dyspnea General Chief Complaint: Dyspnea Stated Complaint: asthma attack Time Seen by Provider: 10/10/23 02:38 Source: patient, EMS and manager multimedia Mode of arrival: EMS History of Present Illness ED Provider: Dr Allen HPI Narrative: 57-year-old male with history of everyday smoking, COPD, who presents via EMS with progressive shortness of breath without fever or chills. Related Data Home Medications ?Medication ?Instructions ?Recorded ?Confirmed albuterol sulfate 2.5 mg/3 mL 2.5 mg inhalation Q6H PRN 06/18/23 06/18/23 (0.083 %) solution for nebulization shortness of breath or wheezing aspirin 81 mg tablet,delayed 81 mg PO DAILY 06/18/23 06/18/23 release atorvastatin 20 mg tablet 20 mg PO BEDTIME 06/18/23 06/18/23 clopidogrel 75 mg tablet 75 mg PO DAILY 06/18/23 06/18/23 duloxetine 60 mg capsule,delayed 60 mg PO DAILY 06/18/23 06/18/23 release fluticasone 500 mcg-salmeterol 50 1 ea inhalation BID 06/18/23 06/18/23 mcg/dose blistr powdr for inhalation (Advair Diskus) insulin glargine 100 unit/mL (3 20 unit subcut BEDTIME 06/18/23 06/18/23 mL) subcutaneous pen (Lantus Solostar U-100 Insulin) insulin lispro 100 unit/mL 1 sliding scale dose subcut TIDWM 06/18/23 06/18/23 subcutaneous pen (Humalog KwikPen (U-100) Insulin) metformin 500 mg tablet,extended 1,000 mg PO BIDWM 06/18/23 06/18/23 release 24 hr montelukast 10 mg tablet 10 mg PO BEDTIME 06/18/23 06/18/23 Previous Rx's ?Medication ?Instructions ?Recorded albuterol sulfate 90 mcg/actuation 2 puff inhalation Q4-6H PRN 02/04/23 aerosol inhaler (ProAir HFA) shortness of breath or wheezing #8.5 grams blood-glucose meter #1 ea 02/04/23 glipizide 10 mg tablet, extended 10 mg PO DAILY #90 tabs 02/04/23 release 24 hr (Glucotrol XL) amlodipine 5 mg tablet 5 mg PO DAILY 30 days #30 tabs 05/16/23 nitroglycerin 0.4 mg sublingual 0.4 mg sublingual Q5M PRN chest 05/16/23 tablet pain #7 tabs valproic acid 250 mg capsule 1,000 mg (4 x 250 mg) PO BID #60 06/21/23 caps amoxicillin 875 mg-potassium 1 tab PO BID 5 days #10 tabs 07/19/23 clavulanate 125 mg tablet prednisone 50 mg tablet 50 mg PO DAILY 4 days #4 tabs 10/10/23 Allergies Allergy/AdvReac Type Severity Reaction Status Date / Time No Known Allergies Allergy Verified 10/10/23 02:46 Review of Systems 2 Review of Systems: Pertinent positives and negatives as stated in [facility] Past Medical History Source: nursing notes reviewed Medical History Seizure Acute CVA (cerebrovascular accident) Cerebellar stroke Basilar artery occlusion Chronic low back pain COPD (chronic obstructive pulmonary disease) Asthma Hyperlipidemia CVA (cerebral vascular accident) Migraine headache Cocaine abuse Type 2 diabetes mellitus Hypertension Social History Social History Household Members: Spouse Housing: Apartment Do you presently have visiting nurse or other home services: Yes (Helps with medications and ADLs) Alcohol intake: current Alcohol intake frequency: does not drink Patient Tobacco Use Status: Current someday Tobacco user Tobacco use type: Cigarette Cigarette Packs Per Day: 1 Cigarettes Per Day: 20.0 Smoked in Last 30 Days: Yes e-Cigarette/Vaping Use: Never Used Second Hand Smoke Exposure: No Use of substances other than those prescribed or required for medical reasons: Yes Substance Use Type: Crack/Cocaine Substance Use Frequency: Chronic Longstanding Advance Directives: Yes Advance Directives Information Provided: Yes Advance Directives on File: No Do you have a plan to hurt others: No Plan service: No Physical Exam 2 Vital Signs: Vital Signs: Last Vital Signs Temp 98.9 F 10/10/23 02:45 Pulse 86 10/10/23 03:06 Resp 22 H 10/10/23 03:06 BP 150/94 H 10/10/23 02:45 Pulse Ox 98 10/10/23 05:18 O2 Del Method Room Air 10/10/23 04:00 O2 Flow Rate 7 10/10/23 02:45 BMI result Body Mass Index 27.2 VITAL SIGNS: Reviewed. GENERAL: Well developed, well nourished, in no acute distress. HEAD: Normocephalic/atraumatic EYES: PERRLA, EOMI EARS: Ext canals without abnormality NOSE: Nares patent bilateral OROPHARYNX: no oral lesions noted, posterior pharynx clear NECK: Supple, no adenopathy LUNGS: Bibasilar decreased breath sounds with coarse rales, tachypnea present with increased work of breathing. SpO2<100> on 100% non-rebreather CARDIOVASCULAR: Regular rate and rhythm without noted murmurs ABDOMEN: Soft, non-tender, non-distended with bowel sounds. MUSCULOSKELETAL: No tenderness, deformities, or effusions noted on gross inspection. EXTREMITIES: No cyanosis, clubbing or edema. SKIN: Inspection of the skin reveals no rashes NEUROLOGIC: Alert and oriented x 4. Strength and sensation to light touch were grossly intact x 4. Medications Administered Discontinued Medications Generic Name Dose Route Start Last Admin Trade Name Freq PRN Reason Stop Dose Admin Albuterol Sulfate 5 mg/ 0 mg 10/10/23 02:44 10/10/23 02:49 Albuterol/Ipratropium 3 ml INHALE 10/10/23 02:45 1 each ONCE ONE Administration Magnesium Sulfate 2 gm in 50 mls @ 150 mls/hr 10/10/23 02:38 10/10/23 04:04 Magnesium Sulfate/H2o IV 10/10/23 02:57 Infused ONCE ONE Infusion Methylprednisolone Sodium Succinate 125 mg 10/10/23 02:38 10/10/23 03:30 Methylprednisolone Sod Succ 125 Mg/2 Ml Vial IVPUSH 10/10/23 02:39 125 mg ONCE ONE Administration Medical Decision Making Medical Decision Making [facility] Narrative: 0250: 57-year-old male with history and clinical presentation, DDX: COPD exacerbation, pneumonia, viral illness INTERVENTION: Lactic acid, blood cultures, ED bronch, steroids I reviewed all investigations and hematologic indices are negative for leukocytosis/anemia/thrombocytopenia. VBG does not demonstrate any respiratory acidosis or hypercapnia. Chemistry indices negative for CECILIA/electrolyte or liver enzyme derangements. Viral testing is negative for COVID-19/influenza. Chest x-ray negative for infiltrate or venous congestion. On re-evaluation patient is calm and comfortable, oxygenating well on room air without any evidence of respiratory distress or increased work of breathing. He reports that he is feeling much better and that he has plenty of rescue inhalers at home and he understands he will be discharged on a short course of steroids. Differential Diagnosis Differential Diagnoses: The differential diagnosis associated with the presentation includes Please see the discussion above Admission/Observation Consideration of admission/observation: Escalation of care including admission/observation considered Please see the discussion above Lab Data MDM Lab Attestation statement: I reviewed the patient's lab results. Please see the discussion above 10/10/23 03:01 10/10/23 03:01 Labs: Lab Results 10/10/23 10/10/23 Range/Units 03:01 03:26 WBC 7.6 (4.8-10.8) X10*3/uL RBC 4.56 L (4.60-5.80) X10*6/uL Hgb 14.6 (14.0-18.0) g/dl Hct 41.9 L (42.0-52.0) % MCV 91.9 (80.0-98.0) fL MCH 32.0 (27.0-33.0) pg MCHC 34.8 (31.0-36.0) g/dl RDW 12.6 (11.0-16.0) % Plt Count 262 (160-400) X10*3/uL MPV 9.8 (9.4-12.4) fL Immature Gran % (Auto) 0.3 (0.0-0.4) % Neut % (Auto) 43.2 L (45-73) % Lymph % (Auto) 44.2 H (20-40) % [place] % (Auto) 7.6 (2-11) % Eos % (Auto) 4.2 H (0-4) % Baso % (Auto) 0.5 (0-2) % Lymph # (Auto) 3.4 (1.2-4.9) X10*3/uL [place] # (Auto) 0.6 (0.1-1.2) X10*3/uL Eos # (Auto) 0.3 (0.0-0.4) X10*3/uL Baso # (Auto) 0.0 (0.0-0.2) X10*3/uL Abs Immat Gran (auto) 0.02 (0.00-0.03) X10*3/uL Absolute Neuts (auto) 3.3 (2.0-8.3) x10*3/uL Absolute Nucleated RBC 0.000 (0.0-0.012) X10*3/uL Nucleated RBC % (auto) 0.0 (0.0-0.2) /100WBC VBG pH 7.44 H (7.32-7.43) VBG pCO2 36 mmHg VBG pO2 82 mmHg VBG HCO3 24 (22-26) mmol/L VBG O2 Saturation 97.0 % VBG Base Excess 1.2 mmol/L Sodium 145 (135-145) mmol/L Potassium 3.9 (3.3-5.1) mmol/L Chloride 113 H (96-108) mmol/L Carbon Dioxide 24 (22-29) mmol/L Anion Gap 12 (12-20) BUN 13 (9-16) mg/dL Creatinine 1.19 (0.5-1.4) mg/dL Estim Creat Clear Calc 70.1 Estimated GFR > 60 Random Glucose 158 H (60-115) mg/dL Lactic Acid 1.6 (0.5-2.0) mmol/L Calcium 9.3 (8.4-10.2) mg/dL Total Bilirubin 0.2 (0.0-1.0) mg/dL AST 13 (5-37) U/L ALT 12 (0-40) U/L Alkaline Phosphatase 64 (39-117) U/L Total Protein 7.2 (6.5-8.0) g/dL Albumin 3.9 (3.5-5.0) g/dL COVID-19 (STEFANIE) Negative (Negative) COVID-19 Clin Com See Note Influenza Type A (THELMA) Negative (Negative) Influenza Type B (THELMA) Negative (Negative) Influenza A & B Note See Note Independent Interpretation I performed an independent interpretation of an: EKG Interpretation: Sinus rhythm with frequent PVCs, HR-77, no STEMI, [place]/QRS/QTC is within normal limits. Radiology Impression Discussion of test interpretation with radiology: I have reviewed the radiologist's reading. Radiologist Impression: Please see the discussion above External Record Review External record reviewed: Outpatient record, Prior outpatient labs and Prior outpatient radiology Chronic Conditions Patient?s care impacted by: Diabetes and Hypertension Critical Care Time Critical Care Time Critical Care Time: Yes Total Critical Care Time: 60 Attestation: I personally attest to this time spent taking care of the patient. Discharge Plan Discharge Clinical Impression: Asthma exacerbation, Hypoxia Patient Disposition: Home, Self-Care Instructions: Asthma (ED), Hypoxia (ED) Additional Instructions: 1. Resume all home medications as prescribed. 2. Please complete the short course of steroids as prescribed. 3. Follow-up with your primary care doctor. Return to the ER for any worsening symptoms. Prescriptions: New prednisone 50 mg tablet 50 mg PO DAILY 4 Days Qty: 4 0RF No Action glipizide [Glucotrol XL] 10 mg tablet extended release 24hr 10 mg PO DAILY Qty: 90 0RF (DME) blood-glucose meter Kit See Rx Instructions .Route Qty: 1 0RF Rx Instructions: As directed albuterol sulfate [ProAir HFA] 90 mcg/actuation HFA aerosol inhaler 2 puff inhalation Q4-6H PRN (Reason: shortness of breath or wheezing) Qty: 8.5 0RF nitroglycerin 0.4 mg tablet, sublingual 0.4 mg sublingual Q5M PRN (Reason: chest pain) Qty: 7 0RF Rx Instructions: do not exceed 3 doses per episode amlodipine 5 mg tablet 5 mg PO DAILY 30 Days Qty: 30 0RF amoxicillin-pot clavulanate 875-125 mg tablet 1 tab PO BID 5 Days Qty: 10 0RF albuterol sulfate 2.5 mg /3 mL (0.083 %) solution for nebulization 2.5 mg inhalation Q6H PRN (Reason: shortness of breath or wheezing) atorvastatin 20 mg tablet 20 mg PO BEDTIME clopidogrel 75 mg tablet 75 mg PO DAILY aspirin 81 mg tablet,delayed release (DR/EC) 81 mg PO DAILY fluticasone propion-salmeterol [Advair Diskus] 500-50 mcg/dose blister with device 1 ea inhalation BID montelukast 10 mg tablet 10 mg PO BEDTIME metformin 500 mg tablet extended release 24 hr 1,000 mg PO BIDWM duloxetine 60 mg capsule,delayed release(DR/EC) 60 mg PO DAILY insulin lispro [Humalog KwikPen Insulin] 100 unit/mL insulin pen 1 sliding scale dose subcut TIDWM Protocol: Insulin Correction Scale Less than or equal to 110 ---- Give (units): 0 111 to 150 Give (units): 0 151 to 200 Give (units): 2 201 to 250 Give (units): 4 251 to 300 Give (units): 6 301 to 350 Give (units): 8 Greater than 350 Give (units): 10 Call MD if Blood Glucose > : 350 insulin glargine [Lantus Solostar U-100 Insulin] 100 unit/mL (3 mL) insulin pen 20 unit subcut BEDTIME valproic acid 250 mg Capsule 1,000 mg PO BID Qty: 60 0RF Print Language: Greenlandic
[2023-10-10 03:06] VITALS: PULSE 86; RESP 22; O2SAT 95
[2023-10-10 03:13] LABS: MANUAL DIFF FLAG NO
[2023-10-10 03:14] LABS: Basophils Percent Auto 0.5 % (0-2); Eosinophils Absolute Auto 0.3 X10*3/uL (0.0-0.4); Eosinophils Percent Auto 4.2 % (0-4); Hematocrit 41.9 % (42.0-52.0); Hemoglobin 14.6 g/dl (14.0-18.0); Imm Gran Abs Auto 0.02 X10*3/uL (0.00-0.03); Imm Gran Pct Auto 0.3 % (0.0-0.4); Lymphocytes Absolute Auto 3.4 X10*3/uL (1.2-4.9); Lymphocytes Percent Auto 44.2 % (20-40); Mean Corpuscular HGB Conc 34.8 g/dl (31.0-36.0); Mean Corpuscular Volume 91.9 fL (80.0-98.0); Mean Platelet Volume 9.8 fL (9.4-12.4); Monocytes Absolute Auto 0.6 X10*3/uL (0.1-1.2); Monocytes Percent Auto 7.6 % (2-11); Neutrophils Absolute Auto 3.3 x10*3/uL (2.0-8.3); Neutrophils Percent Auto 43.2 % (45-73); Platelet Count 262 X10*3/uL (160-400); Red Blood Count 4.56 X10*6/uL (4.60-5.80); Red Cell Distribution Width 12.6 % (11.0-16.0); White Blood Count 7.6 X10*3/uL (4.8-10.8)
[2023-10-10 03:20] LABS: Venous Blood Gas Refer to POC result
[2023-10-10 03:27] LABS: Alanine Aminotransferase 12 U/L (0-40); Albumin Level 3.9 g/dL (3.5-5.0); Alkaline Phosphatase 64 U/L (39-117); Anion Gap 12 (12-20); Aspartate Amino Transferase 13 U/L (5-37); Bilirubin Total 0.2 mg/dL (0.0-1.0); Blood Urea Nitrogen 13 mg/dL (9-16); Calcium 9.3 mg/dL (8.4-10.2); Carbon Dioxide 24 mmol/L (22-29); Chloride 113 mmol/L (96-108); Creatinine Clr Calc Pharmacy 70.1; Estimated Glomerular Filt Rate > 60; Glucose Random 158 mg/dL (60-115); Potassium 3.9 mmol/L (3.3-5.1); Sodium 145 mmol/L (135-145); Total Protein 7.2 g/dL (6.5-8.0)
[2023-10-10] MEDS: Magnesium Sulfate/H2O 2 GM/50 ML PIGGYBACK IV (03:30)
[2023-10-10] MEDS: methylPREDNISolone Sod Succ 125 MG/2 ML VIAL IVPUSH (03:30)
[2023-10-10 03:34] LABS: COVID-19 Test Negative (Negative); IDNOW Serial# 08D9AD1C; IDNOW Serial# 152EDE1D; Influenza A Negative (Negative); Influenza B2 Negative (Negative)
[2023-10-10 03:47] LABS: VBG Base Excess 1.2 mmol/L; VBG pCO2 36 mmHg; VBG pH 7.44 (7.32-7.43); VBG pO2 82 mmHg
[2023-10-10 03:48] LABS: VBG HCO3 24 mmol/L (22-26)
[2023-10-10 03:53] LABS: Lactic Acid 1.6 mmol/L (0.5-2.0)
[2023-10-10 04:00] VITALS: O2SAT 97
[2023-10-10 05:18] VITALS: O2SAT 98
[2023-10-10 06:59] VITALS: BP 142/82; PULSE 88; RESP 16; TEMP 36.8; O2SAT 98
== END 2023-10-10 07:00 | disposition home or self-care (01) ==
PROVIDERS: Emergency Provider Student in an Organized Health Care Education/Training Program
DX: J45.901 Unspecified asthma with (acute) exacerbation (principal); R09.02 Hypoxemia; J44.9 Chronic obstructive pulmonary disease, unspecified; I10 Essential (primary) hypertension; E11.9 Type 2 diabetes mellitus without complications; Z86.73 Personal history of transient ischemic attack (TIA), and cerebral infarction without residual deficits; Z11.52 Encounter for screening for COVID-19
CPT/HCPCS: 36415; 71045; 80053; 82803; 83605; 85025; 87040; 87502; 87635; 93005; 94640; 96365; 96375; 99284; 99285; J2919; J3475

== ENCOUNTER → 2023-10-10 02:40 | Outpatient (BNV) | payer OTHER, SELFPAY | PROVIDERS: Emergency Provider Student in an Organized Health Care Education/Training Program; Visit Provider Internal Medicine | DX: R06.02 Shortness of breath (principal) | CPT/HCPCS: 93010 ==

== ENCOUNTER 2024-02-23 23:50 | Emergency (ER) | payer OTHER, SELFPAY ==
[2024-02-23 23:55] VITALS: BP 166/92; BP 171/107; PULSE 82; PULSE 85; RESP 15; TEMP 36.9; O2SAT 100; O2SAT 98; BMI 28.2
[2024-02-24 00:10] VITALS: BP 166/92; PULSE 85; RESP 15; TEMP 36.9; O2SAT 98
--- NOTE | 2024-02-24 00:12 | PC.NURSE ---
pt biba from home. pt a&ox4, vss, respirations even and unlabored. pt reports left ear pain radiating to left neck x 1 day. pt reports he felt 'something crawl into his ear and inserting his finger in to his ear. pt reports he thinks a cockroach crawled into his ear. pt reports he flushed his ear with saline and inserted a q-tip to try to clean it. on visualization, ear canal appears red, swollen, and a large amount of cerumen is noted. william york at bedside.
--- NOTE | 2024-02-24 00:23 | ED_ITS ---
HPI - Ear Problem General Chief complaint: Ear Problems Stated complaint: LEFT EAR PAIN/ HYPERTENSIVE Source: patient Limitations: language barrier History of Present Illness ED Provider: Marleni Bray PA-C HPI Narrative: 58-year-old male with a history of diabetes, hypertension, hyperlipidemia presents with left ear pain. Earlier today, patient thought there was a bug that was crawling on his head and got in his ear. Patient is subsequently flushed his ear with water then took a ?stick?, to try and dislodge the insect. Patient now with severe left ear pain, with reduced hearing. Related Data Home Medications ?Medication ?Instructions ?Recorded ?Confirmed albuterol sulfate 2.5 mg/3 mL 2.5 mg inhalation Q6H PRN 06/18/23 06/18/23 (0.083 %) solution for nebulization shortness of breath or wheezing aspirin 81 mg tablet,delayed 81 mg PO DAILY 06/18/23 06/18/23 release atorvastatin 20 mg tablet 20 mg PO BEDTIME 06/18/23 06/18/23 clopidogrel 75 mg tablet 75 mg PO DAILY 06/18/23 06/18/23 duloxetine 60 mg capsule,delayed 60 mg PO DAILY 06/18/23 06/18/23 release fluticasone 500 mcg-salmeterol 50 1 ea inhalation BID 06/18/23 06/18/23 mcg/dose blistr powdr for inhalation (Advair Diskus) insulin glargine 100 unit/mL (3 20 unit subcut BEDTIME 06/18/23 06/18/23 mL) subcutaneous pen (Lantus Solostar U-100 Insulin) insulin lispro 100 unit/mL 1 sliding scale dose subcut TIDWM 06/18/23 06/18/23 subcutaneous pen (Humalog KwikPen (U-100) Insulin) metformin 500 mg tablet,extended 1,000 mg PO BIDWM 06/18/23 06/18/23 release 24 hr montelukast 10 mg tablet 10 mg PO BEDTIME 06/18/23 06/18/23 Previous Rx's ?Medication ?Instructions ?Recorded albuterol sulfate 90 mcg/actuation 2 puff inhalation Q4-6H PRN 02/04/23 aerosol inhaler (ProAir HFA) shortness of breath or wheezing #8.5 grams blood-glucose meter #1 ea 02/04/23 glipizide 10 mg tablet, extended 10 mg PO DAILY #90 tabs 02/04/23 release 24 hr (Glucotrol XL) amlodipine 5 mg tablet 5 mg PO DAILY 30 days #30 tabs 05/16/23 nitroglycerin 0.4 mg sublingual 0.4 mg sublingual Q5M PRN chest 05/16/23 tablet pain #7 tabs valproic acid 250 mg capsule 1,000 mg (4 x 250 mg) PO BID #60 06/21/23 caps amoxicillin 875 mg-potassium 1 tab PO BID 5 days #10 tabs 07/19/23 clavulanate 125 mg tablet prednisone 50 mg tablet 50 mg PO DAILY 4 days #4 tabs 10/10/23 ofloxacin 0.3 % ear drops 10 drp otic (ear) left DAILY 7 02/24/24 days #10 mL oxycodone 5 mg tablet 5 mg PO Q8H PRN pain #10 tabs 02/24/24 Allergies Allergy/AdvReac Type Severity Reaction Status Date / Time No Known Allergies Allergy Verified 02/23/24 23:58 Review of Systems Review of Systems: Yes all other systems are reviewed and are negative Constitutional: Constitutional: Denies fatigue and Denies fever(s) ENT: Reports otalgia Cardiovascular: Cardiovascular: Denies chest pain and Denies dyspnea Respiratory: Respiratory: Denies dyspnea Gastrointestinal: Gastrointestinal: Denies abdominal pain, Denies nausea and Denies vomiting Endocrine: Endocrine: Denies fatigue PMFSH Past Medical History Attestation statement: The following information was validated with the patient. Medical History Seizure Acute CVA (cerebrovascular accident) Cerebellar stroke Basilar artery occlusion Chronic low back pain COPD (chronic obstructive pulmonary disease) Asthma Hyperlipidemia CVA (cerebral vascular accident) Migraine headache Cocaine abuse Type 2 diabetes mellitus Hypertension Social History Social History Household Members: Spouse Housing: Apartment Do you presently have visiting nurse or other home services: Yes (Helps with medications and ADLs) Alcohol intake: current Alcohol intake frequency: does not drink Patient Tobacco Use Status: Current someday Tobacco user Tobacco use type: Cigarette Cigarette Packs Per Day: 1 Cigarettes Per Day: 20.0 Smoked in Last 30 Days: Yes e-Cigarette/Vaping Use: Never Used Second Hand Smoke Exposure: No Use of substances other than those prescribed or required for medical reasons: No Substance Use Type: Crack/Cocaine Advance Directives: No Advance Directives Information Provided: Yes Do you have a plan to hurt others: No Plan service: No Physical Exam Vital Signs: Vital Signs: Last Vital Signs Temp 98.5 F 02/24/24 00:10 Pulse 85 02/24/24 00:10 Resp 15 02/24/24 00:10 BP 166/92 H 02/24/24 00:10 Pulse Ox 98 02/24/24 00:10 O2 Del Method Room Air 02/24/24 00:10 BMI result Body Mass Index 28.2 Const: Orientation/consciousness: patient oriented x3 HEENT: Other: Left external ear canal is erythematous, the TM appears ruptured, there was no insect in the ear canal, tragal tenderness noted. The right TM was intact, there was cerumen in the external ear canal, no tragal tenderness Resp: Other: Nonlabored respirations Cardio: Other: Normal peripheral perfusion Skin: Other: Warm dry no rash Neuro: General: patient oriented x3, no focal motor deficits and CN's II-XI intact bilaterally Psych: Other: Cooperative Medications Administered Discontinued Medications Generic Name Dose Route Start Last Admin Trade Name Jordonq PRN Reason Stop Dose Admin Ketorolac Tromethamine 30 mg 02/24/24 00:15 02/24/24 00:25 Ketorolac Tromethamine 30 Mg/Ml Vial IM 02/24/24 00:16 30 mg ONCE ONE Administration Oxycodone HCl 10 mg 02/24/24 00:15 02/24/24 00:25 Oxycodone Hcl Immed Release 5 Mg Tablet PO 02/24/24 00:16 10 mg ONCE ONE Administration Medical Decision Making Medical Decision Making MDM Narrative: 58-year-old male with a history of diabetes, hypertension, hyperlipidemia presents with left ear pain. Earlier today, patient thought there was a bug that was crawling on his head and got in his ear. Patient is subsequently flushed his ear with water then took a ?stick?, to try and dislodge the insect. Patient now with severe left ear pain, with reduced hearing. Problem: Diabetes History: Per patient I have considered the following differential diagnoses: Foreign body of the ear, otitis media, otitis externa, cerumen impaction, ruptured TM Plan: Patient traumatically ruptured his eardrum. We will give analgesia, place on ofloxacin drops, he needs to call ENT tomorrow to be seen. No indication for imaging or labs Discharge Plan Discharge Clinical Impression: Eardrum rupture, left Patient Disposition: Home, Self-Care Instructions: Ruptured Eardrum (ED) Additional Instructions: You traumatically ruptured your eardrum. You need to follow up with the ENT service, I am providing you with a contact, you need to call tomorrow morning when they open, they will likely want to see you tomorrow. Use the ofloxacin drops as directed. Use the oxycodone as needed for pain. [facility] [place] [address] [address] [facility]. [address] [place] [address] Prescriptions: New ofloxacin 0.3 % drops 10 drp otic (ear) left DAILY 7 Days Qty: 10 0RF oxycodone 5 mg tablet 5 mg PO Q8H PRN (Reason: pain) Qty: 10 0RF Rx Instructions: Partial Fill upon patient request. No Action glipizide [Glucotrol XL] 10 mg tablet extended release 24hr 10 mg PO DAILY Qty: 90 0RF (DME) blood-glucose meter Kit See Rx Instructions .Route Qty: 1 0RF Rx Instructions: As directed albuterol sulfate [ProAir HFA] 90 mcg/actuation HFA aerosol inhaler 2 puff inhalation Q4-6H PRN (Reason: shortness of breath or wheezing) Qty: 8.5 0RF nitroglycerin 0.4 mg tablet, sublingual 0.4 mg sublingual Q5M PRN (Reason: chest pain) Qty: 7 0RF Rx Instructions: do not exceed 3 doses per episode amlodipine 5 mg tablet 5 mg PO DAILY 30 Days Qty: 30 0RF amoxicillin-pot clavulanate 875-125 mg tablet 1 tab PO BID 5 Days Qty: 10 0RF prednisone 50 mg tablet 50 mg PO DAILY 4 Days Qty: 4 0RF albuterol sulfate 2.5 mg /3 mL (0.083 %) solution for nebulization 2.5 mg inhalation Q6H PRN (Reason: shortness of breath or wheezing) atorvastatin 20 mg tablet 20 mg PO BEDTIME clopidogrel 75 mg tablet 75 mg PO DAILY aspirin 81 mg tablet,delayed release (DR/EC) 81 mg PO DAILY fluticasone propion-salmeterol [Advair Diskus] 500-50 mcg/dose blister with device 1 ea inhalation BID montelukast 10 mg tablet 10 mg PO BEDTIME metformin 500 mg tablet extended release 24 hr 1,000 mg PO BIDWM duloxetine 60 mg capsule,delayed release(DR/EC) 60 mg PO DAILY insulin lispro [Humalog KwikPen Insulin] 100 unit/mL insulin pen 1 sliding scale dose subcut TIDWM Protocol: Insulin Correction Scale Less than or equal to 110 ---- Give (units): 0 111 to 150 Give (units): 0 151 to 200 Give (units): 2 201 to 250 Give (units): 4 251 to 300 Give (units): 6 301 to 350 Give (units): 8 Greater than 350 Give (units): 10 Call MD if Blood Glucose > : 350 insulin glargine [Lantus Solostar U-100 Insulin] 100 unit/mL (3 mL) insulin pen 20 unit subcut BEDTIME valproic acid 250 mg Capsule 1,000 mg PO BID Qty: 60 0RF Print Language: Maldivian
[2024-02-24] MEDS: oxyCODONE HCl Immed Release 5 MG TABLET 10 MG PO (00:25)
[2024-02-24] MEDS: Ketorolac Tromethamine 30 MG/ML VIAL IM (00:25)
[2024-02-24 00:46] VITALS: BP 170/95; PULSE 54; RESP 18; TEMP 36.8; O2SAT 97
[2024-02-24 00:48] VITALS: BP 170/95; PULSE 54; RESP 18; TEMP 36.8; O2SAT 97
== END 2024-02-24 00:50 | disposition home or self-care (01) ==
PROVIDERS: Emergency Provider Emergency Medicine; PCP Internal Medicine
DX: H72.92 Unspecified perforation of tympanic membrane, left ear (principal); H92.02 Otalgia, left ear; I10 Essential (primary) hypertension; F17.210 Nicotine dependence, cigarettes, uncomplicated; Z79.899 Other long term (current) drug therapy
CPT/HCPCS: 96372; 99284; J1885